=== PATIENT | female | born 2000 | race Caucasian/White ===

== ENCOUNTER 2022-12-23 13:26 | Emergency (ER) | payer OTHER, SELFPAY ==
[2022-12-23 13:26] VITALS: BP 103/67; PULSE 82; RESP 16; TEMP 35.8; O2SAT 97; BMI 24.3
--- NOTE | 2022-12-23 14:01 | US_ITS ---
INDICATION: pelvic pain, vaginal bleeding EXAMINATION: US Transvaginal Non-OB TECHNIQUE: Transvaginal (for optimal evaluation of the adnexa) pelvic ultrasound was performed. Grayscale, spectral waveform, and color flow Doppler evaluation of the adnexa. COMPARISON: None. FINDINGS: UTERUS: Retroverted. The uterus measures 6.8 x 5.7 x 3.2 cm. There is no uterine mass. The endometrial stripe measures 8 mm in AP diameter which is within normal limits. IUD in place. RIGHT OVARY: Measures 3.9 x 1.8 x 1.6 cm. Non-enlarged, normal echogenicity. There is normal arterial inflow and venous outflow present in the right ovary. LEFT OVARY: Measures 3 x 1.6 x 1.7 cm. Non-enlarged, normal echogenicity. There is normal arterial inflow and venous outflow present in the left ovary. FREE FLUID: None. US/Transvaginal Non- IMPRESSION: Normal pelvic ultrasound. Electronically Signed: Tree Wiley MD at 16:11 EDT ,
--- NOTE | 2022-12-23 14:01 | EKG12_ITS ---
Test Reason : Blood Pressure : / mmHG Vent. Rate : 073 BPM Atrial Rate : 073 BPM P-R Int : 166 ms QRS Dur : 090 ms QT Int : 376 ms P-R-T Axes : 079 078 044 degrees QTc Int : 414 ms Normal sinus rhythm Possible Left atrial enlargement Borderline ECG Confirmed by CHESTER YOUNG, ELODIA ([id number]), supervising film or videotape editor TERRI ALATORRE ([id number]) on 12/27/2022 7:57:27 AM Referred By: Confirmed By:ELODIA BRIGGS MD
--- NOTE | 2022-12-23 14:05 | NURSING ---
NO OLD EKGS
--- NOTE | 2022-12-23 14:14 | ED.VIS.FEGU ---
HPI <CINDY Baez - Last Filed: 12/23/22 19:23> HPI - Female History of Present Illness Chief Complaint: Vag Bleeding Narrative Narrative: Patient presenting today due to intermittent pelvic pain and vaginal bleeding with intercourse that she has had now for the past 2 to 3 months. Ports that last night she had much for bleeding than normal after intercourse and noticed tissue in her vaginal canal. Patient has had a IUD placed in February 2020 and is concerned that it could have shifted. She does not currently have a recycling program manager and has not followed up for this issue. She also reports presyncopal episode that occurred in the parking lot of the ED and she began to feel nauseous, sweaty, and felt like she could pass out but did not. 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 She denies any fever, chills, concerns for STD, abnormal vaginal discharge, urinary symptoms, abdominal pain, nausea, vomiting. PFSH <CINDY Baez - Last Filed: 12/23/22 19:23> [facility] Medical History no medical history Social History Smoking Status: Unknown if ever smoked ROS <CINDY Baez - Last Filed: 12/23/22 19:23> ROS ED Constitutional Constitutional ED: Denies chills or fever(s) Cardiovascular Cardiovascular: Denies chest pain or palpitations Respiratory/Chest Respiratory/Chest: Denies cough or dyspnea Gastrointestinal Gastrointestinal: Denies abdominal pain, nausea or vomiting Genitourinary Genitourinary ED: Denies dysuria, hematuria or urinary urgency Musculoskeletal Musculoskeletal: Denies arthralgias or myalgias Integumentary Denies abscess, Abrasions or rash Neurologic Neurologic: Denies confusion or dizziness Psychiatric Psychiatric: Denies anxiety or depression EXAM <CINDY Baez - Last Filed: 12/23/22 19:23> Physical Exam Const Vital Signs: 12/23/22 13:26 12/23/22 17:00 12/23/22 17:22 Temperature 96.5 F L 98.1 F Temperature Source Temporal Pulse Rate 82 76 82 Respiratory Rate 16 16 16 Blood Pressure 103/67 110/73 113/76 Blood Pressure Mean 79 85 Pulse Ox 97 99 99 Oxygen Delivery Method Room Air Room Air Positive well nourished, well developed and no apparent distress General Appearance ED: well developed HEENT Reports normocephalic and head/scalp atraumatic Mouth ED: Yes moist mucous membranes normal Eyes PERRL and EOMs intact bilaterally Neck full ROM and supple Chest Wall inspection of chest normal Resp normal respiratory effort and clear to auscultation bilaterally Cardio regular rate and regular rhythm GI soft to palpation, non-tender, non-distended and no masses Back/Spine normal ROM and normal to inspection Extremity normal to inspection and full ROM Neuro oriented x3, CN's II-XII intact bilaterally, moves all extremities, no focal motor deficits and no sensory deficits noted Sensorium / Orientation: awake and alert Psych mental status grossly normal and thought process normal Skin no rashes or lesions noted and no wounds <Dr. Paul Davila DO - Last Filed: 12/23/22 22:23> Physical Exam Const Vital Signs: 12/23/22 13:26 12/23/22 17:00 12/23/22 17:22 Temperature 96.5 F L 98.1 F Temperature Source Temporal Pulse Rate 82 76 82 Respiratory Rate 16 16 16 Blood Pressure 103/67 110/73 113/76 Blood Pressure Mean 79 85 Pulse Ox 97 99 99 Oxygen Delivery Method Room Air Room Air MDM <CINDY Baez - Last Filed: 12/23/22 19:23> [facility] Narrative Medical decision making narrative: Patient presenting due to abnormal vaginal bleeding after intercourse that she has had intermittently for the past 3 months, she did notice tissue last night after intercourse which concerned her. She is concerned that her IUD has shifted. She is well-appearing and in no acute distress, vital signs are unremarkable. Differentials include STDs, IUD malplacement, ovarian cysts, . Patient also did have a presyncopal episode in the parking lot, this sounds vasovagal in nature but labs will be obtained to rule out leukocytosis, anemia, electrolyte abnormality and are unremarkable. EKG obtained to rule out arrhythmia and is normal sinus rhythm. She declines a pelvic examination at this time as well as STD testing as she just got tested and was negative. Transvaginal ultrasound to be obtained and is negative for any acute findings. Given the duration of patient's symptoms I think it is best for her to follow-up with LABOR RELATIONS OR PERSONNEL NEGOTIATOR, I have given her a referral. She will be discharged home in stable condition and is comfortable with plan. Lab Data Labs: Laboratory Results - last 24 hr 12/23/22 12/23/22 12/23/22 14:15 14:15 16:10 WBC 8.9 RBC 5.25 Hgb 15.9 H Hct 46.6 MCV 88.8 MCH 30.3 MCHC 34.1 RDW Std Deviation 40.2 RDW Coeff of Yudy 12.3 Plt Count 214 MPV 9.0 Immature Gran % (Auto) 0.400 Neut % (Auto) 77.7 H Lymph % (Auto) 12.2 L [place] % (Auto) 6.9 Eos % (Auto) 2.1 Baso % (Auto) 0.7 Absolute Neuts (auto) 6.9 Absolute Lymphs (auto) 1.09 Nucleated RBC % 0 Sodium 136 Potassium 4.1 Chloride 102 Carbon Dioxide 27.0 Anion Gap 7 BUN 13 Creatinine 0.77 Estim Creat Clear Calc 94.80 Est GFR (MDRD) Af Amer 120 Est GFR (MDRD) Non-Af 99 BUN/Creatinine Ratio 16.9 Glucose 87 Calcium 9.6 Urine Test Negative Radiography Diagnostic Testing: Clinical Impression(s) from Imaging Studies Transvaginal US 12/23/22 14:01 IMPRESSION: Normal pelvic ultrasound. Electronically Signed: Tree Wiley MD at 16:11 EDT , <Dr. Paul Davila, DO - Last Filed: 12/23/22 22:23> [facility] Lab Data Attestation: I reviewed the patient's lab results. Lab results narrative: EKG with normal sinus rhythm, normal axis, normal intervals, no ST or T wave changes to suggest ischemia. No evidence of WPW, Brugada, ARVD. CBC without leukocytosis, severe anemia, no thrombocytopenia. BMP without evidence of significant electrolyte abnormalities, no anion gap, no acute kidney injury. Labs: Laboratory Results - last 24 hr 12/23/22 12/23/22 12/23/22 14:15 14:15 16:10 WBC 8.9 RBC 5.25 Hgb 15.9 H Hct 46.6 MCV 88.8 MCH 30.3 MCHC 34.1 RDW Std Deviation 40.2 RDW Coeff of Yudy 12.3 Plt Count 214 MPV 9.0 Immature Gran % (Auto) 0.400 Neut % (Auto) 77.7 H Lymph % (Auto) 12.2 L [place] % (Auto) 6.9 Eos % (Auto) 2.1 Baso % (Auto) 0.7 Absolute Neuts (auto) 6.9 Absolute Lymphs (auto) 1.09 Nucleated RBC % 0 Sodium 136 Potassium 4.1 Chloride 102 Carbon Dioxide 27.0 Anion Gap 7 BUN 13 Creatinine 0.77 Estim Creat Clear Calc 94.80 Est GFR (MDRD) Af Amer 120 Est GFR (MDRD) Non-Af 99 BUN/Creatinine Ratio 16.9 Glucose 87 Calcium 9.6 Urine Test Negative Radiography Diagnostic Testing: Clinical Impression(s) from Imaging Studies Transvaginal US 12/23/22 14:01 IMPRESSION: Normal pelvic ultrasound. Electronically Signed: Tree Wiley MD at 16:11 EDT , Treatment and Re-Evaluation Narrative: ED attending note: I evaluated the patient in conjunction with the ADOLFO. I agree with his/her statements and above findings. I have personally performed a face to face assessment of the patient and have reviewed the ADOLFO Note. I performed a substantive portion of the visit including all aspects of the following. I personally saw the patient performed chart review, physical exam, reviewed labs, imaging (if obtained), and formulated a treatment and management plan. Brief history: Patient is a G1, P0 history of a miscarriage presents with vaginal bleeding after intercourse and lower abdominal TTP. She is primarily concerned about having a missed placed, displaced or abnormal IUD Exam: Nursing triage notes reviewed, Vital signs reviewed Constitutional: please see mdm Lungs: Clear to auscultation, No wheezing or rales. No increased work of breathing, no conversational dyspnea, no accessory muscle use, no nasal flaring. No respiratory distress noted Heart: Regular rate and rhythm, No murmurs, No rubs and No gallops, 2+ distal pulses (radial, femoral, posterior tibial) in all extremities Abdomen: Soft, there is no tenderness, rigidity, rebound or guarding, no obvious peritoneal signs, no palpable pulsatile abdominal masses, no auscultated abdominal bruit : No CVAT, deferred by patient Extremities: No edema Neuro: No focal neurological deficits, cranial nerves II through XII intact, 5/5 strength in all extremities. Intact sensation to light touch in all extremities, 2+ reflexes bilateral patella dens. Normal gait. No ataxia. Skin: No rash or lesions noted MDM/plan: Chief Complaint: Vaginal bleeding External records reviewed: No recent ED visits or hospitalizations I considered the following differential diagnosis: Menstrual cycle, ectopic , miscarriage, perforated uterus, IUD irritation, arrhythmia I obtained a broad lab and imaging work-up to further elucidate the etiology of the patient's complaints. EKG without evidence of arrhythmia or WPW. This included transvaginal ultrasound, CBC and test. We will disposition based on results the patient's imaging labs, reassessment, repeat abdominal exam, vital sign assessment, shared decision making Factors affecting care: History of miscarriage Social determinants of health: Former drug user History obtained from others: The patient's boyfriend Shared decision making: I will have a discussion with the patient and or visitors regarding risk/benefits of further testing or admission. They will be made aware of of the risk/benefits inherent in this decision they will be given the opportunity to voice understanding. Consults: None at this time. If there is anatomic abnormality ultrasound we will consult LABOR RELATIONS OR PERSONNEL NEGOTIATOR Discharge Plan Triage Chief Complaint: Vag Bleeding ED Midlevel Provider: Ruth Rabago ED Provider: Paul Davila Dx/Rx/DC Orders Clinical Impression: Pre-syncope, Abnormal vaginal bleeding Instructions: ED Dysfunctional Uterine Bleeding Stand Alone Forms: ED Work / School Excuse Primary Care Provider: Care Physician,No Primary Referrals: Ananya Todd MD [Med Staff - Active Staff] - 5-7 Days Care Physician,No Primary [Primary Care Provider] - Activity Restrictions/Additional Instructions: Follow-up with LABOR RELATIONS OR PERSONNEL NEGOTIATOR, return for any worsening of your symptoms. Disposition Disposition: Home, Self Care Discharge Date/Time: 12/23/22 17:22
[2022-12-23 14:26] LABS: Absolute Lymphocyte Count 1.09 X10^3/uL (0.83-4.51); Absolute Neutrophil Count 6.9 X10^3/uL (2.0-7.7); Basophil# 0.06 X10^3/uL; Basophil% 0.7 % (0-1); Eosinophil# 0.19 X10^3/uL; Eosinophils% 2.1 % (0-5); Hematocrit 46.6 % (37-47); Hemoglobin 15.9 g/dL (12.0-15.0); Lymphocyte # 1.09 X10^3/ul (0.83-4.51); Lymphocyte % 12.2 % (19-41); Mean Corp Hgb Conc 34.1 g/dL (32-36); Mean Corpuscular Hgb 30.3 pg (27.0-32.0); Mean Corpuscular Volume 88.8 fL (81-99); Monocyte# 0.62 X10^3/uL; Monocyte% 6.9 % (0-10); NRBC Flagged by Analyzer 0 % (0-5); Neutrophil # 6.94 X10^3/uL (2.7-7.7); Neutrophil % 77.7 % (47-70); Platelet Count 214 K/mm3 (150-450); RBC Distribution Width CV 12.3 % (11.6-14.6); RBC Distribution Width SD 40.2 fl (35.1-43.9); Red Blood Count 5.25 M/mm3 (4.2-5.4); White Blood Count 8.9 K/mm3 (4.4-11.0)
[2022-12-23 14:46] LABS: Anion Gap 7 (5-15); BUN 13 mg/dL (7-18); BUN/Creat Ratio 16.9 RATIO (10-20); Calcium,Total 9.6 mg/dL (8.5-10.1); Chloride 102 mmol/L (98-107); Creatinine, Serum 0.77 mg/dL (0.55-1.02); EST Glomerular Filtration Rate 99 mL/min (>60); Est Glom Filt Rate - Afr Amer 120 mL/min (>60); Glucose 87 mg/dL (74-106); Potassium 4.1 mmol/L (3.5-5.1); Sodium Level 136 mmol/L (136-145)
[2022-12-23 16:57] LABS: Internal QC Validated? YES +Cl - CLEAR BKGD; Pregnancy, Urine Negative Negative
[2022-12-23 17:00] VITALS: BP 110/73; PULSE 76; RESP 16; O2SAT 99
[2022-12-23 17:22] VITALS: BP 113/76; PULSE 82; RESP 16; TEMP 36.7; O2SAT 99
== END 2022-12-23 17:22 | disposition home or self-care (01) ==
PROVIDERS: Physician Assistant; Emergency Provider Emergency Medicine; Visit Provider Emergency Medicine
DX: N93.9 Abnormal uterine and vaginal bleeding, unspecified (principal); R55 Syncope and collapse
CPT/HCPCS: 76830; 80048; 81025; 85025; 93005; 99283; A4216

== ENCOUNTER 2023-12-05 07:58 | Emergency (ER) | payer SELFPAY ==
[2023-12-05 07:58] VITALS: BP 135/88; PULSE 84; RESP 16; TEMP 36; O2SAT 98; BMI 31.3
--- NOTE | 2023-12-05 08:17 | EDS_ITS ---
HPI History of Present Illness Chief Complaint: Chest Pain Informant: patient and spouse/S.O. Narrative Narrative: Presents with transient chest pain dyspnea bilateral shoulder tingling this morning. near syncopal episode with this. Blood pressure elevated 160s. She was told of elevated blood pressure a little 2 weeks ago urgent care when she was seen for hemorrhoid. She been checking her blood pressure averaging 130s at times 160s. She does smoke. No recent travel or surgeries. No history of PE or DVT. She has IUD with progesterone. No diagnosed hypertension diabetes or hyperlipidemia. No family history of MIs at young age. She had appointment with new PCP in 3 weeks in [place]. Smoker's cough. CVD Risk Factors: Negative for Hypertension, Diabetes, Hypercholesterolemia, Family History 1' </=55 or Smoking PE Risk Factors: Negative for Recent Travel/Surgery, Recent Immobilization, Prior DVT or PE or OCP + Smoking + >/=35 PFSH PFSH Medical History (Updated 12/05/23 @ 09:[address] Kwame Vail, DO) WPW (Ioeuj-Pyzvkqetg-Bliay syndrome) Allergy/AdvReac Type Severity Reaction Status Date / Time Penicillins Allergy Severe Hives Verified 12/05/23 08:02 Surgical History (Updated 12/05/23 @ 08:03 by Yennifer Alvarado) Hx of heart surgery Social History Smoking Status: Current every day smoker tobacco type: cigarettes ROS ROS ED Constitutional Constitutional ED: Denies chills, fever(s) or sweats Eyes Eyes: Denies change in vision ENT ENT ED: Denies dysphagia or sore throat Cardiovascular Cardiovascular: Reports chest pain; Denies leg edema, palpitations or racing heartbeat Respiratory/Chest Respiratory/Chest: Reports cough and dyspnea; Denies dyspnea on exertion Gastrointestinal Gastrointestinal: Denies abdominal pain, diarrhea, nausea or vomiting Genitourinary Genitourinary ED: Denies dysuria, hematuria or urinary frequency Musculoskeletal Musculoskeletal: Denies back pain, extremity pain or neck pain Integumentary Denies rash or wounds Neurologic Neurologic: Denies headache(s), paresthesias or weakness EXAM Physical Exam Const Vital Signs: 12/05/23 07:58 12/05/23 08:16 12/05/23 08:58 Temperature 96.8 F L Temperature Source Temporal Pulse Rate 84 89 Respiratory Rate 16 14 Blood Pressure 135/88 H 125/79 H Blood Pressure Mean 103 94 Pulse Ox 98 98 Oxygen Delivery Method Room Air Room Air Room Air 12/05/23 09:00 12/05/23 09:34 Temperature 98.0 F Temperature Source Pulse Rate 80 80 Respiratory Rate 19 H 19 H Blood Pressure 114/70 114/70 Blood Pressure Mean 84 84 Pulse Ox 98 98 Oxygen Delivery Method Room Air Positive well nourished and well developed General Appearance ED: well developed and NAD HEENT Reports moist mucous membranes normocephalic and atraumatic Eyes EOMs intact bilaterally and conjunctivae normal General Eye ED: Yes normal appearance of both eyes Neck no lymphadenopathy and supple General: Negative for tenderness Chest Wall Chest: Negative for tenderness Resp normal respiratory effort and normal air movement Effort and Inspection: symmetric chest movement; Negative for respiratory distress Cardio regular rate, regular rhythm and no murmurs Peripheral Pulses: pulses 2+ throughout GI normal to inspection, nondistended, normoactive bowel sounds and non-tender Palpation: Negative for guarding or rebound tenderness present Back/Spine no CVA tenderness and no thoracic nor lumbar tenderness Extremity normal to inspection General Extremety ED: Negative for edema or tenderness General Extremity: Negative for edema Neuro oriented x3 and no sensory deficits noted Sensorium / Orientation: awake and alert Skin no rashes or lesions noted and no wounds MDM MDM MDM Narrative Medical decision making narrative: Interventions / MDM: Differential diagnosis: Atypical chest pain. Diagnosis considered but do not suspect: Pulmonary embolism however PERC criteria negative. ACS however EKG and negative cardiac enzyme. My EKG interpretation: Sinus rate of 85, no ST or T wave changes. Imaging independently reviewed and interpreted by myself: 2 view chest x-ray: No acute process also read radiology. External documents reviewed: N/A Test considered but not ordered:N/A ED course: Patient blood pressure arrival 135/88, in the room 128/78. I discussed appropriate checking her blood pressure in the morning at night keeping a log. She is currently asymptomatic. She had concerns for chest pain. She is very low risk factors for any cardiac disease however with her concerns we will check cardiac labs. PERC negative as she is only on progesterone and estrogen with her IUD. Patient workup negative troponin less than 3 therefore no ACS concerns according to hospital algorithm. Made symptom-free blood pressure 114/70 on reevaluation. She will keep her follow-up as an outpatient. Return precautions. All questions were answered. Re-evaluation: stable Disposition discussed with patient/family/significant other: Patient and significant other Case discussed with consulting clinician: N/A This note was generated with [employer] dictation software. It may contain incorrect words, spelling, and punctuation that were not noted in checking the note before signing. Lab Data Attestation: I reviewed the patient's lab results. Labs: Laboratory Results - last 24 hr 12/05/23 08:25 WBC 4.7 RBC 5.02 Hgb 15.2 H Hct 44.5 MCV 88.6 MCH 30.3 MCHC 34.2 RDW Std Deviation 39.8 RDW Coeff of Yudy 12.3 Plt Count 232 MPV 9.2 Immature Gran % (Auto) 0.400 Neut % (Auto) 62.0 Lymph % (Auto) 20.5 [place] % (Auto) 10.7 H Eos % (Auto) 5.5 H Baso % (Auto) 0.9 Absolute Neuts (auto) 2.9 Absolute Lymphs (auto) 0.96 Nucleated RBC % 0 Sodium 138 Potassium 4.0 Chloride 107 Carbon Dioxide 28.0 Anion Gap 3 L BUN 6 L Creatinine 0.70 Estim Creat Clear Calc 125.33 Est GFR (MDRD) Af Amer 133 Est GFR (MDRD) Non-Af 110 BUN/Creatinine Ratio 8.6 L Glucose 95 Calcium 9.3 Troponin I High Sens < 3 L Radiography Diagnostic Testing: Clinical Impression(s) from Imaging Studies Chest X-Ray 12/05/23 09:00 IMPRESSION: Normal x-ray examination of the chest. Electronically Signed: Rakesh Ortiz MD at 9:15 EDT , Discharge Plan Triage Chief Complaint: Chest Pain ED Provider: Kwame Vail Dx/Rx/DC Orders Clinical Impression: Chest pain Instructions: ED Chest Pain, Noncardiac Stand Alone Forms: Work / School Excuse Primary Care Provider: Care Physician,No Primary Referrals: Care Physician,No Primary [Primary Care Provider] - Activity Restrictions/Additional Instructions: Your cardiac workup normal ED. Chest x-ray negative. Your concerns of blood pressure keep a log of it in the morning when you wake up and then at night before bedtime. Keep follow-up with your doctor on the fourth. Print Language: Malay Disposition Disposition: Home, Self Care Discharge Date/Time: 12/05/23 09:36
[2023-12-05 08:47] LABS: Absolute Lymphocyte Count 0.96 X10^3/uL (0.83-4.51); Absolute Neutrophil Count 2.9 X10^3/uL (2.0-7.7); Basophil# 0.04 X10^3/uL; Basophil% 0.9 % (0-1); Eosinophil# 0.26 X10^3/uL; Eosinophils% 5.5 % (0-5); Hematocrit 44.5 % (37-47); Hemoglobin 15.2 g/dL (12.0-15.0); Lymphocyte # 0.96 X10^3/ul (0.83-4.51); Lymphocyte % 20.5 % (19-41); Mean Corp Hgb Conc 34.2 g/dL (32-36); Mean Corpuscular Hgb 30.3 pg (27.0-32.0); Mean Corpuscular Volume 88.6 fL (81-99); Mean Platelet Vol. 9.2 fl (6.2-12.0); Monocyte% 10.7 % (0-10); NRBC Flagged by Analyzer 0 % (0-5); Neutrophil # 2.91 X10^3/uL (2.7-7.7); Platelet Count 232 K/mm3 (150-450); RBC Distribution Width CV 12.3 % (11.6-14.6); RBC Distribution Width SD 39.8 fl (35.1-43.9); Red Blood Count 5.02 M/mm3 (4.2-5.4); White Blood Count 4.7 K/mm3 (4.4-11.0)
[2023-12-05 08:58] VITALS: BP 125/79; PULSE 89; RESP 14; O2SAT 98
[2023-12-05 09:00] VITALS: BP 114/70; PULSE 80; RESP 19; O2SAT 98
--- NOTE | 2023-12-05 09:00 | RAD_ITS ---
STUDY: X-RAY CHEST REASON FOR EXAM: Female, 23 years old. Chest pain TECHNIQUE: PA and lateral views of the chest. COMPARISON: None. FINDINGS: EKG electrodes are seen. The lungs are clear and expanded. There is no demonstrated pleural abnormality. Normal size heart. Normal mediastinum and isidra. Normal visualized pulmonary arteries. Normal visualized aortic arch and descending thoracic aorta. Normal visualized thoracic spine. Normal visualized ribs, clavicles, and shoulders. There is no demonstrated abnormality of the visualized soft tissue structures of the upper abdomen. RAD/Chest PA and Lateral IMPRESSION: Normal x-ray examination of the chest. Electronically Signed: Rakesh Ortiz MD at 9:15 EDT ,
[2023-12-05 09:02] LABS: Anion Gap 3 (5-15); BUN 6 mg/dL (7-18); BUN/Creat Ratio 8.6 RATIO (10-20); Calcium,Total 9.3 mg/dL (8.5-10.1); Chloride 107 mmol/L (98-107); EST Glomerular Filtration Rate 110 mL/min (>60); Est Glom Filt Rate - Afr Amer 133 mL/min (>60); Estimated Creatinine Clearance 125.33 ml/min; Glucose 95 mg/dL (74-106); Sodium Level 138 mmol/L (136-145); Troponin-I HS (w/2H Reflex) < 3 pg/mL (3.0-54.0)
[2023-12-05 09:34] VITALS: BP 114/70; PULSE 80; RESP 19; TEMP 36.7; O2SAT 98
[2023-12-05 10:35] LABS: Reflex Troponin-HS? (from REC) Y
== END 2023-12-05 09:36 | disposition home or self-care (01) ==
PROVIDERS: Emergency Provider Emergency Medicine; Visit Provider Emergency Medicine
DX: R07.9 Chest pain, unspecified (principal); F17.210 Nicotine dependence, cigarettes, uncomplicated
CPT/HCPCS: 71046; 80048; 84484; 85025; 93005; 99284

== ENCOUNTER 2024-04-08 22:22 | Emergency (ER) | payer MEDICAID, SELFPAY ==
[2024-04-08 22:23] VITALS: BP 149/94; PULSE 117; RESP 18; TEMP 36.6; O2SAT 98
--- NOTE | 2024-04-08 23:06 | RAD_ITS ---
INDICATION: fall EXAMINATION/TECHNIQUE: X-RAY - RIGHT XR Foot Min 3 Views 3 VIEWS COMPARISON: No relevant prior comparison study available FINDINGS: SOFT TISSUES: No soft tissue swelling or gas. No radiopaque foreign body. BONES/JOINTS: Nondisplaced fracture of the base of the fifth metatarsal. Normal alignment. Preservation of the joint space.. No sclerotic or destructive changes observed. RAD/Foot min 3 Views IMPRESSION: Nondisplaced fracture of the base of the fifth metatarsal. Electronically Signed: Sudhakar Major MD at 23:31 EDT ,
--- NOTE | 2024-04-09 00:34 | ED.VIS.LOWEX ---
HPI History of Present Illness Chief Complaint: Lower Extremity Injury Informant: patient Narrative Narrative: Patient is a 23-year-old female with no stated past medical history presenting with right foot pain. She was helping move a couch and wearing sandals. She then slipped and rolled her foot. She felt a crunching sensation and immediately had pain at her right foot at the base of the fifth metatarsal. She felt that she feel like something popped out. Has a hard time weightbearing since. Did not take anything for pain prior to arrival. No other complaints or concerns reported at this time. Is concerned she broke her foot. Denies associate ankle pain. Is having some paresthesias of her right lateral foot into her ankle and distal calf. No other complaints or concerns at this time. [facility], [facility] Medical History WPW (Mxqdi-Diylmoovp-Uodxx syndrome) Allergy/AdvReac Type Severity Reaction Status Date / Time Penicillins Allergy Severe Hives Verified 04/08/24 22:23 Surgical History Hx of heart surgery Social History Smoking Status: Current every day smoker tobacco type: cigarettes ROS ROS ED Constitutional Constitutional ED: Denies chills or fever(s) Musculoskeletal Musculoskeletal: Reports other Details: Right foot pain Integumentary Denies rash Neurologic Neurologic: Reports paresthesias; Denies weakness Hematologic/Lymphatic Hematologic/Lymphatic: Denies easy bleeding or easy bruising EXAM Physical Exam Const Vital Signs: 04/08/24 22:23 Temperature 97.9 F Temperature Source Temporal Pulse Rate 117 H Respiratory Rate 18 Blood Pressure 149/94 H Blood Pressure Mean 112 Pulse Ox 98 Oxygen Delivery Method Room Air Positive well nourished and well developed General Appearance ED: well developed and NAD HEENT Reports moist mucous membranes Chest Wall inspection of chest normal Resp normal respiratory effort Cardio Cardio Narrative: 2+ DP pulses Extremity Extremity Narrative: Tenderness palpation at the fifth metatarsal head. Some soft tissue swelling and bruising noted over the area. No obvious deformity. Normal range of motion of the toes. Normal range of motion of the ankle. Normal Krueger test. No chest palpation over the right ankle or the fibular head. Neuro moves all extremities and no sensory deficits noted Psych mental status grossly normal Skin no wounds Rashes: no rashes MDM MDM MDM Narrative Medical decision making narrative: Patient evaluated for right ankle pain and injury. Protocol x-ray ordered. X-ray of the foot reviewed by myself as well as radiology shows a nondisplaced fracture of the base of the fifth metatarsal. This is consistent with the patient's injury and area of pain. Patient will be given crutches, postop shoe and weightbearing as tolerated. Is given dose of Motrin in the ER. Will be given outpatient podiatry follow-up. Given return precautions. Patient verbalized agreement or stands plan. Discharged home in stable condition. Patient declines any prescription for Motrin or stronger pain medication. Radiography Diagnostic Testing: Clinical Impression(s) from Imaging Studies Foot X-Ray 04/08/24 23:06 IMPRESSION: Nondisplaced fracture of the base of the fifth metatarsal. Electronically Signed: Sudhakar Major MD at 23:31 EDT , Discharge Plan Triage Chief Complaint: Lower Extremity Injury ED Provider: Emmy Taveras Dx/Rx/DC Orders Clinical Impression: Closed nondisplaced fracture of fifth right metatarsal bone Instructions: Fifth Metatarsal Fx Primary Care Provider: Care Physician,No Primary Referrals: Leonel Robin DPM [Med Staff - Active Staff] - Care Physician,No Primary [Primary Care Provider] - Activity Restrictions/Additional Instructions: You may alternate ibuprofen and Tylenol for pain. You are given a dose of 600 mg ibuprofen here. Use crutches and only put weight on the foot as tolerated. Follow-up with podiatry for this. Return to the ER if you have progression or worsening your symptoms. Print Language: Mozambican Disposition Disposition: Home, Self Care
[2024-04-09 00:54] VITALS: BMI 28.0
[2024-04-09 00:55] VITALS: BP 127/74; PULSE 87; RESP 16; TEMP 37.2; O2SAT 100
== END 2024-04-09 00:56 | disposition home or self-care (01) ==
PROVIDERS: Emergency Provider Emergency Medicine; Visit Provider Emergency Medicine
DX: S92.354A Nondisplaced fracture of fifth metatarsal bone, right foot, initial encounter for closed fracture (principal); W18.49XA Other slipping, tripping and stumbling without falling, initial encounter; F17.210 Nicotine dependence, cigarettes, uncomplicated
CPT/HCPCS: 73630; 99284

== ENCOUNTER 2024-10-02 03:18 | Emergency (ER) | payer MEDICAID, SELFPAY ==
[2024-10-02 03:20] VITALS: BP 145/101; PULSE 127; RESP 24; TEMP 36.7; O2SAT 98; BMI 31.4
[2024-10-02 03:32] VITALS: BP 140/85; PULSE 105; RESP 18; O2SAT 96
--- NOTE | 2024-10-02 03:45 | EKG12_ITS ---
Test Reason : CHEST PAIN Blood Pressure : */* mmHG Vent. Rate : 119 BPM Atrial Rate : 119 BPM P-R Int : 148 ms QRS Dur : 80 ms QT Int : 318 ms P-R-T Axes : 72 73 13 degrees QTcB Int : 447 ms Sinus tachycardia Otherwise normal ECG Confirmed by KATHYA YOUNG, MARITA ([id number]), sports editor PATTIE COLON ([id number]) on 10/07/2024 10:53:19 AM Referred By: JUAN DIEGO Confirmed By: MARITA RASHEED MD
[2024-10-02] MEDS: 0.9% Normal Saline (1000mL) 1,000 ML 999 ML IV (04:02)
[2024-10-02] MEDS: DiphenhydrAMINE 50 MG/ML Syringe 12.5 MG IV (04:03)
[2024-10-02] MEDS: Lorazepam 2 MG/ML WCH Syringe 0.5 MG IV (04:03)
[2024-10-02 04:05] LABS: Absolute Lymphocyte Count 3.02 X10^3/uL (0.83-4.51); Absolute Neutrophil Count 6.6 X10^3/uL (2.0-7.7); Basophil# 0.11 X10^3/uL; Eosinophils% 2.6 % (0-5); Hematocrit 47.6 % (37-47); Hemoglobin 16.8 g/dL (12.0-15.0); Lymphocyte # 3.02 X10^3/ul (0.83-4.51); Lymphocyte % 26.5 % (19-41); Mean Corp Hgb Conc 35.3 g/dL (32-36); Mean Corpuscular Hgb 30.8 pg (27.0-32.0); Mean Corpuscular Volume 87.2 fL (81-99); Mean Platelet Vol. 9.2 fl (6.2-12.0); Monocyte# 1.35 X10^3/uL; Monocyte% 11.9 % (0-10); NRBC Flagged by Analyzer 0 % (0-5); Neutrophil # 6.55 X10^3/uL (2.7-7.7); Neutrophil % 57.5 % (47-70); Platelet Count 307 K/mm3 (150-450); RBC Distribution Width CV 12.6 % (11.6-14.6); RBC Distribution Width SD 39.3 fl (35.1-43.9); Red Blood Count 5.46 M/mm3 (4.2-5.4); White Blood Count 11.4 K/mm3 (4.4-11.0)
--- NOTE | 2024-10-02 04:10 | EDS_ITS ---
HPI History of Present Illness Chief Complaint: Hypertension Informant: patient and spouse/S.O. 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 She states that she typically smokes marijuana daily and that this evening also has been drinking alcohol. She reports she got into an argument with her significant other and after this developed sensation of her heart racing. She states that she had concern she had gone back into an abnormal heart rhythm such as WPW and therefore comes to the hospital for evaluation [facility] Medical History Alcohol abuse Cigarette smoker Marijuana smoker WPW (Lcsfv-Rhkvnyccm-Cqjkh syndrome) Home Medications ?Medication ?Instructions ?Recorded ?Last Taken ?Type NK 10/02/24 Unknown History Allergy/AdvReac Type Severity Reaction Status Date / Time Penicillins Allergy Severe Hives Verified 10/02/24 03:20 Surgical History Hx of heart surgery Social History Smoking Status: Current every day smoker tobacco type: cigarettes ROS ROS ED Constitutional Constitutional ED: Denies chills or fever(s) Eyes Eyes: Denies blurry vision or change in vision ENT ENT ED: Denies sore throat Cardiovascular Cardiovascular: Reports palpitations and racing heartbeat; Denies chest pain Respiratory/Chest Respiratory/Chest: Denies cough or dyspnea Gastrointestinal Gastrointestinal: Reports nausea; Denies abdominal pain, diarrhea or vomiting Genitourinary Genitourinary ED: Denies dysuria Musculoskeletal Musculoskeletal: Denies back pain Integumentary Denies rash Neurologic Neurologic: Denies headache(s) Psychiatric Psychiatric: Reports anxiety Hematologic/Lymphatic Hematologic/Lymphatic: Denies easy bleeding or easy bruising EXAM Physical Exam Const Vital Signs: 10/02/24 03:20 10/02/24 03:26 10/02/24 03:32 Temperature 98.0 F Temperature Source Oral Pulse Rate 127 H 105 H Respiratory Rate 24 H 18 Respiratory Effort Normal Non-Labored Respiratory Pattern Tachypnea Blood Pressure 145/101 H 140/85 H Blood Pressure Mean 115 103 Pulse Ox 98 96 Oxygen Delivery Method Room Air Room Air 10/02/24 04:59 Temperature 97.9 F Temperature Source Pulse Rate 99 Respiratory Rate 18 Respiratory Effort Respiratory Pattern Blood Pressure 112/69 Blood Pressure Mean 83 Pulse Ox 94 Oxygen Delivery Method Positive well nourished and well developed General Appearance ED: well developed; Negative for pallor HEENT HEENT Narrative: Normocephalic atraumatic Eyes Eyes Narrative: Pupils are dilated and sluggish to respond to light with scleral injection consistent with alcohol use General Eye ED: Negative for scleral icterus Neck supple and no JVD Neck Narrative: No nuchal rigidity or meningeal signs noted Chest Wall palpation of chest normal Chest Narrative: No bony deformity or crepitance Resp clear to auscultation bilaterally Resp Narrative: Patient is tachypneic and breath sounds are diminished throughout but overall clear to auscultation Cardio regular rhythm Rate: tachycardic and other Other Details: Tachycardic rate with regular rhythm Radial and carotid pulses are equal and symmetric No carotid bruit noted GI normal to inspection, nondistended, normoactive bowel sounds, non-tender, non- distended and no masses Auscultation: normoactive bowel sounds Palpation: soft Extremity normal to inspection Extremity Narrative: No asymmetric edema no pitting edema negative Homans' sign bilaterally Neuro oriented x3, CN's II-XII intact bilaterally and no sensory deficits noted Sensorium / Orientation: alert Motor Exam: strength 5/5 throughout Psych Mood & Affect: anxious and tearful Skin no rashes or lesions noted General Skin Exam: Negative for jaundice or pallor MDM MDM MDM Narrative Medical decision making narrative: Patient presented to the ER hypertensive and tachycardic but was also visibly anxious. With her history of WPW and her reported sensation of tachycardia she had concern that she was back in an abnormal heart rhythm such as A-fib a flutter or SVT. In order to ensure that this was not the case an EKG was obtained which showed sinus tachycardia but no signs of ischemia or abnormal heart rhythm. In order to ensure that there was no signs of acute kidney injury acute blood loss anemia complication or thyroid disorder as a cause of her symptoms basic blood work was ordered. Labs revealed no clinically significant findings. After receiving IV hydration as well as 0.5 of IV Ativan and 12.5 mg of IV Benadryl the patient had resolution of her hypertension and tachycardia and anxiety. Therefore at this time with improvement of vitals and resolution of symptoms and a negative workup there is no need for further evaluation and she is otherwise safe for discharge History & Record Review Discussion w/independent historian: Patient and Significant other Lab Data Attestation: I reviewed the patient's lab results. Labs: Laboratory Results - last 24 hr 10/02/24 03:30 WBC 11.4 H RBC 5.46 H Hgb 16.8 H Hct 47.6 H MCV 87.2 MCH 30.8 MCHC 35.3 RDW Std Deviation 39.3 RDW Coeff of Yudy 12.6 Plt Count 307 MPV 9.2 Immature Gran % (Auto) 0.500 Neut % (Auto) 57.5 Lymph % (Auto) 26.5 [place] % (Auto) 11.9 H Eos % (Auto) 2.6 Baso % (Auto) 1.0 Absolute Neuts (auto) 6.6 Absolute Lymphs (auto) 3.02 Nucleated RBC % 0 Sodium 143 Potassium 3.5 Chloride 104 Carbon Dioxide 20.4 L Anion Gap 18 H BUN 2 L Creatinine 0.68 L Estim Creat Clear Calc 128.24 Est GFR (MDRD) Non-Af 125 BUN/Creatinine Ratio 3.1 L Glucose 103 H Calcium 9.7 Magnesium 2.0 TSH 1.690 Serum , Qual NEGATIVE Discharge Plan Triage Chief Complaint: Hypertension ED Provider: Checo Dwyer Dx/Rx/DC Orders Clinical Impression: Sinus tachycardia, Alcohol intoxication, Anxiety reaction Instructions: Understanding Tachycardia Prescriptions: No Action NK Primary Care Provider: Care Physician,No Primary Referrals: Jani Ortiz MD [Med Staff - Active Staff] - Care Physician,No Primary [Primary Care Provider] - Activity Restrictions/Additional Instructions: Your workup today revealed no clinically significant lab abnormalities and after treatment your blood pressure and heart rate improved. Moreover your EKG and cardiac monitoring never displayed an abnormal rhythm such as A-fib A-flutter or WPW. Follow-up with your family doctor for repeat evaluation and return to the ER should you have any further concerns Print Language: Croatian Disposition Disposition: Home, Self Care Discharge Date/Time: 10/02/24 05:24
[2024-10-02 04:16] LABS: Internal QC Validated? YES +Cl - CLEAR BKGD; Pregnancy, Serum, hCG Quali. NEGATIVE Negative
[2024-10-02 04:47] LABS: Anion Gap 18 (5-15); BUN 2 mg/dL (4-19); BUN/Creat Ratio 3.1 RATIO (10-20); Calcium,Total 9.7 mg/dL (7.6-11.0); Carbon Dioxide 20.4 mmol/L (21.0-32.0); Chloride 104 mmol/L (98-108); Creatinine, Serum 0.68 mg/dL (0.70-1.20); EST Glomerular Filtration Rate 125 (>60); Estimated Creatinine Clearance 128.24 ml/min (50-250); Glucose 103 mg/dL (70-99); Potassium 3.5 mmol/L (3.3-5.1); Sodium Level 143 mmol/L (133-145)
[2024-10-02 04:59] VITALS: BP 112/69; PULSE 99; RESP 18; TEMP 36.6; O2SAT 94
== END 2024-10-02 05:24 | disposition home or self-care (01) ==
PROVIDERS: Emergency Provider Emergency Medicine; Visit Provider Emergency Medicine
DX: R00.0 Tachycardia, unspecified (principal); F10.129 Alcohol abuse with intoxication, unspecified; I10 Essential (primary) hypertension; F41.1 Generalized anxiety disorder; F17.210 Nicotine dependence, cigarettes, uncomplicated; Z63.0 Problems in relationship with spouse or partner
CPT/HCPCS: 80048; 83735; 84443; 84703; 85025; 93005; 96361; 96374; 96375; 99284; A4216

== ENCOUNTER 2025-04-13 00:02 | Emergency (ER) | payer MEDICAID, SELFPAY ==
[2025-04-13 00:06] VITALS: BP 149/94; PULSE 101; RESP 20; TEMP 36.7; O2SAT 98; BMI 33.8
--- NOTE | 2025-04-13 00:43 | EDS_ITS ---
HPI History of Present Illness Chief Complaint: Eye Problem Informant: patient and parent Narrative Narrative: Patient is a 24-year-old female with history of Cgcgh-Leunhzrmc-Awglv syndrome who underwent an ablation for this 5 years ago. She denies any history of bleeding disorder or blood thinner use. She states that earlier today she felt like there was something stuck in her right eye. She states that she attempted to get the foreign body sensation out and felt that she was successful. She states she went about the rest of her day and this evening was drinking alcohol. She then began to feel pain in her right eye and reports that the vision was blurry. 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 [facility] Medical History Alcohol abuse Cigarette smoker Marijuana smoker WPW (Qankf-Lkxywguif-Busba syndrome) Home Medications ?Medication ?Instructions ?Recorded ?Last Taken ?Type metoprolol succinate 25 mg 25 mg PO PRN 04/13/25 Unkno wn History tablet,extended release 24 hr progesterone micronized .ROUTE 04/13/25 Unknown Hist ory Allergy/AdvReac Type Severity Reaction Status Date / Time Penicillins Allergy Severe Hives Verified 04/13/25 00:04 Surgical History Hx of heart surgery Social History Smoking Status: Current every day smoker tobacco type: cigarettes ROS ROS ED Constitutional Constitutional ED: Denies chills or fever(s) Eyes Eyes: Reports blurry vision right ENT ENT ED: Denies sore throat Cardiovascular Cardiovascular: Denies chest pain or palpitations Respiratory/Chest Respiratory/Chest: Denies cough or dyspnea Gastrointestinal Gastrointestinal: Denies abdominal pain, diarrhea, nausea or vomiting Musculoskeletal Musculoskeletal: Denies myalgias Integumentary Denies rash Neurologic Neurologic: Denies headache(s) or weakness Hematologic/Lymphatic Hematologic/Lymphatic: Denies easy bleeding or easy bruising EXAM Physical Exam Const Vital Signs: 04/13/25 00:06 04/13/25 00:16 Temperature 98.1 F Temperature Source Oral Pulse Rate 101 H Respiratory Rate 20 H Respiratory Pattern Tachypnea Blood Pressure 149/94 H Blood Pressure Mean 112 Pulse Ox 98 Oxygen Delivery Method Room Air Positive well nourished and well developed General Appearance ED: well developed HEENT HEENT Narrative: Normocephalic atraumatic Eyes PERRL and EOMs intact bilaterally Eyes Narrative: Pupils are slightly dilated and mildly sluggish to respond to light consistent with alcohol use. Extraocular motions are intact bilaterally. There is bilateral scleral injection which can be related to alcohol use as well as the fact patient has been crying. No purulent discharge noted Funduscopic exam reveals normal macula and optic disc. No pallor noted. No blood and thunder appearance. No obvious retained foreign body No hyphema noted. No obvious corneal ulcer present. Neck supple Resp normal respiratory effort and clear to auscultation bilaterally Cardio regular rate and regular rhythm Extremity normal to inspection Neuro oriented x3, CN's II-XII intact bilaterally and moves all extremities Neuro Narrative: GCS of 15 Cranial nerves II through XII are grossly intact without focal neurologic deficit No pronator drift no dysmetria no truncal ataxia No hemianopsia/vision loss noted NIH stroke scale score of 0 Sensorium / Orientation: alert Motor Exam: strength 5/5 throughout Psych Mood & Affect: anxious and tearful Skin no rashes or lesions noted and no wounds Lesions: no lesions Rashes: no rashes MDM MDM MDM Narrative Medical decision making narrative: Patient arrived to the ER hypertensive but is extremely anxious and tearful. She reported right eye pain with blurry vision out of the right eye. She is adamant that the vision is simply blurry and that there is not loss of vision. She states that there are no scintillations/flashing light sensation. No blackness or vision change such as a shade being pulled down. She also reported that earlier in the day she thought there was something in her right eye which could correlate with a corneal abrasion. I discussed with the patient that concern for retinal artery or vein occlusion is extremely low as there is no pale macular optic disc or blood and thunder appearance. Also as she does not describe scintillations or a shade being pulled down causing vision loss I have low concern for retinal detachment. Also as the vision is blurry but not lost concern for a acute CVA is low. I discussed with the patient we can perform a more detailed exam with fluorescein staining and a slit-lamp to look for corneal abrasion and/or retained foreign body. We also can perform a CTA of the head to assess for potential acute stroke symptoms. The patient states that as I have low concern that her vision changes are due to an acute stroke or retinal issue that she does not want to undergo any type of testing in the ER such as CTA or even a simple fluorescein stain. Therefore at this time as the patient does not want further testing or workup regarding her blurry vision and her history and exam would indicate that this is most likely changes to the cornea/corneal abrasion as she reported a foreign body sensation earlier in the day I will allow her to be discharged as requested and she can follow-up with ophthalmology for more detailed eye examination if symptoms persist History & Record Review Discussion w/independent historian: Patient and Family Discharge Plan Triage Chief Complaint: Eye Problem ED Provider: Checo Dwyer Dx/Rx/DC Orders Clinical Impression: Blurred vision, right eye, Alcohol intoxication, History of Oreyf-Fpidhxwhf-Sjdwf syndrome Instructions: ED Blurred Vision, ED Corneal Abrasion Prescriptions: No Action metoprolol succinate 25 mg tablet extended release 24 hr 25 mg PO PRN progesterone micronized .ROUTE Primary Care Provider: Yaneth Camarena NP Referrals: Nimisha Laguerre MD [Med Staff - Active Staff, Opthamology] Yaneth Camarena NP, [employer] [facility] [Primary Care Provider, Family Practice] Activity Restrictions/Additional Instructions: Your history and exam would indicate that the vision blurriness is most likely from a corneal abrasion. This should heal over the next few days. If you have complete loss of vision or develop blackness or see the scintillation/flashing lights or have any further concerns please return to the ER for repeat evaluation. Otherwise recommend following up with ophthalmology for more detailed eye exam Print Language: Puerto Rican Disposition Disposition: Home, Self Care Discharge Date/Time: 04/13/25 00:52
[2025-04-13 00:44] VITALS: BP 135/98; PULSE 86; RESP 18; TEMP 36.6; O2SAT 97
== END 2025-04-13 00:52 | disposition home or self-care (01) ==
LOC: ED 00:51
PROVIDERS: Emergency Provider Emergency Medicine; PCP Nurse Practitioner Family; Visit Provider Emergency Medicine
DX: H53.8 Other visual disturbances (principal); F10.129 Alcohol abuse with intoxication, unspecified; I45.6 Pre-excitation syndrome; F17.210 Nicotine dependence, cigarettes, uncomplicated; Z98.890 Other specified postprocedural states; Z79.899 Other long term (current) drug therapy
CPT/HCPCS: 99284

== ENCOUNTER 2025-04-19 23:29 | Emergency (ER) | payer MEDICAID, SELFPAY ==
--- OUTSIDE RECORDS SUMMARY | 2025-04-17 09:42 | XMS RPT_ITS ---
Author Name Auto Generated Organization OHIP Care Team Providers Care Rubber Goods Inspector Name Role Phone QUEDEN, YANETH A Primary Care Unavailable QUEDEN, YANETH A Attending Unavailable QUEDEN, YANETH A Primary Care Unavailable QUEDEN, YANETH A Attending Unavailable SELF Referring Unavailable QUEDEN, YANETH A Primary Care Unavailable QUEDEN, YANETH A Referring Unavailable QUEDEN, YANETH A Referring Unavailable QUEDEN, YANETH A Primary Care Unavailable QUEDEN, YANETH A Primary Care Unavailable LYNETTE SALGADO Attending Unavailable ERIN SANCHEZ Attending Unavailable QUEDEN, YANETH A Primary Care Unavailable LYNETTE SALGADO Referring Unavailable PROBLEMS DATE TYPE CONDITION / CODE ATTENDING STATUS [facility] 11/13/2024 Active Obesity, Class I , BMI 30-34.9 / E66.811(ICD-10) RENALDOJOSEPHNY A Active [facility] 04/17/2025 Active Acute pain of ri ght shoulder / M25.511(ICD-10) RENALDO YANETH A Active [facility] 04/17/2025 Active Marijuana smoker / F12.90(ICD-10) RENALDO YANETH A Active [facility] 04/17/2025 Active Nausea / R11.0(ICD-10) RENALDO YANETH A Active [facility] 04/17/2025 Active Family history o f autoimmune disorder / Z83.2(ICD-10) RENALDO YANETH A Active [facility] 04/17/2025 Active Screening for di abetes mellitus / Z13.1(ICD-10) RENALDO YANETH A Active [facility] 04/17/2025 Active Vitamin D defici ency / E55.9(ICD-10) JOSEPH MACARIONY A Active [facility] 04/17/2025 Active Special screenin g examination for viral disease / Z11.59(ICD-10) YANETH MACARIO Active [facility] 04/17/2025 Active Screening for HI V (human immunodeficiency virus) / Z11.4(ICD-10) YANETH MACARIO Active [facility] 04/17/2025 Active Painful breathin g / R07.1(ICD-10) YANETH MACARIO Active [facility] 04/01/2025 Active Encounter for IU D removal / Z30.432(ICD-10) ERIN SANCHEZ Active [facility] 04/01/2025 Active Encounter for in itial prescription of contraceptive pills / Z30.011(ICD-10) ERIN SANCHEZ Active 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) YANETH MACARIO Active [facility] 11/12/2024 Active Elevated hemoglo bin / D58.2(ICD-10) YANETH MACARIO [facility] 11/12/2024 Active Wheezing / R06.2(ICD-10) JEANINE MACARIO A [facility] PROCEDURES No Procedure Records Found RESULTS XR CHEST 2V FRONTAL/LAT Observed: 2024 10:16 AM Status: F Source: [facility] * * *Final Report* * * DATE OF EXAM: Apr 17 2025 10:16AM LDX 5291 - XR CHEST 2V FRONTAL/LAT / PROCEDURE REASON: Painful breathing * * * * Physician Interpretation * * * * EXAMINATION: CHEST RADIOGRAPH (2 VIEW FRONTAL and LATERAL) CLINICAL HISTORY: Painful breathing MQ: XC2_6 EXAM DATE/TIME: 04/17/2025 10:16 AM COMPARISON: No relevant prior studies available. RESULT: Lines, tubes, and devices: None. Lungs and pleura: No consolidation. No lung mass. No pleural effusion. No pneumothorax. Cardiomediastinal silhouette: Normal cardiomediastinal silhouette. Bones and soft tissues: Unremarkable. IMPRESSION: No acute radiographic abnormality. Court Officer: PSCB Transcribe Date/Time: Apr 17 2025 10:20A Dictated by : MEGA COLBERT MD This examination was interpreted and the report reviewed and electronically signed by: MEGA COLBERT MD on Apr 17 2025 10:20AM EST [id number] PROGRESS Observed: 04/17/2025 10:00 AM Status: COMPLETED Source: [facility] HNO ID: [id number] Author: JOSE PANDYA CT Service: ? Author Type: Technologist Type: Progress Notes Filed: 04/17/2025 10:18 Note Text: Radiology Service Progress Note PATIENT NAME: Fannie Rosas DATE OF SERVICE: April 17, 2025 TIME: 10:17 AM PATIENT IDENTITY VERIFICATION COMPLETED USING TWO (2) IDENTIFIERS: Name and Date of confirmed by patient verbally. FALL SCREENING: Has the patient had 2 falls in the last year or 1 fall with injury or currently using an Ambulatory Assistive Device (Walker, Cane, Wheelchair, Crutches, etc.)? No PATIENT GENDER DATA: Assigned female at . status: : No status: NO. PATIENT RELEVANT IMPLANT DATA REVIEWED: Not Applicable PATIENT PRESENTS WITH AN IMPLANTABLE OR ATTACHED NURSING MANAGER: No RADIOLOGY DEPARTMENT: General X-ray: Exam(s) Completed: Chest X-Ray PERIPHERAL IV DATA: Not applicable SIGNED BY: CHIARA Nobles April 17, 2025 10:17 AM ESR BLD QN WESTRGRN Collected: 04/17/2025 9:[address] atus: F Source: [facility] Order Comment: Specimen Type : BLOOD SPECIMEN Ordering Facility: [facility] Address: [address] [place] [address] TYPE CODE TESTS RESULT OUT OF RANGE REFERENCE UNITS LAB 4537-7([facility]) ESR Bld Qn Westrgrn 5 0-20 mm/hr Performed By: #### 4537-7 ## ## [facility] CLIA [id number] [address] [place] [address] [place] [address] [place] CBC W AUTO DIFF BLD Collected: 04/17/2025 9:[address] atus: F Source: [facility] Order Comment: Specimen Type : BLOOD SPECIMEN Ordering Facility: [facility] Address: [place] [address] TYPE CODE TESTS RESULT OUT OF RANGE REFERENCE UNITS LAB 6690-2([facility]) WBC # Bld Auto 7.09 3.70-11.00 k/uL LAB 789-8([facility]) RBC # Bld Auto 5.29 High 3.90-5.20 m/ uL LAB 718-7([facility]) Hgb Bld-mCnc 16.3 High 11.5-15.5 g/dL LAB 4544-3([facility]) Hct VFr Bld Auto 47.5 High 36.0-46.0 % LAB 787-2([facility]) MCV RBC Auto 89.8 80.0-100.0 fL LAB 785-6([facility]) MCH RBC Qn Auto 30.8 26.0-34.0 p g LAB 786-4([facility]) MCHC RBC Auto-mCnc 34.3 30.5-36.0 g/dL LAB 15140-1([facility]) RDW RBC-Rto 12.0 11.5-15.0 % LAB 777-3([facility]) Platelet # Bld Auto 288 150-400 k/uL LAB 73352-5([facility]) PMV Bld Auto 9.6 9.0-12.7 fL LAB 770-8([facility]) Neutrophils/leuk NFr Bld Auto 66.9 % LAB 751-8([facility]) Neutrophils # Bl d Auto 4.75 1.45-7.50 k/uL LAB 736-9([facility]) Lymphocytes/leuk NFr Bld Auto 18.1 % LAB 731-0([facility]) Lymphocytes # Bl d Auto 1.28 1.00-4.00 k/uL LAB 5905-5([facility]) Monocytes/leuk NFr Bld Auto 9.6 % LAB 742-7([facility]) Monocytes # Bld Auto 0.68 <0.87 k/uL LAB 713-8([facility]) Eosinophil/leuk NFr Bld Auto 4.5 % LAB 711-2(LOINC) Eosinophil # Bld Auto 0.32 <0.46 k/uL LAB 706-2(LOINC) Basophils/leuk NFr Bld Auto 0.6 % LAB 704-7(LOINC) Basophils # Bld Auto 0.04 <0.11 k/uL LAB 24747-2(LOINC) Imm Granulocytes/leuk NFr Bld Auto 0.3 % LAB 13067-5(LOINC) Imm Granulocytes # Bld Auto <0.03 <0.10 k/uL LAB 54468-2(LOINC) nRBC/100 WBC Bld-Rto LAB 771-6([facility]) nRBC # Bld Auto LAB 38577-7([facility]) Differential method Bld Auto Performed By: #### 13065-9 # ### [facility] CLIA [id number] [address] [place] [address] STATES OF [facility] HIV1+2 AB SERPL QL IA Collected: 2024 9:56 AM Status: F Source: [facility] Order Comment: Specimen Type : BLOOD SPECIMEN Ordering Facility: [facility] Address: [address] [place] [address] TYPE CODE TESTS RESULT OUT OF RANGE REFERENCE UNITS LAB 54388-7([facility]) HIV 1+2 Ab+HIV1 p24 Ag SerPl Ql IA Nonreactive Nonreactive Result Comment: [place] Rev. Co de 3701.243(E): This information has been disclosed to you from confidential records protected from disclosure by state law. ???You shall make no further disclosure of this information without the specific, written, and informed release of the individual to whom it pertains or as otherwise permitted by state law. A general authorization for the release of medical or other information is not sufficient for the purpose of the release of HIV test results or diagnoses. LAB 36925-6([facility]) HIV 1 AND 2 Ab SerPlBld IA.rapid Result Comment: Test not ind icated. LAB 37959-5([facility]) HIV IA algorithm interp SerPlBld-Imp Result Comment: No evidence of HIV-1 or HIV-2 infection. Should recent infection be suspected, repeat testing may be considered 2-3 weeks after this draw. Performed By: #### 23733-7 # ### [facility] CLIA [id number] [address] OF [place] FERRITIN SERPL-MCNC Collected: 04/17/2025 9:[address] atus: F Source: [facility] Order Comment: Specimen Type : BLOOD SPECIMEN Ordering Facility: [facility] Address: [address] [place] [address] TYPE CODE TESTS RESULT OUT OF RANGE REFERENCE UNITS LAB 2276-4(LOINC) Ferritin SerPl-mCnc 84.8 14.7-205.1 ng/mL Performed By: #### 2276-4, 2 284-8, 2132-9, 78012-2 #### [facility] CLIA [id number] [address] IRON+TIBC PNL SERPL Collected: 04/17/2025 9:[address] atus: F Source: [facility] Order Comment: Specimen Type : BLOOD SPECIMEN Ordering Facility: [facility] Address: [address] [place] [address] TYPE CODE TESTS RESULT OUT OF RANGE REFERENCE UNITS LAB 2498-4(LOINC) Iron SerPl-mCnc 51 41-186 ug/dL LAB 2500-7(LOINC) TIBC SerPl-mCnc 343 232-386 ug/dL LAB 2502-3(LOINC) Iron Satn MFr SerPl 14.9 Low 15.0-57.0 % Performed By: #### 2276-4, 2 284-8, 2-9, 07279-6 #### [facility] CLIA [id number] [address] OF [place] VIT B12 SERPL-MCNC Collected: 04/17/2025 9:56 AM Sta tus: F Source: [facility] Order Comment: Specimen Type : BLOOD SPECIMEN Ordering Facility: [facility] Address: [address] [place], [place] [address] TYPE CODE TESTS RESULT OUT OF RANGE REFERENCE UNITS LAB 2132-9(LOINC) Vit B12 SerPl-mCnc 176 032-4934 pg/mL Performed By: #### 2276-4, 2 284-8, 2132-9, 10349-4 #### [facility] CLIA [id number] [address] STATES OF [place] FOLATE SERPL-MCNC Collected: 04/17/2025 9:56 AM Stat us: F Source: [facility] Order Comment: Specimen Type : BLOOD SPECIMEN Ordering Facility: [facility] Address: [address] [place] [address] TYPE CODE TESTS RESULT OUT OF RANGE REFERENCE UNITS LAB 2284-8(LOINC) Folate SerPl-mCnc 9.2 >4.7 ng/mL Performed By: #### 2276-4, 2 284-8, 2132-9, 04117-0 #### [facility] CLIA [id number] [address] OF [place] INSULIN SERPL-ACNC Collected: 04/17/2025 9:56 AM Sta tus: F Source: [facility] Order Comment: Specimen Type : BLOOD SPECIMEN Ordering Facility: [facility] Address: [address] [place] [address] TYPE CODE TESTS RESULT OUT OF RANGE REFERENCE UNITS LAB 62634-7(LOINC) Insulin SerPl-aCnc 7.7 2.6-24.9 uU/mL Performed By: #### 39018-8 # ### [facility] CLIA [id number] [address] [place] [address] [place] 25([place])D3 SERPL-MCNC Collected: 04/17/20 9:56 AM Status: F Source: [facility] Order Comment: Specimen Type : BLOOD SPECIMEN Ordering Facility: [facility] Address: [address] [place] [address] TYPE CODE TESTS RESULT OUT OF RANGE REFERENCE UNITS LAB 1988-(LOINC) 25(OH)D3 SerPl-mCnc 20.0 Low >=30.0 ng/mL Result Comment: Classificati on of 25 [place] Vitamin D status: Deficiency: <= 20.0 ng/ml. Insufficiency: 21.0-29.0 ng/ml. Sufficiency: >= 30.0 ng/ml. Performed By: #### 1988-09 ## ## [facility] CLIA [id number] [address] STATES OF [place] DEPRECATED HGB A1C BLD Collected: 04/17 9:56 AM Status: F Source: [facility] Order Comment: Specimen Type : BLOOD SPECIMEN Ordering Facility: [facility] Address: [address] [place] [address] TYPE CODE TESTS RESULT OUT OF RANGE REFERENCE UNITS LAB 4548-4(LOINC) HbA1c MFr Bld 4.5 4.3-5.6 % Result Comment: [place] Griselda betes Association guidelines indicate that patients with HgbA1c in the range 5.7-6.4% are at increased risk for development of diabetes, and intervention by lifestyle modification may be beneficial. HgbA1c greater or equal to 6.5% is considered diagnostic of diabetes. LAB 24034-4(LOINC) Est. average glucose Bld gHb Est-mCnc 82 mg/dL Result Comment: eAG: (Estima deneen average glucose) is a calculated value from HgbA1c and is customer loyalty representative of the average blood glucose level in the last 2-3 month period. Performed By: #### 84735-5 # ### [facility] CLIA [id number] [address] [place] [address] [place] CORTIS SERPL-MCNC Collected: 04/17/2025 9:56 AM Stat us: F Source: [facility] Order Comment: Specimen Type : BLOOD SPECIMEN Ordering Facility: [facility] Address: [address] [place] [address] TYPE CODE TESTS RESULT OUT OF RANGE REFERENCE UNITS LAB 2143-6(LOINC) Cortis SerPl-mCnc 22.3 High 4.8-19.5 ug/dL Result Comment: Provided ref erence range is from 6-10 AM sample collection time. Cortisol Reference Range: 6-10 AM = 4.8-19.5 ug/dL, 4-8 PM = 2.5-11.9 ug/dL Performed By: #### 2143-6 ## ## [facility] CLIA [id number] [address] STATES OF [place] RONAK BY IFA SCREEN Collected: 9:56 AM Status: F Source: [facility] Order Comment: Specimen Type : BLOOD SPECIMEN Ordering Facility: [facility] Address: [address] [place] [address] TYPE CODE TESTS RESULT OUT OF RANGE REFERENCE UNITS LAB 8061-4(LOINC) RONAK Ser Ql Negative Negative Result Comment: Anti-nuclear antibody test is used as an aid in diagnosis of systemic autoimmune diseases. Where positive and clinically warranted, follow-up using disease-specific testing is recommended. Low positive titers are not uncommon with advanced age, certain chronic infections, and malignancies among others. Test methodology: Indirect fluorescence immunoassay (IFA) using HEp-2 cells. Performed By: #### ANAIFS ## ## [facility] CLIA [id number] [address] [place] [address] [place] COMP METAB 2000 PNL SERPL Collected: 9:56 AM Status: F Source: [facility] Order Comment: Specimen Type : BLOOD SPECIMEN Ordering Facility: [facility] Address: [address] [place] [address] TYPE CODE TESTS RESULT OUT OF RANGE REFERENCE UNITS LAB 2885-2(LOINC) Prot SerPl-mCnc 7.9 6.3-8.0 g/dL LAB 1751-7(LOINC) Albumin SerPl-mCnc 4.7 3.9-4.9 g/dL LAB 75568-2(LOINC) Calcium SerPl-mCnc 10.3 High 8.5-10.2 mg/dL LAB 1975-2(LOINC) Bilirub SerPl-mCnc 0.5 0.2-1.3 mg/dL LAB 6768-6(LOINC) ALP SerPl-cCnc 81 34-123 U/L LAB 55381-3(LOINC) AST SerPl w P-5'-P-cCnc 14 13-35 U/L LAB 1743-4(LOINC) ALT SerPl w P-5'-P-cCnc 15 7-38 U/L LAB 2345-7(LOINC) Glucose SerPl-mCnc 95 74-99 mg/dL Result Comment: The [place] Diabetes Association (ADA) provides guidance for cutoff values for fasting glucose and random glucose. The ADA defines fasting as no caloric intake for at least 8 hours. Fasting plasma glucose results between 100 to 125 mg/dL indicate increased risk for diabetes (prediabetes). Fasting plasma glucose results greater than or equal to 126 mg/dL meet the criteria for diagnosis of diabetes. In the absence of unequivocal hyperglycemia, results should be confirmed by repeat testing. In a patient with classic symptoms of hyperglycemia or hyperglycemic crisis, random plasma glucose results greater than or equal to 200 mg/dL meet the criteria for diagnosis of diabetes. Reference: Standards of Medical Care in Diabetes 2016, [place] Diabetes Association. Diabetes Care. 2016.39(Suppl 1). LAB 3094-0(LOINC) BUN SerPl-mCnc 5 Low 7-21 mg/dL LAB 2160-0(LOINC) Creat SerPl-mCnc 0.81 0.58-0.96 mg/dL LAB 2951-2(LOINC) Sodium SerPl-sCnc 139 136-144 mmol/L LAB 2823-3(LOINC) Potassium SerPl-sCnc 4.1 3.7-5.1 mmol/L LAB 2075-0(LOINC) Chloride SerPl-sCnc 102 98-107 mmol/L LAB 2027-9(LOINC) CO2 SerPl-sCnc 22 22-30 mmol/L LAB 27004-4(LOINC) Anion Gap SerPl-sCnc 15 8-15 mmol/L LAB 01261-1(LOINC) eGFRcr SerPlBld CKD-EPI 2020 104 >=60 mL/min/1. 73m??? Result Comment: Estimated Gl omerular Filtration Rate (eGFR) is calculated using the 2020 CKD-EPI creatinine equation. This equation utilizes serum creatinine, sex, and age as parameters. The creatinine assay has traceable calibration to isotope dilution-mass spectrometry. Refer to KDIGO guidelines for clinical interpretation. In patients with unstable renal function, e.g. those with acute kidney injury, the eGFR may not accurately reflect actual GFR. Performed By: #### 1988-5, 2 4323-8 #### [facility] CLIA [id number] [address] [place], [place] [id number] [place] CRP SERPL-MCNC Collected: 04/17/2025 9:56 AM Status: F Source: [facility] Order Comment: Specimen Type : BLOOD SPECIMEN Ordering Facility: [facility] Address: [address] [place], [place] [address] TYPE CODE TESTS RESULT OUT OF RANGE REFERENCE UNITS LAB 1987-11(LOINC) CRP SerPl-mCnc 0.6 <0.9 mg/dL Performed By: #### 1988-, 2 4323-8 #### [facility] CLIA [id number] [address] [place] [address] HCV AB SER QL Collected: 9:56 AM Status: F Source: [facility] Order Comment: Specimen Type : BLOOD SPECIMEN Ordering Facility: [facility] Address: [address] [place], [place] [address] TYPE CODE TESTS RESULT OUT OF RANGE REFERENCE UNITS LAB 68754-0(LOINC) HCV Ab Ser Ql Nonreactive Nonreactive Result Comment: The result s uggests no evidence of active infection with Hepatitis C virus. Should recent infection be suspected, repeat testing may be considered 4- 6 weeks after this draw. Performed By: #### 22950-5 # ### [facility] CLIA [id number] [address] [place] [address] PROGRESS Observed: 04/17/2025 9:04 AM Status: COMPLETED Source: [facility] HNO ID: [id number] Author: YANETH MACARIO APRN.MANAGER ACTUARIAL Service: ? Author Type: Nurse Practitioner Type: Progress Notes Filed: 04/18/2025 13:04 Note Text: CHIEF COMPLAINT: The patient is a 24-year-old female presenting for evaluation of right shoulder pain worsened by deep inspiration, associated with nausea and fatigue. I reviewed past medical, surgical, social, and family histories today and updated chart. Allergies, chronic medications, and supplements were also reviewed. Recording using Apse software for draft documentation of the visit was discussed with the patient/authorized customer loyalty representative; all questions welcomed and answered. Patient/authorized customer loyalty representative agreed to proceed. Right Shoulder Pain: - Fannie Rosas reports pain localized to the right shoulder joint, radiating to the neck. - Aggravated by deep inspiration and diaphragmatic expansion. - Fannie denies pain with normal movement of the shoulder joint. Nausea: - Persistent nausea. - Fannie denies emesis. Fatigue: - Fannie reports extreme lethargy impacting daily activities and lifestyle. - Fannie denies recent alcohol consumption during the week; previously a daily drinker. - Fannie's sleep schedule involves going to bed at 02:00-03:00 and waking up at 11:00. Weight Gain: - Significant weight gain over a short period. - Recent switch to a progesterone-only oral contraceptive after IUD removal. - Dietary changes include reduced carbohydrate intake and increased protein and dark green vegetable consumption. - Fannie denies cravings for sweets over the past two years. - Fannie engages in regular physical activity but reports difficulty losing weight. Family History: - Positive family history of diabetes and lupus. - Fannie's mother suggested checking cortisol levels for weight gain concerns. Additional Concerns: - Fannie reports shiny toenails with a red line. - Fannie denies joint pain in hands and feet but reports hip pain, possibly related to a limb length discrepancy. - Coughing, with worsening symptoms; history of smoking and marijuana use. - Fannie denies fever. PAST MEDICAL HISTORY Diagnosis Date Palpitations Tachycardia Ltgjq-Katyuypwj-Mfqry (WPW) pattern PAST SURGICAL HISTORY Procedure Laterality Date HEART SURGERY 2019 INSERTION OF IUD 02/2020 [facility] SOCIAL HISTORY[1] ALLERGIES Allergen Reactions Penicillins Intolerance Family History Problem Relation Age of Onset other (HTN) Mother other (HTN) Father Heart Father x2 ablations Breast Cancer Maternal Grandmother Lymphoma Maternal Grandfather Lymphoma Paternal Grandmother Current Outpatient Medications Medication Sig Dispense Refill Norethindrone, Contraceptive, 0.35 mg tablet Take 1 tablet by mouth once daily. 84 tablet 3 albuterol HFA (PROVENTIL HFA, VENTOLIN HFA) 90 mcg/actuation inhaler Inhale 2 puffs as instructed every 4 hours as needed for wheezing/shortness of breath. 1 each 2 metoprolol tartrate, short acting, (LOPRESSOR) 25 mg tablet Take 1 tablet by mouth two times a day as needed. 60 tablet 2 ondansetron (ZOFRAN) 4 mg tablet Take 1 tablet by mouth every 8 hours as needed. 12 tablet 0 methylPREDNISolone (MEDROL, RHONA,) 4 mg Dose-Pack As Instructed per package 21 tablet 0 No current facility-administered medications for this visit. Review of Systems Constitutional: (+) fatigue, (+) weight gain, (-) fever Neck: (+) neck pain with deep inspiration Respiratory: (+) right shoulder pain with deep inspiration, (+) dyspnea on exertion, (+) cough Gastrointestinal: (+) nausea, (+) abdominal pain with cramping, (+) left-sided abdominal pain, (-) heartburn Skin: (+) shiny toenails, (+) red streaks on toenails, (-) rash Neurological: (+) lightheadedness BP 126/70 Pulse 92 Temp (Src) 98.8 (Oral) Resp 18 Ht 5' 3.5 (1.61m) Wt 184 lb (83.5kg) SpO2 96% LMP 07/03/2022 BMI 32.08 kg/(m2). Physical Exam GENERAL: NAD, alert and oriented. SKIN: Unremarkable, no rash or skin lesions. HEAD: Normocephalic. EYES: PERRLA, EOMI, conjunctiva clear. EARS: External ears normal, canals clear, TM's normal. NOSE/SINUSES: Nares normal. Septum midline. OROPHARYNX: Lips, mucosa, and tongue normal, good dentition. No oral lesions noted. NECK: Supple, no lymphadenopathy, normal thyroid, no carotid bruits. LUNGS: Wheezing noted bilaterally. HEART: Regular rate and rhythm, no murmurs. No ectopy. EXTREMITIES: Normal, no deformities, no skin discoloration, no edema. Normal ROM of right shoulder. NEURO: Awake, alert and oriented x3, normal gait, no involuntary motions. ASSESSMENT/PLAN: 1. Acute pain of right shoulder (M25.511) 2. Painful breathing (R07.1) 3. Wheezing (R06.2) - Right shoulder and neck pain with deep inspiration, wheezing on exam; differential includes pleurisy, pneumonia. - Start Medrol Dosepak as directed to address inflammation and wheezing. - Use inhaler as needed. - Ordered chest X-ray. - Advised to reduce smoking/vaping as much as possible. 4. Nausea (R11.0) - Ongoing nausea; Zofran prescribed. 5. Fatigue, unspecified type (R53.83) 6. Obesity, Class I, BMI 30-34.9 (E66.811) - Persistent fatigue and weight gain despite dietary changes and exercise. - Ordered CBC, iron panel, vitamin D, metabolic panel, thyroid panel, and cortisol level (to be drawn precision lens grinder). - Ordered A1c and insulin resistance labs. - Encouraged continuation of healthy dietary habits and regular exercise. - Follow-up in 3-4 weeks. 7. Vitamin D deficiency (E55.9) 8. Nicotine dependence, cigarettes, uncomplicated (F17.210) 9. Marijuana smoker (F12.90) - Encouraged cessation 10. Screening for diabetes mellitus (Z13.1) - Family history of diabetes. - Ordered A1c and insulin resistance labs. 11. Family history of autoimmune disorder (Z83.2) 12. Family history of systemic lupus erythematosus (Z82.69) - Family history of lupus; patient inquired about autoimmune testing. - Ordered RONAK and inflammatory markers. 13. Special screening examination for viral disease (Z11.59) 14. Screening for HIV (human immunodeficiency virus) (Z11.4) - Offered Hepatitis C and HIV screening; patient agreed. New medication(s) prescribed today: None. Counseling completed in adopting health behaviors such as avoiding excessive alcohol use, avoid tobacco use, improve nutrition, and engage in physical activities. Copy of written care plan, clinical summary, treatment plan, new medications, goals, and self management requirements were given to patient. Yaneth Macario, ENVELOPE STAMPING MACHINE OPERATOR.MANAGER ACTUARIAL [1] Social History Tobacco Use Smoking status: Every Day Current packs/day: 0.50 Types: Cigarettes Smokeless tobacco: Never Vaping Use Vaping status: Some Days Substance Use Topics Alcohol use: Yes Comment: dailyDrug use: Yes Types: Marijuana Comment: daily CNOV Observed: 04/17/2025 9:00 AM Status: COMPLETED Source: [facility] Office Visit (ISSAC) FANNIE ROSAS ([id number]) 1 F Date Time Provider Department 04/17/25 9:00 AM YANETH MACARIO During your visit today, we recorded the following information about you: Temperature Pulse Respiration Blood pressure 98.8 degrees 92/minute 18/minute 126/70 Weight Height 83.5 kg 1.613 m JamescatyYaneth APRN.MANAGER ACTUARIAL 04/18/2025 1:04 PM Signed CHIEF COMPLAINT: The patient is a 24-year-old female presenting for evaluation of right shoulder pain worsened by deep inspiration, associated with nausea and fatigue. I reviewed past medical, surgical, social, and family histories today and updated chart. Allergies, chronic medications, and supplements were also reviewed. Recording using Apse software for draft documentation of the visit was discussed with the patient/authorized customer loyalty representative; all questions welcomed and answered. Patient/authorized customer loyalty representative agreed to proceed. Right Shoulder Pain: - Fannie Rosas reports pain localized to the right shoulder joint, radiating to the neck. - Aggravated by deep inspiration and diaphragmatic expansion. - Fannie denies pain with normal movement of the shoulder joint. Nausea: - Persistent nausea. - Fannie denies emesis. Fatigue: - Fannie reports extreme lethargy impacting daily activities and lifestyle. - Fannie denies recent alcohol consumption during the week; previously a daily drinker. - Fannie's sleep schedule involves going to bed at 02:00-03:00 and waking up at 11:00. Weight Gain: - Significant weight gain over a short period. - Recent switch to a progesterone-only oral contraceptive after IUD removal. - Dietary changes include reduced carbohydrate intake and increased protein and dark green vegetable consumption. - Fannie denies cravings for sweets over the past two years. - Fannie engages in regular physical activity but reports difficulty losing weight. Family History: - Positive family history of diabetes and lupus. - Fannie's mother suggested checking cortisol levels for weight gain concerns. Additional Concerns: - Fannie reports shiny toenails with a red line. - Fannie denies joint pain in hands and feet but reports hip pain, possibly related to a limb length discrepancy. - Coughing, with worsening symptoms; history of smoking and marijuana use. - Fannie denies fever. PAST MEDICAL HISTORY Diagnosis Date Palpitations Tachycardia Qxotx-Zhxxevpzg-Xezsl (WPW) pattern PAST SURGICAL HISTORY Procedure Laterality Date HEART SURGERY 2019 INSERTION OF IUD 02/2020 [facility] SOCIAL HISTORY[1] ALLERGIES Allergen Reactions Penicillins Intolerance Family History Problem Relation Age of Onset other (HTN) Mother other (HTN) Father Heart Father x2 ablations Breast Cancer Maternal Grandmother Lymphoma Maternal Grandfather Lymphoma Paternal Grandmother Current Outpatient Medications Medication Sig Dispense Refill Norethindrone, Contraceptive, 0.35 mg tablet Take 1 tablet by mouth once daily. 84 tablet 3 albuterol HFA (PROVENTIL HFA, VENTOLIN HFA) 90 mcg/actuation inhaler Inhale 2 puffs as instructed every 4 hours as needed for wheezing/shortness of breath. 1 each 2 metoprolol tartrate, short acting, (LOPRESSOR) 25 mg tablet Take 1 tablet by mouth two times a day as needed. 60 tablet 2 ondansetron (ZOFRAN) 4 mg tablet Take 1 tablet by mouth every 8 hours as needed. 12 tablet 0 methylPREDNISolone (MEDROL, RHONA,) 4 mg Dose-Pack As Instructed per package 21 tablet 0 No current facility-administered medications for this visit. Review of Systems Constitutional: (+) fatigue, (+) weight gain, (-) fever Neck: (+) neck pain with deep inspiration Respiratory: (+) right shoulder pain with deep inspiration, (+) dyspnea on exertion, (+) cough Gastrointestinal: (+) nausea, (+) abdominal pain with cramping, (+) left-sided abdominal pain, (-) heartburn Skin: (+) shiny toenails, (+) red streaks on toenails, (-) rash Neurological: (+) lightheadedness BP 126/70 Pulse 92 Temp (Src) 98.8 (Oral) Resp 18 Ht 5' 3.5 (1.61m) Wt 184 lb (83.5kg) SpO2 96% LMP 07/03/2022 BMI 32.08 kg/(m2). Physical Exam GENERAL: NAD, alert and oriented. SKIN: Unremarkable, no rash or skin lesions. HEAD: Normocephalic. EYES: PERRLA, EOMI, conjunctiva clear. EARS: External ears normal, canals clear, TM's normal. NOSE/SINUSES: Nares normal. Septum midline. OROPHARYNX: Lips, mucosa, and tongue normal, good dentition. No oral lesions noted. NECK: Supple, no lymphadenopathy, normal thyroid, no carotid bruits. LUNGS: Wheezing noted bilaterally. HEART: Regular rate and rhythm, no murmurs. No ectopy. EXTREMITIES: Normal, no deformities, no skin discoloration, no edema. Normal ROM of right shoulder. NEURO: Awake, alert and oriented x3, normal gait, no involuntary motions. ASSESSMENT/PLAN: 1. Acute pain of right shoulder (M25.511) 2. Painful breathing (R07.1) 3. Wheezing (R06.2) - Right shoulder and neck pain with deep inspiration, wheezing on exam; differential includes pleurisy, pneumonia. - Start Medrol Dosepak as directed to address inflammation and wheezing. - Use inhaler as needed. - Ordered chest X-ray. - Advised to reduce smoking/vaping as much as possible. 4. Nausea (R11.0) - Ongoing nausea; Zofran prescribed. 5. Fatigue, unspecified type (R53.83) 6. Obesity, Class I, BMI 30-34.9 (E66.811) - Persistent fatigue and weight gain despite dietary changes and exercise. - Ordered CBC, iron panel, vitamin D, metabolic panel, thyroid panel, and cortisol level (to be drawn precision lens grinder). - Ordered A1c and insulin resistance labs. - Encouraged continuation of healthy dietary habits and regular exercise. - Follow-up in 3-4 weeks. 7. Vitamin D deficiency (E55.9) 8. Nicotine dependence, cigarettes, uncomplicated (F17.210) 9. Marijuana smoker (F12.90) - Encouraged cessation 10. Screening for diabetes mellitus (Z13.1) - Family history of diabetes. - Ordered A1c and insulin resistance labs. 11. Family history of autoimmune disorder (Z83.2) 12. Family history of systemic lupus erythematosus (Z82.69) - Family history of lupus; patient inquired about autoimmune testing. - Ordered RONAK and inflammatory markers. 13. Special screening examination for viral disease (Z11.59) 14. Screening for HIV (human immunodeficiency virus) (Z11.4) - Offered Hepatitis C and HIV screening; patient agreed. New medication(s) prescribed today: None. Counseling completed in adopting health behaviors such as avoiding excessive alcohol use, avoid tobacco use, improve nutrition, and engage in physical activities. Copy of written care plan, clinical summary, treatment plan, new medications, goals, and self management requirements were given to patient. Yaneth Macario APRN.MANAGER ACTUARIAL [1] Social History Tobacco Use Smoking status: Every Day Current packs/day: 0.50 Types: Cigarettes Smokeless tobacco: Never Vaping Use Vaping status: Some Days Substance Use Topics Alcohol use: Yes Comment: daily Drug use: Yes Types: Marijuana Comment: daily Referring Provider: SELF [200] Allergies As of Date: 04/17/2025 Noted Allergy Reaction PENICILLINS 07/15/2022 5 - Intolerance Date Reviewed: 04/17/2025 Reviewed by: Yaneth Macario APRN.MANAGER ACTUARIAL - Fully Assessed Reason for Visit: Weight Problem [121] Shoulder Injury [1216] Cmt: Location: right shoulder Pain scale: 4 Duration: month Description: hurts when she takes a deep breath it aches and goes up into her neck Treatment: stretches, rub with coconut oil Primary Visit Diagnosis:Acute pain of right shoulder [M25.511] Other Visit Diagnoses:Fatigue, unspecified type [R53.83] Nausea [R11.0] Painful breathing [R07.1] Wheezing [R06.2] Obesity, Class I, BMI 30-34.9 [E66.811] Vitamin D deficiency [E55.9] Nicotine dependence, cigarettes, uncomplicated [F17.210] Marijuana smoker [F12.90] Screening for diabetes mellitus [Z13.1] Family history of autoimmune disorder [Z83.2] Family history of systemic lupus erythematosus [Z82.69] Special screening examination for viral disease [Z11.59] Screening for HIV (human immunodeficiency virus) [Z11.4] Order(s):ondansetron (ZOFRAN) 4 mg tabletTake 1 tablet by mouth every 8 hours as needed.Disp: 12 tabletRfl: 0 COMPREHENSIVE METABOLIC PANEL [SQCMP] Order #: [id number] FUTURE CORTISOL, SERUM [SQCOR] Order #: [id number] FUTURE RONAK BY IFA SCREEN [SQANAIFS] Order #: [id number] FUTURE C-REACTIVE PROTEIN [SQCRP] Order #: [id number] FUTURE SEDIMENTATION RATE, WESTERGREN [SQWSR] Order #: [id number] FUTURE HEMOGLOBIN A1C [IFJSK8S] Order #: [id number] FUTURE INSULIN, TOTAL, SERUM [SQINSULN] Order #: [id number] FUTURE VITAMIN D 25 HYDROXY [SQVITD] Order #: [id number] FUTURE HEPATITIS C ANTIBODY IA WITH CONFIRMATION [NKYNIE1E] Order #: [id number] FUTURE HIV 1/2 COMBO WITH REFLEX TO DIFFERENTIATION [SQHIV12] Order #: [id number] FUTURE methylPREDNISolone (MEDROL, RHONA,) 4 mg Dose-PackAs Instructed per packageDisp: 21 tabletRfl: 0 XR CHEST 2V FRONTAL/LAT [[id number]] Order #: [id number] FUTURE Prescriptions as of 04/18/2025 - ondansetron (ZOFRAN) 4 mg tablet Take 1 tablet by mouth every 8 hours as needed. - methylPREDNISolone (MEDROL, RHONA,) 4 mg Dose-Pack As Instructed per package - Norethindrone, Contraceptive, 0.35 mg tablet Take 1 tablet by mouth once daily. - albuterol HFA (PROVENTIL HFA, VENTOLIN HFA) 90 mcg/actuation inhaler Inhale 2 puffs as instructed every 4 hours as needed for wheezing/shortness of breath. - metoprolol tartrate, short acting, (LOPRESSOR) 25 mg tablet Take 1 tablet by mouth two times a day as needed. Problem List As Of Date 04/17/2025 Noted Resolved Palpitations [R00.2] 01/09/2024 Obesity, Class I, BMI 30-34.9 [E66.811] 11/13/2024 Tachycardia [R00.0] Ufoyr-Qyqjaaere-Daldd (WPW) pattern [I45.6] Pre-syncope [R55] 04/17/2025 Abnormal vaginal bleeding [N93.9] 04/17/2025 Prescriptions ordered this encounter Disp Refills Start End ONDANSETRON HCL 4 MG TABLET 12 t* 0 04/17/2025 Route: PO Sig: Take 1 tablet by mouth every 8 hours as needed. METHYLPREDNISOLONE 4 MG TABLETS IN A* 21 t* 0 04/17/2025 Sig: As Instructed per package Medications Discontinued During This Encounter Prescriptions - ondansetron (ZOFRAN) 4 mg tablet (Discontinued) Take 1 tablet by mouth every 8 hours as needed. Disposition: Return in about 4 weeks (around 05/15/2025) for follow up. Follow-up and Disposition History for Encounter Date Provider Department Center 04/17/2025 [id number][facility] [address] Text Encounter Status:Closed by YANETH MACARIO on 04/18/25 CNPN Observed: 04/14/2025 12:00 AM Status: COMPLETED Source: [facility] Telephone ([place]) FANNIE ROSAS ([id number]) 1 F Date Time Provider Department 04/14/25 YANETH MACARIOINOCENCIO During your visit today, we recorded the following information about you: Iris Wisdom MA 04/14/2025 2:09 PM Signed Patient left message stating she accidentally let her lab orders and would like new ones. Please advise. TROY Salgado Mary, MA 04/15/2025 1:26 PM Signed SECOND REQUEST Yaneth Macario APRN.[facility] 04/15/2025 1:31 PM Signed Orders replaced. Ayana French MA 04/15/2025 2:39 PM Signed Patient is informed Ayana French MA Allergies As of Date: 04/14/2025 Noted Allergy Reaction PENICILLINS 07/15/2022 5 - Intolerance Date Reviewed: 04/01/2025 Reviewed by: Erin Sanchez MD - Fully Assessed Reason for Visit: Lab Orders [9628] Primary Visit Diagnosis:Elevated hemoglobin [D58.2] Order(s):COMPLETE BLOOD COUNT AND DIFFERENTIAL [SQCBCDIF] Order #: [id number] FUTURE IRON AND TIBC [SQIRON] Order #: [id number] FUTURE FERRITIN [SQFERR] Order #: [id number] FUTURE FOLATE, SERUM [SQSERFOL] Order #: [id number] FUTURE VITAMIN B12 [SQB12] Order #: [id number] FUTURE Prescriptions as of 04/15/2025 - Norethindrone, Contraceptive, 0.35 mg tablet Take 1 tablet by mouth once daily. - albuterol HFA (PROVENTIL HFA, VENTOLIN HFA) 90 mcg/actuation inhaler Inhale 2 puffs as instructed every 4 hours as needed for wheezing/shortness of breath. - ondansetron (ZOFRAN) 4 mg tablet Take 1 tablet by mouth every 8 hours as needed. - metoprolol tartrate, short acting, (LOPRESSOR) 25 mg tablet Take 1 tablet by mouth two times a day as needed. Problem List As Of Date 04/14/2025 Noted Resolved Palpitation [R00.2] 01/09/2024 Obesity, Class I, BMI 30-34.9 [E66.811] 11/13/2024 Encounter Status:Closed by IRIS WISDOM on 04/15/25 CNOV Observed: 04/01/2025 10:10 AM Status: COMPLETED Source: [facility] Office Visit (OBGYWM) FANNIE ROSAS ([id number]) 1 F Date Time Provider Department 04/01/25 10:10 AM ERIN SANCHEZ During your visit today, we recorded the following information about you: Blood pressure Weight 136/84 85.3 kg Erin Sanchez MD 04/01/2025 10:16 AM Signed Paving And Surfacing Labourer offered: Patient declines. Fannie presents for removal of IUD due to expiration of IUD. UNIVERSAL PROTOCOL / SAFETY CHECKLIST Procedure to be Performed: Intrauterine device removal Sign In: A Moment of CARE was completed. Appropriate PPE (Personal Protective Equipment) worn by all providers involved with the procedure. Special equipment not required. Patient/Surrogate Stated/Verified: Patient name, Date of , Relevant allergies, and The intended procedure Time Out: Relevant labs, photos, and/or imaging studies have been reviewed. Intended patient and procedure match the source document(s) (e.g. consent, HANDP, associated studies [imaging, pathology]) match the intended patient and procedure. Consent obtained and matches the intended procedure. Yes. Correct side/site is not applicable. Medications required for this procedure are not applicable. Fire risk assessed and is not applicable. Implants: are not applicable. Sign Out: Specimens not collected. All instruments, equipment, possible retained foreign bodies are accounted for. Yes. The post-procedure plan of care has been communicated to the patient or surrogate. PROCEDURE: Speculum placed in vagina, IUD string visualized and grasped with ring forceps. ASSESSMENT/PLAN: IUD removed without difficulty, intact, and patient tolerated procedure well. Contraception plans: oral contraceptives Erin Sanchez MD Referring Provider: LYNETTE SALGADO [[id number]] Allergies As of Date: 04/01/2025 Noted Allergy Reaction PENICILLINS 07/15/2022 5 - Intolerance Date Reviewed: 04/01/2025 Reviewed by: Erin Sanchez MD - Fully Assessed Reason for Visit: IUD Removal [1950] Primary Visit Diagnosis:Encounter for IUD removal [Z30.432] Other Visit Diagnosis:Encounter for initial prescription of contraceptive pills [Z30.011] Order(s):REMOVE INTRAUTERINE DEVICE [[id number]] Order #: [id number] Norethindrone, Contraceptive, 0.35 mg tabletTake 1 tablet by mouth once daily.Disp: 84 tabletRfl: 3 Prescriptions as of 04/01/2025 - Norethindrone, Contraceptive, 0.35 mg tablet Take 1 tablet by mouth once daily. - albuterol HFA (PROVENTIL HFA, VENTOLIN HFA) 90 mcg/actuation inhaler Inhale 2 puffs as instructed every 4 hours as needed for wheezing/shortness of breath. - ondansetron (ZOFRAN) 4 mg tablet Take 1 tablet by mouth every 8 hours as needed. - metoprolol tartrate, short acting, (LOPRESSOR) 25 mg tablet Take 1 tablet by mouth two times a day as needed. Problem List As Of Date 04/01/2025 Noted Resolved Palpitation [R00.2] 01/09/2024 Obesity, Class I, BMI 30-34.9 [E66.811] 11/13/2024 Prescriptions ordered this encounter Disp Refills Start End NORETHINDRONE (CONTRACEPTIVE) 0.35 M* 84 t* 3 04/01/2025 03/03/2026 Route: PO Sig: Take 1 tablet by mouth once daily. Medications Discontinued During This Encounter Prescriptions - levonorgestrel (KYLEENA) 17.5 mcg/24 hrs (5 yrs) 19.5 mg IUD (Discontinued) 1 Each by INTRAUTERINE route one time only. Disposition: Return if symptoms worsen or fail to improve, for Routine annual exam. Follow-up and Disposition History for Encounter Date Provider Department Center 04/01/2025 [id number]-LRJILSERIN SANCHEZ DEBBY Chavez Encounter Status:Closed by ERIN SANCHEZ on 04/01/25 PROGRESS Observed: 04/01/2025 9:55 AM Status: COMPLETED Source: [facility] HN ID: [id number] Author: ERIN SANCHEZ MD Service: ? Author Type: Physician Type: Progress Notes Filed: 04/01/2025 10:16 Note Text: Paving And Surfacing Labourer offered: Patient declines. Fannie presents for removal of IUD due to expiration of IUD. UNIVERSAL PROTOCOL / SAFETY CHECKLIST Procedure to be Performed: Intrauterine device removal Sign In: A Moment of CARE was completed. Appropriate PPE (Personal Protective Equipment) worn by all providers involved with the procedure. Special equipment not required. Patient/Surrogate Stated/Verified: Patient name, Date of , Relevant allergies, and The intended procedure Time Out: Relevant labs, photos, and/or imaging studies have been reviewed. Intended patient and procedure match the source document(s) (e.g. consent, HANDP, associated studies [imaging, pathology]) match the intended patient and procedure. Consent obtained and matches the intended procedure. Yes. Correct side/site is not applicable. Medications required for this procedure are not applicable. Fire risk assessed and is not applicable. Implants: are not applicable. Sign Out: Specimens not collected. All instruments, equipment, possible retained foreign bodies are accounted for. Yes. The post-procedure plan of care has been communicated to the patient or surrogate. PROCEDURE: Speculum placed in vagina, IUD string visualized and grasped with ring forceps. ASSESSMENT/PLAN: IUD removed without difficulty, intact, and patient tolerated procedure well. Contraception plans: oral contraceptives Erin Sanchez MD CNOV Observed: 11/12/2024 3:20 PM Status: COMPLETED Source: [facility] Office Visit ([facility]) FANNIE ROSAS ([id number]) 1 F Date Time Provider Department 11/12/24 3:20 PM YANETH MACARIO During your visit today, we recorded the following information about you: Temperature Pulse Respiration Blood pressure 98.8 degrees 79/minute 18/minute 126/70 Weight Height 81.2 kg 1.613 m Yaneth Macario, ENVELOPE STAMPING MACHINE OPERATOR.MANAGER ACTUARIAL 11/13/2024 6:59 PM Signed [address] [address] Visit Date: 11/12/2024 Patient Name: Fannie Rosas Date of : 2000 Chief Complaint: ER Follow Up Fannie is a 24-year-old female with a history of Utocn-Vhxtcaaum-Rjohd syndrome, presenting for follow-up after a recent ED visit for palpitations. Emergency Room Location: [facility] ED Visits AND Hospitalizations - Last 180 days None HPI: Afaid-Lbbjldehi-Zzahp Syndrome: - Recent ED visit in September for palpitations. - History of ablation performed by an food dehydrator operator in [place]. - Last cardiology visit was in December of the previous year, during which a Holter monitor was used. - Holter monitor results showed normal sinus rhythm with occasional episodes of tachycardia, including a 3-beat run at midnight with a heart rate of 46 bpm. - No evidence of AFib, AFlutter, or Qkwyv-Cgpadctgm-Iqgck syndrome on the Holter monitor. - Experiences 2-3 episodes of palpitations daily, described as a couple beats that are not sustained. - Takes metoprolol PRN for palpitations, with only one dose taken since the ED visit. - Concerns about potential side effects of metoprolol, including decreased motivation and weight gain. - Family history of multiple ablations in the father. Tobacco Use: - Smoking since age 15, currently smoking half a pack per day. - Reports wheezing, especially at night, and a history of asthma as a child. - Fiance also smokes, making cessation more challenging. Alcohol Use: - Consumes at least one beer daily, but denies getting drunk every day. Marijuana Use: - Smokes marijuana daily, taking a puff every once in a while to manage anxiety. Anxiety: - Experiences anxiety, sometimes leading to nausea. - Requests a prescription for Zofran to manage nausea associated with anxiety. Previous OV Fannie Rosas is a 23 year old female who presents for follow up for elevated blood pressure readings. I reviewed past medical, surgical, social, and family histories today and updated chart. Allergies, chronic medications, and supplements were also reviewed. Tried cutting back on smoking and was down to 3 cigarettes but is back up to 1/2 ppd because she was recently laid off from her job Completed quality assurance monitor body patch on 01/22/24- awaiting results Echo completed and was normal She is feeling better but still fatigued Has Kyleena IUD, placed in 2019 Hasn't made appointment with FOUR CORNER STAYER MACHINE OPERATOR yet Hasn't had a Pap and has been having bleeding after intercourse She would like to see a stamp press operator for some skin spots that she wants checked out OV 12/26/23: All grandparents and dad have HTN Was seen in urgent care Fatigued Fainted the morning of the 12/05/23- BP 163/115 Went to [place] ER on 12/05/23 Didn't give her any medication in the ER Had a EKG and CXR Labs were normal Home BP- 140/90 Sometimes higher and sometimes lower Uses a wrist cuff Smokes 7 cigarettes a day now Alcohol 1-2 drinks daily 1 cup of coffee once a week Works at a greenhouse Drinks a lot of water No recent illness Stress test a year ago for palpitations 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 PAST MEDICAL HISTORY Diagnosis Date Tachycardia Fpnpq-Kcmcgfwkq-Ujanf (WPW) pattern PAST SURGICAL HISTORY Procedure Laterality Date HEART SURGERY 2019 INSERTION OF IUD 02/2020 [facility] FAMILY HISTORY Problem Relation Age of Onset other (HTN) Mother other (HTN) Father Heart Father x2 ablations Breast Cancer Maternal Grandmother Lymphoma Maternal Grandfather Lymphoma Paternal Grandmother Social History Tobacco Use Smoking status: Every Day Current packs/day: 0.50 Types: Cigarettes Smokeless tobacco: Never Vaping Use Vaping status: Never Used Substance Use Topics Alcohol use: Yes Comment: daily Drug use: Yes Types: Marijuana Comment: daily Current Meds metoprolol tartrate, short acting, (LOPRESSOR) 25 mg tablet Take 1 tablet by mouth two times a day as needed. levonorgestrel (KYLEENA) 17.5 mcg/24 hrs (5 yrs) 19.5 mg IUD 1 Each by INTRAUTERINE route one time only. albuterol HFA (PROVENTIL HFA, VENTOLIN HFA) 90 mcg/actuation inhaler Inhale 2 puffs as instructed every 4 hours as needed for wheezing/shortness of breath. ondansetron (ZOFRAN) 4 mg tablet Take 1 tablet by mouth every 8 hours as needed. I have confirmed and edited as necessary the chief complaint, medications, past medical, family and social histories obtained by others. Review of Systems Constitutional: (+) weight gain Cardiovascular: (+) chest pressure, (+) palpitations Respiratory: (+) wheezing Gastrointestinal: (+) nausea Psychiatric: (+) anxiety, (+) lack of motivation Physical Exam GENERAL: NAD, alert and oriented. SKIN: Unremarkable, no rash or skin lesions. HEAD: Normocephalic. EYES: PERRLA, EOMI, conjunctiva clear. EARS: External ears normal, canals clear, TM's normal. NOSE/SINUSES: Nares normal. Septum midline. OROPHARYNX: Lips, mucosa, and tongue normal, good dentition. No oral lesions noted. NECK: Supple, no lymphadenopathy, normal thyroid, no carotid bruits. LUNGS: Wheezing noted on auscultation. HEART: Regular rate and rhythm, no murmurs. No ectopy. EXTREMITIES: Normal, no deformities, no skin discoloration, no edema. NEURO: Awake, alert and oriented x3, cranial nerves II-XII grossly intact, normal gait, no involuntary motions. Data Reviewed: Outside chart from [place] reviewed. ASSESSMENT/PLAN: 1. Palpitations (R00.2) 2. Tachycardia (R00.0) 3. 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 - Currently managing with metoprolol as needed; patient has taken it once since the last episode. - Discussed potential need for daily metoprolol if episodes increase in frequency. - Referral to Dr. Phillips, an food dehydrator operator at [facility], for further evaluation and management. - Provided information on general cardiologists: Dr. Jackson, Dr. Bethea, and Dr. Vaz, in case referral to EP is not directly accepted. - Advised on lifestyle modifications, including reduction of alcohol and marijuana use, which can exacerbate symptoms. 4. Elevated hemoglobin (D58.2) - Recent labs showed hemoglobin level at 16.2 g/dL, slightly above the normal range. - Discussed potential causes, including smoking and dehydration. - Ordered repeat CBC and iron panel to be done in the next few weeks at [facility]. - Educated patient on the possibility of hemochromatosis and the importance of monitoring. 5. Wheezing (R06.2) - Noted significant wheezing on auscultation. - History of asthma in childhood; currently smoking cigarettes. - Prescribed albuterol inhaler: instructed to use 1-2 puffs every 4 hours as needed, starting with 1 puff to minimize potential tachycardia. - Emphasized the importance of smoking cessation to improve respiratory symptoms. 6. Nausea (R11.0) - Prescribed Zofran for nausea associated with anxiety. 7. Obesity, Class I, BMI 30-34.9 (E66.811) - Discussed the importance of weight management for overall health and reduction of cardiac symptoms. - Encouraged lifestyle modifications, including diet and exercise. 8. Tobacco use disorder (F17.200) - Smoking half a pack of cigarettes daily since age 15. - Discussed various smoking cessation methods, including Nicorette gum and patches. - Advised to consult with account classification clerk regarding safe smoking cessation methods. 9. Daily consumption of alcohol (Z78.9) - Consuming at least one beer daily. - Advised reduction in alcohol intake to prevent exacerbation of cardiac symptoms. 10. Marijuana smoker (F12.90) - Using marijuana daily for anxiety relief. - Advised reduction in use due to potential exacerbation of cardiac symptoms. Return for after cardiology or EP. I have reviewed the patient's (ER) course including diagnostic testing performed during this ER visit, their discharge medications, and my assessment and plan with the patient. Discussed the above with the patient using shared decision making. The patient is in agreement with the diagnostic and treatment plans. There are no discontinued medications. November 12, 2024 3:15 PM Yaneth Macario APRN.CNP 11/12/2024 3:48 PM Addendum Hemochromatosis Good Rx EP: Dr. Phillips [address] [address] Directions Appointment: [phone] Cardiology: Dr. Andres Jackson MD [address] [place] [address] Neema Coyle [facility] [address] [place] [address] [place] [address] Directions Appointment: [phone] [facility] ([facility]) [address] [place] [address] Directions Appointment: [phone] Allergies As of Date: 11/12/2024 Noted Allergy Reaction PENICILLINS 07/15/2022 5 - Intolerance Date Reviewed: 11/12/2024 Reviewed by: Yaneth Macario APRN.MANAGER ACTUARIAL - Fully Assessed Reason for Visit: ER F/U [41] Primary Visit Diagnosis:Palpitations [R00.2] Other Visit Diagnoses:Tachycardia [R00.0] History of Gfpxy-Dfkkkqhho-Cbgqp (WPW) syndrome [Z86.79] Elevated hemoglobin [D58.2] Wheezing [R06.2] Nausea [R11.0] Obesity, Class I, BMI 30-34.9 [E66.811] Tobacco use disorder [F17.200] Daily consumption of alcohol [Z78.9] Marijuana smoker [F12.90] Order(s):CONSULT TO ELECTROPHYSIOLOGY [[id number]] Order #: [id number]: 1 FUTURE COMPLETE BLOOD COUNT AND DIFFERENTIAL [SQCBCDIF] Order #: [id number] FUTURE IRON AND TIBC [SQIRON] Order #: [id number] FUTURE FERRITIN [SQFERR] Order #: [id number] FUTURE FOLATE, SERUM [SQSERFOL] Order #: [id number] FUTURE VITAMIN B12 [SQB12] Order #: [id number] FUTURE albuterol HFA (PROVENTIL HFA, VENTOLIN HFA) 90 mcg/actuation inhalerInhale 2 puffs as instructed every 4 hours as needed for wheezing/shortness of breath.Disp: 1 eachRfl: 2 ondansetron (ZOFRAN) 4 mg tabletTake 1 tablet by mouth every 8 hours as needed.Disp: 12 tabletRfl: 0 Prescriptions as of 11/13/2024 - albuterol HFA (PROVENTIL HFA, VENTOLIN HFA) 90 mcg/actuation inhaler Inhale 2 puffs as instructed every 4 hours as needed for wheezing/shortness of breath. - ondansetron (ZOFRAN) 4 mg tablet Take 1 tablet by mouth every 8 hours as needed. - metoprolol tartrate, short acting, (LOPRESSOR) 25 mg tablet Take 1 tablet by mouth two times a day as needed. - levonorgestrel (KYLEENA) 17.5 mcg/24 hrs (5 yrs) 19.5 mg IUD 1 Each by INTRAUTERINE route one time only. Problem List As Of Date 11/12/2024 Noted Resolved Palpitation [R00.2] 01/09/2024 Other instructions from your clinician: Hemochromatosis Good Rx EP: Dr. Phillips [address] [address] Directions Appointment: [phone] Cardiology: Dr. Andres Jackson MD [address] [place] [address] Neema [facility] [address] [place] [address] [place] [address] Directions Appointment: [phone] Dr. [facility] ([facility]) [address] [place] [address] Directions Appointment: [phone] Prescriptions ordered this encounter Disp Refills Start End ALBUTEROL SULFATE HFA 90 MCG/ACTUATI* 1 ea* 2 11/12/2024 Route: INHALATION Sig: Inhale 2 puffs as instructed every 4 hours as needed for wheezing/shortness of breath. ONDANSETRON HCL 4 MG TABLET 12 t* 0 11/12/2024 Route: ORAL Sig: Take 1 tablet by mouth every 8 hours as needed. Disposition: Return for after cardiology or EP. Follow-up and Disposition History for Encounter Date Provider Department Center 11/12/2024 [id number] MACARIO JONAINOCENCIO [facility] Encounter Status:Closed by YANETH MACARIO on 11/13/24 PROGRESS Observed: 11/12/2024 3:15 PM Status: COMPLETED Source: [facility] HNO ID: [id number] Author: YANETH MACARIO APRN.MANAGER ACTUARIAL Service: ? Author Type: Nurse Practitioner Type: Progress Notes Filed: 11/13/2024 18:59 Note Text: [address] [address] Visit Date: 11/12/2024 Patient Name: Fannie Rosas Date of : 2000 Chief Complaint: ER Follow Up Fannie is a 24-year-old female with a history of Okdmj-Wxurtiijl-Fddxh syndrome, presenting for follow-up after a recent ED visit for palpitations. Emergency Room Location: [facility] ED Visits AND Hospitalizations - Last 180 days None HPI: Ktggh-Rlbqwattd-Xivwo Syndrome: - Recent ED visit in September for palpitations. - History of ablation performed by an food dehydrator operator in [place]. - Last cardiology visit was in December of the previous year, during which a Holter monitor was used. - Holter monitor results showed normal sinus rhythm with occasional episodes of tachycardia, including a 3-beat run at midnight with a heart rate of 46 bpm. - No evidence of AFib, AFlutter, or Odmbt-Rmmdfmmek-Sanue syndrome on the Holter monitor. - Experiences 2-3 episodes of palpitations daily, described as a couple beats that are not sustained. - Takes metoprolol PRN for palpitations, with only one dose taken since the ED visit. - Concerns about potential side effects of metoprolol, including decreased motivation and weight gain. - Family history of multiple ablations in the father. Tobacco Use: - Smoking since age 15, currently smoking half a pack per day. - Reports wheezing, especially at night, and a history of asthma as a child. - Fiance also smokes, making cessation more challenging. Alcohol Use: - Consumes at least one beer daily, but denies getting drunk every day. Marijuana Use: - Smokes marijuana daily, taking a puff every once in a while to manage anxiety. Anxiety: - Experiences anxiety, sometimes leading to nausea. - Requests a prescription for Zofran to manage nausea associated with anxiety. Previous OV Fannie Rosas is a 23 year old female who presents for follow up for elevated blood pressure readings. I reviewed past medical, surgical, social, and family histories today and updated chart. Allergies, chronic medications, and supplements were also reviewed. Tried cutting back on smoking and was down to 3 cigarettes but is back up to 1/2 ppd because she was recently laid off from her job Completed quality assurance monitor body patch on 01/22/24- awaiting results Echo completed and was normal She is feeling better but still fatigued Has Kyleena IUD, placed in 2019 Hasn't made appointment with FOUR CORNER STAYER MACHINE OPERATOR yet Hasn't had a Pap and has been having bleeding after intercourse She would like to see a stamp press operator for some skin spots that she wants checked out OV 12/26/23: All grandparents and dad have HTN Was seen in urgent care Fatigued Fainted the morning of the 12/05/23- BP 163/115 Went to [place] ER on 12/05/23 Didn't give her any medication in the ER Had a EKG and CXR Labs were normal Home BP- 140/90 Sometimes higher and sometimes lower Uses a wrist cuff Smokes 7 cigarettes a day now Alcohol 1-2 drinks daily 1 cup of coffee once a week Works at a greenhouse Drinks a lot of water No recent illness Stress test a year ago for palpitations 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 PAST MEDICAL HISTORY Diagnosis Date Tachycardia Fzmoc-Vbtwvvnfi-Vfbam (WPW) pattern PAST SURGICAL HISTORY Procedure Laterality Date HEART SURGERY 2019 INSERTION OF IUD 02/2020 kyleena FAMILY HISTORY Problem Relation Age of Onset other (HTN) Mother other (HTN) Father Heart Father x2 ablations Breast Cancer Maternal Grandmother Lymphoma Maternal Grandfather Lymphoma Paternal Grandmother Social History Tobacco Use Smoking status: Every Day Current packs/day: 0.50 Types: Cigarettes Smokeless tobacco: Never Vaping Use Vaping status: Never Used Substance Use Topics Alcohol use: Yes Comment: daily Drug use: Yes Types: Marijuana Comment: daily Current Meds metoprolol tartrate, short acting, (LOPRESSOR) 25 mg tablet Take 1 tablet by mouth two times a day as needed. levonorgestrel (KYLEENA) 17.5 mcg/24 hrs (5 yrs) 19.5 mg IUD 1 Each by INTRAUTERINE route one time only. albuterol HFA (PROVENTIL HFA, VENTOLIN HFA) 90 mcg/actuation inhaler Inhale 2 puffs as instructed every 4 hours as needed for wheezing/shortness of breath. ondansetron (ZOFRAN) 4 mg tablet Take 1 tablet by mouth every 8 hours as needed. I have confirmed and edited as necessary the chief complaint, medications, past medical, family and social histories obtained by others. Review of Systems Constitutional: (+) weight gain Cardiovascular: (+) chest pressure, (+) palpitations Respiratory: (+) wheezing Gastrointestinal: (+) nausea Psychiatric: (+) anxiety, (+) lack of motivation Physical Exam GENERAL: NAD, alert and oriented. SKIN: Unremarkable, no rash or skin lesions. HEAD: Normocephalic. EYES: PERRLA, EOMI, conjunctiva clear. EARS: External ears normal, canals clear, TM's normal. NOSE/SINUSES: Nares normal. Septum midline. OROPHARYNX: Lips, mucosa, and tongue normal, good dentition. No oral lesions noted. NECK: Supple, no lymphadenopathy, normal thyroid, no carotid bruits. LUNGS: Wheezing noted on auscultation. HEART: Regular rate and rhythm, no murmurs. No ectopy. EXTREMITIES: Normal, no deformities, no skin discoloration, no edema. NEURO: Awake, alert and oriented x3, cranial nerves II-XII grossly intact, normal gait, no involuntary motions. Data Reviewed: Outside chart from [place] reviewed. ASSESSMENT/PLAN: 1. Palpitations (R00.2) 2. Tachycardia (R00.0) 3. History of Wowbn-Uhdmhixdo-Drhmd (WPW) syndrome (Z86.79) - Holter monitor from last year showed normal sinus rhythm with occasional brief episodes of increased heart rate, no evidence of AFib, AFlutter, or WPW. - Currently managing with metoprolol as needed; patient has taken it once since the last episode. - Discussed potential need for daily metoprolol if episodes increase in frequency. - Referral to Dr. Phillips, an food dehydrator operator at [facility], for further evaluation and management. - Provided information on general cardiologists: Dr. Jackson, Dr. Bethea, and Dr. Vaz, in case referral to EP is not directly accepted. - Advised on lifestyle modifications, including reduction of alcohol and marijuana use, which can exacerbate symptoms. 4. Elevated hemoglobin (D58.2) - Recent labs showed hemoglobin level at 16.2 g/dL, slightly above the normal range. - Discussed potential causes, including smoking and dehydration. - Ordered repeat CBC and iron panel to be done in the next few weeks at [facility]. - Educated patient on the possibility of hemochromatosis and the importance of monitoring. 5. Wheezing (R06.2) - Noted significant wheezing on auscultation. - History of asthma in childhood; currently smoking cigarettes. - Prescribed albuterol inhaler: instructed to use 1-2 puffs every 4 hours as needed, starting with 1 puff to minimize potential tachycardia. - Emphasized the importance of smoking cessation to improve respiratory symptoms. 6. Nausea (R11.0) - Prescribed Zofran for nausea associated with anxiety. 7. Obesity, Class I, BMI 30-34.9 (E66.811) - Discussed the importance of weight management for overall health and reduction of cardiac symptoms. - Encouraged lifestyle modifications, including diet and exercise. 8. Tobacco use disorder (F17.200) - Smoking half a pack of cigarettes daily since age 15. - Discussed various smoking cessation methods, including Nicorette gum and patches. - Advised to consult with account classification clerk regarding safe smoking cessation methods. 9. Daily consumption of alcohol (Z78.9) - Consuming at least one beer daily. - Advised reduction in alcohol intake to prevent exacerbation of cardiac symptoms. 10. Marijuana smoker (F12.90) - Using marijuana daily for anxiety relief. - Advised reduction in use due to potential exacerbation of cardiac symptoms. Return for after cardiology or EP. I have reviewed the patient's (ER) course including diagnostic testing performed during this ER visit, their discharge medications, and my assessment and plan with the patient. Discussed the above with the patient using shared decision making. The patient is in agreement with the diagnostic and treatment plans. There are no discontinued medications. November 12, 2024 3:15 PM CNCO Observed: 10/24/2024 12:00 AM Status: COM PLETED Source: [facility] Letter Text CNPN Observed: 10/24/2024 12:00 AM Status: COMPLETED Source: [facility] Telephone (AGFAMPLE) FANNIE ROSAS ([id number]) 1 F Date Time Provider Department 10/24/24 YANETH MACARIO During your visit today, we recorded the following information about you: Erwin Newman 10/24/2024 3:53 PM Signed No Show Documentation Fannie Rosas no showed for an appointment on 10-24-24 with Yaneth Macario APRN.CNP at 3:20 PM. She was scheduled for an ER follow up. I called and was unable to reach anyone left a voicemail to call and reschedule. Resources discussed/offered to patient: na No show determined to be fault of patient: Yes This is the patients first no show in the last 12 months. Patient was rescheduled for na. Letter sent through R&L: Yes Is this the Third or Fourth No Show? No Erwin Newman October 24, 2024 3:51 PM Allergies As of Date: 10/24/2024 Noted Allergy Reaction PENICILLINS 07/15/2022 5 - Intolerance Date Reviewed: 10/21/2024 Reviewed by: Lynette Salgado MD - Fully Assessed Reason for Visit: Missed Appointment [1304] Cmt: First missed appointment first letter Prescriptions as of 10/24/2024 - metoprolol tartrate, short acting, (LOPRESSOR) 25 mg tablet Take 1 tablet by mouth two times a day as needed. - levonorgestrel (KYLEENA) 17.5 mcg/24 hrs (5 yrs) 19.5 mg IUD 1 Each by INTRAUTERINE route one time only. Problem List As Of Date 10/24/2024 Noted Resolved Palpitation [R00.2] 01/09/2024 Encounter Status:Closed by ERWIN NEWMAN on 10/24/24 PAP TEST Collected: 10:46 AM Status: F Source: [facility] Order Comment: Specimen Type : FLUID SPECIMEN Ordering Facility: [facility] Address: [address] [place] [address] TYPE CODE TESTS RESULT OUT OF RANGE REFERENCE UNITS PATHOLOGY [id number] CASE REPORT Result Comment: Gynecologic Cytology Report Case: [id number] Authorizing Provider: Lynette Salgado MD Collected: 10/21/2024 10:46 AM Ordering Location: OB/Gynecology Received: 10/21/2024 12:14 PM First Screen: David Reyes, CT, ASCP Specimen: Pap Test, ThinPrep, Cervix PATHOLOGY [id number] ADEQUACY Result Comment: Satisfactory for interpretation. Transformation zone present PATHOLOGY [id number] INTERPRETATIO N, CYTOLOGY, FOUR CORNER STAYER MACHINE OPERATOR Result Comment: Negative for intraepithelial lesion or malignancy. at 1401 EDT PATHOLOGY [id number] CLINICAL HISTORY, CYTOLOGY, FOUR CORNER STAYER MACHINE OPERATOR Intra Uterine Device, No Menses PATHOLOGY PAPDC PAP DISCLAIMER COMMENT The Pap Smear is a screening test for cervical cancer. False negative results occur with all screening tests, emphasizing the need for rescreening at recommended intervals, and clinical correlation. PATHOLOGY PAPIC PAP GASOLINE ENGINE ASSEMBLER COMMENT This specimen has been analyzed by the ThinPrep Imaging System, an automated imaging and review system, which assists the laboratory in evaluating cells on ThinPrep Pap tests. Following automated imaging, selected purvis from every slide are reviewed by a cytotechnologi . PATHOLOGY [facility] Result Comment: Technical co connie, photoengraving etcher screening performed at [facility], [facility] [address] CLIA# [id number] Diagnostic interpretation performed at [facility], [address] [place] [address] CLIA# [id number] Mandarin Chinese Teacher: Yovany Gagnon M.D. Performed By: #### [id number] # ### [facility] CLIA [id number] [address] [place] [address] [place] [address] [place] Observed: 10/21/2024 9:46 AM Status: COMPLETED Source: [facility] HNO ID: [id number] Author: SONIA WATTS MA Service: ? Author Type: Physician Type: Progress Notes Filed: 10/21/2024 10:16 Note Text: Paving And Surfacing Labourer offered: Patient accepts, visit chaperoned by Sonia Watts MA. Fannie is a 24 year old who presents for an annual gynecologic exam without complaints. Has had Kyleena placed when she was 20. Hasn't had a visit w/ siebel consultant since. Little spotting after intercourse. Age at Menarche: 9 Still get period: No Sexually active: Yes Time with current partner: 2 years Contraception: IUD Contraception frequency: Always HPV vaccine: uncertain HPV:N/A Last pap smear: never Last mammogram: never Sexually active: Yes OB History No obstetric history on file. FAMILY HISTORY Problem Relation Age of Onset other (HTN) Mother other (HTN) Father Heart Father x2 ablations Breast Cancer Maternal Grandmother Lymphoma Maternal Grandfather Lymphoma Paternal Grandmother SOCIAL HISTORY Social History Tobacco Use Smoking status: Every Day Types: Cigarettes Smokeless tobacco: Never Vaping Use Vaping status: Never Used Substance Use Topics Alcohol use: Yes Drug use: Yes Types: Marijuana REVIEW OF SYSTEMS Abdomen: No abdominal pain, nausea, vomiting, diarrhea, or constipation. No bloating, early satiety, indigestion, or increased flatulence. Bladder: No dysuria, gross hematuria, urinary frequency, urinary urgency, or incontinence. Breast: No breast lumps, nipple d/c, overlying skin changes, redness or skin retraction. Allergies and current medication updated:Yes SENSITIVE EXAM: The sensitive examination was discussed with the Patient or Patient's Authorized Change Booth Attendant. As applicable, any other physician, advance practice provider, medical student, or other health professional student that will be observing or involved in the sensitive examination for educational or training purposes was discussed with the Patient or Authorized Change Booth Attendant. The Patient or Authorized Change Booth Attendant has agreed to proceed with the sensitive examination. (Sensitive examination includes inspection and/or palpation of the breasts, pelvis, prostate and anorectal regions). EXAM: BP 124/86 Ht 5' 3.5 (1.61m) Wt 177 lb (80.3kg) LMP 07/03/2022 BMI 30.86 kg/(m2). GENERAL: pleasant, female in no apparent distress HEENT: Normocephalic, atraumatic, mucus membranes moist, and no lesions NECK: Supple, full range of motion, no adenopathy, and thyroid normal DERMATOLOGY: Normal, without lesions, non-icteric, and non-hirsute BREAST: soft, non-tender, symmetric, no dominant mass, normal nipple-areolar complex, no lymphadenopathy, and no nipple discharge CHEST: Normal inspiratory effort ABDOMEN: soft, non-tender, and no masses PELVIC: external genitalia normal, normal Bartholin's glands, urethra, Octavia's glands, no vulvar lesions, no cervical lesions, good vaginal support, physiologic discharge present, normal appearing perineal body and perianal region, IUD strings visible BIMANUAL: uterus normal size, shape and consistency, no adnexal masses, and non-tender RECTOVAGINAL: deferred. NEURO: alert and oriented x3,exam grossly non-focal EXTREMITIES: normal ASSESSMENT/PLAN: 1) Health maintenance: Pap done with reflex HPV. HPV vaccine: uncertain, check w/ PCP 2) Contraception: IUD. Contraceptive options reviewed and information provided. 3) STD screening: Declined STD check. 4) Follow up one year or sooner as needed Lynette Salgado MD CNOV Observed: 10/21/2024 9:40 AM Status: COMPLETED Source: [facility] Office Visit (OBGYWM) FANNIE ROSAS ([id number]) 1 F Date Time Provider Department 10/21/24 9:40 AM LYNETTE SALGADO OBGYWM During your visit today, we recorded the following information about you: Blood pressure Weight Height 124/86 80.3 kg 1.613 m Lynette Salgado MD 10/21/2024 10:16 AM Addendum Paving And Surfacing Labourer offered: Patient accepts, visit chaperoned by Sonia Watts MA. Fannie is a 24 year old who presents for an annual gynecologic exam without complaints. Has had Kyleena placed when she was 20. Hasn't had a visit w/ siebel consultant since. Little spotting after intercourse. Age at Menarche: 9 Still get period: No Sexually active: Yes Time with current partner: 2 years Contraception: IUD Contraception frequency: Always HPV vaccine: uncertain HPV:N/A Last pap smear: never Last mammogram: never Sexually active: Yes OB History No obstetric history on file. FAMILY HISTORY Problem Relation Age of Onset other (HTN) Mother other (HTN) Father Heart Father x2 ablations Breast Cancer Maternal Grandmother Lymphoma Maternal Grandfather Lymphoma Paternal Grandmother SOCIAL HISTORY Social History Tobacco Use Smoking status: Every Day Types: Cigarettes Smokeless tobacco: Never Vaping Use Vaping status: Never Used Substance Use Topics Alcohol use: Yes Drug use: Yes Types: Marijuana REVIEW OF SYSTEMS Abdomen: No abdominal pain, nausea, vomiting, diarrhea, or constipation. No bloating, early satiety, indigestion, or increased flatulence. Bladder: No dysuria, gross hematuria, urinary frequency, urinary urgency, or incontinence. Breast: No breast lumps, nipple d/c, overlying skin changes, redness or skin retraction. Allergies and current medication updated:Yes SENSITIVE EXAM: The sensitive examination was discussed with the Patient or Patient's Authorized Change Booth Attendant. As applicable, any other physician, advance practice provider, medical student, or other health professional student that will be observing or involved in the sensitive examination for educational or training purposes was discussed with the Patient or Authorized Change Booth Attendant. The Patient or Authorized Change Booth Attendant has agreed to proceed with the sensitive examination. (Sensitive examination includes inspection and/or palpation of the breasts, pelvis, prostate and anorectal regions). EXAM: BP 124/86 Ht 5' 3.5 (1.61m) Wt 177 lb (80.3kg) LMP 07/03/2022 BMI 30.86 kg/(m2). GENERAL: pleasant, female in no apparent distress HEENT: Normocephalic, atraumatic, mucus membranes moist, and no lesions NECK: Supple, full range of motion, no adenopathy, and thyroid normal DERMATOLOGY: Normal, without lesions, non-icteric, and non-hirsute BREAST: soft, non-tender, symmetric, no dominant mass, normal nipple-areolar complex, no lymphadenopathy, and no nipple discharge CHEST: Normal inspiratory effort ABDOMEN: soft, non-tender, and no masses PELVIC: external genitalia normal, normal Bartholin's glands, urethra, Octavia's glands, no vulvar lesions, no cervical lesions, good vaginal support, physiologic discharge present, normal appearing perineal body and perianal region, IUD strings visible BIMANUAL: uterus normal size, shape and consistency, no adnexal masses, and non-tender RECTOVAGINAL: deferred. NEURO: alert and oriented x3,exam grossly non-focal EXTREMITIES: normal ASSESSMENT/PLAN: 1) Health maintenance: Pap done with reflex HPV. HPV vaccine: uncertain, check w/ PCP 2) Contraception: IUD. Contraceptive options reviewed and information provided. 3) STD screening: Declined STD check. 4) Follow up one year or sooner as needed Lynette Salgado MD Allergies As of Date: 10/21/2024 Noted Allergy Reaction PENICILLINS 07/15/2022 5 - Intolerance Date Reviewed: 10/21/2024 Reviewed by: Lynette Salgado MD - Fully Assessed Reason for Visit: Yearly Exam [187] Primary Visit Diagnosis:Encounter for gynecological examination (general) (routine) without abnormal findings [Z01.419] Other Visit Diagnoses:Screening for cervical cancer [Z12.4] Encounter for IUD removal [Z30.432] Order(s):PAP TEST [LRS6025] Order #: [id number] REMOVE INTRAUTERINE DEVICE [9287329] Order #: [id number] Prescriptions as of 10/21/2024 - metoprolol tartrate, short acting, (LOPRESSOR) 25 mg tablet Take 1 tablet by mouth two times a day as needed. - levonorgestrel (KYLEENA) 17.5 mcg/24 hrs (5 yrs) 19.5 mg IUD 1 Each by INTRAUTERINE route one time only. Problem List As Of Date 10/21/2024 Noted Resolved Palpitation [R00.2] 01/09/2024 Disposition: Return in 1 year (on 10/21/2025) for Annual Exam. Follow-up and Disposition History for Encounter Date Provider Department Center 10/21/2024 [id number] SALGADOHimanshu Chavez Encounter Status:Closed by LYNETTE SALGADO on 10/21/24 PROGRESS Observed: 10/04/2024 1:33 PM Status: COMPLETED Source: [facility] HNO ID: [id number] Author: WENDIE REYES MA Service: ? Author Type: Ophthalmic Technician Type: Progress Notes Filed: 10/04/2024 13:34 Note Text: Patient notified. Wendie Reyes MA ] PROGRESS Observed: 10/04/2024 12:48 PM Status: COMPLETED Source: [facility] HNO ID: [id number] Author: YARELIS POSADAS APRN.MANAGER ACTUARIAL Service: ? Author Type: Nurse Practitioner Type: Progress Notes Filed: 10/04/2024 12:49 Note Text: She will need to see a account classification clerk first - see referral Yarelis Posadas APRN.MANAGER ACTUARIAL PROGRESS Observed: 10/03/2024 2:38 PM Status: COMPLETED Source: [facility] HNO ID: [id number] Author: LO ROMERO LPN Service: ? Author Type: LICENSED NURSE Type: Progress Notes Filed: 10/03/2024 14:47 Note Text: ED Follow-Up Note Provider Action / FYI: Pt asking for referral to Electrophysiology for her palpitations and tachycardia. Pt is scheduled for ER follow up on 10/24/2024 with Yaneth Macario. oL Romero LPN Call completed by: KUNAL Patient seen in ED: In Network ED Contact made with Patient: Yes The patient was identified by Name and Date of . Discussed Care with: patient Patient was seen in the Emergency Department (ED) Location: [place] Date: 10/02/2024 Reason for ED Visit: Sinus Tachycardia, anxiety reaction ED Intervention: Labs, EKG New Medications: None Medication Changes: None Does patient understand medication changes: N/A Can patient afford medication changes: N/A Patient educated on worsening symptoms and when and where to seek additional care: No Patient Education Provided including treatment plan and new orders. Patient provided with appropriate counseling: Yes PROGRESS Observed: 10/03/2024 11:01 AM Status: COMPLETED Source: [facility] HNO ID: [id number] Author: LO ROMERO LPN Service: ? Author Type: LICENSED NURSE Type: Progress Notes Filed: 10/03/2024 11:03 Note Text: ED Follow-Up Note Provider Action / FYI: Call completed by: KUNAL Patient seen in ED: Out of Network ED Contact made with Patient: No, left message. Lo Romero LPN October 03, 2024 11:03 AM CNPTOUTRCARLOS Observed: 10/03/2024 12:00 AM Status: COMPLETED Source: [facility] Patient Outreach (AGFAMPLE) FANNIE ROSAS ([id number]) 1 F Date Time Provider Department 10/03/24 YANETH MACARIO During your visit today, we recorded the following information about you: Lo Romero LPN 10/03/2024 11:03 AM Signed ED Follow-Up Note Provider Action / FYI: Call completed by: KUNAL Patient seen in ED: Out of Network ED Contact made with Patient: No, left message. Lo Romero LPN October 03, 2024 11:03 AM Lo Romero LPN 10/03/2024 2:47 PM Signed ED Follow-Up Note Provider Action / FYI: Pt asking for referral to Electrophysiology for her palpitations and tachycardia. Pt is scheduled for ER follow up on 10/24/2024 with Yaneth Macario. Lo Romero LPN Call completed by: KUNAL Patient seen in ED: In Network ED Contact made with Patient: Yes The patient was identified by Name and Date of . Discussed Care with: patient Patient was seen in the Emergency Department (ED) Location: [place] Date: 10/02/2024 Reason for ED Visit: Sinus Tachycardia, anxiety reaction ED Intervention: Labs, EKG New Medications: None Medication Changes: None Does patient understand medication changes: N/A Can patient afford medication changes: N/A Patient educated on worsening symptoms and when and where to seek additional care: No Patient Education Provided including treatment plan and new orders. Patient provided with appropriate counseling: Yes Yarelis Posadas APRN.CNP 10/04/2024 12:49 PM Signed She will need to see a account classification clerk first - see referral GENARO Duran Kristin C, APRN.CNP 10/04/2024 12:50 PM Signed Addended by: YARELIS POSADAS on: 10/04/2024 12:50 PM Modules accepted: Wendie Cruz MA 10/04/2024 1:34 PM Signed Patient notified. Wendie Reyes MA ] Allergies As of Date: 10/03/2024 Noted Allergy Reaction PENICILLINS 07/15/2022 5 - Intolerance Date Reviewed: 01/26/2024 Reviewed by: Yaneth Macario APRN.CNP - Fully Assessed Primary Visit Diagnosis:Palpitations [R00.2] Other Visit Diagnosis:Tachycardia [R00.0] Order(s):CONSULT TO CARDIOLOGY [9004] Order #: [id number]: 1 FUTURE Prescriptions as of 10/04/2024 - metoprolol tartrate, short acting, (LOPRESSOR) 25 mg tablet Take 1 tablet by mouth two times a day as needed. - levonorgestrel (KYLEENA) 17.5 mcg/24 hrs (5 yrs) 19.5 mg IUD 1 Each by INTRAUTERINE route one time only. Problem List As Of Date 10/03/2024 Noted Resolved Palpitation [R00.2] 01/09/2024 Encounter Status:Closed by LO ROMERO on 10/03/24 ALLERGIES DATE TYPE / CODE NAME / CODE REACTION SEVERITY SOURCE 07/15/2022 Drug Class/[id number](SNO MED CT) PENICILLINS INTOLERANCE [facility] ENCOUNTERS ADMIT/DISCHARGE ACCOUNT NUMBER ADMITTING ENCOUNTER CLASS LOC ATION SOURCE 04/17/2025 [id number] [facility] 04/17/2025/ 5 [id number] [facility] 04/17/2025/ 5 [id number] [facility]/ [id number] [facility]WMOB [facility] 11/12/2024/ 5 [id number] [facility] 10/21/2024/ [id number] [facility]:WMOB [facility] PAYERS ENCOUNTER GUARANTOR PAYER SUBSCRIBER SOURCE 04/17/2025 Primary Insurance:[employer] MEDICAID [facility] Number: [id number] Date:8942-71-23Kodg Name:Anatoliy MATOSOB: [id number] [address] 04/17/2025 Primary Insurance:[employer] MEDICAID [facility] Number: [id number] Date:8708-09-26Iigr Name:Anatoliy MATOSOB: [id number] [address] 04/17/2025 Primary Insurance:[employer] MEDICAID [facility] Number: [id number] Date:9698-36-64Tgws Name:Anatoliy VIZCARRAMANDOB: [id number] [address] 04/01/2025 Primary Insurance:[employer] MEDICAID [facility] Number: [id number] Date:5852-50-02Fgmk Name:Anatoliy MATOSOB: [id number] [address] 11/12/2024 Primary Insurance:[employer] MEDICAID [facility] Number: [id number] Date:0052-56-17Qjmo Name:Anatoliy Downs EFRAÍN: [id number] [place] [address] [facility] 10/21/2024 Primary Insurance:[employer] MEDICAID [facility] Number: [id number] Date:2497-01-56Aoix Name:Anatoliy Downs EFRAÍN: [id number] [place] [address] [facility]
--- NOTE | 2025-04-19 00:13 | RAD_ITS ---
PROCEDURE: CHEST 1 VIEW (PORTABLE) 04/20/2025 REASON FOR EXAM: CHEST PAIN TECHNIQUE: Frontal view of the chest. COMPARISON: 12/05/2023. FINDINGS: The lungs are expanded. There is no demonstrated parenchymal abnormality. There is no demonstrated pleural abnormality. Normal heart and pericardium. Normal mediastinum and isidra. Normal visualized pulmonary arteries. Normal visualized aortic arch and descending thoracic aorta. Normal visualized thoracic spine. Normal visualized ribs, clavicles, and shoulders. There is no demonstrated abnormality of the visualized soft tissue structures of the upper abdomen. RAD/Chest 1 View (Portable) IMPRESSION: No evidence for acute abnormality. Reading Location: [facility]
[2025-04-19 23:32] VITALS: BP 133/74; PULSE 113; RESP 18; TEMP 36.8; O2SAT 99; BMI 33.9
[2025-04-19 23:47] VITALS: O2SAT 98
--- NOTE | 2025-04-19 23:47 | EKG12_ITS ---
Test Reason : CP Blood Pressure : */* mmHG Vent. Rate : 109 BPM Atrial Rate : 109 BPM P-R Int : 150 ms QRS Dur : 100 ms QT Int : 346 ms P-R-T Axes : 71 26 27 degrees QTcB Int : 465 ms Sinus tachycardia with frequent Premature ventricular complexes Nonspecific T wave abnormality Abnormal ECG Confirmed by CHESTER YOUNG, ELODIA ([id number]), scientific publications editor PATTIE COLON ([id number]) on 04/21/2025 8:41:16 AM Referred By: Confirmed By: ELODIA BRIGGS MD
--- NOTE | 2025-04-19 23:48 | ED.VIS.CHEST ---
HPI History of Present Illness Chief Complaint: Chest Pain Informant: patient and spouse/S.O. 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 - Reports onset of symptoms tonight, including palpitations with HR >200 bpm, similar to pre-ablation SVT episodes. - Underwent ablation for WPW 4-5 years ago; has experienced similar episodes since. - Associated symptoms include left-sided neck pain and dyspnea. - Took metoprolol, which reduced HR but did not alleviate the sensation of skipping and holding beats. - Has had previous episodes of pain with SVT, but tonight was concerned about persistence of the pressure, albeit much improved, after resolution of the palpitations/tachycardia. - Consumed alcohol prior to symptom onset; attributes this as a potential trigger. - Reports left calf pain described as cramping, rated 4/10, for approximately 3 wks; denies swelling. - No known history of blood clots. Takes no anticoagulants. - Currently taking metoprolol tartrate, an inhaler, and progesterone-only control. - Smokes daily for about 10 years. - Follow-up with plant changer scheduled for Monday [facility] Medical History Alcohol abuse Cigarette smoker Marijuana smoker WPW (Ujxsc-Lmopbtssl-Diyqw syndrome) Home Medications ?Medication ?Instructions ?Recorded ?Last Taken ?Type metoprolol succinate 25 mg 25 mg PO PRN 04/13/25 Unknown History tablet,extended release 24 hr albuterol sulfate 90 mcg/actuation 2 puff inhalation Q4H PRN PRN 04/19/25 Unknown History aerosol inhaler wheezing norethindrone (contraceptive) 0.35 0.35 mg PO DAILY 04/19/25 Unknown History mg tablet Allergy/AdvReac Type Severity Reaction Status Date / Time Penicillins Allergy Severe Hives Verified 04/13/25 00:04 Surgical History Hx of heart surgery Social History Smoking Status: Current every day smoker tobacco type: cigarettes ROS ROS ED Constitutional Constitutional ED: Denies chills or fever(s) Eyes Eyes: Denies change in vision or diplopia ENT ENT ED: Denies rhinorrhea or sore throat Cardiovascular Cardiovascular: Reports as per HPI, chest pain, palpitations and racing heartbeat Respiratory/Chest Respiratory/Chest: Reports dyspnea; Denies cough Gastrointestinal Gastrointestinal: Denies abdominal pain, diarrhea, nausea or vomiting Genitourinary Genitourinary ED: Denies dysuria or hematuria Musculoskeletal Musculoskeletal: Reports other Details: (+) left calf pain/cramping x 3 wks, no swelling ; Denies back pain or neck pain Integumentary Denies abscess or rash Neurologic Neurologic: Denies headache(s), paresthesias or weakness Psychiatric Psychiatric: Denies suicidal thoughts EXAM Physical Exam Const Vital Signs: 04/19/25 23:32 04/19/25 23:34 04/19/25 23:47 Temperature 98.3 F Temperature Source Oral Pulse Rate 113 H Respiratory Rate 18 Respiratory Effort Normal Non-Labored Blood Pressure 133/74 H Blood Pressure Mean 93 Pulse Ox 99 98 Oxygen Delivery Method Room Air Room Air 04/20/25 00:31 04/20/25 01:00 Temperature Temperature Source Pulse Rate 86 85 Respiratory Rate 21 H 14 Respiratory Effort Blood Pressure 113/81 H Blood Pressure Mean 91 Pulse Ox 93 97 Oxygen Delivery Method Room Air Room Air Positive well nourished and well developed General Appearance ED: well developed and NAD HEENT Reports moist mucous membranes normocephalic and atraumatic Eyes PERRL and EOMs intact bilaterally Neck full ROM and supple Resp normal respiratory effort and clear to auscultation bilaterally Cardio regular rate, regular rhythm and no murmurs Rate: other Other Details: occ irregularity, coinciding with PVCs on monitor GI non-tender and non-distended Auscultation: normoactive bowel sounds Palpation: soft Back/Spine no CVA tenderness General Back: other FROM Extremity normal to inspection General Extremety ED: Negative for edema, pulses abnormal or tenderness General Extremity: Negative for edema or pulses abnormal Neuro oriented x3, CN's II-XII intact bilaterally and no sensory deficits noted Sensorium / Orientation: awake and alert Motor Exam: strength 5/5 throughout Psych Psych Narrative: Pleasantly intoxicated, cooperative Skin no rashes or lesions noted and no wounds Heart Score History: Slightly/Non-Suspicious ECG: Nonspecific Repolarization Age: </= 45 years Risk Factors: 1 or 2 Risk Factors Score: 2 MDM MDM MDM Narrative Medical decision making narrative: Patient placed on the monitor and obtain EKG, she does not appear to be in a dysrhythmia right now, she is in sinus rhythm with frequent PVCs, she is not feeling those right now but probably was earlier. My suspicion is that her discomfort will resolve with time/observation and is more likely due to the dysrhythmia, rather than a vascular etiology that is causing the dysrhythmia. Also given her left leg cramping in the calf and presence of smoking and oral contraceptive pill, and unilateral aspect of the discomfort in her chest which is nonpleuritic and less likely to be PE, obtain a D-dimer to evaluate for that possibility as well. That came back negative ruling out PE as well as left calf DVT. Also her troponin is less than 6, she has had symptoms for several hours, I do not think that needs to be repeated as with observation her chest discomfort completely resolved and the rest of her labs are normal, 1 view chest x-ray my interpretation is normal as well. Vital signs are normal with no further dysrhythmias on telemetry and her ectopy resolved. I agree with the patient that this was probably related to the alcohol tonight. At this time uncomfortable letting her go home she has an appointment with cardiology scheduled to follow-up with and she is comfortable with that plan. Lab Data Attestation: I reviewed the patient's lab results. Labs: Laboratory Results - last 24 hr 04/19/25 Unknown WBC 9.6 RBC 4.83 Hgb 14.8 Hct 42.0 MCV 87.0 MCH 30.6 MCHC 35.2 RDW Std Deviation 37.9 RDW Coeff of Yudy 11.9 Plt Count 282 MPV 9.4 Immature Gran % (Auto) 1.300 H Neut % (Auto) 55.7 Lymph % (Auto) 28.9 Jennings % (Auto) 9.7 Eos % (Auto) 3.7 Baso % (Auto) 0.7 Absolute Neuts (auto) 5.3 Absolute Lymphs (auto) 2.76 Nucleated RBC % 0 D-Dimer Quant (PE/DVT) 0.27 Sodium 136 Potassium 3.7 Chloride 100 Carbon Dioxide 19.3 L Anion Gap 17 H BUN 5 Creatinine 0.82 Estim Creat Clear Calc 109.60 Est GFR (MDRD) Non-Af 101 BUN/Creatinine Ratio 5.6 L Glucose 89 Calcium 9.2 Troponin T High Sens < 6 Rhythm Strip Rhythm Strip: Sinus Tach Rate: 109 Ectopy: PVC(s) EKG Initial EKG: Attestation: I personally reviewed and interpreted this EKG as follows: Interpretation: No Acute Injury Pattern and Sinus Tachycardia Comments: Frequent PVCs. Nonspecific T wave flattening lateral precordial leads Prior EKG tracings: available for review Prior: Changed Discharge Plan Triage Chief Complaint: Chest Pain ED Provider: Burke Finch Dx/Rx/DC Orders Clinical Impression: Rapid palpitations, Frequent PVCs, History of Szbgf-Rdyygoidm-Rppwr syndrome, Alcohol intoxication, Chest pain, unspecified, Pain of left calf Instructions: ED Heart Palpitations Prescriptions: No Action metoprolol succinate 25 mg tablet extended release 24 hr 25 mg PO PRN albuterol sulfate 90 mcg/actuation HFA aerosol inhaler 2 puff inhalation Q4H PRN PRN (Reason: wheezing) norethindrone (contraceptive) 0.35 mg tablet 0.35 mg PO DAILY Primary Care Provider: Yaneth Camarena NP Referrals: plant changer [Other] - Keep Basia appointment Yaneth Camarena NP, [employer] REPAIRER-[employer] [Primary Care Provider, Family Practice] Activity Restrictions/Additional Instructions: Avoid alcohol until you see cardiology. Print Language: Colombian Disposition Disposition: Home, Self Care
[2025-04-20 00:14] LABS: Hematocrit 42.0 % (37-47); Hemoglobin 14.8 g/dL (12.0-15.0); Immature Granulocytes Count 0.120 X10^3/uL (0.0-0.0); Mean Corp Hgb Conc 35.2 g/dL (32-36); Mean Corpuscular Volume 87.0 fL (81-99); Mean Platelet Vol. 9.4 fl (6.2-12.0); NRBC Flagged by Analyzer 0 % (0-5); Platelet Count 282 K/mm3 (150-450); RBC Distribution Width CV 11.9 % (11.6-14.6); RBC Distribution Width SD 37.9 fl (35.1-43.9); Red Blood Count 4.83 M/mm3 (4.2-5.4); White Blood Count 9.6 K/mm3 (4.4-11.0)
[2025-04-20 00:31] VITALS: BP 113/81; PULSE 86; RESP 21; O2SAT 93
[2025-04-20 00:32] LABS: Anion Gap 17 (5-15); BUN 5 mg/dL (4-19); BUN/Creat Ratio 5.6 RATIO (10-20); Calcium,Total 9.2 mg/dL (7.6-11.0); Carbon Dioxide 19.3 mmol/L (21.0-32.0); Chloride 100 mmol/L (98-108); Estimated Creatinine Clearance 109.60 ml/min (50-250); Glucose 89 mg/dL (70-99); Potassium 3.7 mmol/L (3.3-5.1); Troponin T High Sensitivity < 6 ng/L (<=14)
[2025-04-20 00:38] LABS: D-Dimer Quantitative (DVT/PE) 0.27 FEU/ug/m (0.27-0.49)
[2025-04-20 01:00] VITALS: PULSE 85; RESP 14; O2SAT 97
[2025-04-20 01:48] VITALS: BP 113/84; PULSE 76; RESP 16; TEMP 36.8; O2SAT 99
== END 2025-04-20 01:52 | disposition home or self-care (01) ==
PROVIDERS: Emergency Provider Emergency Medicine; PCP Nurse Practitioner Family; Visit Provider Emergency Medicine
DX: R00.2 Palpitations (principal); I49.3 Ventricular premature depolarization; M54.2 Cervicalgia; R07.9 Chest pain, unspecified; M79.662 Pain in left lower leg; F10.129 Alcohol abuse with intoxication, unspecified; I45.6 Pre-excitation syndrome; F17.210 Nicotine dependence, cigarettes, uncomplicated; Z79.899 Other long term (current) drug therapy
CPT/HCPCS: 71045; 80048; 84484; 85025; 85379; 93005; 99284; A4216

== ENCOUNTER 2025-04-22 13:48 | Emergency (ER) | payer MEDICAID, SELFPAY ==
[2025-04-22 13:51] VITALS: BP 139/92; PULSE 78; RESP 18; TEMP 37.1; O2SAT 97; BMI 32.8
[2025-04-22 13:55] VITALS: BP 139/92; PULSE 78; RESP 18; TEMP 37.1; O2SAT 97
[2025-04-22 14:54] VITALS: O2SAT 99
--- NOTE | 2025-04-22 15:27 | EKG12_ITS ---
Test Reason : SOB/CP Blood Pressure : */* mmHG Vent. Rate : 82 BPM Atrial Rate : 82 BPM P-R Int : 126 ms QRS Dur : 98 ms QT Int : 390 ms P-R-T Axes : 73 17 47 degrees QTcB Int : 455 ms Normal sinus rhythm Suklw-Xrvqlrdno-Krmlu Abnormal ECG Confirmed by CHESTER YOUNG, ELODIA ([id number]), mapping editor TERRI ALATORRE ([id number]) on 04/23/2025 8:23:04 AM Referred By: KLEVER/OLIVE Confirmed By: ELODIA BRIGGS MD
[2025-04-22] MEDS: Albuterol 2.5 MG/3 ML VIAL.NEB. INHALATION ×3 (15:36)
[2025-04-22 15:40] VITALS: PULSE 100; RESP 16
--- NOTE | 2025-04-22 15:47 | EDS_ITS ---
HPI History of Present Illness Chief Complaint: Shortness of Breath Narrative Narrative: Prior records reviewed. Patient was seen on April 13, 2025 for eye problem by Dr. Checo Dwyer. His note was reviewed. Final diagnosis was blurred vision right eye, alcohol intoxication and history of WPW. She was seen on April [address] Burke Finch for chest pain. At that time she had a CBC which was unremarkable. She had a basic metabolic panel that was remarkable for elevated anion gap with a decrease CO2. Troponin was normal. She also had a EKG that revealed sinus tachycardia and nonspecific T wave flattening lateral precordial leads. An x-ray was not obtained at that time. He did not obtain a D-dimer at that time because her chest pain was not pleuritic. She presents because now the pain is not only on the right side infrascapular area has now migrated and involving both sides. It is not pleuritic. She does have some upper respiratory symptoms. She has a cough of clear-colored sputum. She does smoke. She was prescribed an albuterol metered-dose inhaler. She was instructed she can only do 2 puffs every 8 hours. She was prescribed a steroid Dosepak on and just started the Dosepak yesterday. She denies leg pain, swelling or discoloration. She has no history of VTE. Her only risk factor is that she is on a contraceptive. She has had no long distance trip. No surgery in the past month. She does endorse nausea without vomiting or diar leonard. PE Risk Factors: Negative for Cancer, OCP + Smoking + > 35, Prior DVT or PE, Recent immobilization, Recent surgery or Recent travel Prior similar symptoms: Yes Recent Illness/[facility]: [facility] Medical History Alcohol abuse Cigarette smoker Marijuana smoker WPW (Urgby-Hnboegytj-Bvvto syndrome) Home Medications ?Medication ?Instructions ?Recorded ?Last Taken ?Type metoprolol succinate 25 mg 25 mg PO PRN 04/13/25 Unkno wn History tablet,extended release 24 hr albuterol sulfate 90 mcg/actuation 2 puff inhalation Q 4H PRN PRN 04/19/25 Unknown History aerosol inhaler wheezing norethindrone (contraceptive) 0.35 0.35 mg PO DAILY Unknown History mg tablet inhalational spacing device (Space #1 ea 04/22/25 Unkn own Rx Chamber) Allergy/AdvReac Type Severity Reaction Status Date / Time Penicillins Allergy Severe Hives Verified 04/22/25 13:50 Surgical History Hx of heart surgery Social History Smoking Status: Current every day smoker tobacco type: cigarettes ROS ROS ED Constitutional Constitutional ED: Denies chills, fever(s) or sweats Eyes Eyes: Denies blurry vision, change in vision or diplopia ENT ENT ED: Reports rhinorrhea, sore throat and other Details: Patient states she has a sore throat because of coughing. ; Denies ear pain Cardiovascular Cardiovascular: Reports chest pain; Denies orthopnea, palpitations, paroxysmal nocturnal dyspnea or racing heartbeat Respiratory/Chest Respiratory/Chest: Reports cough, dyspnea, sputum and other Details: Sputum is clear. ; Denies dyspnea on exertion, orthopnea or paroxysmal nocturnal dyspnea Gastrointestinal Gastrointestinal: Denies abdominal pain, constipation, diarrhea, melena or vomiting Genitourinary Genitourinary ED: Denies dysuria, hematuria or urinary frequency Musculoskeletal Musculoskeletal: Denies arthralgias or myalgias Integumentary Denies rash Neurologic Neurologic: Denies paresthesias or weakness Endocrine Endocrinology: Denies cold intolerance or heat intolerance Hematologic/Lymphatic Hematologic/Lymphatic: Denies easy bleeding or easy bruising EXAM Physical Exam Const Vital Signs: 04/22/25 13:51 04/22/25 13:55 04/22/25 14:54 Temperature 98.8 F 98.8 F Temperature Source Oral Oral Pulse Rate 78 78 Respiratory Rate 18 18 Respiratory Effort Non-Labored Short of Breath Respiratory Depth Normal Respiratory Pattern Normal Blood Pressure 139/92 H 139/92 H Blood Pressure Mean 107 107 Pulse Ox 97 97 Oxygen Delivery Method Room Air Room Air Room Air 04/22/25 15:27 04/22/25 15:40 04/22/25 15:50 Temperature Temperature Source Pulse Rate 100 110 H Respiratory Rate 16 17 Respiratory Effort Respiratory Depth Respiratory Pattern Blood Pressure 146/75 H Blood Pressure Mean 98 Pulse Ox 100 Oxygen Delivery Method Room Air Room Air Positive well nourished and well developed Constitutional Narrative: Patient's blood pressure slightly elevated 139/92. General Appearance ED: well developed and NAD; Negative for pallor HEENT Reports moist mucous membranes atraumatic Eyes PERRL and EOMs intact bilaterally General Eye ED: Negative for pale conjunctiva or scleral icterus Neck no lymphadenopathy, supple, no meningeal signs and no JVD Resp normal respiratory effort and No clear to auscultation bilaterally Auscultation: wheezes expiratory wheezes, scattered wheezes and throughout Cardio regular rate, regular rhythm, S1 normal heart sound, S2 normal heart sound and no murmurs GI non-tender, non-distended and no masses Palpation: soft Extremity Extremity Narrative: There is no asymmetry, swelling, discoloration, leg vein distention, palpable cords or tenderness along the distribution of the deep venous system. Neuro oriented x3, CN's II-XII intact bilaterally and no sensory deficits noted Sensorium / Orientation: alert Psych mental status grossly normal Skin no wounds and skin turgor normal General Skin Exam: Negative for jaundice or pallor MDM MDM MDM Narrative Medical decision making narrative: In my opinion patient is not being treated appropriately. She is not using her inhaler liver properly. She just started the Dosepak. She is on metoprolol which may prolong her symptoms. She is on metoprolol because of history of WPW. My plan was to treat her with DuoNeb and albuterol. Since she had a recent x- ray that was interpreted by the radiologist and the ER physician is negative this was not repeated. EKG Initial EKG: Attestation: I personally reviewed and interpreted this EKG as follows: Interpretation: Sinus Rhythm (Rate is 82. Patient has delta waves consistent with WPW. NC Mazzotta 26 ms. QS duration 98 ms. QT duration 390 ms. Holley is normal. Other than the delta waves for WPW there is no ischemic changes or any significant abnormalities.) Differential Diagnosis Chest pain/SOB: pulmonary embolism Reason(s) PE less likely: Positive for Well's <3, not tachycardic and not hypoxic, ACS ACS: Positive for no evidence of ACS based on cardiac biomarkers (Cardiac marker was obtained on the .), EKG without ischemia and history not suggestive of ischemia pain, pneumothorax Reas on(s) pneumothorax less likely: Positive for bilateral breath sounds and Other (Patient had a chest x-ray recently that was negative.), pneumonia Reason(s) pneumonia less likely: Positive for no infiltrate on CXR and no noted fever and aortic dissection Reason(s) Aortic dissection less likely:: Positive for normal vascular exam, no history of HTN, normal neurological exam, no significant risk factors for dissection, no widened mediastinum on CXR (Based on recent x-ray.), pain not sudden onset, no ripping/tearing pain, no pain to back and blood pressure appropriate in ED Treatment and Re-Evaluation :: Patient was reassessed at 1744. Patient states she feels much better. Patient clear to auscultation. She is having some chest discomfort. Will recommend NSAIDs and she has no contraindication. Will have her instruct on use of a spacer. Comments:: The respiratory therapist informing that the patient's mother is requesting a CAT scan of her chest. I went back to speak to the patient to ask why her mother wanted a CAT scan since she is not present. She stated that her mother thought she should have a CAT scan. She was asked what her mother does and her response was diagnostics . I informed her that with a well score less than 3 I am not concerned about a pulmonary embolus. Since she is already had a chest x-rays and her symptoms started 3 weeks ago and has been worse over the past week there is no indication for repeat chest x-ray and what 1 would be looking on the chest x-ray would be pneumonia, pneumothorax. She was told I am not concerned about a TAD and explained why. I also informed her this would expose her to radiation and concerned with her elevated 25 vomiting doses of radiation may receive over her lifetime and the expense. Patient was accepting of this and I felt satisfied that she understood why I did not order a CAT scan. Discharge Plan Triage Chief Complaint: Shortness of Breath ED Provider: Tera Justice Dx/Rx/DC Orders Clinical Impression: Upper respiratory infection with cough and congestion, Acute bronchospasm, Sinus tachycardia seen on cardiac cath lab technologist, Anterior chest wall pain Instructions: ED URI, Viral W/ Wheezing (Adult) Prescriptions: New (DME) Space Chamber Spacer See Rx Instructions .Route Qty: 1 0RF Rx Instructions: As directed No Action metoprolol succinate 25 mg tablet extended release 24 hr 25 mg PO PRN albuterol sulfate 90 mcg/actuation HFA aerosol inhaler 2 puff inhalation Q4H PRN PRN (Reason: wheezing) norethindrone (contraceptive) 0.35 mg tablet 0.35 mg PO DAILY Primary Care Provider: Yaneth Camarena NP Referrals: Yaneth Camarena BUS DRIVER SUPERVISOR, BUS DRIVER SUPERVISOR-C [Primary Care Provider, [facility]] - 3-5 Days if not improving Activity Restrictions/Additional Instructions: 1. Use the spacer with your inhaler. The spacer has a whistle on it. If you hear a whistling sound that means you are inhaling too quickly and need to slow down. 2. You may do 2 puffs every 2-4 hours for the next 48 to 72 hours. If your breathing gets worse you can do 4-6 polyps and repeat in 15 minutes. If you are still having difficulty recommend returning to the ER Print Language: Arabic Disposition Disposition: Home, Self Care
[2025-04-22 15:50] VITALS: BP 146/75; PULSE 110; RESP 17; O2SAT 100
[2025-04-22 18:08] VITALS: BP 128/68; PULSE 78; PULSE 79; RESP 16; RESP 17; TEMP 36.7; O2SAT 97
== END 2025-04-22 18:09 | disposition home or self-care (01) ==
PROVIDERS: Emergency Provider Emergency Medicine; PCP Nurse Practitioner Family; Visit Provider Emergency Medicine
DX: J06.9 Acute upper respiratory infection, unspecified (principal); J98.01 Acute bronchospasm; R07.89 Other chest pain; F17.210 Nicotine dependence, cigarettes, uncomplicated; R00.0 Tachycardia, unspecified
CPT/HCPCS: 93005; 94640; 99284; A4216

== ENCOUNTER 2025-05-21 00:21 | Emergency (ER) | payer MEDICAID, SELFPAY ==
[2025-05-21 00:21] VITALS: BP 133/90; PULSE 106; RESP 14; TEMP 36.9; O2SAT 100; BMI 33.7
--- NOTE | 2025-05-21 00:37 | CT_ITS ---
PROCEDURE: BRAIN/HEAD WITHOUT CONTRAST 05/20/2025 REASON FOR EXAM: HEAD INJURY TECHNIQUE: Procedure Code: CTBR Modality: CT Procedure: BRAIN/HEAD WITHOUT CONTRAST Coronal and Sagittal reconstruction series were provided. One or more dose reduction techniques were used (e.g., Automated exposure control, adjustment of the mA and/or kV according to patient size, use of iterative reconstruction technique. RADIATION DOSE SUMMARY: DLP: 1380 mGycm COMPARISON: None FINDINGS: There is no acute infarct, intracranial hemorrhage, or mass effect. There is no hydrocephalus or significant midline shift. No acute, depressed calvarial fractures. No large scalp hematomas. The paranasal sinuses are clear. CT/Brain/Head without Contrast IMPRESSION: No acute intracranial process. Reading Location: [id number]
--- NOTE | 2025-05-21 00:37 | CT_ITS ---
PROCEDURE: CHEST WITHOUT CONTRAST 05/21/2025 REASON FOR EXAM: ? RIGHT SIDED RIB FX TECHNIQUE: Chest CT without contrast. Coronal and Sagittal reconstruction series were provided. One or more dose reduction techniques were used (e.g., Automated exposure control, adjustment of the mA and/or kV according to patient size, use of iterative reconstruction technique RADIATION DOSE SUMMARY: CTDlvol: 14.83 mGy DLP: 1380 mGycm COMPARISON: Radiograph on 04/20/2025. FINDINGS: Normal unenhanced main pulmonary artery and right and left pulmonary arteries. Normal bilateral peripheral pulmonary arteries. Normal thoracic aorta and visualized great vessels. There is no demonstrated aortic aneurysm. Normal heart and pericardium. Normal mediastinum. Normal hilar regions. Normal visualized trachea and bronchi. The lungs are well expanded. Normal pulmonary parenchyma. Normal pleura. Normal chest wall structures. Normal osseous structures. Normal visualized upper abdomen. CT/Chest without Contrast IMPRESSION: Coronary artery calcification (CAC) is absent No CT evidence of an acute abnormality. No rib fracture is identified. Reading [facility]
--- OUTSIDE RECORDS SUMMARY | 2025-05-21 01:17 | XMS RPT_ITS | CCD ---
Author Organization [facility] Care Team Providers Care Sales Vendor Name Role Phone Unavailable Primary Care Provider Unavailabl e No, Physician Primary Care Provider Unavailabl e PATO ROMO Attending Unavailable GUILLERMO COFFEY Admitting Unavailab le GUILLERMO COFFEY Referring Unavailab le NO, PHYSICIAN Primary Care Unavailable PATO ROMO Referring Unavailable NO, PHYSICIAN Primary Care Unavailable PATO ROMO Admitting Unavailable PATO ROMO Referring Unavailable NO, PHYSICIAN Primary Care Unavailable PATO ROMO Attending Unavailable GUILLERMO COFFEY Attending Unavailab le NO, PHYSICIAN Primary Care Unavailable NO, PHYSICIAN Primary Care Unavailable DORIS GARCIA Attending Unava ilable Unavailable Primary Care Provider Unavailabl e Queden PROPERTY ADMINISTRATOR.TEAM SPORTS SALES ASSOCIATE, Yaneth A Primary Care Provider Care Physician, No Primary Primary Care Provider Unavailable Dr. Checo Dwyer DO Emergency Provider Migue APARTMENT MAINTENANCE SUPERVISOR-C, Yaneth Primary Care Physician Dr. Checo Dwyer DO Attending Physician Dr. Checo Dwyer DO Emergency Department Physic viri Dr. Burke Finch MD Emergency Department Phys ician Dr. Tera Justice MD Emergency Department Physician Dr. Burke Finch MD Attending Physician LYNETTE SALGADO Attending Unavailable QUEDEN, YANETH A Primary Care Unavailable ERIN SANCHEZ Attending Unavailable QUEDEN, YANETH A Primary Care Unavailable LYNETTE SALGADO Referring Unavailable CASSIA MASSEY Attending Unavailable QUEDEN, YANETH A Primary Care Unavailable QUEDEN, YANETH A Attending Unavailable QUEDEN, YANETH A Primary Care Unavailable QUEDEN, YANETH A Referring Unavailable QUEDEN, YANETH A Primary Care Unavailable QUEDEN, YANETH A Referring Unavailable QUEDEN, YANETH A Primary Care Unavailable GUDELIA LAWRENCE Attending Unavailable YARELIS POSADAS Referring Unavailable QUEDEN, YANETH A Primary Care Unavailable QUEDEN, YANETH A Attending Unavailable SELF Referring Unavailable QUEDEN, YANETH A Primary Care Unavailable Care Physician, No Primary Primary Care Unava ilable AndCheco best Attending Unavailable Queden APARTMENT MAINTENANCE SUPERVISOR, Yaneth Primary Care Unavailable AndCheco best Attending Unavailable Queden APARTMENT MAINTENANCE SUPERVISOR, Yaneth Primary Care Unavailable Burke Finhc Attending Unavailable Queden APARTMENT MAINTENANCE SUPERVISOR, Yaneth Primary Care Unavailable Tera Justice Attending Unavailable Allergies Allergy Classification Reported Allergen(s) Allergy Type Date of Onset Reaction(s) Facility Penicillins (antibiotic) (3 sources) Penicillins Drug Allergy 2 Intolerance [facility] (18 sources) Penicillins; Translations: [PENICILLINS] Drug Allergy 2 Intolerance, [facility] (4 sources) Penicillins Allergy to substance [address] [facility] (4 sources) Penicillins Drug Allergy 2 Intolerance [facility] (1 source) Penicillins Drug allergy (disorder) 5 [facility] Repository Medications Current Medications Medication Drug Class(es) Dates Sig (Normalized) Sig (Original) [id number] actuat albuterol 0.09 mg/actuat metered dose inhaler (4 sources) beta2-Adrenergic Agonist Start: 04-19-2025 Start: 04-19-2025 Start: 11-12-2024 take 2 puff(s) by in halation every four hours as needed for wheezing albuterol HFA (PROVENTIL HFA, VENTOLIN HFA) 90 mcg/actuation inhaler Indications: Wheezing Inhale 2 puffs as instructed every 4 hours as needed for wheezing/shortness of breath. 1 each 2 11/12/2024 Active Inhalational Spacing Device (Space Chamber) spacer (3 sources) Start: 04-22-2025 Inhalational Spacing Device (Space Chamber) spacer Active 0 .Route 1 0 April 22, 2025 12:00am As directed 24 hr metoprolol succinate 25 mg extended release oral tablet (12 sources) beta-Adrenergic Sylvia Start: 04-13-2025 take 1 tablet by mouth every twenty-four hours as needed Start: 02-05-2024 End: 10-28-2024 take 1 tablet by mouth twice daily as needed metoprolol tartrate, short acting, (LOPRESSOR) 25 mg tablet Indications: Palpitations Take 1 tablet by mouth two times a day as needed. 60 tablet 2 10/28/2024 Active norethindrone 0.35 mg oral t ablet (4 sources) Start: 04-19-2025 take 1 tablet by glen th once daily Start: 04-19-2025 take 1 tablet by mouth once da olga Start: 04-01-2025 End: 03-03-2026 take 1 tablet by mouth once daily Norethindrone, Contr aceptive, 0.35 mg tablet Take 1 tablet by mouth once daily. 84 tablet 3 04/01/2025 03/03/2026 Active nystatin 100 unt/mg / triamcinolone acetonide 0.001 mg/mg topical ointment (2 sources) Polyene Antifungal, Corticosteroid Start: 07-15-2022 End: 07-22-2022 nystatin-triamcinolone (MYCOLOG) ointment Apply sparingly to perineum twice daily for irritation/infection. 30 g 0 07/15/2022 07/22/2022 Active Comment on above: Apply sparingly to p erineum twice daily for irritation/infection. ondansetron 4 mg oral tablet (1 source) Serotonin-3 Receptor Antagonist Start: 11-12-2024 take 1 tablet by mouth every eight hours as needed for nausea and nausea ondansetron (ZOFRAN) 4 mg tablet Indications: Nausea Take 1 tablet by mouth every 8 hours as needed. 12 tablet 11/12/2024 Active predniSONE 10 mg oral tablet (2 sources) Start: 12-01-2023 End: 12-10-2023 predniSONE (DELTASONE) 10 mg tablet Indications: Pain Take 4 tabs daily for 3 days, then 2 tabs daily for 3 days, then 1 tab daily for 3 days with food. 21 tablet 0 12/01/2023 12/10/2023 Active Completed/Discontinued Medications Medication Drug Class(es) Dates Sig (Normalized) Sig (Original) fluconazole 150 mg oral tablet (1 source) Azole Antifungal Start: 07-16-2022 End: 07-17-2022 take 1 tablet by mouth once daily fluconazole (DIFLUCAN) 150 mg tablet Take 1 tablet by mouth once daily for 1 day. 1 tablet 0 07/16/2022 07/17/2022 Comment on above: Take 1 tablet by glen th once daily for 1 day. levonorgestrel 0.952293 mg/hr intrauterine system (19 sources) Progestin, Progestin-containi ng Intrauterine Device End: 04-01-2025 levonorgestrel (KYLEENA) 17.5 mcg/24 hrs (5 yrs) 19.5 mg IUD 1 Each by INTRAUTERINE route one time only. 04/01/2025 Discontinued (Course of therapy completed) Comment on above: 1 Each by INTRAUTERI NE route one time only. Progesterone (3 sources) Progesterone Start: 04-13-2025 End: 04-19-2025 progesterone micronized Discontinued .ROUTE April 13, 2025 12:00am April 19, 2025 11:34pm Problems Active Problems Problem Classification Problem Date Documented Da te Episodic/Chronic Abdominal pain (1 source) Vaginal pain; Translations: [Pelvic and perineal pain] Episodic Alcohol-related disorders (6 sources) Alcohol intoxication; Translations: [Alcohol use, unspecified with intoxication, unspecified] 10-10-2024 Episodic Anxiety disorders (3 sources) Anxiety; Translations: [Generalized anxiety disorder] 10-10-2024 Chronic Blindness and vision defects (3 sources) Blurring of visual image; Translations: [Other visual disturbances] 04-21-2025 Episodic Cardiac dysrhythmias (11 sources) Multiple premature ventricular complexes; Translations: [Ventricular premature depolarization] Onset: 3 Chronic Cardiac dysrhythmias (20 sources) Palpitations; Translations: [Palpitations] Onset: 4 12-26-2023 Episodic Conduction disorders (5 sources) Pre-excitation syndrome; 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 Contraceptive and procreative management (2 sources) Encounter for removal of intrauterine contraceptive device; Translations: [Encounter for initial prescription of contraceptive pills] Onset: 5 Episodic Deficiency and other anemia (1 source) Other hemoglobinopathies; Translations: [Elevated hemoglobin] Onset: 5 Chronic Diseases of white blood cells (1 source) Leukocytosis; Translations: [Elevated white blood cell count, unspecified] 01-02-2024 Chronic Essential hypertension (1 source) Essential (primary) hypertension; Translations: [Essential (primary) hypertension] Onset: 5 Chronic Fracture of lower limb (4 sources) Closed fracture of fifth metatarsal bone; Translations: [Nondisplaced fracture of fifth metatarsal bone, right foot, initial encounter for closed fracture] 04-17-2024 Episodic Immunizations and screening for infectious disease (2 sources) Encounter for screening for other viral diseases; Translations: [Encounter for screening for human immunodeficiency virus [HIV]] Onset: 5 Episodic Nausea and vomiting (3 sources) Nausea with vomiting, unspecified; Translations: [Nausea] Onset: 3 Episodic Nonspecific chest pain (16 sources) Chest pain, unspecified; Translations: [Chest pain] Onset: 3 Episodic Nutritional deficiencies (1 source) Vitamin D deficiency, unspecified; Translations: [Vitamin D deficiency] Onset: 5 Chronic Other circulatory disease (3 sources) Elevated blood-pressure reading without diagnosis of hypertension; Translations: [Elevated blood-pressure reading, without diagnosis of hypertension] 01-04-2024 Episodic Other circulatory disease (6 sources) H/O: heart disorder; Translations: [Personal history of other diseases of the circulatory system] 12-26-2023 Episodic Other connective tissue disease (3 sources) Pain of left calf; Translations: [Pain in left lower leg] 2025 Episodic Other eye disorders (1 source) Other specified disorders of eye and adnexa; Translations: [Other specified disorders of eye and adnexa] Onset: 5 Episodic Other female genital disorders (5 sources) Abnormal vaginal bleeding; Translations: [Abnormal uterine and vaginal bleeding, unspecified] 12-23-2022 Chronic Other female genital disorders (1 source) Postcoital bleeding; Translations: [Postcoital and contact bleeding] 12-26-2023 Chronic Other gastrointestinal disorders (2 sources) Diarrhea, unspecified; Translations: [Diarrhea, unspecified] Onset: 3 Episodic Other lower respiratory disease (1 source) Chest pain on breathing; Translations: [Painful breathing] Onset: 5 Episodic Other lower respiratory disease (1 source) Shortness of breath; Translations: [Shortness of breath] Onset: 5 Episodic Other non-traumatic joint disorders (1 source) Pain in right shoulder; Translations: [Acute pain of right shoulder] Onset: 5 Episodic Other nutritional; endocrine; and metabolic disorders (2 sources) Obese class I; Translations: [Obesity, Class I, BMI 30-34.9] Onset: 5 11-13-2024 Chronic Other screening for suspected conditions (not mental disorders or infectious disease) (6 sources) Patient encounter status; Translations: [Encounter for screening for other disorder] Onset: 5 01-26-2024 Episodic Other upper respiratory disease (3 sources) Acute bronchospasm; Translations: [Acute bronchospasm] 04-22-2025 Episodic Other upper respiratory infections (3 sources) Upper respiratory infection; Translations: [Acute upper respiratory infection, unspecified] 04-22-2025 Episodic Residual codes; unclassified (2 sources) Pain; Translations: [Pain, unspecified] 12-01-2023 Episodic Residual codes; unclassified (1 source) Procedure not done; Translations: [Procedure and treatment not carried out, unspecified reason] 12-04-2023 Episodic Residual codes; unclassified (2 sources) Tobacco use and exposure - finding; Translations: [Tobacco use] 01-04-2024 Episodic Residual codes; unclassified (1 source) Family history of diseases of the blood and blood-forming organs and certain disorders involving the immune mechanism; Translations: [Family history of autoimmune disorder] Onset: 5 Episodic Substance-related disorders (1 source) Cannabis use, unspecified, uncomplicated; Translations: [Marijuana smoker] Onset: 5 Episodic Syncope (5 sources) Near syncope; Translations: [Syncope and collapse] 12-23-2022 Episodic Unclassified (1 source) Acute cough; Translations: [Acute cough] Onset: 5 Unclassified (1 source) Obesity, Class I, BMI 30-34.9; Translations: [Obesity, Class I, BMI 30-34.9] Onset: 5 Viral infection (2 sources) Viral infection, unspecified; Translations: [Viral infection, unspecified] Onset: 3 Episodic Past or Other Problems Problem Classification Problem Date Documented Da te Episodic/Chronic Other circulatory disease (1 source) Personal history of other diseases of the circulatory system; Translations: [History of Kijzi-Fazpwkekl-Hik te (WPW) syndrome] Onset: 11-12-2024 Episodic Other lower respiratory disease (1 source) Wheezing; Translations: [Wheezing] Onset: 11-12-2024 Episodic Unclassified (2 sources) Patient encounter status 10-21-2024 Results Test Name Value Interpretation Reference Range Facil ity 12 Lead EKGon 04-22-2025 12 Lead EKG [facility] Cardiovascular Services [address] [place] [address] 12 Lead EKG 04/22/25 1356 MR#: [id number] Acct: [id number] Name: SONYA ROSAS Rep #: [id number] : 2000 From: Shalom Sheridan MD Attending Dr: Status: DEP ER Ordering Dr: Tera Justice MD Date: 04/22/25 Location: ED Sex: F C Admitted: Test Reason : SOB/CP Blood Pressure : */* mmHG Vent. Rate : 82 BPM Atrial Rate : 82 BPM P-R Int : 126 ms QRS Dur : 98 ms QT Int : 390 ms P-R-T Axes : 73 17 47 degrees QTcB Int : 455 ms Normal sinus rhythm Lrorn-Fwrpbfrbu-Xpahw Abnormal ECG Confirmed by SHALOM SHERIDAN MD ([id number]), magazine editor TERRI ALATORRE ([id number]) on 04/23/2025 8:23:04 AM Referred By: KLEVER/OLIVE Confirmed By: SHALOM SHERIDAN MD 04/23/25 0823 Date Shalom Sheridan MD CC: APARTMENT MAINTENANCE SUPERVISOR-Paco Camarena; Dr. Tera Justice MD Signed Normal [facility] CNCOon 04-22-2025 CNCO [address] Normal [facility] CNOVon 04-22-2025 CNOV Office Visit (CARDAGHWW) SONYA ROSAS ([id number]) 1 F Date Time Provider Department 04/22/25 11:20 AM GUDELIA LAWRENCE CARDAGHWArleen During your visit today, we recorded the following information about you: Pulse Respiration Blood pressure Weight 88/minute 16/minute 128/86 83.5 kg Height 1.613 m Gudelia Lawrence MD 04/22/2025 11:52 AM Signed Maximal stress test and 2 week patch monitor Referral to electrophysiology Gudelia Lawrence MD 04/22/2025 12:11 PM Signed PRIMARY CARE PHYSICIAN: Yaneth Camarena [address] [place] [address] REFERRING PHYSICIAN: Yarelis Posadas [address] [facility] [address] CHIEF COMPLAINT: Palpitations HISTORY OF PRESENT ILLNESS: Ms. 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 Patient reports that she underwent ablation with her WPW back in January 2020. Since then, she has done well without any episodes of SVT until this past Monday. She reports she did have 8 beers throughout the day and around midnight when she was trying to go to bed, she felt sudden onset of tachycardia with heart rates in the 200s. She did have associated palpitations, chest tightness and shortness of breath. She did take her as needed metoprolol but her episode resolved on its own within approximately a minute. She did end up going to a local ER at that time and was released with unremarkable workup as per her report. Patient reports this was her first episode of SVT since her ablation procedure. As a result, she requested a referral to see cardiology such that she could then get a referral to electrophysiology. Patient does report that since her WPW, she has had intermittent palpitations which she describes as skipped heartbeats followed by a stronger heartbeat. These have overall increased in frequency. She did wear a monitor approximately a year ago for further evaluation which did reveal PVCs with overall low burden of less than 1%. Patient otherwise reports that she has had pleuritic chest pain for the last 2 weeks in her bilateral shoulders radiating into her neck. She was given steroids by her PCP with improvement in her symptoms. In addition, she does report symptoms of shortness of breath over the last 3 days such that she feels short of breath even while sitting. She does have associated cough, wheezing and chills but denies any fevers. She has had multiple recent chest x-rays performed which were unremarkable as per her report. She otherwise denies any complaints of exertional chest pain, orthopnea, paroxysmal nocturnal dyspnea, lower extremity edema or syncope. She does have a longstanding history of smoking half pack a day for approximately 9 years. She has previously tried nicotine gum and 2 things to try to help her quit. She is not interested in trying Chantix. She was previously drinking a beer a day but more recently has been drinking 4-6 beers on both Monday and Monday. PAST MEDICAL HISTORY Diagnosis Date Palpitations Tachycardia Mhane-Pdqkfhihh-Xxhvh (WPW) pattern PAST SURGICAL HISTORY Procedure Laterality Date HEART SURGERY 2019 INSERTION OF IUD 02/2020 waleena MEDICATIONS: benzonatate (TESSALON PERLE) 100 mg capsule Take 1 capsule by mouth three times a day as needed. ondansetron (ZOFRAN) 4 mg tablet Take 1 tablet by mouth every 8 hours as needed. methylPREDNISolone (MEDROL, RHONA,) 4 mg Dose-Pack As Instructed per package Norethindrone, Contraceptive, 0.35 mg tablet Take 1 tablet by mouth once daily. albuterol HFA (PROVENTIL HFA, VENTOLIN HFA) 90 mcg/actuation inhaler Inhale 2 puffs as instructed every 4 hours as needed for wheezing/shortness of breath. metoprolol tartrate, short acting, (LOPRESSOR) 25 mg tablet Take 1 tablet by mouth two times a day as needed. ALLERGIES Allergen Reactions Penicillins Intolerance SOCIAL HISTORY: SOCIAL HISTORY[1] FAMILY HISTORY Problem Relation Age of Onset other (HTN) Mother other (HTN) Father Heart Father x2 ablations Breast Cancer Maternal Grandmother Lymphoma Maternal Grandfather Lymphoma Paternal Grandmother REVIEW OF SYSTEMS: GENERAL: Negative for: Weight loss or gain, Fever, Chills, or Night sweats RESPIRATORY: Negative for: Cough, Blood in Sputum, Shortness of breath, Wheezing CARDIAC: Positive for palpitations; Negative history of chest pain on exertion, dyspnea on exertion, orthopnea, paroxysmal nocturnal dyspnea, lower extremity edema, presyncope, syncope PHYSICAL EXAMINATION: BP 128/86 Pulse 88 Resp 16 Ht 5' 3.5 (1.61m) Wt 184 lb (83.5kg) SpO2 94% LMP 07/03/2022 BMI 32.08 kg/(m2). GENERAL: Anxious appearing (more content not included)... Normal [facility] 04-22-2025 AMA Telephone (AGFAMPLE) SONYA ROSAS ([id number]) 1 F Date Time Provider Department 04/22/25 YANETH CAMARENAINOCENCIO During your visit today, we recorded the following information about you: Lo Romero LPN 04/22/2025 1:18 PM Signed Pt asking for results and recommendations on lab work done on 04/17/2025. KUNAL Gimenez Brittny A, APRN.CNP 04/24/2025 12:49 PM Signed Vitamin D low- recommend 2,000 international unit(s) daily. Will send in Rx. Cortisol level is slightly elevated. Recommend adequate sleep, stress management, improving diet (limiting caffeine, alcohol, and sugar), improve exercise. Iron level is on low end of normal- recommend she starts a daily iron replacement. Rx sent in. Rest of her labs were in acceptable range. Yaneth Camarena APRN.CNP 04/24/2025 12:49 PM Signed Addended by: YANETH CAMARENA on: 04/24/2025 12:49 PM Modules accepted: Iris De La Cruz MA 04/24/2025 2:20 PM Signed Left message informing patient of results, recommendations and scripts sent in. Iris Wisdom MA Allergies As of Date: 04/22/2025 Noted Allergy Reaction PENICILLINS 07/15/2022 5 - Intolerance Date Reviewed: 04/22/2025 Reviewed by: Gaby Russell MA - Fully Assessed Reason for Visit: Results [95] Primary Visit Diagnosis:Iron deficiency [E61.1] Other Visit Diagnosis:Vitamin D deficiency [E55.9] Order(s):ferrous sulfate (IRON) 325 mg (65 mg iron) tabletTake 1 tablet by mouth once daily.Disp: 90 tabletRfl: 1 cholecalciferol (VITAMIN D-3) 50 mcg (2,000 unit) tabletTake 1 tablet by mouth once daily.Disp: 90 tabletRfl: 3 Prescriptions as of 04/24/2025 - ferrous sulfate (IRON) 325 mg (65 mg iron) tablet Take 1 tablet by mouth once daily. - cholecalciferol (VITAMIN D-3) 50 mcg (2,000 unit) tablet Take 1 tablet by mouth once daily. - benzonatate (TESSALON PERLE) 100 mg capsule Take 1 capsule by mouth three times a day as needed. - ondansetron (ZOFRAN) 4 mg tablet Take [...] as needed. Problem List As Of Date 04/22/2025 Noted Resolved Palpitations [R00.2] 01/09/2024 Obesity, Class I, BMI 30-34.9 [E66.811] 11/13/2024 Tachycardia [R00.0] Efgla-Mhesmflop-Lnfuv (WPW) pattern [I45.6] Pre-syncope [R55] 04/17/2025 Abnormal vaginal bleeding [N93.9] 04/17/2025 Prescriptions ordered this encounter Disp Refills Start End FERROUS SULFATE 325 MG (65 MG IRON) * 90 t* 1 04/24/2025 Route: PO Sig: Take 1 tablet by mouth once daily. CHOLECALCIFEROL (VITAMIN D3) 50 MCG * 90 t* 3 04/24/2025 04/24/2026 Route: PO Sig: Take 1 tablet by mouth once daily. Encounter Status:Closed by LO ROMERO on 04/22/[address] [facility] Electrocardiogram reportOrde red By: Shalom Sheridan on 04-22-2025 EKG study [facility] Cardiovascular Services [address] [place] [address] 12 Lead EKG 04/22/25 1356 MR#: [id number] Acct: [id number] Name: SONYA ROSAS Rep #:[id number] : 2000 25 From: Shalom Sheridan MD Attending Dr: Status: DEP E R Ordering Dr: Tera Justice MD Date: 04/22 Location: ED Sex: F C Admitted: Test Reason : SOB/CP Blood Pressure : */* mmHG Vent. Rate : 82 BPM Atrial Rate : 82 BPM P-R Int : 126 ms QRS Dur : 98 ms QT Int : 390 ms P-R-T Axes : 73 17 47 degrees QTcB Int : 455 ms Normal sinus rhythm Loxet-Ckorivsqu-Elsuk Abnormal ECG Confirmed by SHALOM SHERIDAN MD ([id number]), magazine editor TERRI ALATORRE ([id number]) on 58:23:04 AM Referred By: KLEVER/OLIVE Confirmed By: SHALOM SHERIDAN MD 04/23/25 0823 Date _ Shalom Sheridan MD CC: MARLEE Camarena; Dr. Tera Jsutice MD ~ Signed [facility] Other Phone: Emergency Department Summary on 04-22-2025 Emergency Department Summary [facility] Medical Records Department [address] [place] [address] Emergency Department Summary 04/22/25 MR#: [id number] Acct: [id number] Name: SONYA ROSAS Rep #: [id number] : 2000 From: Tera Justice MD PCP: MARLEE Morrell Status:REG ER Location: ED HPI History of Present Illness Chief Complaint: Shortness of Breath Narrative Narrative: Prior records reviewed. Patient was seen on April 13, 2025 for eye problem by Dr. Checo Dwyer. His note was reviewed. Final diagnosis was blurred vision right eye, alcohol intoxication and hi story of WPW. She was seen on April [address] Burke Finch for chest pain. At that time she had a CBC which was unremarkable. She had a basic metabolic panel that was remarkable for elevated anion gap with a decrease CO2. Troponin was normal. She also had a EKG that revealed sinus tachycardia and nonspecific T wave flattening lateral precordial leads. An x-ray was not obtained at that time. He did not obtain a D-dimer at that time because her chest pain was not pleuritic. She presents because now the pain is not only on the right side infrascapular area has now migrated and involving both sides. It is not pleuritic. She does have some upper respiratory symptoms. She has a cough of clear-colored sputum. She does smoke. She was prescribed an albuterol metered-dose inhaler. She was instructed she can only do 2 puffs every 8 hours. She was prescribed a steroid Dosepak on and just started the Dosepak yesterday. She denies leg pain, swelling or discoloration. She has no history of VTE. Her only risk factor is that she is on a contraceptive. She has had no long distance trip. No surgery in the past month. She does endorse nausea without vomiting or diarrhea. PE Risk Factors: Negative for Cancer, OCP + Smoking + > 35, Prior DVT or PE, Recent immobilization, Recent surgery or Recent travel Prior similar symptoms: Yes Recent Illness/Hospitalizati on: Yes PFSH PFSH Medical History Alcohol abuse Cigarette smoker Marijuana smoker WPW (Jkqif-Oznfhxpad-Uouj e syndrome) Home Medications ???Medication ???Instructions ???Recorded ???Last Taken ???Type metoprolol succinate 25 mg 25 mg PO PRN 04/13/25 Unknown Hist ory tablet,extended release 24 hr albuterol sulfate 90 mcg/actuation 2 puff inhalation Q4H PRN PRN Unknown History aerosol inhaler wheezing norethindrone (contraceptive) 0.35 0.35 mg PO DAILY 04/19/25 Unknow n History mg tablet inhalational spacing device (Space #1 ea 04/22/25 Unknown Rx Chamber) Allergy/AdvReac Type Severity Reaction Status Date / Time Penicillins Allergy Severe Hives Verified 04/22/25 13:50 Surgical History Hx of heart surgery Social History Smoking Status: Current every day smoker tobacco type: cigarettes ROS ROS ED Constitutional Constitutional ED: Denies chills, fever(s) or sweats Eyes Eyes: Denies blurry vision, change in vision or diplopia ENT ENT ED: Reports rhinorrhea, sore throat and other Details: Patient states she has a sore throat because of coughing. ; Denies ear pain Cardiovascular Cardiovascular: Reports chest pain; Denies orthopnea, palpitations, paroxysmal nocturnal dyspnea or racing heartbeat Respiratory/Chest Respiratory/Chest: Reports cough, dyspnea, sputum and other Details: Sputum is clear. ; Denies dyspnea on exertion, orthopnea or paroxysmal nocturnal dyspnea Gastrointestinal Gastrointestinal: Denies abdominal pain, constipation, diarrhea, melena or vomiting Genitourinary Genitourinary ED: Denies dysuria, hematuria or urinary frequency Musculoskeletal Musculoskeletal: Denies arthralgias or myalgias Integumentary Denies rash Neurologic Neurologic: Denies paresthesias or weakness Endocrine Endocrinology: Denies cold intolerance or heat intolerance Hematologic/Lymphatic Hematologic/Lymphatic : Denies easy bleeding or easy bruising EXAM Physical Exam Const Vital Signs: 04/22/25 13:51 04/22/25 13:55 04/22/25 14:54 Temperature 98.8 F 98.8 F Temperature Source Oral Oral Pulse Rate 78 78 Respiratory Rate 18 18 Respiratory Effort Non-Labored Short of Breath Respiratory Depth Normal Respiratory Pattern Normal Blood Pressure 139/92 H 139/92 H Blood Pressure Mean 107 107 Pulse Ox 97 97 Oxygen Delivery Method Room Air Room Air Room Air 04/22/25 15:27 04/22/25 15:40 04/22/25 15:50 Temperature Temperature Source Pulse Rate 100 110 H Respiratory Rate 16 17 Respiratory Effort Respiratory Depth Respiratory Pattern Blood Pressure 146/75 H Blood Pressure Mean 98 Puls (more content not included)... [facility] SONYA ROSAS ([id number]) 1 F Date Time Provider Department 04/21/25 12:45 PM CASSIA MASSEY During your visit today, we recorded the following information about you: Temperature Pulse Respiration Blood pressure 98.1 degrees 80/minute 18/minute 122/80 Weight 85.5 kg Cassia Massey PA 04/21/2025 12:47 PM [facility] Sony[facility] Rosas is a 25 year old female. Patient presents with: Cough: Sob, chest congestion, chest/shoulder pain x 2 days HPI The patient is a 25-year-old female presenting with acute dyspnea, right-sided chest pain, and cough. Dyspnea and Right-Sided Chest Pain: - Onset of dyspnea and right-sided chest pain a few weeks ago. This AM breathing worse and sounds hoarse. - Took inhaler with no relief. - Describes chest pain as feeling full of ice on the right side. - Similar symptoms of right shoulder and chest pain x2-3 weeks. Saw PCP. Had CXR 4 days ago, normal. - Rxed medrol dose pack, didn't take it. - Seen in ER 2 days ago for this pain, had work up for PE - negative per patient, also had repeat CXR- negative . - Denies history of blood clots. - Currently on oral contraceptive pills. Cough: - Persistent cough x2-3 weeks. - Recent ER visit for chest pain; no blood clots found on imaging or blood tests per patient. Review of Systems Constitutional: (-) fever Cardiovascular: (+) right-sided chest pain Respiratory: (+) shortness of breath, (+) cough Musculoskeletal: (+) right shoulder pain Objective BP 122/80 Pulse 80 Temp 36.7 ?C (98.1 ?F) Resp 18 Wt 85.5 kg (188 lb 7.9 oz) LMP 07/03/2022 (Within Days) SpO2 97% BMI 32.87 kg/m? Physical Exam General: Not in acute distress, normal appearance, well-developed, not toxic-appearing HEENT - Eyes: Conjunctivae normal - Ears: Right ear: Tympanic membrane normal, ear canal normal; Left ear: Tympanic membrane normal, ear canal normal - Nose/Sinuses: Nose normal - Oropharynx: Mucous membranes moist, oropharynx clear, uvula midline Cardiovascular - Rate/Rhythm: Normal rate and regular rhythm - Heart Sounds: Normal heart sounds Pulmonary - Lung Sounds: Clear to auscultation bilaterally, no wheezing, no rales - Respiratory Effort: Pulmonary effort normal Neurologic - Mental Status: Alert Skin: Skin warm and dry Lymphatic - Cervical: No cervical adenopathy { 1. Acute cough (R05.1) - Persistent cough, right-sided chest pain, and dyspnea for 2-3 weeks; prior normal chest X-rayx 2 - last one 2 days ago in ER per patient normal. and negative workup for pulmonary embolism in the ED two days ago. - Lungs clear to auscultation, no wheezing or crackles; oxygen saturation within normal limits. - Start Medrol Dosepak as previously prescribed by primary care provider to address suspected inflammation - Prescribe cough suppressant. - Advised to return to ED if chest pain or dyspnea worsens, or if fever develops. - Follow-up with primary care provider for ER follow-up and further evaluation Recording using Sportistic software for draft documentation of the visit was discussed with the patient/authorized physician representative; all questions welcomed and answered. Patient/authorized physician representative agreed to proceed History and Record Review External record(s) reviewed: prior outpatient record and prior labs/imaging. Findings from review of outpatient records: Seen 4 days ago by PCP had chest x-ray that was negative. Prescribed Medrol Dosepak which she has not take Differential Diagnoses - Acute cough-suspect bronchitis/possible pleurisy with right-sided chest pain is more likely for the following reason(s): suggested by HANDP - ACS is less likely for the following reason(s): Symptoms x 2 weeks, right-sided chest pain, nonexertional, worsened with coughing wheezing, HANDP not suggestive - PE is less likely for the following reason(s): Had negative workup in the ER 2 days ago - Pneumonia is less likely for the following reason(s): Had negative chest x-ray x 2, no evidence on imaging Disposition The patient was discharged. Transfer to ED was considered. Reason for not transferring: Patient reports being in the ER 2 days ago with negative workup for PE. Symptoms unchanged. Vitals normal today. The following prescription medication(s) were considered but ultimately not given after discussion with patient/family: antibiotic Reasons for not prescribing include the following: HANDP/workup not suggestive of bacterial process. Procedures Allergies As of Date: 04/21/2025 Noted Allergy Reaction PENICILLINS 07/15/2022 5 - Intolerance Date Reviewed: 04/21/2025 Reviewed by: Kacey Crain MA - Fully Assessed Reason for Visit: Cough [28] Cmt: Sob, chest congestion, chest/shoulder pain x 2 days Visit Diagnosis:Acute cough [R05.1] (more content not included)... Normal [facility] Basic Metabolic Profile (BMP )on 2025 BUN/CRE 5.6 RATIO Low 10-20 [facility] Comment on above: Performed By: #### L 300.8000, L100.0100, L500.2500, L501.4021 ####[facility] [address] [place], [address] Calcium [Mass/Vol] 9.2 mg/dL Normal 7.6-11.0 [facility] Comment on above: Performed By: #### L 300.8000, L100.0100, L500.2500, L501.4021 ####[facility] [address] [place], [address] Chloride [Moles/Vol] 100 mmol/L Normal 98-108 [facility] Comment on above: Performed By: #### L 300.8000, L100.0100, L500.2500, L501.4021 ####[facility] [address] [place], [address] CO2 [Moles/Vol] 19.3 mmol/L Low 21.0-32.0 [facility] Comment on above: Performed By: #### L 300.8000, L100.0100, L500.2500, L501.4021 ####[facility] [address] [place], [address] Creatinine [Mass/Vol] 0.82 mg/dL Normal 0.70-1.20 [facility] Comment on above: Performed By: #### L 300.8000, L100.0100, L500.2500, L501.4021 ####[facility] [address] [place], [address] ECRCL 109.60 ml/min Normal 50-250 [facility] Comment on above: Performed By: #### L 300.8000, L100.0100, L500.2500, L501.4021 ####[facility] [address] [place], [address] GAP 17 High 5-15 [facility] Comment on above: Performed By: #### L 300.8000, L100.0100, L500.2500, L501.4021 ####[facility] [address] [place], [address] GFR/1.73 sq M.predicted among non-blacks MDRD (S/P/Bld) [Vol rate/Area] 101 mL/min/{1.73_m2} Normal >60 [facility] Comment on above: Result Comment: mL/m in/1.73m2 CKD-EPI Creatinine Equation (2020) Performed By: #### L 300.8000, L100.0100, L500.2500, L501.4021 ####[facility] [address] [place], [address] Glucose [Mass/Vol] 89 mg/dL Normal 70-99 [facility] Comment on above: Performed By: #### L 300.8000, L100.0100, L500.2500, L501.4021 ####[facility] [address] [place], [address] Potassium [Moles/Vol] 3.7 mmol/L Normal 3.3-5.1 [facility] Comment on above: Performed By: #### L 300.8000, L100.0100, L500.2500, L501.4021 ####[facility] [address] [place], [address] Sodium [Moles/Vol] 136 mmol/L Normal 133-145 [facility] Comment on above: Performed By: #### L 300.8000, L100.0100, L500.2500, L501.4021 ####[facility] [address] [place], [address] Urea nitrogen [Mass/Vol] 5 mg/dL Normal 4-19 [facility] Comment on above: Performed By: #### L 300.8000, L100.0100, L500.2500, L501.4021 ####[facility] [address] [place], [address] CBC W/Diff, Automatedon 09-2 Absolute Lymph 2.76 X10 3/uL Normal 0.83-4.51 [facility] Comment on above: Performed By: #### L 300.8000, L100.0100, L500.2500, L501.4021 #### [facility] [address] [place], [address] Absolute Neut 5.3 X10 3/uL Normal 2.0-7.7 [facility] Comment on above: Performed By: #### L 300.8000, L100.0100, L500.2500, L501.4021 #### [facility] [address] [place], [address] Basophils/100 WBC (Bld) 0.7 % Normal 0-1 [facility] Comment on above: Performed By: #### L 300.8000, L100.0100, L500.2500, L501.4021 #### [facility] [address] [place], [address] Eosinophils/100 WBC (Bld) 3.7 % Normal 0-5 [facility] Comment on above: Performed By: #### L 300.8000, L100.0100, L500.2500, L501.4021 #### [facility] [address] [place], [address] Erythrocyte distribution width (RBC) [Ratio] 11.9 % Normal 11.6-14.6 [facility] Comment on above: Performed By: #### L 300.8000, L100.0100, L500.2500, L501.4021 #### [facility] [address] [place], [address] Hematocrit (Bld) [Volume fraction] 42.0 % Normal 37-47 [facility] Comment on above: Performed By: #### L 300.8000, L100.0100, L500.2500, L501.4021 #### [facility] [address] [place], [address] Hemoglobin (Bld) [Mass/Vol] 14.8 g/dL Normal 12.0-15.0 [facility] Comment on above: Performed By: #### L 300.8000, L100.0100, L500.2500, L501.4021 #### [facility] [address] [place], [address] IG% 1.300 High 0.0-0.9 [facility] Comment on above: Result Comment: IG% - Immature Granulocytes (promyelocytes, myelocytes and metamyelocytes) > 1% indicates that a LEFT SHIFT is Present. Performed By: #### L 300.8000, L100.0100, L500.2500, L501.4021 #### [facility] [address] [place], [address] Lymphocytes/100 WBC (Bld) 28.9 % Normal 19-41 [facility] Comment on above: Performed By: #### L 300.8000, L100.0100, L500.2500, L501.4021 #### [facility] [address] [place], [address] MCH (RBC) [Entitic mass] 30.6 pg Normal 27.0-32.0 [facility] Comment on above: Performed By: #### L 300.8000, L100.0100, L500.2500, L501.4021 #### [facility] [address] [place], [address] MCHC (RBC) [Mass/Vol] 35.2 g/dL Normal 32-36 [facility] Comment on above: Performed By: #### L 300.8000, L100.0100, L500.2500, L501.4021 #### [facility] [address] [place], [address] MCV (RBC) [Entitic vol] 87.0 fL Normal 81-99 [facility] Comment on above: Performed By: #### L 300.8000, L100.0100, L500.2500, L501.4021 #### [facility] [address] [place], [address] Monocytes/100 WBC (Bld) 9.7 % Normal 0-10 [facility] Comment on above: Performed By: #### L 300.8000, L100.0100, L500.2500, L501.4021 #### [facility] [address] [place], [address] Neutrophils/100 WBC (Bld) 55.7 % Normal 47-70 [facility] Comment on above: Performed By: #### L 300.8000, L100.0100, L500.2500, L501.4021 #### [facility] [address] [place], [address] Nucleated RBC (Bld) [#/Vol] 0 10*3/uL Normal 0-5 [facility] Comment on above: Performed By: #### L 300.8000, L100.0100, L500.2500, L501.4021 #### [facility] [address] [place], [address] Platelet mean volume (Bld) [Entitic vol] 9.4 fL Normal 6.2-12.0 [facility] Comment on above: Performed By: #### L 300.8000, L100.0100, L500.2500, L501.4021 #### [facility] [address] [place], [address] Platelets (Bld) [#/Vol] 282 10*3/uL Normal 150-450 [facility] Comment on above: Performed By: #### L 300.8000, L100.0100, L500.2500, L501.4021 #### [facility] [address] [place], [address] RBC (Bld) [#/Vol] 4.83 10*6/uL Normal 4.2-5.4 [facility] Comment on above: Performed By: #### L 300.8000, L100.0100, L500.2500, L501.4021 #### [facility] [address] [place], [address] RDW SD 37.9 fl Normal 35.1-43.9 [facility] Comment on above: Performed By: #### L 300.8000, L100.0100, L500.2500, L501.4021 #### [facility] [address] [place], [address] WBC (Bld) [#/Vol] 9.6 10*3/uL Normal 4.4-11.0 [facility] Comment on above: Performed By: #### L 300.8000, L100.0100, L500.2500, L501.4021 #### [facility] [address] [facility] [place], [address] D-Dimer Quantitative (DVT/PE )on 2025 D-DIMER QUANT 0.27 FEU/ug/m Normal 0.27-0.49 [facility] Comment on above: Result Comment: NORM AL D-Dimer level (<0.50) indicates no DVT or PE. Performed By: #### L 300.8000, L100.0100, L500.2500, L501.4021 ####[facility] [address] [facility] [place], [address] Electrocardiogram reportOrde red By: Shalom Sheridan on 2025 EKG study [facility] Cardiovascular Services [address] [place] [address] 12 Lead EKG 04/19/25 2333 MR#: [id number] Acct: [id number] Name: SONYA ROSAS Rep #:[id number] : 2000 24 From: Shalom Sheridan MD Attending Dr: Status: DEP E R Ordering Dr: Burke Finch MD Date: 04/19/25 Location: ED Sex: F C Admitted: Test Reason : CP Blood Pressure : */* mmHG Vent. Rate : 109 BPM Atrial Rate : 109 BPM P-R Int : 150 ms QRS Dur : 100 ms QT Int : 346 ms P-R-T Axes : 71 26 27 degrees QTcB Int : 465 ms Sinus tachycardia with frequent Premature ventricular complexes Nonspecific T wave abnormality Abnormal ECG Confirmed by CHESTER YOUNG, SHALOM ([id number]), magazine editor PATTIE COLON ([id number]) on 04/21/2025 8:41:16 AM Referred By: Confirmed By: SHALOM SHERIDAN MD 04/21/25 0841 Date _ Shalom Sheridan MD CC: APARTMENT MAINTENANCE SUPERVISORYogi Camarena; Dr. Burke Finch MD ~ Signed [facility] Other Phone: [phone] 2025 Trop T High Sen < 6 Normal <=14 [facility] Comment on above: Performed By: #### L 300.8000, L100.0100, L500.2500, L501.4021 ####[facility] [address] [place], [address] Troponin T HS 2 HRon 025 Trop T High Sen Normal <=14 [facility] Comment on above: Result Comment: Canc elled via OM: Ordered Performed By: #### L 499.0042 ####[facility] [address] [place], [address] Troponin T HS 4 HRon 025 Trop T High Sen Normal <=14 [facility] Comment on above: Result Comment: Canc elled via OM: Ordered Performed By: #### L 499.0043 #### [facility] [address] [place], [address] 12 Lead EKGon 04-19-2025 12 Lead EKG [facility] Cardi[facility] Services [address] [place] [address] 12 Lead EKG 04/19/25 2333 MR#: [id number] Acct: [id number] Name: SONYA ROSAS Rep #: [id number] : 2000 24 From: Shalom Sheridan MD Attending Dr: Status: DEP ER Ordering Dr: Burke Finch MD Date: 04/19/25 Location: ED Sex: F C Admitted: Test Reason : CP Blood Pressure : */* mmHG Vent. Rate : 109 BPM Atrial Rate : 109 BPM P-R Int : 150 ms QRS Dur : 100 ms QT Int : 346 ms P-R-T Axes : 71 26 27 degrees QTcB Int : 465 ms Sinus tachycardia with frequent Premature ventricular complexes Nonspecific T wave abnormality Abnormal ECG Confirmed by SHALOM SHERIDAN MD ([id number]), magazine editor PATTIE COLON ([id number]) on 04/21/2025 8:41:16 AM Referred By: Confirmed By: SHALOM SHERIDAN MD 04/21/25 0841 Date Shalom Sheridan MD CC: APARTMENT MAINTENANCE SUPERVISORYogi Camarena; Dr. Burke Finch MD Signed Normal [facility] Absolute lymphocyte countOrd ered By: Burke Finch on 04-19-2025 Lymphocytes Auto (Unsp spec) [#/Vol] 2.76 10*3/uL 0.83-4.51 [facility] Absolute neutrophil countOrd ered By: Burke Finch on 04-19-2025 Neutrophils (Bld) [#/Vol] 5.3 10*3/uL 2.0-7.7 [facility] Anion gap in Serum or Plasma Ordered By: Burke Finch on 04-19-2025 Anion gap [Moles/Vol] 17 mmol/L High 5-15 [facility] Automated lymphocyte count a s percentage of total leukocytesOrdered By: Burke Finch on 04-19-2025 Lymphocytes/100 WBC Auto (Unsp spec) 28.9 % 19-41 [facility] BUN/creatinine ratioOrdered By: Burke Finch on 04-19-2025 Urea nitrogen/Creatinine [Mass ratio] 5.6 mg/mg Low 10-20 [facility] Basophil percentageOrdered B y: Burke Finch on 04-19-2025 Basophils/100 WBC (Bld) 0.7 % 0-1 [facility] Carbon dioxide, total [Moles /volume] in Central venous bloodOrdered By: Burke Finch on 04-19-2025 CO2 [Moles/Vol] 19.3 mmol/L Low 21.0-32.0 [facility] Chest 1 View (Portable)on Chest 1 View (Portable) [facility] Imaging Services [address] [place] [address] Chest 1 View (Portable) MR#: [id number] Acct: [id number] Name: SONYA ROSAS Rep #: [id number] : 2000 F 24 From: Txe roca MD PCP: MARLEE Morrell Status: DEP ER Study: Chest 1 View (Portable) Date of Exam: 04/19/25 Exam# [id number] Ordering Dr: Burke Finch MD PROCEDURE: CHEST 1 VIEW (PORTABLE) 2025 REASON FOR EXAM: CHEST PAIN TECHNIQUE: Frontal view of the chest. COMPARISON: 12/05/2023. FINDINGS: The lungs are expanded. There is no demonstrated parenchymal abnormality. There is no demonstrated pleural abnormality. Normal heart and pericardium. Normal mediastinum and isidra. Normal visualized pulmonary arteries. Normal visualized aortic arch and descending thoracic aorta. Normal visualized thoracic spine. Normal visualized ribs, clavicles, and shoulders. There is no demonstrated abnormality of the visualized soft tissue structures of the upper abdomen. RAD/Chest 1 View (Portable) IMPRESSION: No evidence for acute abnormality. Reading Location: [place] [address] CC: APARTMENT MAINTENANCE SUPERVISOR-Paco Camarena; Dr. Burke Finch MD Boat Hoist Operator: Signed Normal [facility] Chloride assayOrdered By: Cedrick Finch on 04-19-2025 Chloride [Moles/Vol] 100 mmol/L 98-108 [facility] Emergency Department Summary on 04-19-2025 Emergency Department Summary [facility] Medical Records Department [address] [place] [address] Emergency Department Summary 04/19/25 MR#: [id number] Acct: [id number] Name: SONYA ROSAS Rep #: [id number] : 2000 24 From: Burke Finch MD PCP: MARLEE Morrell Status:REG ER Location: ED HPI History of Present Illness Chief Complaint: Chest Pain Informant: patient and spouse/S.O. 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 - Reports onset of symptoms tonight, including palpitations with HR >200 bpm, similar to pre- ablation SVT episodes. - Underwent ablation for WPW 4-5 years ago; has experienced similar episodes since. - Associated symptoms include left-sided neck pain and dyspnea. - Took metoprolol, which reduced HR but did not alleviate the sensation of skipping and holding beats. - Has had previous episodes of pain with SVT, but tonight was concerned about persistence of the pressure, albeit much improved, after resolution of the palpitations/tachycar mala. - Consumed alcohol prior to symptom onset; attributes this as a potential trigger. - Reports left calf pain described as cramping, rated 4/10, for approximately 3 wks; denies swelling. - No known history of blood clots. Takes no anticoagulants. - Currently taking metoprolol tartrate, an inhaler, and progesterone-only control. - Smokes daily for about 10 years. - Follow-up with bicycle messenger scheduled for Monday at [facility] Medical History Alcohol abuse Cigarette smoker Marijuana smoker WPW (Uptga-Fvtqhezpv-Pxbl e syndrome) Home Medications ???Medication ???Instructions ???Recorded ???Last Taken ???Type metoprolol succinate 25 mg 25 mg PO PRN 04/13/25 Unknown Hist ory tablet,extended release 24 hr albuterol sulfate 90 mcg/actuation 2 puff inhalation Q4H PRN PRN Unknown History aerosol inhaler wheezing norethindrone (contraceptive) 0.35 0.35 mg PO DAILY 04/19/25 Unknow n History mg tablet Allergy/AdvReac Type Severity Reaction Status Date / Time Penicillins Allergy Severe Hives Verified 04/13/25 00:04 Surgical History of heart surgery Social History Smoking Status: Current every day smoker tobacco type: cigarettes ROS ROS ED Constitutional Constitutional ED: Denies chills or fever(s) Eyes Eyes: Denies change in vision or diplopia ENT ENT ED: Denies rhinorrhea or sore throat Cardiovascular Cardiovascular: Reports as per HPI, chest pain, palpitations and racing heartbeat Respiratory/Chest Respiratory/Chest: Reports dyspnea; Denies cough Gastrointestinal Gastrointestinal: Denies abdominal pain, diarrhea, nausea or vomiting Genitourinary Genitourinary ED: Denies dysuria or hematuria Musculoskeletal Musculoskeletal: Reports other Details: (+) left calf pain/cramping x 3 wks, no swelling ; Denies back pain or neck pain Integumentary Denies abscess or rash Neurologic Neurologic: Denies headache(s), paresthesias or weakness Psychiatric Psychiatric: Denies suicidal thoughts EXAM Physical Exam Const Vital Signs: 04/19/25 23:32 04/19/25 23:34 04/19/25 23:47 Temperature 98.3 F Temperature Source Oral Pulse Rate 113 H Respiratory Rate 18 Respiratory Effort Normal Non-Labored Blood Pressure 133/74 H Blood Pressure Mean 93 Pulse Ox 99 98 Oxygen Delivery Method Room Air Room Air 04/20/25 00:31 04/20/25 01:00 Temperature Temperature Source Pulse Rate 86 85 Respiratory Rate 21 H 14 Respiratory Effort Blood Pressure 113/81 H Blood Pressure Mean 91 Pulse Ox 93 97 Oxygen Delivery Method Room Air Room Air Positive well nourished and well developed General Appearance ED: well developed and NAD HEENT Reports moist mucous membranes normocephalic and atraumatic Eyes PERRL and EOMs intact bilaterally Neck full ROM and supple Resp normal respiratory effort and clear to auscultation bilaterally Cardio regular rate, regular rhythm and no murmurs Rate: other Other Details: occ irregularity, coinciding with PVCs on monitor GI non-tender and non-distended Auscultation: normoactive bowel sounds Palpation: soft Back/Spine no CVA tenderness General Back: other FROM Extremity normal to inspection General Extremety ED: Negative for edema, pulses abnormal or tenderness General Extremity: Negative for edema or pulses abnormal Neuro oriented x3, CN's II-XII intact bilaterally and no sensory deficits noted Sensorium / Orientation: awake and alert Motor Exam: strength (more content not included)... Normal [facility] Eosinophil percentageOrdered By: Burke Finch on 04-19-2025 Eosinophils/100 WBC (Bld) 3.7 % 0-5 [facility] Erythrocyte distribution wid th ratioOrdered By: Burke Finch on 04-19-2025 Erythrocyte distribution width (RBC) [Ratio] 11.9 % 11.6-14.6 [facility] Erythrocyte distribution wid th standard deviationOrdered By: Burke Finch on 04-19-2025 Erythrocyte distribution width (RBC) [Ratio] 37.9 fl 35.1-43.9 [facility] Glomerular filtration rate ( GFR) estimation/1.73 sq m using serum, plasma, or whole bOrdered By: Burke Finch on 04-19-2025 GFR/1.73 sq M.predicted among non-blacks MDRD (S/P/Bld) [Vol rate/Area] 101 mL/min/{1.73_m2} >60 [facility] Comment on above: mL/min/1.73m2 CKD-EP I Creatinine Equation (2020) Hematocrit Auto (Bld) [Volum e fraction]Ordered By: Burke Finch on 04-19-2025 Hematocrit (Bld) [Volume fraction] 42.0 % 37-47 [facility] Hemoglobin measurementOrdere d By: Burke Finch on 04-19-2025 Hemoglobin (Bld) [Mass/Vol] 14.8 g/dL 12.0-15.0 [facility] Immature granulocytes/100 WB C Auto (Bld)Ordered By: Burke Finch on 04-19-2025 Immature granulocytes/100 WBC (Bld) 1.300 % High 0.0-0.9 [facility] Comment on above: IG% - Immature Granu locytes (promyelocytes, myelocytes and metamyelocytes) > 1% indicates that a LEFT SHIFT is Present. MCV (mean corpuscular volume ) determinationOrdered By: Burke Finch on 04-19-2025 MCV (RBC) [Entitic vol] 87.0 fL 81-99 [facility] Mean corpuscular hemoglobin (MCH) determinationOrdered By: Burke Finch on 04-19-2025 MCH (RBC) [Entitic mass] 30.6 pg 27.0-32.0 [facility] Mean corpuscular hemoglobin concentration (MCHC) determinationOrdered By: Burke Finch on 04-19-2025 MCHC (RBC) [Mass/Vol] 35.2 g/dL 32-36 [facility] Mean platelet volume determi nationOrdered By: Burke Finch on 04-19-2025 Platelet mean volume (Bld) [Entitic vol] 9.4 fL 6.2-12.0 [facility] Monocyte percentageOrdered B y: Burke Finch on 04-19-2025 Monocytes/100 WBC (Bld) 9.7 % 0-10 [facility] Neutrophil percentageOrdered By: Burke Finch on 04-19-2025 Neutrophils/100 WBC (Bld) 55.7 % 47-70 [facility] Nucleated red blood cell per centageOrdered By: Burke Finch on 04-19-2025 Nucleated RBC/100 WBC (Bld) [Ratio] 0 % 0-5 [facility] Platelet countOrdered By: Cedrick Finch on 04-19-2025 Platelets (Bld) [#/Vol] 282 10*3/uL 150-450 [facility] Potassium measurement (mass/ volume)Ordered By: Burke Finch on 04-19-2025 Potassium (Unsp spec) [Mass/Vol] 3.7 mmol/L 3.3-5.1 [facility] RBC Auto (Bld) [#/Vol]Ordere d By: Burke Finch on 04-19-2025 RBC (Bld) [#/Vol] 4.83 10*6/uL 4.2-5.4 [facility] Serum creatinine measurement (mass/volume)Ordered By: Burke Finch on 04-19-2025 Creatinine [Mass/Vol] 0.82 mg/dL 0.70-1.20 [facility] Serum glucose measurement (m ass/volume)Ordered By: Burke Finch on 04-19-2025 Glucose [Mass/Vol] 89 mg/dL 70-99 [facility] Serum or plasma calcium jennifer urement (mass/volume)Ordered By: Burke Finch on 04-19-2025 Calcium [Mass/Vol] 9.2 mg/dL 7.6-11.0 [facility] Serum or plasma urea nitroge n measurement (mass/volume)Ordered By: Burke Finch on 04-19-2025 Urea nitrogen [Mass/Vol] 5 mg/dL 4-19 [facility] Sodium levelOrdered By: Niraj Finch on 04-19-2025 Sodium [Moles/Vol] 136 mmol/L 133-145 [facility] Troponin T.cardiac [Mass/vol ume] in Serum or Plasma by High sensitivity methodOrdered By: Burke Finch on 04-19-2025 Troponin T.cardiac High sensitivity method [Mass/Vol] < 6 ng/L <14 [facility] White blood cell (WBC) count Ordered By: Burke Finch on 04-19-2025 WBC (Bld) [#/Vol] 9.6 10*3/uL 4.4-11.0 [facility] 25(OH)D3 SerPl-mCncon 2024 25-hydroxyvitamin D3 [Mass/Vol] 20.0 ng/mL Low >=30.0 [facility] Comment on above: Order Comment: Benjie boston Type: BLOOD SPECIMENOrdering Facility: [facility] Address: [address] [place] [address] Result Comment: Clas sification of 25 [place] Vitamin D status: Deficiency: <= 20.0 ng/ml. Insufficiency: 21.0-29.0 ng/ml. Sufficiency: >= 30.0 ng/ml. Performed By: #### 1 989-3 ####[facility]ORYCLIA [id number] [place] [address] [place] BY IFA SCREENon 04-17-20 25 Nuclear Ab Ql (S) Negative Normal Negative [facility] Comment on above: Order Comment: Benjie boston Type: BLOOD SPECIMEN [facility] Address: [address] [place] [address] Result Comment: Anti -nuclear antibody test is used as an aid in diagnosis of systemic autoimmune diseases. Where positive and clinically warranted, follow-up using disease-specific testing is recommended. Low positive titers are not uncommon with advanced age, certain chronic infections, and malignancies among others. Test methodology: Indirect fluorescence immunoassay (IFA) using HEp-2 cells. Performed By: #### A NAIFS #### [facility] CLIA [id number] [address] [place] [address] [place] CBC W Auto Differential pane l (Bld)on 04-17-2025 Basophils (Bld) [#/Vol] 0.04 10*3/uL Normal <0.11 [facility] Comment on above: Order Comment: Speci men Type: BLOOD SPECIMENOrdering Facility: [facility] Address: [address] [place] [address] Performed By: #### 5 7021-8 ####[facility] [id number] [address] [place] Basophils/100 WBC (Bld) 0.6 % Normal [facility] Comment on above: Order Comment: Speci men Type: BLOOD SPECIMENOrdering Facility: [facility] Address: [address] [place] [address] Performed By: #### 5 7021-8 ####[facility] LABCL[facility] [id number] [address] Differential cell count method Nom (Bld) Auto Normal [facility] Comment on above: Order Comment: Speci men Type: BLOOD SPECIMENOrdering Facility: [facility] Address: [address] [place] [address] Performed By: #### 5 7021-8 ####[facility] LABCLIA [id number] [place] [address] [place] Eosinophils (Bld) [#/Vol] 0.32 10*3/uL Normal <0.46 [facility] Comment on above: Order Comment: Speci men Type: BLOOD SPECIMENOrdering Facility: [facility] Address: [address] [place] [address] Performed By: #### 5 7021-8 ####[facility] [place] LABCLIA [id number] [place] [id number] [place] Eosinophils/100 WBC (Bld) 4.5 % Normal [facility] Comment on above: Order Comment: Speci men Type: BLOOD SPECIMENOrdering Facility: [facility] Address: [address] [place] [address] Performed By: #### 5 7021-8 ####[facility] [place] LABCLIA [id number] [facility] [place] [address] [place] Erythrocyte distribution width (RBC) [Ratio] 12.0 % Normal 11.5-15.0 [facility] Comment on above: Order Comment: Speci men Type: BLOOD SPECIMENOrdering Facility: [facility] Address: [address] [place] [address] Performed By: #### 5 7021-8 ####[facility] LABCLIA [id number] [facility] [place] [address] [place] Hematocrit (Bld) [Volume fraction] 47.5 % High 36.0-46.0 [facility] Comment on above: Order Comment: Speci men Type: BLOOD SPECIMENOrdering Facility: [facility] Address: [address] [place] [address] Performed By: #### 5 7021-8 ####[facility] LABCLIA [id number] [facility] [place] [address] [place] Hemoglobin (Bld) [Mass/Vol] 16.3 g/dL High 11.5-15.5 [facility] Comment on above: Order Comment: Speci men Type: BLOOD SPECIMENOrdering Facility: [facility] Address: [address] [place] [address] Performed By: #### 5 7021-8 ####[facility] [place] LABCLIA [id number] [facility] [place] [address] [place] Immature granulocytes (Bld) [#/Vol] 10*3/uL Normal <0.10 [facility] Comment on above: Order Comment: Speci men Type: BLOOD SPECIMENOrdering Facility: [facility] Address: [address] [place] [address] Performed By: #### 5 7021-8 ####[facility] [place] LABCLIA [id number] [place] [address] [facility] Immature granulocytes/100 WBC (Bld) 0.3 % Normal [facility] Comment on above: Order Comment: Speci men Type: BLOOD SPECIMENOrdering Facility: [facility] Address: [address] [place] [address] Performed By: #### 5 7021-8 ####[facility] [place] LABCLIA [id number] [place], [place] [id number] [place] [address] [place] Lymphocytes (Bld) [#/Vol] 1.28 10*3/uL Normal 1.00-4.00 [facility] Comment on above: Order Comment: Speci men Type: BLOOD SPECIMENOrdering Facility: [facility] Address: [address] [place] [address] Performed By: #### 5 7021-8 ####[facility] LABCLIA [id number] [address] Lymphocytes/100 WBC (Bld) 18.1 % Normal [facility] Comment on above: Order Comment: Speci men Type: BLOOD SPECIMENOrdering Facility: [facility] Address: [address] [place] [address] Performed By: #### 5 7021-8 ####[facility] LABCLIA [id number] [place] [id number] [place] MCH (RBC) [Entitic mass] 30.8 pg Normal 26.0-34.0 [facility] Comment on above: Order Comment: Speci men Type: BLOOD SPECIMENOrdering Facility: [facility] Address: [address] [place] [address] Performed By: #### 5 7021-8 ####[facility] LABCLIA [id number] [place] [address] [place] MCHC (RBC) [Mass/Vol] 34.3 g/dL Normal 30.5-36.0 [facility] Comment on above: Order Comment: Speci men Type: BLOOD SPECIMENOrdering Facility: [facility] Address: [address] [place] [address] Performed By: #### 5 7021-8 ####[facility] [place] LABCLIA [id number] [place] [address] [place] MCV (RBC) [Entitic vol] 89.8 fL Normal 80.0-100.0 [facility] Comment on above: Order Comment: Speci men Type: BLOOD SPECIMENOrdering Facility: [facility] Address: [address] [place] [address] Performed By: #### 5 7021-8 ####[facility] [place] LABCLIA [id number] [place] [address] [place] Monocytes (Bld) [#/Vol] 0.68 10*3/uL Normal <0.87 [facility] Comment on above: Order Comment: Speci men Type: BLOOD SPECIMENOrdering Facility: [facility] Address: [address] [place] [address] Performed By: #### 5 7021-8 ####[facility] [place] LABCLIA [id number] [place] [address] [place] Monocytes/100 WBC (Bld) 9.6 % Normal [facility] Comment on above: Order Comment: Speci men Type: BLOOD SPECIMENOrdering Facility: [facility] Address: [address] [place] [address] Performed By: #### 5 7021-8 ####[facility] [place] LABCLIA [id number] [place] [address] [place] Neutrophils (Bld) [#/Vol] 4.75 10*3/uL Normal 1.45-7.50 [facility] Comment on above: Order Comment: Speci men Type: BLOOD SPECIMENOrdering Facility: [facility] Address: [address] [place] [address] Performed By: #### 5 7021-8 ####[facility] [place] LABCLIA [id number] [place] [address] [place] Neutrophils/100 WBC (Bld) 66.9 % Normal [facility] Comment on above: Order Comment: Speci men Type: BLOOD SPECIMENOrdering Facility: [facility] Address: [address] [place] [address] Performed By: #### 5 7021-8 ####[facility] [place] LABCLIA [id number] [place] [address] [place] Nucleated RBC (Bld) [#/Vol] Normal [facility] Comment on above: Order Comment: Speci men Type: BLOOD SPECIMENOrdering Facility: [facility] Address: [facility] [address] [place] [place] [address] Performed By: #### 5 7021-8 ####[facility] [place] LABCLIA [id number] [facility] [place] [address] [place] Nucleated RBC/100 WBC (Bld) [Ratio] Normal [facility] Comment on above: Order Comment: Speci men Type: BLOOD SPECIMENOrdering Facility: [facility] Address: [address] [place] [address] Performed By: #### 5 7021-8 ####[facility] [place] LABCLIA [id number] [facility] [place] [address] [place] Platelet mean volume (Bld) [Entitic vol] 9.6 fL Normal 9.0-12.7 [facility] Comment on above: Order Comment: Speci men Type: BLOOD SPECIMENOrdering Facility: [facility] Address: [address] [place] [address] Performed By: #### 5 7021-8 ####[facility] [place] LABCLIA [id number] [facility] [place] [address] [place] Platelets (Bld) [#/Vol] 288 10*3/uL Normal 150-400 [facility] Comment on above: Order Comment: Speci men Type: BLOOD SPECIMENOrdering Facility: [facility] Address: [address] [place] [address] Performed By: #### 5 7021-8 ####[facility] LABCLIA [id number] [place] [address] [facility] RBC (Bld) [#/Vol] 5.29 10*6/uL High 3.90-5.20 [facility] Comment on above: Order Comment: Speci men Type: BLOOD SPECIMENOrdering Facility: [facility] Address: [address] [place], [place] [address] Performed By: #### 5 7021-8 ####[facility] LABCLIA [id number] [place] [address] [facility] WBC (Bld) [#/Vol] 7.09 10*3/uL Normal 3.70-11.00 [facility] Comment on above: Order Comment: Speckarla men Type: BLOOD SPECIMENOrdering Facility: [facility] Address: [address] [place], [place] [address] Performed By: #### 5 7021-8 ####[facility] LABCLIA [id number] [place] [address] [facility] CNOVon 04-17-2025 CNOV Office Visit (AGFAMPLE) SONYA ROSAS ([id number]) 1 F Date Time Provider Department 04/17/25 9:00 AM YANETH CAMARENA During your visit today, we recorded the following information about you: Temperature Pulse Respiration Blood pressure 98.8 degrees 92/minute 18/minute 126/70 Weight Height 83.5 kg 1.613 m Yaneth Camarena APRN.[employer] 04/18/2025 1:04 PM Signed CHIEF COMPLAINT: The patient is a 24-year-old female presenting for evaluation of right shoulder pain worsened by deep inspiration, associated with nausea and fatigue. I reviewed past medical, surgical, social, and family histories today and updated chart. Allergies, chronic medications, and supplements were also reviewed. Recording using [employer] software for draft documentation of the visit was discussed with the patient/authorized physician representative; all questions welcomed and answered. Patient/authorized physician representative agreed to proceed. Right Shoulder Pain: - Sonya Rosas reports pain localized to the right shoulder joint, radiating to the neck. - Aggravated by deep inspiration and diaphragmatic expansion. - Sonya denies pain with normal movement of the shoulder joint. Nausea: - Persistent nausea. - Sonya denies emesis. Fatigue: - Sonya reports extreme lethargy impacting daily activities and lifestyle. - Sonya denies recent alcohol consumption during the week; previously a daily drinker. - Sonya's sleep schedule involves going to bed at 02:00-03:00 and waking up at 11:00. Weight Gain: - Significant weight gain over a short period. - Recent switch to a progesterone-only oral contraceptive after IUD removal. - Dietary changes include reduced carbohydrate intake and increased protein and dark green vegetable consumption. - Sonya denies cravings for sweets over the past two years. - Sonya engages in regular physical activity but reports difficulty losing weight. Family History: - Positive family history of diabetes and lupus. - Sonya's mother suggested checking cortisol levels for weight gain concerns. Additional Concerns: - Sonya reports shiny toenails with a red line. - Sonya denies joint pain in hands and feet but reports hip pain, possibly related to a limb length discrepancy. - Coughing, with worsening symptoms; history of smoking and marijuana use. - Sonya denies fever. PAST MEDICAL HISTORY Diagnosis Date Palpitations Tachycardia Txcxa-Yezescynq-Etitk (WPW) pattern PAST SURGICAL HISTORY Procedure Laterality Date HEART SURGERY 2019 INSERTION OF IUD 02/2020 [facility] SOCIAL HISTORY[1] ALLERGIES Allergen Reactions Penicillins Intolerance [...] normal gait, no involuntary motions. ASSESSMENT/PLAN: 1. Ac (more content not included)... Normal [facility] CRP [facility] CRP [Mass/Vol] 0.6 mg/dL Normal <0.9 [facility] Comment on above: Order Comment: Speci men Type: BLOOD SPECIMENOrdering Facility: [facility] Address: [address] [place] [address] Performed By: #### 1 988-5, 07254-2 ####[facility] [place] LABCLIA [id number] [facility] [place] [address] [facility] Comprehensive metabolic 2000 panelon 04-17-2025 Albumin [Mass/Vol] 4.7 g/dL Normal 3.9-4.9 [facility] Comment on above: Order Comment: Speci men Type: BLOOD SPECIMENOrdering Facility: [facility] Address: [address] [place] [address] Performed By: #### 1 988-5, 10020-7 ####[facility] [place] LABCLIA [id number] [facility] [place] [address] [place] ALP [Catalytic activity/Vol] 81 U/L Normal 34-123 [facility] Comment on above: Order Comment: Speci men Type: BLOOD SPECIMENOrdering Facility: [facility] Address: [address] [place] [address] Performed By: #### 1 988-5, 05475-4 ####[facility] [place] LABCLIA [id number] [facility] [place] [address] [facility] ALT With P-5'-P [Catalytic activity/Vol] 15 U/L Normal 7-38 [facility] Comment on above: Order Comment: Speci men Type: BLOOD SPECIMENOrdering Facility: [facility] Address: [address] [place] [address] Performed By: #### 1 988-5, 14590-8 ####[facility] [place] LABCLIA [id number] [facility] [place] [address] [place] Anion gap [Moles/Vol] 15 mmol/L Normal 8-15 [facility] Comment on above: Order Comment: Speci men Type: BLOOD SPECIMENOrdering Facility: [facility] Address: [address] [place] [address] Performed By: #### 1 988-5, 51226-2 ####[facility] [place] LABCLIA [id number] [place] [address] [place] AST With P-5'-P [Catalytic activity/Vol] 14 U/L Normal 13-35 [facility] Comment on above: Order Comment: Speci men Type: BLOOD SPECIMENOrdering Facility: [facility] Address: [address] [place] [address] Performed By: #### 1 988-5, ####[facility] [place] LABCLIA [id number] [place] [address] [place] Bilirubin [Mass/Vol] 0.5 mg/dL Normal 0.2-1.3 [facility] Comment on above: Order Comment: Speci men Type: BLOOD SPECIMENOrdering Facility: [facility] Address: [address] [place] [address] Performed By: #### 1 988-5, ####[facility] [place] LABCLIA [id number] [place] [address] [place] Calcium [Mass/Vol] 10.3 mg/dL High 8.5-10.2 [facility] Comment on above: Order Comment: Speci men Type: BLOOD SPECIMENOrdering Facility: [facility] Address: [address] [place] [address] Performed By: #### 1 988-5, ####[facility] [place] LABCLIA [id number] [place] [address] [place] Chloride [Moles/Vol] 102 mmol/L Normal 98-107 [facility] Comment on above: Order Comment: Speci men Type: BLOOD SPECIMENOrdering Facility: [facility] Address: [address] [place] [address] Performed By: #### 1 988-5, 72071-9 ####[facility] [place] LABCLIA [id number] [place] [address] [place] CO2 [Moles/Vol] 22 mmol/L Normal 22-30 [facility] Comment on above: Order Comment: Ankiti men Type: BLOOD SPECIMENOrdering Facility: [facility] Address: [address] [place] [address] Performed By: #### 1 988-5, 20466-6 ####[facility] LABCLIA [id number] [place] [address] [place] Creatinine [Mass/Vol] 0.81 mg/dL Normal 0.58-0.96 [facility] Comment on above: Order Comment: Speci men Type: BLOOD SPECIMENOrdering Facility: [facility] Address: [address] [place] [address] Performed By: #### 1 988-5, 91544-1 ####[facility] LABCLIA [id number] [place] [id number] [facility] eGFRcr SerPlBld CKD-EPI 2020 104 mL/min/1.73m??? Normal >=60 [facility] Comment on above: Order Comment: Speci men Type: BLOOD SPECIMENOrdering Facility: [facility] Address: [address] [place] [address] Result Comment: Stacie mated Glomerular Filtration Rate (eGFR) is calculated using the 2020 CKD-EPI creatinine equation. This equation utilizes serum creatinine, sex, and age as parameters. The creatinine assay has traceable calibration to isotope dilution-mass spectrometry. Refer to KDIGO guidelines for clinical interpretation. In patients with unstable renal function, e.g. those with acute kidney injury, the eGFR may not accurately reflect actual GFR. Performed By: #### 1 988-5, 28867-8 ####[facility] LAB[facility] [id number] [place] [address] [place] Glucose [Mass/Vol] 95 mg/dL Normal 74-99 [facility] Comment on above: Order Comment: Speci men Type: BLOOD SPECIMENOrdering Facility: [facility] Address: [address] [place] [address] Result Comment: The [place] Diabetes Association (ADA) provides guidance for cutoff [...] Standards of Medical Care in Diabetes 2016, [place] [employer] Association. Diabetes Care. 2016.39(Suppl 1). Performed By: #### 1 988-5, 35425-8 ####[facility] [employer] LABCLIA [id number] [place] [address] [place] Potassium [Moles/Vol] 4.1 mmol/L Normal 3.7-5.1 [facility] Comment on above: Order Comment: Ankiti men Type: BLOOD SPECIMENOrdering Facility: [facility] Address: [address] [place] [address] Performed By: #### 1 988-5, ####[facility] LABCLIA [id number] [place] [address] [place] Protein [Mass/Vol] 7.9 g/dL Normal 6.3-8.0 [facility] Comment on above: Order Comment: Speci men Type: BLOOD SPECIMENOrdering Facility: [facility] Address: [address] [place] [address] Performed By: #### 1 988-5, 42113-0 ####[facility] LABCLIA [id number] [place] [address] [place] Sodium [Moles/Vol] 139 mmol/L Normal 136-144 [facility] Comment on above: Order Comment: Ankiti men Type: BLOOD SPECIMENOrdering Facility: [facility] Address: [address] [place] [address] Performed By: #### 1 988-5, 48807-8 ####[facility] [facility] [id number] [place] [address] [place] Urea nitrogen [Mass/Vol] 5 mg/dL Low 7-21 [facility] Comment on above: Order Comment: Speci men Type: BLOOD SPECIMENOrdering Facility: [facility] Address: [address] [place] [address] Performed By: #### 1 988-5, 94717-9 ####[facility] [id number] [place] [address] [place] Cortis SerPl-mCncon 04-17-20 Cortisol [Mass/Vol] 22.3 ug/dL High 4.8-19.5 [facility] Comment on above: Order Comment: Speci men Type: BLOOD SPECIMEN [facility]ing Facility: [facility] Address: [address] [place] [address] Result Comment: Prov ided reference range is from 6-10 AM sample collection time. Cortisol Reference Range: 6-10 AM = 4.8-19.5 ug/dL, 4-8 PM = 2.5-11.9 ug/dL Performed By: #### 2 143-6 #### [facility] CLIA [id number] [address] STATES OF [facility] ESR Westergren method (Bld) [Velocity]on 04-17-2025 ESR (Bld) [Velocity] 5 mm/h Normal 0-20 [facility] Comment on above: Order Comment: Speci men Type: BLOOD SPECIMENOrdering Facility: [facility] Address: [address] [place] [address] Performed By: #### 4 537-7 ####[facility] LABCLIA [id number] [place] [address] [place] Ferritin SerPl-mCncon 2024 Ferritin [Mass/Vol] 84.8 ng/mL Normal 14.7-205.1 [facility] Comment on above: Order Comment: Speci men Type: BLOOD SPECIMENOrdering Facility: [facility] Address: [address] [place] [address] Performed By: #### 2 276-4, 2284-8, 2132-9, 38621-5 ####[facility] [id number] [place] [address] [place] Folate SerPl-mCncon 04-17-20 25 Folate [Mass/Vol] 9.2 ng/mL Normal >4.7 [facility] Comment on above: Order Comment: Speci men Type: BLOOD SPECIMENOrdering Facility: [facility] Address: [address] [place] [address] Performed By: #### 2 276-4, 2284-8, 2-9, 07573-8 ####[facility] [id number] [address] [place] HCV Ab Ser Qlon 04-17-2025 HCV Ab Ql (S) Non-Reactive Normal Nonreactive [facility] Comment on above: Order Comment: Speci men Type: BLOOD SPECIMENOrdering Facility: [facility] Address: [address] [place] [address] Result Comment: The result suggests no evidence of active infection with Hepatitis C virus. Should recent infection be suspected, repeat testing may be considered 4-6 weeks after this draw. Performed By: #### 1 6128-1 ####[facility] [id number] [address] [place] HIV 1+2 Ab IA Qlon HIV 1 and 2 Ab IA.rapid Nom (S/P/Bld) Normal [facility] Comment on above: Order Comment: Speci men Type: BLOOD SPECIMENOrdering Facility: [facility] Address: [address] [place] [address] Result Comment: Test not indicated. Performed By: #### 3 1201-7 ####[facility] [id number] [address] [place] HIV 1+2 Ab+HIV1 p24 Ag IA Ql Non-Reactive Normal Nonreactive [facility] Comment on above: Order Comment: Speci men Type: BLOOD SPECIMENOrdering Facility: [facility] Address: [address] [place] [address] Result Comment: [place] Rev. Code 3701.243(E): This information has been disclosed to [...] release of HIV test results or diagnoses. Performed By: #### 3 1201-7 ####[facility] [id number] [address] HIV immunoassay testing algorithm interpretation (S/P/Bld) [Interp] Normal [facility] Comment on above: Order Comment: Speci men Type: BLOOD SPECIMENOrdering Facility: [facility] Address: [address] [place] [address] Result Comment: No e vidence of HIV-1 or HIV-2 infection. Should recent infection be suspected, repeat testing may be considered 2-3 weeks after this draw. Performed By: #### 3 1201-7 ####[facility] [id number] [address] [place] HbA1c (Bld)on 04-17-2025 Average glucose Estimated from glycated hemoglobin (Bld) [Mass/Vol] 82 mg/dL Normal [facility] Comment on above: Order Comment: Speci men Type: BLOOD SPECIMEN [facility] Address: [address] [place] [address] Result Comment: eAG: (Estimated average glucose) is a calculated value from HgbA1c and is physician representative of the average blood glucose level in the last 2-3 month period. Performed By: #### 5 5454-3 #### [facility] CLIA [id number] [address] [place], [place] [address] [address] [place] HbA1c (Bld) [Mass fraction] 4.5 % Normal 4.3-5.6 [facility] Comment on above: Order Comment: Speci men Type: BLOOD SPECIMEN [facility] Address: [address] [place] [address] Result Comment: Amer [place] Diabetes Association guidelines indicate that patients with HgbA1c in the range 5.7-6.4% are at increased risk for development of diabetes, and intervention by lifestyle modification may be beneficial. HgbA1c greater or equal to 6.5% is considered diagnostic of diabetes. Performed By: #### 5 5454-3 #### [facility] CLIA [id number] [address] [place] [address] [place] Insulin SerPl-aCncon 025 Insulin Qn 7.7 uU/mL Normal 2.6-24.9 [facility] Comment on above: Order Comment: Speci men Type: BLOOD SPECIMENOrdering Facility: [facility] Address: [address] [place] [address] Performed By: #### 2 0448-7 ####[facility] LABCLIA [id number] [place] [address] [place] Iron and Iron binding capaci ty panelon 04-17-2025 Iron [Mass/Vol] 51 ug/dL Normal 41-186 [facility] Comment on above: Order Comment: Speci men Type: BLOOD SPECIMENOrdering Facility: [facility] Address: [address] [place] [address] Performed By: #### 2 276-4, 2284-8, 2132-03, 83593-2 ####[facility]IA [id number] [place] [address] [place] Iron binding capacity [Mass/Vol] 343 ug/dL Normal 232-386 [facility] Comment on above: Order Comment: Speci men Type: BLOOD SPECIMENOrdering Facility: [facility] Address: [address] [place] [address] Performed By: #### 2 276-4, 2284-8, 9, 76934-8 ####[facility]ORY[facility]IA [id number] [place], [place] [address] [place] [address] Iron saturation [Mass fraction] 14.9 % Low 15.0-57.0 [facility] Comment on above: Order Comment: Speci men Type: BLOOD SPECIMENOrdering Facility: [facility] Address: [address] [place] [address] Performed By: #### 2 276-4, 2284-8, 2132-9, 56615-5 ####[facility]ORY[facility]IA [id number] [place] [address] [place] Vit B12 SerPl-mCncon 025 Cobalamin (Vitamin B12) [Mass/Vol] 337 pg/mL Normal 232-1245 [facility] Comment on above: Order Comment: Speci men Type: BLOOD SPECIMENOrdering Facility: [facility] Address: [address] [place] [address] Performed By: #### 2 276-4, 2284-8, 2132-9, 28225-1 ####[facility] [id number] [address] [place] XR CHEST 2V FRONTAL/LATon XR CHEST 2V FRONTAL/LAT * * *Final Report* * * DATE [...] tissues: Unremarkable. IMPRESSION: No acute radiographic abnormality. Boat Hoist Operator: CALE Transcribe Date/Time: Apr 17 2025 10:20A Dictated by : MEGA COLBERT MD This examination was interpreted and the report reviewed and electronically signed by: MEGA COLBERT MD on Apr 17 2025 10:20AM EST [id number] N [facility] CNPNon 04-14-2025 CNPN Telephone (AGFAMPLE) SONYA ROSAS ([id number]) 1 F Date Time Provider Department 04/14/25 YANETH CAMARENA During your visit today, we recorded the following information about you: Iris Wisdom MA 04/14/2025 2:09 PM Signed Patient left message stating she accidentally let her lab orders and would like new ones. Please advise. TROY Salgado Mary, MA 04/15/2025 1:26 PM Signed SECOND REQUEST Yaneth Camarena APRN.[facility] 04/15/2025 1:31 PM Signed Orders replaced. Ayana French MA 04/15/2025 2:39 PM Signed Patient is informed yAana French MA Allergies As of Date: 04/14/2025 Noted Allergy Reaction PENICILLINS 07/15/2022 5 - Intolerance Date Reviewed: 04/01/2025 Reviewed by: Erin Sanchez MD - Fully Assessed Reason for Visit: Lab Orders [2698] Primary Visit Diagnosis:Elevated hemoglobin [D58.2] Order(s):COMPLETE BLOOD COUNT AND DIFFERENTIAL [SQCBCDIF] Order #: [id number] FUTURE IRON AND TIBC [SQIRON] Order #: [id number] FUTURE FERRITIN [SQFERR] Order #: [id number] FUTURE FOLATE, SERUM [SQSERFOL] Order #: [id number] FUTURE VITAMIN B12 [SQB12] Order #: [id number] FUTURE Prescriptions as of 04/15/2025 - Norethindrone, [...] Encounter Status:Closed by IRIS WISDOM on 04/15/25 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 She denies any history of bleeding disorder or blood thinner use. She states that earlier today she felt like there was something stuck in her right eye. She states that she attempted to get the foreign body sensation out and felt that she was successful. She states she went about the rest of her day and this evening was drinking alcohol. She then began to feel pain in her right eye and reports that the vision was blurry. 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 [facility] Medical History Alcohol abuse Cigarette smoker Marijuana smoker WPW (Vejmi-Ozcvfoipp-Gbzu e syndrome) Home Medications ???Medication ???Instructions ???Recorded ???Last Taken ???Type metoprolol succinate 25 mg 25 mg PO PRN 04/13/25 Unknown Hist ory tablet,extended release 24 hr progesterone micronized .ROUTE 04/13/25 Unknown History Allergy/AdvReac Type Severity Reaction Status Date / Time Penicillins Allergy Severe Hives Verified 04/13/25 00:04 Surgical History Hx of heart surgery Social History Smoking Status: Current every day smoker tobacco type: cigarettes ROS ROS ED Constitutional Constitutional ED: Denies chills or fever(s) Eyes Eyes: Reports blurry vision right ENT ENT ED: Denies sore throat Cardiovascular Cardiovascular: Denies chest pain or palpitations Respiratory/Chest Respiratory/Chest: Denies cough or dyspnea Gastrointestinal Gastrointestinal: Denies abdominal pain, diarrhea, nausea or vomiting Musculoskeletal Musculoskeletal: Denies myalgias Integumentary Denies rash Neurologic Neurologic: Denies headache(s) or weakness Hematologic/Lymphatic Hematologic/Lymphatic : Denies easy bleeding or easy bruising EXAM Physical Exam Const Vital Signs: 04/13/25 00:06 04/13/25 00:16 Temperature 98.1 F Temperature Source Oral Pulse Rate 101 H Respiratory Rate 20 H Respiratory Pattern Tachypnea Blood Pressure 149/94 H Blood Pressure Mean 112 Pulse Ox 98 Oxygen Delivery Method Room Air Positive well nourished and well developed General Appearance ED: well developed HEENT HEENT Narrative: Normocephalic atraumatic Eyes PERRL and EOMs intact bilaterally Eyes Narrative: Pupils are slightly dilated and mildly sluggish to respond to light consistent with alcohol use. Extraocular motions are intact bilaterally. There is bilateral scleral injection which can be related to alcohol use as well as the fact patient has been crying. No purulent discharge noted Funduscopic exam reveals normal macula and optic disc. No pallor noted. No blood and thunder appearance. No obvious retained foreign body No hyphema noted. No obvious corneal ulcer present. Neck supple Resp normal respiratory effort and clear to auscultation bilaterally Cardio regular rate and regular rhythm Extremity normal to inspection Neuro oriented x3, CN's II-XII intact bilaterally and moves all extremities Neuro Narrative: GCS of 15 Cranial nerves II through XII are grossly intact without focal neurologic deficit No pronator drift no dysmetria no truncal ataxia No hemianopsia/vision loss noted NIH stroke scale score of 0 Sensorium / Orientation: alert Motor Exam: strength 5/5 throughout Psych Mood Affect: anxious and tearful Skin no rashes or lesions noted and no wounds Lesions: no lesions Rashes: no rashes MDM MDM MDM Narrative Medical decision making narrative: Patient arrived to the ER hypertensive but is extremely anxious and tearful. She reported right eye pain with blurry vision out of the right eye. She is adamant that the vision is simply blurry and that there is not loss of vision. She states that there are no scintillations/flashi ng light sensation. No blackness or vision change such as a shade being pulled down. She also reported that earlier in the day she thought there was something in her right eye which could correlate with a corneal abrasion. I discussed with the patient that concern for ret (more content not included)... Normal [facility] CNOVon 04-01-2025 CNOV Office Visit (OBGYWM ) VISH ROSASIN Himanshu ([id number]) 1 F Date Time Provider Department 04/01/25 10:10 AM ERIN SANCHEZ During your visit today, we recorded the following information about you: Blood pressure Weight 136/84 85.3 kg Erin Sanchez MD 04/01/2025 10:16 AM Signed Retail Marketing Specialist offered: Patient declines. Sonya presents for removal of IUD due to [...] Erin Sanchez MD Referring Provider: LYNETTE SALGADO [[id number]] Allergies As of Date: 04/01/2025 Noted Allergy Reaction PENICILLINS 07/15/2022 5 - Intolerance Date Reviewed: 04/01/2025 Reviewed by: Erin Sanchez MD - Fully Assessed Reason for Visit: IUD Removal [1950] Primary Visit Diagnosis:Encounter for IUD removal [Z30.432] Other Visit Diagnosis:Encounter for initial prescription of contraceptive pills [Z30.011] Order(s):REMOVE INTRAUTERINE DEVICE [1503480] Order #: [id number] Norethindrone, Contraceptive, 0.35 mg tabletTake 1 tablet [...] for Encounter Date Provider Department Center 04/01/2025 [id number] SANCHEZ Deisy [facility] Encounter Status:Closed by ERIN SANCHEZ on 04/01/25 [facility] CNOVon 11-12-2024 CN Office Visit (AGFAMPLE) SONYA ROSAS ([id number]) 1 F Date Time Provider Department 11/12/24 3:20 PM YANETH CAMARENA During your visit today, we recorded the following information about you: Temperature Pulse Respiration Blood pressure 98.8 degrees 79/minute 18/minute 126/70 Weight Height 81.2 kg 1.613 m Yaneth Camarena APRN.TEAM SPORTS SALES ASSOCIATE 11/13/2024 6:59 [place] [address] Visit Date: 11/12/2024 Patient Name: Sonya Rosas Date of : 2000 Chief Complaint: ER Follow Up Sonya is a 24-year-old female with a history of Wswiz-Fusxcapku-Awbio syndrome, presenting for follow-up after a recent ED visit for palpitations. Emergency Room Location: [facility] ED Visits AND Hospitalizations - Last 180 days None HPI: Dgpzm-Xjwezkrmc-Vmjiu Syndrome: - Recent ED visit in September for palpitations. - History of ablation performed by an seed collector in [place]. - Last cardiology visit was in December of the previous year, during which a Holter monitor was used. - Holter monitor results showed normal sinus rhythm with occasional episodes of tachycardia, including a 3-beat run at midnight with a heart rate of 46 bpm. - No evidence of AFib, AFlutter, or Vpegk-Gzmqumgmt-Obvqd syndrome on the Holter monitor. - Experiences [...] manage nausea associated with anxiety. Previous OV Sonya Rosas is a 23 year old female [...] recently laid off from her job Completed cardiac monitor technician patch on 01/22/24- awaiting results Echo completed and was normal She is feeling better but still fatigued Has Kyleena IUD, placed in 2019 Hasn't made appointment with RESEARCH AND DEVELOPMENT TESTER yet Hasn't had a Pap and has been having bleeding after intercourse She would like to see a crop quantitative geneticist for some skin spots that she wants checked out OV 12/26/23: All grandparents and dad have HTN Was seen in urgent care Fatigued Fainted the morning of the 12/05/23- BP 163/115 Went to [facility] on 12/05/23 Didn't give her any [...] kg/(m2). PAST MEDICAL HISTORY Diagnosis Date Tachycardia Gfxhh-Pwccxebwx-Bktsk (WPW) pattern PAST SURGICAL HISTORY Procedure Laterality [...] only. albuterol HFA (PROVENTIL HFA, VENTOLIN HFA) (more content not included)... Normal [facility] Sridhar 10-24-[address] [facility] Suzanna 10-24-2024 AMA Telephone (ISSAC) RALPHSONYA PITTMAN ([id number]) 1 F Date Time Provider Department 10/24/24 YANETH CAMARENA During your visit today, we recorded the following information about you: Erwin Newman 10/24/2024 3:53 PM Signed No Show Documentation Sonya M Ralph no showed for an appointment on 10-24-24 with Yaneth Camarena APRN.TEAM SPORTS SALES ASSOCIATE at 3:20 PM. She was scheduled for an ER follow up. I called and was unable to reach anyone left a voicemail to call and reschedule. Resources discussed/offered to patient: na No show determined to be fault of patient: Yes This is the patients first no show in the last 12 months. Patient was rescheduled for na. Letter sent through Myze: Yes Is this the Third or Fourth [...] Encounter Status:Closed by ERWIN NEWMAN on 10/24/24 [facility] Melody 10-21-2024 CNOV Office Visit (OBGYWM ) SONYA ROSAS ([id number]) 1 F Date Time Provider Department 10/21/24 9:40 AM LYNETTE SALGADO OBGYWHimanshu During your visit today, we recorded the following information about you: Blood pressure Weight Height 124/86 80.3 kg 1.613 m Lynette Salgado MD 10/21/2024 10:16 AM Addendum Retail Marketing Specialist offered: Patient accepts, visit chaperoned by Sara Watts MA. Sonya is a 24 year old who presents for an annual gynecologic exam without complaints. Has had Kyleena placed when she was 20. Hasn't had a visit w/ automobile bumper straightener since. Little spotting after intercourse. Age at [...] discussed with the Patient or Patient's Authorized Hospital Coder. As applicable, any other physician, advance practice provider, medical student, or other health professional student that will be observing or involved in the sensitive examination for educational or training purposes was discussed with the Patient or Authorized Hospital Coder. The Patient or Authorized Hospital Coder has agreed to proceed with the sensitive [...] external genitalia normal, normal Bartholin's glands, urethra, Aberdeen's glands, no vulvar lesions, no cervical lesions, [...] Encounter for IUD removal [Z30.432] Order(s):PAP TEST [MTR0656] Order #: [id number] REMOVE INTRAUTERINE DEVICE [2976136] Order #: [id number] Prescriptions as of 10/21/2024 - metoprolol tartrate, [...] for Encounter Date Provider Department Center 10/21/2024 [id number]-UUGWOLWLYNETTE SALGADO Deisy [facility] Encounter Status:Closed by RYANN SALGADO (more content not included)... Normal [facility] PAP TESTon 10-21-2024 ADEQUACY Normal [facility] Comment on above: Order Comment: Speci men Type: FLUID SPECIMEN [facility] Address: [address] [place] [address] Result Comment: Sati sfactory for interpretation. Transformation zone present Performed By: #### L [id number] #### [facility] CLIA [id number] [address] [place] [address] [place] CASE REPORT Normal [facility] Comment on above: Order Comment: Speci men Type: FLUID SPECIMEN [facility] Address: [address] [place] [address] Result Comment: Gyne cologic Cytology Report Case: [id number] Authorizing Provider: Lynette Salgado MD Collected: 10/21/2024 10:46 AM Ordering Location: OB/Gynecology Received: 10/21/2024 12:14 PM First Screen: Gmitro, David, CT, ASCP Specimen: Pap Test, ThinPrep, Cervix Performed By: #### L [id number] #### [facility] CLIA [id number] [address] [place] [address] [place] CLINICAL HISTORY, CYTOLOGY, RESEARCH AND DEVELOPMENT TESTER Intra Uterine Device, No Menses Normal [facility] Comment on above: Order Comment: Speci men Type: FLUID SPECIMEN [facility] Address: [address] [place] [address] Performed By: #### L [id number] #### [facility] CLIA [id number] [facility] [address] [address] [place] FINAL PERFORMING LAB [facility] Comment on above: Order Comment: Speci men Type: FLUID SPECIMEN [facility] Facility[facility] Address: [address] [place], [place] [address] Result Comment: Tech nical component, cascade operator screening performed at [facility], [address] [place] [address] [place] [address] CLIA# [id number] Diagnostic interpretation performed at [facility], [address] [place] [address] [place] [address] CLIA# [id number] Residential Assistant: Yovany Gagnon M.D. Performed By: #### L [id number] #### [facility] CLIA [id number] [address] [place], [place] [address] [place] INTERPRETATION, CYTOLOGY, RESEARCH AND DEVELOPMENT TESTER Normal [facility] Comment on above: Order Comment: Speci men Type: FLUID SPECIMEN [facility] Address: [address] [place] [address] Result Comment: Nega tive for intraepithelial lesion or malignancy. at 1401 EDT Performed By: #### L [id number] #### [facility] CLIA [id number] [address] [place] [address] [place] PAP DISCLAIMER COMMENT The Pap Smear is a screening test for cervical cancer. False negative results occur with all screening tests, emphasizing the need for rescreening at recommended intervals, and clinical correlation. Normal [facility] Comment on above: Order Comment: Speci men Type: FLUID SPECIMEN [facility] Address: [address] [place] [address] Performed By: #### L [id number] #### [facility] CLIA [id number] [address] [place], [place] [address] [place] PAP REVERBERATORY FURNACE OPERATOR COMMENT This specimen has been analyzed by the ThinPrep Imaging System, an automated imaging and review system, which assists the laboratory in evaluating cells on ThinPrep Pap tests. Following automated imaging, selected purvis from every slide are reviewed by a cascade operator. Normal [facility] Comment on above: Order Comment: Speci men Type: FLUID SPECIMEN [facility] Address: [address] [place] [address] Performed By: #### L [id number] #### [facility] CLIA [id number] [address] [place] [address] [place] 12 Lead EKGon 10-02-2024 12 Lead EKG [facility] Cardiovascular Services [address] [place] [address] 12 Lead EKG 10/02/24 0327 MR#: [id number] Acct: [id number] Name: SONYA ROSAS Rep #: [id number] : 2000 24 From: Juanito Dahl MD Attending Dr: Status: DEP ER Ordering Dr: Checo Dwyer DO Date: 10/02/24 Location: ED Sex: F C Admitted: Test Reason : CHEST PAIN Blood Pressure : */* mmHG Vent. Rate : 119 BPM Atrial Rate : 119 BPM P-R Int : 148 ms QRS Dur : 80 ms QT Int : 318 ms P-R-T Axes : 72 73 13 degrees QTcB Int : 447 ms Sinus tachycardia Otherwise normal ECG Confirmed by KATHYA YOUNG, MARITA ([id number]), magazine editor PATTIE COLON ([id number]) on 10/07/2024 10:53:19 AM Referred By: JUAN DIEGO Confirmed By: MARITA DAHL MD 10/07/24 1053 Date Juanito Dahl MD CC: Checo Dwyer DO; No Primary Care Physician Signed Normal [facility] Absolute neutrophil countOrd ered By: Checo Dwyer on 10-02-2024 Neutrophils (Bld) [#/Vol] 6.6 10*3/uL 2.0-7.7 [facility] Anion gap in Serum or Plasma Ordered By: Checo Dwyer on 10-02-2024 Anion gap [Moles/Vol] 18 mmol/L High 5-15 [facility] BUN/creatinine ratioOrdered By: Checo Dwyer on 10-02-2024 Urea nitrogen/Creatinine [Mass ratio] 3.1 mg/mg Low 10- [facility] Basic Metabolic Profile (BMP )on 10-02-2024 BUN/CRE 3.1 RATIO Low - [facility] Comment on above: Performed By: #### L 700.6800, L501.5200, L100.0100, L501.9520, L500.2500 #### [facility] [address] [place], [address] Calcium [Mass/Vol] 9.7 mg/dL Normal 7.6-11.0 [facility] Comment on above: Performed By: #### L 700.6800, L501.5200, L100.0100, L501.9520, L500.2500 #### [facility] [address] [place], [address] Chloride [Moles/Vol] 104 mmol/L Normal 98-108 [facility] Comment on above: Performed By: #### L 700.6800, L501.5200, L100.0100, L501.9520, L500.2500 #### [facility] [address] [place], [address] CO2 [Moles/Vol] 20.4 mmol/L Low 21.0-32.0 [facility] Comment on above: Performed By: #### L 700.6800, L501.5200, L100.0100, L501.9520, L500.2500 #### [facility] [address] [place], [address] Creatinine [Mass/Vol] 0.68 mg/dL Low 0.70-1.20 [facility] Comment on above: Performed By: #### L 700.6800, L501.5200, L100.0100, L501.9520, L500.2500 #### [facility] [address] [place], [address] ECRCL 128.24 ml/min Normal 50-250 [facility] Comment on above: Performed By: #### L 700.6800, L501.5200, L100.0100, L501.9520, L500.2500 #### [facility] [address] [place], [address] GAP 18 High 5-15 [facility] Comment on above: Performed By: #### L 700.6800, L501.5200, L100.0100, L501.9520, L500.2500 #### [facility] [address] [place], [address] GFR/1.73 sq M.predicted among non-blacks MDRD (S/P/Bld) [Vol rate/Area] 125 mL/min/{1.73_m2} Normal >60 [facility] Comment on above: Result Comment: mL/m in/1.73m2 CKD-EPI Creatinine Equation (2020) Performed By: #### L 700.6800, L501.5200, L100.0100, L501.9520, L500.2500 #### [facility] [address] [place], [address] Glucose [Mass/Vol] 103 mg/dL High 70-99 [facility] Comment on above: Performed By: #### L 700.6800, L501.5200, L100.0100, L501.9520, L500.2500 #### [facility] [address] [place], [address] Potassium [Moles/Vol] 3.5 mmol/L Normal 3.3-5.1 [facility] Comment on above: Performed By: #### L 700.6800, L501.5200, L100.0100, L501.9520, L500.2500 #### [facility] [address] [place], [address] Sodium [Moles/Vol] 143 mmol/L Normal 133-145 [facility] Comment on above: Performed By: #### L 700.6800, L501.5200, L100.0100, L501.9520, L500.2500 #### [facility] [address] [place], [address] Urea nitrogen [Mass/Vol] 2 mg/dL Low 4-19 [facility] Comment on above: Performed By: #### L 700.6800, L501.5200, L100.0100, L501.9520, L500.2500 #### [facility] [address] [place], [address] Basophil percentageOrdered B y: Checo Dwyer on 10-02-2024 Basophils/100 WBC (Bld) 1.0 % 0-1 [facility] Beta HCG ( test) Ql Ordered By: Checo Dwyer on 10-02-2024 Serum Test, Qualitative Negative [facility] CBC W/Diff, Automatedon 09-21 Absolute Lymph 3.02 X10 3/uL Normal 0.83-4.51 [facility] Comment on above: Performed By: #### L 700.6800, L501.5200, L100.0100, L501.9520, L500.2500 #### [facility] [address] [place], [address] Absolute Neut 6.6 X10 3/uL Normal 2.0-7.7 [facility] Comment on above: Performed By: #### L 700.6800, L501.5200, L100.0100, L501.9520, L500.2500 #### [facility] [address] [place], [address] Basophils/100 WBC (Bld) 1.0 % Normal 0-1 [facility] Comment on above: Performed By: #### L 700.6800, L501.5200, L100.0100, L501.9520, L500.2500 #### [facility] [address] [place], [address] Eosinophils/100 WBC (Bld) 2.6 % Normal 0-5 [facility] Comment on above: Performed By: #### L 700.6800, L501.5200, L100.0100, L501.9520, L500.2500 #### [facility] [address] [place], [address] Erythrocyte distribution width (RBC) [Ratio] 12.6 % Normal 11.6-14.6 [facility] Comment on above: Performed By: #### L 700.6800, L501.5200, L100.0100, L501.9520, L500.2500 #### [facility] [address] [place], [address] Hematocrit (Bld) [Volume fraction] 47.6 % High 37-47 [facility] Comment on above: Performed By: #### L 700.6800, L501.5200, L100.0100, L501.9520, L500.2500 #### [facility] [address] [place], [address] Hemoglobin (Bld) [Mass/Vol] 16.8 g/dL High 12.0-15.0 [facility] Comment on above: Performed By: #### L 700.6800, L501.5200, L100.0100, L501.9520, L500.2500 #### [facility] [address] [place], [address] IG% 0.500 Normal 0.0-0.9 [facility] Comment on above: Result Comment: IG% - Immature Granulocytes (promyelocytes, myelocytes and metamyelocytes) > 1% indicates that a LEFT SHIFT is Present. Performed By: #### L 700.6800, L501.5200, L100.0100, L501.9520, L500.2500 #### [facility] [address] [place], [address] Lymphocytes/100 WBC (Bld) 26.5 % Normal 19-41 [facility] Comment on above: Performed By: #### L 700.6800, L501.5200, L100.0100, L501.9520, L500.2500 #### [facility] [address] [place], [address] MCH (RBC) [Entitic mass] 30.8 pg Normal 27.0-32.0 [facility] Comment on above: Performed By: #### L 700.6800, L501.5200, L100.0100, L501.9520, L500.2500 #### [facility] [address] [place], [address] MCHC (RBC) [Mass/Vol] 35.3 g/dL Normal 32-36 [facility] Comment on above: Performed By: #### L 700.6800, L501.5200, L100.0100, L501.9520, L500.2500 #### [facility] [address] [place], [address] MCV (RBC) [Entitic vol] 87.2 fL Normal 81-99 [facility] Comment on above: Performed By: #### L 700.6800, L501.5200, L100.0100, L501.9520, L500.2500 #### [facility] [address] [place], [address] Monocytes/100 WBC (Bld) 11.9 % High 0-10 [facility] Comment on above: Performed By: #### L 700.6800, L501.5200, L100.0100, L501.9520, L500.2500 #### [facility] [address] [place], [address] Neutrophils/100 WBC (Bld) 57.5 % Normal 47-70 [facility] Comment on above: Performed By: #### L 700.6800, L501.5200, L100.0100, L501.9520, L500.2500 #### [facility] [address] [place], [address] Nucleated RBC (Bld) [#/Vol] 0 10*3/uL Normal 0-5 [facility] Comment on above: Performed By: #### L 700.6800, L501.5200, L100.0100, L501.9520, L500.2500 #### [facility] [address] [place], [address] Platelet mean volume (Bld) [Entitic vol] 9.2 fL Normal 6.2-12.0 [facility] Comment on above: Performed By: #### L 700.6800, L501.5200, L100.0100, L501.9520, L500.2500 #### [facility] [address] [place], [address] Platelets (Bld) [#/Vol] 307 10*3/uL Normal 150-450 [facility] Comment on above: Performed By: #### L 700.6800, L501.5200, L100.0100, L501.9520, L500.2500 #### [facility] [address] [place], [address] RBC (Bld) [#/Vol] 5.46 10*6/uL High 4.2-5.4 [facility] Comment on above: Performed By: #### L 700.6800, L501.5200, L100.0100, L501.9520, L500.2500 #### [facility] [address] [place], [address] RDW SD 39.3 fl Normal 35.1-43.9 [facility] Comment on above: Performed By: #### L 700.6800, L501.5200, L100.0100, L501.9520, L500.2500 #### [facility] [address] [place], [address] WBC (Bld) [#/Vol] 11.4 10*3/uL High 4.4-11.0 [facility] Comment on above: Performed By: #### L 700.6800, L501.5200, L100.0100, L501.9520, L500.2500 #### [facility] [address] [place], [address] Carbon dioxide, total [Moles /volume] in Central venous bloodOrdered By: Checo Dwyer on 10-02-2024 CO2 [Moles/Vol] 20.4 mmol/L Low 21.0-32.0 [facility] Chloride assayOrdered By: Aure Dwyer on 10-02-2024 Chloride [Moles/Vol] 104 mmol/L 98-108 [facility] Emergency Department Summary on 10-02-2024 Emergency Department Summary [facility] Medical Records Department [address] [place] [address] Emergency Department Summary 10/02/24 MR#: [id number] Acct: [id number] Name: SONYA ROSAS Rep #: [id number] : 2000 24 From: Checo Dwyer DO PCP: Care Physician,No Primary Status:DEP ER Location: ED HPI History of Present Illness Chief Complaint: Hypertension Informant: patient and spouse/S.O. 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 She states that she typically smokes marijuana daily and that this evening also has been drinking alcohol. She reports she got into an argument with her significant other and after this developed sensation of her heart racing. She states that she had concern she had gone back into an abnormal heart rhythm such as WPW and therefore comes to the hospital for evaluation [facility] Medical History Alcohol abuse Cigarette smoker Marijuana smoker WPW (Dpott-Kkjxkxask-Kkxy e syndrome) Home Medications ???Medication ???Instructions ???Recorded ???Last Taken ???Type NK 10/02/24 Unknown History Allergy/AdvReac Type Severity Reaction Status Date / Time Penicillins Allergy Severe Hives Verified 10/02/24 03:20 Surgical History Hx of heart surgery Social History Smoking Status: Current every day smoker tobacco type: cigarettes ROS ROS ED Constitutional Constitutional ED: Denies chills or fever(s) Eyes Eyes: Denies blurry vision or change in vision ENT ENT ED: Denies sore throat Cardiovascular Cardiovascular: Reports palpitations and racing heartbeat; Denies chest pain Respiratory/Chest Respiratory/Chest: Denies cough or dyspnea Gastrointestinal Gastrointestinal: Reports nausea; Denies abdominal pain, diarrhea or vomiting Genitourinary Genitourinary ED: Denies dysuria Musculoskeletal Musculoskeletal: Denies back pain Integumentary Denies rash Neurologic Neurologic: Denies headache(s) Psychiatric Psychiatric: Reports anxiety Hematologic/Lymphatic Hematologic/Lymphatic : Denies easy bleeding or easy bruising EXAM Physical Exam Const Vital Signs: 10/02/24 03:20 10/02/24 03:26 10/02/24 03:32 Temperature 98.0 F Temperature Source Oral Pulse Rate 127 H 105 H Respiratory Rate 24 H 18 Respiratory Effort Normal Non-Labored Respiratory Pattern Tachypnea Blood Pressure 145/101 H 140/85 H Blood Pressure Mean 115 103 Pulse Ox 98 96 Oxygen Delivery Method Room Air Room Air 10/02/24 04:59 Temperature 97.9 F Temperature Source Pulse Rate 99 Respiratory Rate 18 Respiratory Effort Respiratory Pattern Blood Pressure 112/69 Blood Pressure Mean 83 Pulse Ox 94 Oxygen Delivery Method Positive well nourished and well developed General Appearance ED: well developed; Negative for pallor HEENT HEENT Narrative: Normocephalic atraumatic Eyes Eyes Narrative: Pupils are dilated and sluggish to respond to light with scleral injection consistent with alcohol use General Eye ED: Negative for scleral icterus Neck supple and no JVD Neck Narrative: No nuchal rigidity or meningeal signs noted Chest Wall palpation of chest normal Chest Narrative: No bony deformity or crepitance Resp clear to auscultation bilaterally Resp Narrative: Patient is tachypneic and breath sounds are diminished throughout but overall clear to auscultation Cardio regular rhythm Rate: tachycardic and other Other Details: Tachycardic rate with regular rhythm Radial and carotid pulses are equal and symmetric No carotid bruit noted GI normal to inspection, nondistended, normoactive bowel sounds, non-tender, non-distended and no masses Auscultation: normoactive bowel sounds Palpation: soft Extremity normal to inspection Extremity Narrative: No asymmetric edema no pitting edema negative Homans' sign bilaterally Neuro oriented x3, CN's II-XII intact bilaterally and no sensory deficits noted Sensorium / Orientation: alert Motor Exam: strength 5/5 throughout Psych Mood Affect: anxious and tearful Skin no rashes or lesions noted General Skin Exam: Negative for jaundice or pallor MDM MDM MDM Narrative Medical decision making narrative: Patient presented to the ER hypertensive and tachycardic but was also visibly anxious. With her history of WPW and her reported sensation of tachycardia she had concern that she was back in an abnormal heart rhythm such as A-fib a flutter or SVT. In order to ensure that this was not the case an EKG was obtained which showed sinus tachycardia but no signs of ischemia or abnormal heart rhy (more content not included)... Normal [facility] Eosinophil percentageOrdered By: Checo Dwyer on 10-02-2024 Eosinophils/100 WBC (Bld) 2.6 % 0-5 [facility] Erythrocyte distribution wid th ratioOrdered By: Checo Dwyer on 10-02-2024 Erythrocyte distribution width (RBC) [Ratio] 12.6 % 11.6-14.6 [facility] Erythrocyte distribution wid th standard deviationOrdered By: Checo Dwyer on 10-02-2024 Erythrocyte distribution width (RBC) [Entitic vol] 39.3 fL 35.1-43.9 [facility] Estimation of creatinine lex aranceOrdered By: Checo Dwyer on 10-02-2024 Estimated Creatinine Clearance Calc 128.24 ml/min 50-250 [facility] GFR/1.73 sq M.predicted kenya g non-blacks MDRD (S/P/Bld) [Vol rate/Area]Ordered By: Checo Dwyer on 10-02-2024 Estimated GFR (MDRD) Non-Af Amer 125 >60 [facility] Comment on above: mL/min/1.73m2 CKD-EP I Creatinine Equation (2020) Hematocrit Auto (Bld) [Volum e fraction]Ordered By: Checo Dwyer on 10-02-2024 Hematocrit (Bld) [Volume fraction] 47.6 % High 37-47 [facility] Hemoglobin measurementOrdere d By: Checo Dwyer on 10-02-2024 Hemoglobin (Bld) [Mass/Vol] 16.8 g/dL High 12.0-15.0 [facility] Immature granulocytes/100 WB C Auto (Bld)Ordered By: Checo Dwyer on 10-02-2024 Immature granulocytes/100 WBC (Bld) 0.500 % 0.0-0.9 [facility] Comment on above: IG% - Immature Granu locytes (promyelocytes, myelocytes and metamyelocytes) > 1% indicates that a LEFT SHIFT is Present. Lymphocytes Auto (Unsp spec) [#/Vol]Ordered By: Checo Dwyer on 10-02-2024 Lymphocytes (Bld) [#/Vol] 3.02 10*3/uL 0.83-4.51 [facility] Lymphocytes/100 WBC Auto (Un sp spec)Ordered By: Checo Dweyr on 10-02-2024 Lymphocytes/100 WBC (Bld) 26.5 % 19-41 [facility] MCV (mean corpuscular volume ) determinationOrdered By: Checo Dwyer on 10-02-2024 MCV (RBC) [Entitic vol] 87.2 fL 81-99 [facility] Magnesiumon 10-02-2024 Magnesium [Mass/Vol] 2.0 mg/dL Normal 1.5-2.2 [facility] Comment on above: Performed By: #### L 700.6800, L501.5200, L100.0100, L501.9520, L500.2500 #### [facility] [address] [place], [address] Magnesium (Unsp spec) [Mass/ Vol]Ordered By: Checo Dwyer on 10-02-2024 Magnesium [Mass/Vol] 2.0 mg/dL 1.5-2.2 [facility] Mean corpuscular hemoglobin (MCH) determinationOrdered By: Checo Dwyer on 10-02-2024 MCH (RBC) [Entitic mass] 30.8 pg 27.0-32.0 [facility] Mean corpuscular hemoglobin concentration (MCHC) determinationOrdered By: Checo Dwyer on 10-02-2024 MCHC (RBC) [Mass/Vol] 35.3 g/dL 32-36 [facility] Mean platelet volume determi nationOrdered By: Checo Dwyer on 10-02-2024 Platelet mean volume (Bld) [Entitic vol] 9.2 fL 6.2-12.0 [facility] Monocyte percentageOrdered B y: Checo Dwyer on 10-02-2024 Monocytes/100 WBC (Bld) 11.9 % High 0-10 [facility] Neutrophil percentageOrdered By: Checo Dwyer on 10-02-2024 Neutrophils/100 WBC (Bld) 57.5 % 47-70 [facility] Nucleated red blood cell per centageOrdered By: Checo Dwyer on 10-02-2024 Nucleated RBC/100 WBC (Bld) [Ratio] 0 % 0-5 [facility] Platelet countOrdered By: Aure Dwyer on 10-02-2024 Platelets (Bld) [#/Vol] 307 10*3/uL 150-450 [facility] Potassium (Unsp spec) [Mass/ Vol]Ordered By: Checo Dwyer on 10-02-2024 Potassium [Moles/Vol] 3.5 mmol/L 3.3-5.1 [facility] ,Serum,hCG Quali.on 10-02-2024 HCG, SERUM QUAL Negative Normal [facility] Comment on above: Performed By: #### L 700.6800, L501.5200, L100.0100, L501.9520, L500.2500 #### [facility] [address] [place], [place], [id number] RBC Auto (Bld) [#/Vol]Ordere d By: Checo Dwyer on 10-02-2024 RBC (Bld) [#/Vol] 5.46 10*6/uL High 4.2-5.4 [facility] Serum creatinine measurement (mass/volume)Ordered By: Checo Dwyer on 10-02-2024 Creatinine [Mass/Vol] 0.68 mg/dL Low 0.70-1.20 [facility] Serum glucose measurement (m ass/volume)Ordered By: Checo Dwyer on 10-02-2024 Glucose [Mass/Vol] 103 mg/dL High 70-99 [facility] Serum or plasma calcium jennifer urement (mass/volume)Ordered By: Checo Dwyer on 10-02-2024 Calcium [Mass/Vol] 9.7 mg/dL 7.6-11.0 [facility] Serum or plasma urea nitroge n measurement (mass/volume)Ordered By: Checo Dwyer on 10-02-2024 Urea nitrogen [Mass/Vol] 2 mg/dL Low 4-19 [facility] Sodium levelOrdered By: Carlos Alberto Dwyer on 10-02-2024 Sodium [Moles/Vol] 143 mmol/L 133-145 [facility] TSH DL <= 0.005 mIU/L QnOrde red By: Checo Dwyer on 10-02-2024 Thyroid Stimulating Hormone (TSH) 1.690 uIU/mL 0.300-4.200 [facility] Thyroid Stim Hormone (TSH)on 10-02-2024 TSH 1.690 uIU/mL Normal 0.300-4.200 [facility] Comment on above: Performed By: #### L 700.6800, L501.5200, L100.0100, L501.9520, L500.2500 #### [facility] [address] [place], [place], [id number] White blood cell (WBC) count Ordered By: Checo Dwyer on 10-02-2024 WBC (Bld) [#/Vol] 11.4 10*3/uL High 4.4-11.0 [facility] ECHOon 01-09-2024 CONCLUSIONS: - Exam indication: Palpitations - The left ventricle is normal in size. There is no left ventricular hypertrophy. Left ventricular systolic function is normal. EF = 62 5% (2D biplane) - The right ventricle is normal in size. Right ventricular systolic function is low normal. - There are no significant valvular abnormalities. - The patient has not had a prior [facility] echocardiographic exam for comparison. * * * Final * * * [facility] Echocardiography Report: Transthoracic Echo [facility] Date of service: 01/09/2024 10:26:03 AM Ordering physician: YANETH CAMARENA Indication: Palpitations Technologist: Brynn Henson RUST Interpreting physician: Bruce Bethea MD PATIENT: Name: MS. SONYA ROSAS : 2000 Age: 23 years Gender: F Primary rhythm: sinus. Height: 160.00 cm BSA: 1.81 m Weight: 74.00 kg BMI: 28.9 kg/m Heart rate 79 bpm Blood pressure 140/86 mmHg Color Doppler was utilized to interrogate the cardiac valves assessed and spectral Doppler was utilized to determine the flow velocities and pressure gradients reported in this exam. MEASUREMENTS: Value Indexed Normal Max aortic dimension 2.6 cm Ao < 3.8 Left atrium diameter 3.3 cm (2D) Left atrial volume 39 ml (biplane A-L) 21 ml/m Teresita <= 34 LV ID (diastole) 4.8 cm (2D) 2.66 cm/m LV ID (systole) 3.2 cm (2D) 1.78 cm/m IVS, leaflet tips 0.7 cm (2D) Posterior wall thickness 0.7 cm (2D) Left ventricular mass 112 g (2D) 62 g/m LV stroke volume 53 ml (2D biplane) LVOT stroke volume 48 ml 27 ml/m Ejection Fraction 62 % (2D biplane) EF > 54 FINDINGS: LEFT VENTRICLE The left ventricle is normal in size. There is no left ventricular hypertrophy. Left ventricular systolic function is normal. Normal left ventricular diastolic function. Mitral annular lateral E/e': 4.6. Mitral annular septal E/e': 6.9. Wall Motion: All scored segments are normal. RIGHT VENTRICLE The right ventricle is normal in size. Right ventricular systolic function is low normal. RV systolic tissue Doppler velocity is 10.7 cm/s. Tricuspid annular displacement is 2.6 cm. Estimated right atrial pressure is 3 mmHg based on IVC assessment. LEFT ATRIUM The left atrial cavity is normal in size. RIGHT ATRIUM The right atrial cavity is normal in size. Inferior Vena Cava: The inferior vena cava appears normal measuring 1.1 cm. The vessel decreases greater than 50 percent with inspiration. MITRAL VALVE The mitral valve leaflets are structurally normal. There is no mitral valve regurgitation. The peak mitral E/A ratio is 1.15. The average mitral E/e' ratio is 5.8. TRICUSPID VALVE The tricuspid valve leaflets are structurally normal. There is no tricuspid valve regurgitation. AORTIC VALVE The aortic valve cusps are structurally normal. There is no aortic valve regurgitation. Tricuspid aortic valve. The peak gradient is 8 mmHg (peak velocity = 144.0 cm/s). The mean gradient is 5 mmHg. The LVOT diameter is 1.7 cm. The aortic VTI is 27.4 cm. The mean velocity in the aortic valve is 106.0 cm/s. The dimensionless valve index is 0.77. AV area is 1.74 cm (0.96 cm /m ) by continuity, VTI. The LVOT stroke volume index is 27 ml/m . PULMONIC VALVE The pulmonic valve cusps are structurally normal. There is no pulmonic valve regurgitation. AORTA The visualized aorta is normal in size. Measurements - Aortic valve annulus 1.7 cm. Sinus: 2.6 cm. Sinotubular junction 2.2 cm. Mid ascending aorta 2.4 cm. PULMONARY ARTERIES The pulmonary arteries are normal. PERICARDIUM There is no pericardial effusion. [facility] CBC W Auto Differential pane l (Bld)on 12-26-2023 Basophils (Bld) [#/Vol] 0.04 10*3/uL [facility] Basophils/100 WBC (Bld) 0.3 % [facility] Differential cell count method Nom (Bld) Auto [facility] Eosinophils (Bld) [#/Vol] 0.14 10*3/uL [facility] Eosinophils/100 WBC (Bld) 1.1 % [facility] Erythrocyte distribution width (RBC) [Ratio] 11.9 % 11.5 - 15.0 % [facility] Hematocrit (Bld) [Volume fraction] 47.7 % High 36.0 - 46.0 % [facility] Hemoglobin (Bld) [Mass/Vol] 16.2 g/dL High 11.5 - 15.5 g/dL [facility] Immature granulocytes (Bld) [#/Vol] 0.05 10*3/uL NINF [facility] Immature granulocytes/100 WBC (Bld) 0.4 % [facility] Interpretation and review of laboratory results Abnormal [facility] Lymphocytes (Bld) [#/Vol] 1.21 10*3/uL [facility] Lymphocytes/100 WBC (Bld) 9.4 % [facility] MCH (RBC) [Entitic mass] 30.7 pg 26.0 - 34.0 pg [facility] MCHC (RBC) [Mass/Vol] 34.0 g/dL 30.5 - 36.0 g/dL [facility] MCV (RBC) [Entitic vol] 90.3 fL 80.0 - 100.0 fL [facility] Monocytes (Bld) [#/Vol] 0.89 10*3/uL High [facility] Monocytes/100 WBC (Bld) 6.9 % [facility] Neutrophils (Bld) [#/Vol] 10.60 10*3/uL High [facility] Neutrophils/100 WBC (Bld) 81.9 % [facility] Nucleated RBC (Bld) [#/Vol] [facility] Nucleated RBC/100 WBC (Bld) [Ratio] [facility] Platelet mean volume (Bld) [Entitic vol] 9.2 fL 9.0 - 12.7 fL [facility] Platelets (Bld) [#/Vol] 242 10*3/uL [facility] RBC (Bld) [#/Vol] 5.28 10*6/uL High 3.90 - 5.2 0 m/uL [facility] WBC (Bld) [#/Vol] 12.93 10*3/uL [facility] 2000 panelon 12-26-2023 Albumin [Mass/Vol] 4.6 g/dL 3.9 - 4.9 g/dL [facility] ALP [Catalytic activity/Vol] 71 U/L 34 - 123 U/L [facility] ALT With P-5'-P [Catalytic activity/Vol] 10 U/L 7 - 38 U/L [facility] Anion gap [Moles/Vol] 11 mmol/L 8 - 15 mmol/L [facility] AST With P-5'-P [Catalytic activity/Vol] 14 U/L 13 - 35 U/L [facility] Bilirubin [Mass/Vol] 0.4 mg/dL 0.2 - 1.3 mg/dL [facility] Calcium [Mass/Vol] 10.0 mg/dL 8.5 - 10. 2 mg/dL [facility] Chloride [Moles/Vol] 101 mmol/L 98 - 107 mmol/L [facility] CO2 [Moles/Vol] 25 mmol/L 22 - 30 mmol/L [facility] Creatinine [Mass/Vol] 0.74 mg/dL 0.58 - 0.96 mg/dL [facility] GFR/1.73 sq M.predicted among non-blacks MDRD (S/P/Bld) [Vol rate/Area] 117 mL/min/{1.73_m2} - PINF [facility] Comment on above: Estimated Glomerular Filtration Rate (eGFR) is calculated using the 2020 CKD-EPI creatinine equation. This equation utilizes serum creatinine, sex, and age as parameters. The creatinine assay has traceable calibration to isotope dilution-mass spectrometry. Refer to KDIGO guidelines for clinical interpretation. In patients with unstable renal function, e.g. those with acute kidney injury, the eGFR may not accurately reflect actual GFR. Glucose [Mass/Vol] 94 mg/dL 74 - 99 mg/dL [facility] Comment on above: The [place] Diabete s Association (ADA) provides guidance for cutoff values [...] Standards of Medical Care in Diabetes 2016, [place] Diabetes Association. Diabetes Care. 2016.39(Suppl 1). Potassium [Moles/Vol] 4.5 mmol/L 3.7 - 5.1 mmol/L [facility] Protein [Mass/Vol] 7.7 g/dL 6.3 - 8.0 g/dL [facility] Sodium [Moles/Vol] 137 mmol/L 136 - 144 mmol/L [facility] Urea nitrogen [Mass/Vol] 9 mg/dL 7 - 21 mg/dL [facility] MAGNESIUMon 12-26-2023 Magnesium [Mass/Vol] 1.9 mg/dL 1.7 - 2.3 mg/dL [facility] No Panel Informationon 12-25 Interpretation and review of laboratory results Normal [facility] THYROID STIMULATING HORMONEo n 12-26-2023 TSH Qn 0.859 m[IU]/L [facility] Comment on above: If the patient is pr egnant, TSH reference range varies by gestational period: First Trimester (weeks 9-12): 0.180-2.990 mIU/L Second Trimester: 0.110-3.980 mIU/L Third Trimester: 0.480-4.710 mIU/L James Argueta et al. A Practical Approach for the Verifications and Determination of Site- and Trimester-Specific Reference Intervals for Thyroid Function tests in . Thyroid, 2019:29:3:412-420. Javi Maher, et al. 2017 Guidelines of the [place] Thyroid Association for the Diagnosis and Management of Thyroid Disease during and the . Thyroid, 2017:27:3:315-389. XR Foot - left AP and Latera l and obliqueon 12-01-2023 IMPRESSION: No acute osseous abnormality Boat Hoist Operator: CALE Transcribe Date/Time: Dec 01 2023 3:07P Dictated by : JM RODRIGUEZ MD This examination was interpreted and the report reviewed and electronically signed by: JM RODRIGUEZ MD on Dec 01 2023 3:09PM [facility] DIVISION OF RADIOLOGY * * *Final Report* * * DATE OF EXAM: Dec 01 2023 2:41PM WOX [id number] - XR FOOT 3V AP/LAT/OBL LT / PROCEDURE REASON: Pain * * * * Physician Interpretation * * * * EXAMINATION: XR FOOT 3V AP/LAT/OBL LT CLINICAL HISTORY: Left foot pain Technique: XR FOOT 3V AP/LAT/OBL LT -- LEFT with 3 views on 3 images Comparison: None RESULT: No acute fracture or dislocation. Joint spaces are maintained. DIVISION OF RADIOLOGY Provider, Amara Paulino - 12/01/2023 * * *Final Report* * * DATE OF EXAM: Dec 01 2023 2:41PM WOX [id number] - XR FOOT 3V AP/LAT/OBL LT / PROCEDURE REASON: Pain * * * * Physician Interpretation * * * * EXAMINATION: XR FOOT 3V AP/LAT/OBL LT CLINICAL HISTORY: Left foot pain Technique: XR FOOT 3V AP/LAT/OBL LT -- LEFT with 3 views on 3 images Comparison: None RESULT: No acute fracture or dislocation. Joint spaces are maintained. IMPRESSION IMPRESSION: No acute osseous abnormality Boat Hoist Operator: CALE Transcribe Date/Time: Dec 01 2023 3:07P Dictated by : JM RODRIGUEZ MD This examination was interpreted and the report reviewed and electronically signed by: JM RODRIGUEZ MD on Dec 01 2023 3:09PM [facility] Radiology Study observation (narrative) [facility] XR Foot - left AP and Latera l and obliqueOrdered By: Ccf Provider on 12-01-2023 [facility] Absolute lymphocyte countOrd ered By: Ruth Rabago on 12-23-2022 Lymphocytes Auto (Unsp spec) [#/Vol] 1.09 10*3/uL 0.83-4.51 [facility] Basophil percentageOrdered B y: Ruth Rabago on 12-23-2022 Basophils/100 WBC (Bld) 0.7 % 0-1 [facility] Chloride [Moles/Vol] 102 mmol/L 98-107 [facility] Eosinophils/100 WBC (Bld) 2.1 % 0-5 [facility] Glucose [Mass/Vol] 87 mg/dL 74-106 [facility] Neutrophils (Bld) [#/Vol] 6.9 10*3/uL 2.0-7.7 [facility] Neutrophils/100 WBC (Bld) 77.7 % 47-70 [facility] Potassium [Moles/Vol] 4.1 mmol/L 3.5-5.1 [facility] Sodium [Moles/Vol] 136 mmol/L 136-145 [facility] WBC (Bld) [#/Vol] 8.9 10*3/uL 4.4-11.0 [facility] Blood erythrocytes count (nu mber/volume)Ordered By: Ruth Rabago on 12-23-2022 RBC (Bld) [#/Vol] 5.25 10*6/uL 4.2-5.4 [facility] Blood hemoglobin measurement (mass/volume)Ordered By: Ruth Rabago on 12-23-2022 Hemoglobin (Bld) [Mass/Vol] 15.9 g/dL 12.0-15.0 [facility] Blood lymphocytes/100 leukoc ytesOrdered By: Ruth Rabago on 12-23-2022 Lymphocytes/100 WBC (Bld) 12.2 % 19-41 [facility] Blood monocytes/100 leukocyt esOrdered By: Ruth Rabago on 12-23-2022 Monocytes/100 WBC (Bld) 6.9 % 0-10 [facility] Blood platelet mean volumeOr dered By: Ruth Rabago on 12-23-2022 Platelet mean volume (Bld) [Entitic vol] 9.0 fL 6.2-12.0 [facility] Determination of erythrocyte mean corpuscular volume (MCV)Ordered By: Ruth Rabago on 12-23-2022 MCV (RBC) [Entitic vol] 88.8 fL 81-99 [facility] Hematocrit Auto (Bld) [Volum e fraction]Ordered By: Ruth Rabago on 12-23-2022 Hematocrit (Bld) [Volume fraction] 46.6 % 37-47 [facility] Laboratory - Chemistry and C hemistry - challengeOrdered By: Ruth Rabago on 12-23-2022 HCG ( test) Ql (U) Negative [facility] Comment on above: Very dilute urine sp ecimens, as indicated by a low specificgravity, may not contain physician representative levels of hCG. If is still suspected, a first morning urinespecimen should be collected 48 hours later and tested. CO2 [Moles/Vol] 27.0 mmol/L 21.0-32.0 [facility] Urea nitrogen/Creatinine [Mass ratio] 16.9 mg/mg 10-20 [facility] Laboratory - Hematology and Cell countsOrdered By: Ruth Rabago on 12-23-2022 Erythrocyte distribution width (RBC) [Entitic vol] 40.2 fL 35.1-43.9 [facility] Erythrocyte distribution width (RBC) [Ratio] 12.3 % 11.6-14.6 [facility] Immature granulocytes/100 WBC (Bld) 0.400 % 0.0-0.9 [facility] Comment on above: IG% - Immature Granu locytes (promyelocytes, myelocytes and metamyelocytes) > 1% indicates that a LEFT SHIFT is Present. MCH (RBC) [Entitic mass] 30.3 pg 27.0-32.0 [facility] Nucleated RBC/100 WBC (Bld) [Ratio] 0 % 0-5 [facility] MCHC Auto (RBC) [Mass/Vol]Or dered By: Ruth Rabago on 12-23-2022 MCHC (RBC) [Mass/Vol] 34.1 g/dL 32-36 [facility] No Panel InformationOrdered By: Ruth Rabago on 12-23-2022 Estimated Creatinine Clearance Calc 94.80 ml/min [facility] Estimated GFR (MDRD) Amer 120 mL/min >60 [facility] Comment on above: GFR Calc Estimated GFR (MDRD) Non-Af Amer 99 mL/min >60 [facility] Comment on above: Non- GFR Calc Platelets bldOrdered By: Pérez Rabago on 12-23-2022 Platelets (Bld) [#/Vol] 214 10*3/uL 150-450 [facility] Serum or plasma calcium jennifer urement (mass/volume)Ordered By: Ruth Rabago on 12-23-2022 Calcium [Mass/Vol] 9.6 mg/dL 8.5-10.1 [facility] Serum or plasma creatinine m easurement (mass/volume)Ordered By: Ruth Rabago on 12-23-2022 Creatinine [Mass/Vol] 0.77 mg/dL 0.55-1.02 [facility] Comment on above: The validity of the calculated GFR & GFRAA in patients over 70 years has not been determined. Clinical correlation is essential. Serum or plasma urea nitroge n measurement (mass/volume)Ordered By: Ruth Rabago on 12-23-2022 Urea nitrogen [Mass/Vol] 13 mg/dL 7-18 [facility] Thin prep Papanicolaou smear with manual screeningOrdered By: Ruth Rabago on 12-23-2022 Thin prep Papanicolaou smear with manual screening 7 5-15 [facility] HOLTER MONITOR- EXTENDED (3 TO 7 DAYS)on 10-07-2022 HOLTER MONITOR- EXTENDED (3 TO 7 DAYS) This is a summary report. The complete report is available in the patient's medical record. If you cannot access the medical record, please contact the sending organization for a detailed fax or copy. ?? HOLTER REPORT ?? INDICATIONS: VENTRIULAR PREMATURE DEPOLAIRZATION This is a 48-hour Holter monitor, indication for the study is palpitations Minimum heart rate 68 bpm, average 95 bpm, maximum 149 bpm Rare supraventricular ectopy total burden 0.01% Rare ventricular ectopy total burden 0.22% No high-grade AV block, no pauses 1 patient triggered event corresponds to sinus tachycardia Normal [facility] HSV+VZV DNA DALLIN+probe Ql (Un sp spec)on 07-16-2022 HSV 1 DNA DALLNI+probe Ql (Unsp spec) Negative for Herpes Simplex virus Type 1 by Nucleic Acid Amplification. Negative [facility] HSV 2 DNA DALLIN+probe Ql (Unsp spec) Negative for Herpes Simplex virus Type 2 by Nucleic Acid Amplification. Negative [facility] VZV DNA DALLIN+probe Ql (Unsp spec) Negative for Varicella Zoster virus by Nucleic Acid Amplification. Negative [facility] BACTERIAL VAGINOSIS AMPLIFIC ATIONon 07-15-2022 Lactobacillus crispatus+gasseri+liz enii + Gardnerella vaginalis + Atopobium vaginae rRNA DALLIN+probe Ql (Vag fld) Negative Negative for bacterial vaginosis [facility] C. trachomatis+N. gonorrhoea e DNA DALLIN+probe Ql (Unsp spec)on 07-15-2022 C. trachomatis DNA DALLIN+probe Ql (Unsp spec) Negative Negative for Chlamydia trachomatis by amplificaton [facility] N. gonorrhoeae DNA DALLIN+probe Ql (Unsp spec) Negative Negative for Neisseria gonorrhoeae by amplification [facility] JAELYN / TRICHOMONAS AMPLIF ICATIONon 07-15-2022 C. glabrata RNA DALLIN+probe Ql (Vag fld) Negative Negative for Jaelyn glabrata [facility] Jaelyn albicans, C. dubliniensis, C. parapsilosis, and C. tropicalis RNA DALLIN+probe Ql (Vag fld) Positive Abnormal Negative for Jaelyn species [facility] T. vaginalis DNA DALLIN+probe Ql (Unsp spec) Negative Negative for Trichomonas vaginalis by amplification [facility] Vital Signs Date Time Vital Sign Value Performing Clinician Faci lity 04-22-2025 18:08-0400 Body temperature 98 [degF] Yaneth Queden APARTMENT MAINTENANCE SUPERVISOR-C Work Phone: [facility] 04-22-2025 18:08-0400 Diastolic blood pressure 68 mm[Hg] Yaneth Queden APARTMENT MAINTENANCE SUPERVISOR-C Work Phone: [facility] 04-22-2025 18:08-0400 Heart rate 78 /min Yaneth Queden APARTMENT MAINTENANCE SUPERVISOR-C Work Phone: [facility] 04-22-2025 18:08-0400 Respiratory rate 17 /min Yaneth Queden APARTMENT MAINTENANCE SUPERVISOR-C Work Phone: [facility] 04-22-2025 18:08-0400 SaO2% (BldA) [Mass fraction] 97 % Yaneth Queden APARTMENT MAINTENANCE SUPERVISOR-C Work Phone: [facility] 04-22-2025 18:08-0400 Systolic blood pressure 128 mm[Hg] Yaneth Queden APARTMENT MAINTENANCE SUPERVISOR-C Work Phone: [facility] 04-22-2025 13:51-0400 Body height 161.29 cm Yaneth Queden APARTMENT MAINTENANCE SUPERVISOR-C Work Phone: [facility] 04-22-2025 13:51-0400 Body mass index (BMI) [Ratio] 32.8 kg/m2 Yaneth Queden APARTMENT MAINTENANCE SUPERVISOR-C Work Phone: [facility] 04-22-2025 13:51-0400 Body weight 85.32 kg Yaneth Queden APARTMENT MAINTENANCE SUPERVISOR-C Work Phone: [facility] 2025 01:48-0400 Body temperature 98.2 [degF] Yaneth Queden APARTMENT MAINTENANCE SUPERVISOR-C Work Phone: [facility] 2025 01:48-0400 Diastolic blood pressure 84 mm[Hg] Yaneth Queden APARTMENT MAINTENANCE SUPERVISOR-C Work Phone: [facility] 2025 01:48-0400 Heart rate 76 /min Yaneth Queden APARTMENT MAINTENANCE SUPERVISOR-C Work Phone: [facility] 2025 01:48-0400 Respiratory rate 16 /min Yaneth Queden APARTMENT MAINTENANCE SUPERVISOR-C Work Phone: [facility] 2025 01:48-0400 SaO2% (BldA) [Mass fraction] 99 % Yaneth Queden APARTMENT MAINTENANCE SUPERVISOR-C Work Phone: [facility] 2025 01:48-0400 Systolic blood pressure 113 mm[Hg] Yaneth Queden APARTMENT MAINTENANCE SUPERVISOR-C Work Phone: [facility] 04-19-2025 23:32-0400 Body mass index (BMI) [Ratio] 33.9 kg/m2 Yaneth Queden APARTMENT MAINTENANCE SUPERVISOR-C Work Phone: [facility] 04-19-2025 23:32-0400 Body weight 86.9 kg Yaneth Queden APARTMENT MAINTENANCE SUPERVISOR-C Work Phone: [facility] 04-13-2025 00:44-0400 Body temperature 98 [degF] Yaneth Queden APARTMENT MAINTENANCE SUPERVISOR-C Work Phone: [facility] 04-13-2025 00:44-0400 Diastolic blood pressure 98 mm[Hg] Yaneth Queden APARTMENT MAINTENANCE SUPERVISOR-C Work Phone: [facility] 04-13-2025 00:44-0400 Heart rate 86 /min Yaneth Queden APARTMENT MAINTENANCE SUPERVISOR-C Work Phone: [facility] 04-13-2025 00:44-0400 Respiratory rate 18 /min Yaneth Ramirezden APARTMENT MAINTENANCE SUPERVISOR-C Work Phone: [facility] 04-13-2025 00:44-0400 SaO2% (BldA) [Mass fraction] 97 % Yaneth Queden APARTMENT MAINTENANCE SUPERVISOR-C Work Phone: [facility] 04-13-2025 00:44-0400 Systolic blood pressure 135 mm[Hg] Yaneth Queden APARTMENT MAINTENANCE SUPERVISOR-C Work Phone: [facility] 04-13-2025 00:06-0400 Body mass index (BMI) [Ratio] 33.8 kg/m2 Yaneth Queden APARTMENT MAINTENANCE SUPERVISOR-C Work Phone: [facility] 04-13-2025 00:06-0400 Body weight 86.6 kg Yaneth Ramirezden APARTMENT MAINTENANCE SUPERVISOR-C Work Phone: [facility] 04-01-2025 10:01-0400 Body mass index (BMI) [Ratio] 32.78 kg/m2 Erin Sanchez MD Work Phone: [facility] 04-01-2025 10:01-0400 Body weight 85.28 kg Erin Sanchez MD Work Phone: [facility] 04-01-2025 10:01-0400 Diastolic blood pressure 84 mm[Hg] Erin Sanchez MD Work Phone: [facility] 04-01-2025 10:01-0400 Systolic blood pressure 136 mm[Hg] Erin Sanchez MD Work Phone: [facility] 10-21-2024 09:52-0400 Body height 161.3 cm Lynette Salgado MD Work Phone: [facility] 10-21-2024 09:52-0400 Body mass index (BMI) [Ratio] 30.86 kg/m2 Lynette Salgado MD Work Phone: [facility] 10-21-2024 09:52-0400 Body weight 80.29 kg Lynette Salgado MD Work Phone: [facility] 10-21-2024 09:52-0400 Diastolic blood pressure 86 mm[Hg] Lynette Salgado MD Work Phone: [facility] 10-21-2024 09:52-0400 Systolic blood pressure 124 mm[Hg] Lynette Salgado MD Work Phone: [facility] 10-02-2024 04:59-0400 Body temperature 97.9 [degF] No Primary Care Physician [facility] 10-02-2024 04:59-0400 Diastolic blood pressure 69 mm[Hg] No Primary Care Physician [facility] 10-02-2024 04:59-0400 Heart rate 99 /min No Primary Care Physician [facility] 10-02-2024 04:59-0400 Respiratory rate 18 /min No Primary Care Physician [facility] 10-02-2024 04:59-0400 SaO2% (BldA) [Mass fraction] 94 % No Primary Care Physician [facility] 10-02-2024 04:59-0400 Systolic blood pressure 112 mm[Hg] No Primary Care Physician [facility] 10-02-2024 03:20-0400 Body height 160.02 cm No Primary Care Physician [facility] 10-02-2024 03:20-0400 Body mass index (BMI) [Ratio] 31.4 kg/m2 No Primary Care Physician [facility] 10-02-2024 03:20-0400 Body weight 80.6 kg No Primary Care Physician [facility] 01-26-2024 09:59-0400 Diastolic blood pressure 80 mm[Hg] Yaneth Queden PROPERTY ADMINISTRATOR.TEAM SPORTS SALES ASSOCIATE Work Phone: [facility] 01-26-2024 09:59-0400 Systolic blood pressure 124 mm[Hg] Yaneth Queden PROPERTY ADMINISTRATOR.TEAM SPORTS SALES ASSOCIATE Work Phone: [facility] 01-26-2024 09:41-0400 Body height 160 cm Yaneth Queden PROPERTY ADMINISTRATOR.TEAM SPORTS SALES ASSOCIATE Work Phone: [facility] 01-26-2024 09:41-0400 Body mass index (BMI) [Ratio] 29.94 kg/m2 Yaneth Queden PROPERTY ADMINISTRATOR.TEAM SPORTS SALES ASSOCIATE Work Phone: [facility] 01-26-2024 09:41-0400 Body temperature 98.2 [degF] Yaneth Queden PROPERTY ADMINISTRATOR.[facility] Work Phone: [facility] 01-26-2024 09:41-0400 Body weight 76.66 kg Yaneth Queden PROPERTY ADMINISTRATOR.[facility] Work Phone: [facility] 01-26-2024 09:41-0400 Heart rate 82 /min Yaneth Queden PROPERTY ADMINISTRATOR.[facility] Work Phone: [facility] 01-26-2024 09:41-0400 SaO2% (BldA) [Mass fraction] 97 % Yaneth Queden PROPERTY ADMINISTRATOR.[facility] Work Phone: [facility] 12-26-2023 09:44-0400 Body height 160 cm Yaneth Queden PROPERTY ADMINISTRATOR.[facility] Work Phone: [facility] 12-26-2023 09:44-0400 Body mass index (BMI) [Ratio] 28.87 kg/m2 Yaneth Queden PROPERTY ADMINISTRATOR.[facility] Work Phone: [facility] 12-26-2023 09:44-0400 Body temperature 98.4 [degF] Yaneth Queden PROPERTY ADMINISTRATOR.[facility] Work Phone: [facility] 12-26-2023 09:44-0400 Body weight 73.94 kg Yaneth Queden PROPERTY ADMINISTRATOR.[employer] SALES ASSOCIATE Work Phone: [facility] 12-26-2023 09:44-0400 Diastolic blood pressure 80 mm[Hg] Yaneth Queden PROPERTY ADMINISTRATOR.[facility] Work Phone: [facility] 12-26-2023 09:44-0400 Heart rate 82 /min Yaneth Queden PROPERTY ADMINISTRATOR.[facility] Work Phone: [facility] 12-26-2023 09:44-0400 Respiratory rate 16 /min Yaneth Queden PROPERTY ADMINISTRATOR.[facility] Work Phone: [facility] 12-26-2023 09:44-0400 SaO2% (BldA) [Mass fraction] 100 % Yaneth Camarena PROPERTY ADMINISTRATOR.TE[employer]OR[employer] SALES ASSOCIATE Work Phone: [facility] 12-26-2023 09:44-0400 Systolic blood pressure 132 mm[Hg] Yaneth Camarena PROPERTY ADMINISTRATOR.TE[employer]OR[employer] SALES ASSOCIATE Work Phone: [facility] 12-23-2022 17:22-0400 Body temperature 98.1 [degF] [facility] 12-23-2022 17:22-0400 Diastolic blood pressure 76 mm[Hg] [facility] 12-23-2022 17:22-0400 Heart rate 82 /min [facility] 12-23-2022 17:22-0400 Respiratory rate 16 /min [facility] 12-23-2022 17:22-0400 SaO2% (BldA) [Mass fraction] 99 % [facility] 12-23-2022 17:22-0400 Systolic blood pressure 113 mm[Hg] [facility] 12-23-2022 13:26-0400 Body height 160.02 cm [facility] 12-23-2022 13:26-0400 Body mass index (BMI) [Ratio] 24.3 kg/m2 [facility] 12-23-2022 13:26-0400 Body weight 62.14 kg [facility] 07-15-2022 14:25-0500 Body temperature 97.9 [degF] Jennifer Athy PA-C Work Phone: [facility] 07-15-2022 14:25-0500 Body weight 61.24 kg Jennifer Athy PA-C Work Phone: [facility] 07-15-2022 14:25-0500 Diastolic blood pressure 88 mm[Hg] Jennifer Athy PA-C Work Phone: [facility] 07-15-2022 14:25-0500 Heart rate 88 /min Jennifer Athy PA-C Work Phone: [facility] 07-15-2022 14:25-0500 Respiratory rate 20 /min Jennifer Athy PA-C Work Phone: [facility] 07-15-2022 14:25-0500 SaO2% (BldA) [Mass fraction] 99 % Jennifer Athy PA-C Work Phone: [facility] 07-15-2022 14:25-0500 Systolic blood pressure 140 mm[Hg] Jennifer Mckeey PA-C Work Phone: [facility] Encounters Encounter Date Encounter Type Care Provider Facility Start: 04-22-2025 End: 04-22-2025 Emergency department patient visit Yaneth Migue APARTMENT MAINTENANCE SUPERVISOR-C Work Phone: -Emergency Department Work Phone: Start: 04-22-2025 End: 04-22-2025 ambulatory GUDELIA REEDERG Facility:[facility] Start: 04-21-2025 End: 04-21-2025 ambulatory CASSIA MASSEY Facility:[facility] Start: 04-19-2025 End: 2025 Emergency department patient visit Yaneth Migue APARTMENT MAINTENANCE SUPERVISOR-C Work Phone: -Emergency Department Work Phone: Start: 04-17-2025 End: 04-17-2025 ambulatory YANETH CAMARENA Facility:[facility] Start: 04-13-2025 End: 04-13-2025 Emergency department patient visit Checopanchito Dwyer -Emergency Department Work Phone: Start: 04-01-2025 End: 04-01-2025 Patient encounter procedure Erin Sanchez MD Work Phone: OB/Gynecology Comment on above: Encounter for IUD re moval (Primary Dx); Encounter for initial prescription of contraceptive pills Start: 04-01-2025 End: 04-01-2025 ambulatory ERIN SANCHEZ Facility:[facility] Start: 11-12-2024 End: 11-12-2024 ambulatory YANETH CAMARENA Facility:[facility] Start: 10-28-2024 End: 12-28-2024 Refill Yaneth Camarena PROPERTY ADMINISTRATOR.TE[employer]ORTS SALES ASSOCIATE Work Phone: [facility] Comment on above: Refill Request Start: 10-24-2024 End: 10-24-2024 Telephone encounter Yaneth Camarena PROPERTY ADMINISTRATOR.TEAM [employer]ORTS SALES ASSOCIATE Work Phone: [facility] Comment on above: Missed Appointment ( First missed appointment first letter) Start: 10-21-2024 End: 10-21-2024 ambulatory LYNETTE SALGADO Facility:[facility] Start: 10-21-2024 End: 10-21-2024 Patient encounter procedure Lynette Salgado MD Work Phone: OB/Gynecology Comment on above: Encounter for gyneco logical examination (general) (routine) without abnormal findings (Primary Dx); Screening for cervical cancer; Encounter for IUD removal Start: 10-21-2024 End: 10-21-2024 Patient encounter status Lynette Salgado MD Work Phone: [facility] Start: 10-03-2024 End: 10-03-2024 ambulatory Yaneth Camarena PROPERTY ADMINISTRATOR.TEAM SPORTS SALES ASSOCIATE Work Phone: [facility] Start: 10-02-2024 End: 10-02-2024 Emergency department patient visit No Primary Care Physician -Emergency Department Work Phone: Start: 04-12-2024 End: 04-12-2024 ambulatory Lo Romero [facility] Start: 01-30-2024 Telephone encounter Yaneth Camarena PROPERTY ADMINISTRATOR.TEAM SPORTS SALES ASSOCIATE Work Phone: [facility] Comment on above: Results Start: 01-26-2024 End: 01-26-2024 Patient encounter procedure Yaneth Camarena PROPERTY ADMINISTRATOR.TEAM SPORTS SALES ASSOCIATE Work Phone: [facility] Comment on above: Elevated blood press ure reading without diagnosis of hypertension (Primary Dx); Palpitations; History of Dvubr-Qwmmtjmqg-Uvrlj (WPW) syndrome; Tobacco use; Skin condition screening Start: 01-11-2024 Telephone encounter Yaneth Camarena PROPERTY ADMINISTRATOR.TEAM SPORTS SALES ASSOCIATE Work Phone: [facility] Comment on above: Results Start: 01-09-2024 End: 01-09-2024 Subsequent hospital visit by physician Card/Pulm Lab [facility] CARDIO PULMONARY TESTING Comment on above: Chest pain, unspecif ied type [R07.9] Arrived Start: 01-02-2024 Telephone encounter Yanethshirin Camarena GENARO Work Phone: [facility] Comment on above: Results Start: 12-26-2023 End: 12-26-2023 Patient encounter procedure Yaneth Camarena MICKIE.TEAM SPORTS SALES ASSOCIATE Work Phone: [facility] Comment on above: Elevated blood press ure reading without diagnosis of hypertension (Primary Dx); Chest pain, unspecified type; Palpitations; History of Lxrgt-Yyjjynbav-Odkmx (WPW) syndrome; Bleeding after intercourse; Tobacco use Start: 12-04-2023 End: 12-04-2023 Patient encounter procedure Enoc Gillespie APRN.TEAM SPORTS SALES ASSOCIATE Work Phone: [facility] Comment on above: Procedure not brandy d out (Primary Dx) Start: 12-01-2023 End: 12-01-2023 Subsequent hospital visit by physician [facility] Deisy Work Phone: Radiology Comment on above: Pain [R52] Start: 12-01-2023 End: 12-01-2023 Patient encounter procedure Deann Goldstein MICKIE.TEAM SPORTS SALES ASSOCIATE Work Phone: [facility] Comment on above: Pain (Primary Dx) Start: 02-20-2023 End: 02-20-2023 Emergency department patient visit PHYSICIAN [facility] Start: 12-23-2022 End: 12-23-2022 Emergency department patient visit [facility]-Emergency Department Start: 09-13-2022 End: 09-17-2022 ambulatory [facility] Start: 09-13-2022 End: 09-13-2022 ambulatory [facility] Start: 09-12-2022 Transcribe Orders Guillermo Coffey MD Work Phone: [facility] Comment on above: PVC (premature ventr icular contraction) (Primary Dx) Start: 09-11-2022 End: 09-11-2022 Emergency department patient visit GUILLERMO CEDILLO [facility] Start: 07-16-2022 Telephone encounter Golden Arshad MD Work Phone: [facility] Comment on above: Results (Jaelyn) Start: 07-15-2022 End: 07-15-2022 Patient encounter procedure Jennifer WHITE-C Work Phone: [facility] Comment on above: Vaginal pain (Primar y Dx) Procedures Date Procedure Procedure Detail Performing Clinician Start: 04-19-2025 D-dimer assay, quantitative Yaneth Camarena APARTMENT MAINTENANCE SUPERVISOR-C Work Phone: Comment on above: NORMAL D-Dimer level (<0.50) indicates no DVT or PE. Start: 04-19-2025 Estimated creatinine clearance Yaneth Camarena APARTMENT MAINTENANCE SUPERVISOR-C Work Phone: Start: 04-19-2025 Plain chest X-ray Haleigh Camarena APARTMENT MAINTENANCE SUPERVISOR-C Work Phone: Start: 01-09-2024 Echo tthrc r-t 2d w/wom-mode compl spec&colr d Yaneth Camarena APRN.TEAM SPORTS SALES ASSOCIATE Work Phone: Start: 12-01-2023 Radex foot complete minimum 3 views Deann Goldstein APRN.TEAM SPORTS SALES ASSOCIATE Work Phone: Start: 12-23-2022 Transvaginal echography Start: 07-15-2022 End: 07-15-2022 Iadna chlamydia trachomatis amplified probe tq Jennifer WHITE-C Work Phone: Start: 07-15-2022 BACTERIAL VAGINOSIS AMPLIFICATION Jennifer Pinto PA-C Work Phone: Plan of Treatment Date Care Activity Detail Author Start: 10-22-2027 Screening for malign ant neoplasm of cervix Cervical Cancer Screening [facility] Start: 10-21-2025 End: 10-21-2025 Patient encounter procedure 10/21/2025 2:20 PM EDT Office Visit OB/Gynecology [address] [place] [address] Lynette Salgado MD [address] [place] [address] Annual OB/Gynecology Comment on above: Annual Start: 04-22-2025 [facility] Start: 04-22-2025 [facility] Start: 04-22-2025 End: 04-22-2025 Emergency department patient visit Departed Emergency -Emergency Department Work Phone: Start: 04-22-2025 End: 04-22-2025 Patient encounter procedure 04/22/2025 11:20 AM EDT Office Visit [facility] [address] [place], [place] [address] Gudelia Lawrence MD [address], [facility] [address] [place], [place] [phone] Referral from Lisa Posadas APRN for Papitations and Tachycardia [facility] Comment on above: Referral from Lisa Posadas APRN for Papitations and Tachycardia Start: 2025 [facility] Start: 04-19-2025 [facility] Start: 04-19-2025 End: 2025 Emergency department patient visit Departed Emergency -Emergency Department Work Phone: Start: 04-19-2025 Plain chest X-ray Chest 1 View (Port able) [facility] Start: 04-13-2025 [facility] Start: 03-24-2025 Influenza vaccination C [facility] Start: 03-14-2025 End: 03-14-2025 Patient encounter procedure 03/14/2025 11:30 AM EDT Office Visit OB/Gynecology [address] [place], [place] [phone] Lynette Salgado MD [address] [place] [address] Removal OB/Gynecology Comment on above: Removal Start: 01-25-2025 Covid-19 Vaccine ( season) Covid-19 Vaccine ( season) [facility] Comment on above: Postponed from 03/24 (Declined at this time) Start: 01-25-2025 Meningococcal B Vacc ine: Consider Based On Risk (1 of 2 - Patient Seeks Protection) Meningococcal B Vaccine: Consider Based On Risk (1 of 2 - Patient Seeks Protection) [facility] Comment on above: Postponed from 04/20 (Declined at this time) Start: 01-25-2025 Pneumococcal vaccination Pneum ococcal Vaccine (1 of 2 - PCV) [facility] Comment on above: Postponed from 04/20 (Declined at this time) Postponed from 04/20 (Declined at this time) Start: 01-25-2025 Urine microalbumin profile DTa P,Tdap,Td Vaccine (1 - Tdap) [facility] Comment on above: Postponed from 04/20 (Declined at this time) Start: 11-12-2024 End: 11-12-2024 Patient encounter procedure 11/12/2024 3:20 PM EDT Office Visit [facility] [address] [place], [place] [phone] Yaneth Camarena APRN.TEAM SPORTS SALES ASSOCIATE [address] [place], [place] [phone] er follow up [facility] Comment on above: er follow up Start: 10-24-2024 End: 10-24-2024 Patient encounter procedure 10/24/2024 3:20 PM EDT Office Visit [facility] [address] [place], [place] [phone] Yaneth Camarena, PROPERTY ADMINISTRATOR.TEAM SPORTS SALES ASSOCIATE [address] [place], [place] [phone] ER follow up [facility] Comment on above: ER follow up Start: 10-21-2024 End: 10-21-2024 Patient encounter procedure 10/21/2024 9:40 AM EDT Office Visit OB/Gynecology [address] [place] [address] Lynette Salgado MD [address] [place] [address] est care annual OB/Gynecology Comment on above: est care annual Start: 10-02-2024 [facility] Start: 03-24-2024 Covid-19 Vaccine ( season) Covid-19 Vaccine ( season) [facility] Start: 03-24-2024 Covid-19 Vaccine () Covid-19 Vaccine () [facility] Start: 03-24-2024 Influenza vaccination C [facility] Start: 01-26-2024 End: 01-26-2024 Patient encounter procedure 01/26/2024 9:40 AM EDT Office Visit [facility] [address] [place] [address] Yaneth Camarena, PROPERTY ADMINISTRATOR.TEAM SPORTS SALES ASSOCIATE [address] [place] [address] 4 WK F/U HTN [facility] Comment on above: 4 WK F/U HTN Start: 01-09-2024 End: 01-09-2024 Patient encounter procedure [facility] CARDIO PULMONARY TESTING Comment on above: Echo/14 day holter Start: 01-02-2024 End: 04-02-2024 CBC W Auto Differential panel - Blood COMPLETE BLOOD COUNT AND DIFFERENTIAL Lab Routine Leukocytosis, unspecified type Expected: 01/02/2024, Expires: 04/02/2024 [facility] Work Phone: Comment on above: Expected: 01/02/2024 , Expires: 04/02/2024 Start: 12-26-2023 End: 12-26-2023 Patient encounter procedure 12/26/2023 9:40 AM EDT Office Visit [facility] [address] [place] [address] Yaneth Camarena, PROPERTY ADMINISTRATOR.TEAM SPORTS SALES ASSOCIATE [address] [place] [address] new pt - high bp: consistently high, fatigued x 3 days [facility] Comment on above: new pt - high bp: co nsistently high, fatigued x 3 days Start: 07-24-2023 Behavioral Health Screening Behavioral Health Screening [facility] Start: 07-15-2023 CHLAMYDIA SCREENING () CHLAMYDIA SCREENING () [facility] Start: 07-15-2023 GC (GONORRHEA) SCREE NINO () GC (GONORRHEA) SCREENING () [facility] Start: 07-15-2023 Screening for Chlamy mala trachomatis Chlamydia Screening () [facility] Start: 03-24-2023 Covid-19 Vaccine ( season) Covid-19 Vaccine () [facility] Start: 09-13-2022 End: 09-13-2022 Patient encounter procedure 09/13/2022 Office Visit Cardiology Guillermo Coffey MD [address] [place] [address] Pato Romo MD [address] [place] [address] [facility] Start: 03-24-2022 Influenza vaccination C [facility] Start: 07-24-2021 DEPRESSION ASSESSMENT DEPRESSION ASS ESSMENT [facility] Start: 2021 PAP TESTING PAP TESTING [facility] Start: 2021 Screening for malign ant neoplasm of cervix [facility] Start: 2019 Hepatitis B Vaccine (1 of 3 - 19+ 3-dose series) Hepatitis B Vaccine (1 of 3 - 19+ 3-dose series) [facility] Start: 2019 Pneumococcal vaccination Pneum ococcal Vaccine (1 of 2 - PCV) [facility] Start: 2019 Urine microalbumin profile [facility] Start: 2018 Anxiety Screening Anxiety Screening [facility] Start: 2018 Depression Screening Depression Scre ening [facility] Start: 2018 [facility] Start: 2018 Hepatitis C screening Hepatitis C Sc [facility] Start: 2018 HIV SCREENING HIV SCREENING [facility] Start: 2018 HIV screening HIV Screening [facility] Start: 2016 Meningococcal B Vacc ine: Consider Based On Risk (1 of 2 - Patient Seeks Protection) Meningococcal B Vaccine: Consider Based On Risk (1 of 2 - Patient Seeks Protection) [facility] Start: 2015 HIV screening HIV Screening [facility] Start: 2015 HPV Vaccine (1 - 3-d ose series) HPV Vaccine (1 - 3-dose series) [facility] Start: 2014 PEDS TO ADULT TRANSI TION ANNUAL ASSESSMENT PEDS TO ADULT TRANSITION ANNUAL ASSESSMENT [facility] Start: 2012 Depression screening using PHQ-9 (Patient Health Questionnaire 9) score Depression Screening (PHQ-2/9) [facility] Start: 2012 PEDS TO ADULT TRANSI TION INITIAL DISCUSSION PEDS TO ADULT TRANSITION INITIAL DISCUSSION [facility] Start: 2011 HPV VACCINE (1 - 2-d ose series) HPV VACCINE (1 - 2-dose series) [facility] Start: 2011 Vaccination for kishor n papillomavirus HPV Vaccines (1 - 2-dose series) [facility] Start: 2010 MENINGOCOCCAL B: Con building specialist based on risk (1 of 2 - Risk Bexsero 2-dose series) MENINGOCOCCAL B: Consider based on risk (1 of 2 - Risk Bexsero 2-dose series) [facility] Start: 2006 PNEUMOCOCCAL (1 - PCV) PNEUMOCOCCAL (1 - PCV) [facility] Start: 2006 Pneumococcal vaccination Pneum ococcal Vaccine (1 of 2 - PCV) [facility] Start: 2006 Pneumococcal Vaccine : Ped or At-Risk (1 - PCV) Pneumococcal Vaccine: Ped or At-Risk (1 - PCV) [facility] Start: 2003 History and physical examination, annual for health maintenance Wellness Visit [facility] Start: 2000 COVID-19 VACCINE (#1) COVID-19 VACCI NE (#1) [facility] Start: 2000 HEPATITIS B (1 of 3 - 3-dose series) HEPATITIS B (1 of 3 - 3-dose series) [facility] Start: 2000 Screening for Chlamy mala trachomatis Chlamydia Screening [facility] Start: 2000 Screening for malign ant neoplasm of cervix Pap Smear [facility] Start: 2000 Tetanus vaccination Tetanus: Every 1 0yrs [facility] End: 12-25-2024 Echocardiography ECHO Cardiology Routine Chest pain, unspecified type Palpitations History of Qntnj-Qwpvmdqvl-Gklge (WPW) syndrome Elevated blood pressure reading without diagnosis of hypertension 1 Occurrences starting 12/26/2023 until 12/25/2024 [facility] Comment on above: 1 Occurrences starti ng 12/26/2023 until 12/25/2024 End: 12-25-2024 EXTENDED WEAR PRICING LEAD PATCH EXTENDED WEAR PRICING LEAD PATCH ECG Routine Chest pain, unspecified type Palpitations History of Uhury-Lzsffcesd-Elxky (WPW) syndrome Elevated blood pressure reading without diagnosis of hypertension 1 Occurrences starting 12/26/2023 until 12/25/2024 [facility] Work Phone: Comment on above: 1 Occurrences starti ng 12/26/2023 until 12/25/2024 PAP TEST PAP TEST Lab Robyn neri Encounter for gynecological examination (general) (routine) without abnormal findings Screening for cervical cancer 10/21/2024 10:46 AM EDT [facility] Patient Education [facility] Work Phone: Patient referral [facility] Work Phone: Removal intrauterine device iud REMOVE INTRAUTERINE DEVICE Procedures Routine Encounter for IUD removal Ordered: 10/21/2024 [facility] Work Phone: Comment on above: Ordered: 10/21/2024 Removal intrauterine device iud REMOVE INTRAUTERINE DEVICE Procedures Routine Encounter for IUD removal Ordered: 04/01/2025 [facility] Work Phone: Comment on above: Ordered: 04/01/2025 Payers Date Payer Category Payer Self-pay 2024 Medicaid [id number] 2024 Medicaid [id number] 2020 Unknown [id number] 2015 Unknown [id number] 2000 Unknown [id number] 2.16. [id number] 2000 Unknown [id number] 2.16. [id number] 2000 Unknown [id number] 2.16. [id number] 2000 Unknown [id number] 2.16. [id number] 2000 Unknown [id number] 2.16. [id number] Self-pay [id number] Unknown [id number] Unknown [id number] Unknown [id number] 2.16.8 [id number] Unknown [id number] 2.16.8 [id number] Unknown [id number] 2.16.8 [id number] Unknown [id number] 2.16.8 [id number] Social History Date Type Detail Facility Start: 07-15-2022 End: 04-22-2025 Tobacco smoking status NJIS Smokes tobacco daily [facility] History of tobacco use Cigarette Smoker [facility] Start: 07-15-2022 End: 11-12-2024 Tobacco use and exposure Smokeless tobacco non-user [facility] Start: 2000 Sex Assigned At Not on file [facility] Start: 09-11-2022 End: 01-26-2024 Cigarettes smoked current (pack per day) - Reported 0.5 [facility] Start: 09-11-2022 End: 04-01-2025 Alcohol intake Current drinker of alcohol (finding) [facility] Start: 09-11-2022 Alcohol Comment 1-4 drinks daily [facility] Start: 09-01-2022 End: 09-11-2022 Exposure to SARS-CoV-2 (event) Not sure [facility] Start: 12-23-2022 Tobacco smoking status NHIS Unknown if ever smoked [facility] Start: 2000 Sex Assigned At Female W [facility] Start: 07-15-2022 End: 01-26-2024 Tobacco use panel [facility] Start: 07-15-2022 National Score (1-100), lower number is lower risk 50 [facility] Start: 10-02-2024 Sex Female (finding) [facility] Start: 11-12-2024 Alcohol Comment daily [facility] NEGATED: Highlighted row [facility] Mental Status Date Assessment Result Facility 04-19-2025 Cognitive function Voice/Name [facility] Work Phone: 04-13-2025 Cognitive function Level Of Consciousness Awake [facility] Work Phone: 10-02-2024 Cognitive function Level Of Cons ciousness Awake;Alert;Appropriate;Follow s Commands [facility] Work Phone: Clinical Notes 07-15-2022 to 04-30-2025 Note Date & Type Note Facility 04-30-2025 Note HNO ID: [id number] Author: LO ROMERO LPN Service: ? Author Type: Licensed Nurse Type: Progress Notes Filed: 04/30/2025 10:57 Note Text: [employer] message sent to pt. Lo Romero LPN [facility] 04-25-2025 Note HNO ID: [id number] Author: YANETH CAMARENA APRN.TEAM SPORTS SALES ASSOCIATE Service: ? Author Type: Nurse Practitioner Type: Progress Notes Filed: 04/25/2025 14:35 Note Text: I gave recommendations in my result note. There is no direct medicine to lower your cortisol and it can be highest in the morning and her level is not significantly elevated. We can recheck it in 4 weeks. Order placed. Check in morning, preferably after [address] [facility] 04-25-2025 Note HNO ID: [id number] Author: LO ROMERO LPN Service: ? Author Type: Licensed Nurse Type: Progress Notes Filed: 04/25/2025 14:11 Note Text: ED Follow-Up Note Provider Action / FYI: Pt states that she is still having pain in her neck. Per pt the steroid is helping and she is on day 3 and still has more to take. Pt is concerned about her cortisol level. Pt would like to know if she should be referred somewhere or if something should be done. Per pt she does not want to keep putting weight on and not be able to get it off. Per pt she has been eating healthier for the past 3-4 weeks and has cut her alcohol intake down at least by 1/2. Lo Romero LPN Call completed by: KUNAL Patient seen in ED: Out of Network ED Contact made with Patient: Yes The patient was identified by Name and Date of . Discussed Care with: patient Patient was seen in the Emergency Department (ED) Location: [facility] Date: 04/22/2025 Reason for ED Visit: Shortness of breath ED Intervention: exam New Medications: inhaler spacer Medication Changes: None Does patient understand medication changes: N/A Can patient afford medication changes: N/A Patient educated on worsening symptoms and when and where to seek additional care: No Patient Education Provided including treatment plan and new orders. Patient provided with appropriate counseling: Yes [facility] 04-25-2025 Note Patient Outreach (AG FAMPLE) -- SONYA ROSAS ([id number]) 1 F Date Time Provider Department 04/25/25 YANETH CAMARENA During your visit today, we recorded the following information about you: Lo Romero LPN 04/25/2025 2:11 PM Signed ED Follow-Up Note Provider Action / FYI: Pt states that she is still having pain in her neck. Per pt the steroid is helping and she is on day 3 and still has more to take. Pt is concerned about her cortisol level. Pt would like to know if she should be referred somewhere or if something should be done. Per pt she does not want to keep putting weight on and not be able to get it off. Per pt she has been eating healthier for the past 3-4 weeks and has cut her alcohol intake down at least by 1/2. Lo Romero LPN Call completed by: KUNAL Patient seen in ED: Out of Network ED Contact made with Patient: Yes The patient was identified by Name and Date of . Discussed Care with: patient Patient was seen in the Emergency Department (ED) Location: [facility] Date: 04/22/2025 Reason for ED Visit: Shortness of breath ED Intervention: exam New Medications: inhaler spacer Medication Changes: None Does patient understand medication changes: N/A Can patient afford medication changes: N/A Patient educated on worsening symptoms and when and where to seek additional care: No Patient Education Provided including treatment plan and new orders. Patient provided with appropriate counseling: Yes Yaneth Camarena APRN.CNP 04/25/2025 2:35 PM Addendum I gave recommendations in my result note. There is no direct medicine to lower your cortisol and it can be highest in the morning and her level is not significantly elevated. We can recheck it in 4 weeks. Order placed. Check in morning, preferably after 8 am. Yaenth Camarena APRN.CNP 04/25/2025 2:36 PM Signed Addended by: YANETH CAMARENA on: 04/25/2025 02:36 PM Modules accepted: Orders Lo Romero LPN 04/30/2025 10:57 AM Signed [employer] message sent to pt. Lo Romero LPN Allergies As of Date: 04/25/2025 Noted Allergy Reaction PENICILLINS 07/15/2022 5 - Intolerance Date Reviewed: 04/22/2025 Reviewed by: Gaby Russell MA - Fully Assessed Reason for Visit: ED Follow-up [821] Cmt: [facility] 04/22/2025 Primary Visit Diagnosis:Elevated cortisol level [R79.89] Order(s):CORTISOL, SERUM [SQCOR] Order #: [id number] FUTURE Prescriptions as of 04/30/2025 - ferrous sulfate (IRON) 325 mg (65 mg iron) tablet Take 1 tablet by mouth once daily. - cholecalciferol (VITAMIN D-3) 50 mcg (2,000 unit) tablet Take 1 tablet by mouth once daily. - benzonatate (TESSALON PERLE) 100 mg capsule Take 1 capsule by mouth three times a day as needed. - ondansetron (ZOFRAN) 4 mg tablet Take [...] as needed. Problem List As Of Date 04/25/2025 Noted Resolved Palpitations [R00.2] 01/09/2024 Obesity, Class I, BMI 30-34.9 [E66.811] 11/13/2024 Tachycardia [R00.0] Gufmb-Xwnpkzlpq-Smvod (WPW) pattern [I45.6] Pre-syncope [R55] 04/17/2025 Abnormal vaginal bleeding [N93.9] 04/17/2025 Encounter Status:Closed by LO ROMERO on 04/25/25 [facility] 04-22-2025 Discharge summary [facility] 04-22-2025 Discharge summary Note Date/Time April 22, 2025 5:49pm [facility] Medical Records Department [address] [place] [address] Emergency Department Summary 04/22/25 MR#: [id number] Acct: [id number] Name: SONYA ROSAS Rep #:[id number] : 2000 25 From: Tera Justice MD PCP: Yaneth Camarena NP-C Status:REG E R Location: ED HPI History of Present Illness Chief Complaint: Shortness of Breath Narrative Narrative: Prior records reviewed. Patient was seen on April 13, 2025 for eye problem by Dr. Checo Dwyer. His note was reviewed. Final diagnosis was blurred visionright eye, alcohol intoxication and history of WPW. She was seen on April [address] Burke Finch for chest pain. At that time she had a CBC which was unremarkable. She had a basic metabolic panel that was remarkable for elevated anion gap with a decrease CO2. Troponin was normal. She also had a EKG that revealed sinus tachycardia and nonspecific T wave flattening lateral precordial leads. An x-ray was not obtained at that time. He did not obtain a D-dimer at that time because her chest pain was not pleuritic. She presents because now the pain is not only on the right side infrascapular area has now migrated and involving both sides. It is not pleuritic. She does have some upper respiratory symptoms. She has a cough of clear-colored sputum. She does smoke. She was prescribed an albuterol metered-dose inhaler. She was instructed she can only do 2 puffs every 8 hours. She was prescribed a steroid Dosepak on and just started the Dosepak yesterday. She denies leg pain, swelling or discoloration. She has no history of VTE. Her only risk factor is that she is on a contraceptive. She has had no long distance trip. No surgery in the past month. She does endorse nausea without vomiting or diarrhea. PE Risk Factors: Negative for Cancer, OCP + Smoking + > 35, Prior DVT or PE, Recent immobilization, Recent surgery or Recent travel Prior similar symptoms: Yes Recent Illness/Hospitalization: Yes [facility] Medical History Alcohol abuse Cigarette smoker Marijuana smoker WPW (Pyfxg-Sjqrlxtgo-Drais syndrome) Home Medications ?Medication ?Instructions ?Recorded ?Last Taken ?Type metoprolol succinate 25 mg 25 mg PO PRN 04/13/25 Unkno wn History tablet,extended release 24 hr albuterol sulfate 90 mcg/actuation 2 puff inhalation Q 4H PRN PRN 04/19/25 Unknown History aerosol inhaler wheezing norethindrone (contraceptive) 0.35 0.35 mg PO DAILY Unknown History mg tablet inhalational spacing device (Space #1 ea 04/22/25 Unkn own Rx Chamber) Allergy/AdvReac Type Severity Reaction Status Date / Time Penicillins Allergy Severe Hives Verified 04/22/25 13:50 Surgical History Hx of heart surgery Social History Smoking Status: Current every day smoker tobacco type: cigarettes ROS ROS ED Constitutional Constitutional ED: Denies chills, fever(s) or sweats Eyes Eyes: Denies blurry vision, change in vision or diplopia ENT ENT ED: Reports rhinorrhea, sore throat and other Details: Patient states she has a sore throat because of coughing. ; Denies ear pain Cardiovascular Cardiovascular: Reports chest pain; Denies orthopnea, palpitations, paroxysmal nocturnal dyspnea or racing heartbeat Respiratory/Chest Respiratory/Chest: Reports cough, dyspnea, sputum and other Details: Sputum is clear. ; Denies dyspnea on exertion, orthopnea or paroxysmal nocturnal dyspnea Gastrointestinal Gastrointestinal: Denies abdominal pain, constipation, diarrhea, melena or vomiting Genitourinary Genitourinary ED: Denies dysuria, hematuria or urinary frequency Musculoskeletal Musculoskeletal: Denies arthralgias or myalgias Integumentary Denies rash Neurologic Neurologic: Denies paresthesias or weakness Endocrine Endocrinology: Denies cold intolerance or heat intolerance Hematologic/Lymphatic Hematologic/Lymphatic: Denies easy bleeding or easy bruising EXAM Physical Exam Const Vital Signs: 04/22/25 13:51 04/22/25 13:55 04/22/25 14:54 Temperature 98.8 F 98.8 F Temperature Source Oral Oral Pulse Rate 78 78 Respiratory Rate 18 18 Respiratory Effort Non-Labored Short of Breath Respiratory Depth Normal Respiratory Pattern Normal Blood Pressure 139/92 H 139/92 H Blood Pressure Mean 107 107 Pulse Ox 97 97 Oxygen Delivery Method Room Air Room Air Room Air 04/22/25 15:27 04/22/25 15:40 04/22/25 15:50 Temperature Temperature Source Pulse Rate 100 110 H Respiratory Rate 16 17 Respiratory Effort Respiratory Depth Respiratory Pattern Blood Pressure 146/75 H Blood Pressure Mean 98 Pulse Ox 100 Oxygen Delivery Method Room Air Room Air Positive well nourished and well developed Constitutional Narrative: Patient's blood pressure slightly elevated 139/92. General Appearance ED: well developed and NAD; Negative for pallor HEENT Reports moist mucous membranes atraumatic Eyes PERRL and EOMs intact bilaterally General Eye ED: Negative for pale conjunctiva or scleral icterus Neck no lymphadenopathy, supple, no meningeal signs and no JVD Resp normal respiratory effort and No clear to auscultation bilaterally Auscultation: wheezes expiratory wheezes, scattered wheezes and throughout Cardio regular rate, regular rhythm, S1 normal heart sound, S2 normal heart sound and no murmurs GI non-tender, non-distended and no masses Palpation: soft Extremity Extremity Narrative: There is no asymmetry, swelling, discoloration, leg vein distention, palpable cords or tenderness along the distribution of the deep venous system. Neuro oriented x3, CN's II-XII intact bilaterally and no sensory deficits noted Sensorium / Orientation: alert Psych mental status grossly normal Skin no wounds and skin turgor normal General Skin Exam: Negative for jaundice or pallor MDM MDM MDM Narrative Medical decision making narrative: In my opinion patient is not being treated appropriately. She is not using her inhaler liver properly. She just started the Dosepak. She is on metoprolol which may prolong her symptoms. She is on metoprolol because of history of WPW. My plan was to treat her with DuoNeb and albuterol. Since she had a recent x-ray that was interpreted by the radiologist and the ER physician is negative this was not repeated. EKG Initial EKG: Attestation: I personally reviewed and interpreted this EKG as follows: Interpretation: Sinus Rhythm (Rate is 82. Patient has delta waves consistent with WPW. HI [place] 26 ms. QS duration 98 ms. QT duration 390 ms. [place] is normal. Other than the delta waves for WPW there is no ischemic changes or any significant abnormalities.) Differential Diagnosis Chest pain/SOB: pulmonary embolism Reason(s) PE less likely: Positive for Well's<3, not tachycardic and not hypoxic, ACS ACS: Positive for no evidence of ACS based on cardiac biomarkers (Cardiac marker was obtained on the ), EKG without ischemia and history not suggestive of ischemia pain, pneumothorax Reason(s) pneumothorax less likely: Positive for bilateral breath sounds and Other (Patient had a chest x-ray recently that was negative.), pneumonia Reason(s) pneumonia less likely: Positive for no infiltrate on CXR and no noted fever and aortic dissection Reason(s) Aortic dissection less likely:: Positive for normal vascular exam, no history of HTN, normal neurological exam, no significant risk factors for dissection, no widened mediastinum on CXR (Based onrecent x-ray.), pain not sudden onset, no ripping/tearing pain, no pain to back and blood pressure appropriate in ED Treatment and Re-Evaluation :: Patient was reassessed at 1744. Patient states she feels much better. Patient clear to auscultation. She is having some chest discomfort. Will recommend NSAIDs and she has no contraindication. Will have her instruct on use of a spacer. Comments:: The respiratory therapist informing that the patient's mother is requesting a CAT scan of her chest. I went back to speak to the patient to ask why her mother wanted a CAT scan since she is not present. She stated that her mother thought she should have a CAT scan. She was asked what her mother does and her response was diagnostics . I informed her that with a well score lessthan 3 I am not concerned about a pulmonary embolus. Since she is already had achest x-rays and her symptoms started 3 weeks ago and has been worse over the past week there is no indication for repeat chest x-ray and what 1 would be looking on the chest x-ray would be pneumonia, pneumothorax. She was told I am not concerned about a TAD and explained why. I also informed her this would expose her to radiation and concerned with her elevated 25 vomiting doses of radiation may receive over her lifetime and the expense. Patient was accepting of this and I felt satisfied that she understood why I did not order a CAT scan. Discharge Plan Triage Chief Complaint: Shortness of Breath ED Provider: Tera Justice Dx/Rx/DC Orders Clinical Impression: Upper respiratory infection with cough and congestion, Acute bronchospasm, Sinus tachycardia seen on monitor and storage bin tender, Anterior chest wall pain Instructions: ED URI, Viral W/ Wheezing (Adult) Prescriptions: New (DME) Space Chamber Spacer See Rx Instructions .Route Qty: 1 0RF Rx Instructions: As directed No Action metoprolol succinate 25 mg tablet extended release 24 hr 25 mg PO PRN albuterol sulfate 90 mcg/actuation HFA aerosol inhaler 2 puff inhalation Q4H PRN PRN (Reason: wheezing) norethindrone (contraceptive) 0.35 mg tablet 0.35 mg PO DAILY Primary Care Provider: Yaneth Camarena NP Referrals: Yaneth Camarena APARTMENT MAINTENANCE SUPERVISOR, APARTMENT MAINTENANCE SUPERVISOR-C [Primary Care Provider, Family Practice] - 3-5 Days if not improving Activity Restrictions/Additional Instructions: 1. Use the spacer with your inhaler. The spacer has a whistle on it. If you hear a whistling sound that means you are inhaling too quickly and need to slow down. 2. You may do 2 puffs every 2-4 hours for the next 48 to 72 hours. If your breathing gets worse you can do 4-6 polyps and repeat in 15 minutes. If you arestill having difficulty recommend returning to the ER Print Language: Maldivian Disposition Disposition: Home, Self Care What to do if you have Problems For any increased pain, shortness of breath, bleeding, nausea or vomiting, chestpain, or any unexpected problems, contact your Primary Care Provider. Call [facility] ([phone]) or report to the closest Emergency Room. Call 911 if necessary. 04/22/25 174 <Electronically signed by Tera Justice MD> Cosigner Signature (if applicable): CC: APARTMENT MAINTENANCE SUPERVISORYogi Camarena ~ Signed [facility] Work Phone: 1(220) 554-140009-30-2025 NoteHNO ID: [id number] Author: LO ROMERO LPN Service: ? Author Type: Licensed Nurse Type: Progress Notes Filed: 04/22/2025 13:17 Note Text: ED Follow-Up Note Provider Action / FYI: Pt states that she has cough, chest pain, shoulder pain. Pt states that she is going to go to [facility] for evaluation. Pt seen Cardiology today 04/22/2025. Lo Romero LPN Call completed by: KUNAL Patient seen in ED: Out of Network ED Contact made with Patient: Yes The patient was identified by Name and Date of . Discussed Care with: patient Patient was seen in the Emergency Department (ED) Location: [facility] Date: 04/19/2025 Reason for ED Visit: Rapid palpitations, Frequent PVC's ED Intervention: EKG Labs New Medications: None Medication Changes: None Does patient understand medication changes: N/A Can patient afford medication changes: N/A Patient educated on worsening symptoms and when and where to seek additional care: No Patient Education Provided including treatment plan and new orders. Patient provided with appropriate counseling: [facility]09-30-2025 NoteHNO ID: [id number] Author: GUDELIA LAWRENCE MD Service: ? Author Type: Physician Type: Progress Notes Filed: 04/22/2025 12:11 Note Text: PRIMARY CARE PHYSICIAN: Yaneth Camarena [address] [place] [address] REFERRING PHYSICIAN: Yarelis Posadas [address] [facility] [address] CHIEF COMPLAINT: Palpitations HISTORY OF PRESENT ILLNESS: Ms. 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 Patient reports that she underwent ablation with her WPW back in January 2020. Since then, she has done well without any episodes of SVT until this past Monday. She reports she did have 8 beers throughout the day and around midnight when she was trying to go to bed, she felt sudden onset of tachycardia with heart rates in the 200s. She did have associated palpitations, chest tightness and shortness of breath. She did take her as needed metoprolol but her episode resolved on its own within approximately a minute. She did end up going to a local ER at that time and was released with unremarkable workup as per her report. Patient reports this was her first episode of SVT since her ablation procedure. As a result, she requested a referral to see cardiology such that she could then get a referral to electrophysiology. Patient does report that since her WPW, she has had intermittent palpitations which she describes as skipped heartbeats followed by a stronger heartbeat. These have overall increased in frequency. She did wear a monitor approximately a year ago for further evaluation which did reveal PVCs with overall low burden of less than 1%. Patient otherwise reports that she has had pleuritic chest pain for the last 2 weeks in her bilateral shoulders radiating into her neck. She was given steroids by her PCP with improvement in her symptoms. In addition, she does report symptoms of shortness of breath over the last 3 days such that she feels short of breath even while sitting. She does have associated cough, wheezing and chills but denies any fevers. She has had multiple recent chest x-rays performed which were unremarkable as per her report. She otherwise denies any complaints of exertional chest pain, orthopnea, paroxysmal nocturnal dyspnea, lower extremity edema or syncope. She does have a longstanding history of smoking half pack a day for approximately 9 years. She has previously tried nicotine gum and 2 things to try to help her quit. She is not interested in trying Chantix. She was previously drinking a beer a day but more recently has been drinking 4-6 beers on both Monday and Monday. PAST MEDICAL HISTORY Diagnosis Date Palpitations Tachycardia Yonil-Hlhdvydyo-Uamgy (WPW) pattern PAST SURGICAL HISTORY Procedure Laterality Date HEART SURGERY 2019 INSERTION OF IUD 02/2020 kyleena MEDICATIONS: benzonatate (TESSALON PERLE) 100 mg capsule Take 1 capsule by mouth three times a day as needed. ondansetron (ZOFRAN) 4 mg tablet Take 1 tablet by mouth every 8 hours as needed. methylPREDNISolone (MEDROL, RHONA,) 4 mg Dose-Pack As Instructed per package Norethindrone, Contraceptive, 0.35 mg tablet Take 1 tablet by mouth once daily. albuterol HFA (PROVENTIL HFA, VENTOLIN HFA) 90 mcg/actuation inhaler Inhale 2 puffs as instructed every 4 hours as needed for wheezing/shortness of breath. metoprolol tartrate, short acting, (LOPRESSOR) 25 mg tablet Take 1 tablet by mouth two times a day as needed. ALLERGIES Allergen Reactions Penicillins Intolerance SOCIAL HISTORY: SOCIAL HISTORY[1] FAMILY HISTORY Problem Relation Age of Onset other (HTN) Mother other (HTN) Father Heart Father x2 ablations Breast Cancer Maternal Grandmother Lymphoma Maternal Grandfather Lymphoma Paternal Grandmother REVIEW OF SYSTEMS: GENERAL: Negative for: Weight loss or gain, Fever, Chills, or Night sweats RESPIRATORY: Negative for: Cough, Blood in Sputum, Shortness of breath, Wheezing CARDIAC: Positive for palpitations; Negative history of chest pain on exertion, dyspnea on exertion, orthopnea, paroxysmal nocturnal dyspnea, lower extremity edema, presyncope, syncope PHYSICAL EXAMINATION: BP 128/86 Pulse 88 Resp 16 Ht 5' 3.5 (1.61m) Wt 184 lb (83.5kg) SpO2 94% LMP 07/03/2022 BMI 32.08 kg/(m2). GENERAL: Anxious appearing, in no acute distress. LUNGS: Intermittent wheezing noted HEART: Regular rate and rhythm; normal S1/S2; no murmurs, gallops, or rubs EXTREMETIES: No peripheral edema. NEURO: Grossly nonfocal CARDIAC TESTING: EKG: EKG, 04/22/2025: Normal sinus rhythm. Zdfjd-Sptjschgf-Kjnau (delta waves noted in lateral leads) Event monitor, 01/08-01/16/2024: Sinus rhythm with heart rates ranging from 47 to 159 bpm w (more content not included)...[facility]09-30-2025 NotePatient Outreach (AGFAMPLE) SONYA ROSAS ([id number]) 1 F Date Time Provider Department 04/22/25 YANETH CAMARENA During your visit today, we recorded the following information about you: Lo Romero LPN 04/22/2025 1:17 PM Signed ED Follow-Up Note Provider Action / FYI: Pt states that she has cough, chest pain, shoulder pain. Pt states that she is going to go to [facility] for evaluation. Pt seen Cardiology today 04/22/2025. Lo Romero LPN Call completed by: KUNAL Patient seen in ED: Out of Network ED Contact made with Patient: Yes The patient was identified by Name and Date of . Discussed Care with: patient Patient was seen in the Emergency Department (ED) Location: [facility] Date: 04/19/2025 Reason for ED Visit: Rapid palpitations, Frequent PVC's ED Intervention: EKG Labs New Medications: None Medication Changes: None Does patient understand medication changes: N/A Can patient afford medication changes: N/A Patient educated on worsening symptoms and when and where to seek additional care: No Patient Education Provided including treatment plan and new orders. Patient provided with appropriate counseling: Yes Allergies As of Date: 04/22/2025 Noted Allergy Reaction PENICILLINS 07/15/2022 5 - Intolerance Date Reviewed: 04/22/2025 Reviewed by: Gaby Russell MA - Fully Assessed Reason for Visit: ED Follow-up [821] Cmt: [facility] 04/19/2025 Prescriptions as of 04/22/2025 - benzonatate (TESSALON PERLE) 100 mg capsule Take 1 capsule by mouth three times a day as needed. - ondansetron (ZOFRAN) 4 mg tablet Take [...] as needed. Problem List As Of Date 04/22/2025 Noted Resolved Palpitations [R00.2] 01/09/2024 Obesity, Class I, BMI 30-34.9 [E66.811] 11/13/2024 Tachycardia [R00.0] Upliu-Lmijmsepi-Vneyc (WPW) pattern [I45.6] Pre-syncope [R55] 04/17/2025 Abnormal vaginal bleeding [N93.9] 04/17/2025 Encounter Status:Closed by LO ROMERO on 04/22/25[facility] 04-21-2025 NoteHNO ID: [id number] Author: CASSIA MASSEY PA Service: ? Author Type: Physician Skinner Pelts Type: Progress Notes Filed: 04/21/2025 12:47 Note Text: URGENT CARE DEISY Agustin Rosas is a 25 year old female. Patient presents with: Cough: Sob, chest congestion, chest/shoulder pain x 2 days HPI The patient is a 25-year-old female presenting with acute dyspnea, right-sided chest pain, and cough. Dyspnea and Right-Sided Chest Pain: - Onset of dyspnea and right-sided chest pain a few weeks ago. This AM breathing worse and sounds hoarse. - Took inhaler with no relief. - Describes chest pain as feeling full of ice on the right side. - Similar symptoms of right shoulder and chest pain x2-3 weeks. Saw PCP. Had CXR 4 days ago, normal. - Rxed medrol dose pack, didn't take it. - Seen in ER 2 days ago for this pain, had work up for PE - negative per patient, also had repeat CXR- negative . - Denies history of blood clots. - Currently on oral contraceptive pills. Cough: - Persistent cough x2-3 weeks. - Recent ER visit for chest pain; no blood clots found on imaging or blood tests per patient. Review of Systems Constitutional: (-) fever Cardiovascular: (+) right-sided chest pain Respiratory: (+) shortness of breath, (+) cough Musculoskeletal: (+) right shoulder pain Objective BP 122/80 Pulse 80 Temp 36.7 ?C (98.1 ?F) Resp 18 Wt 85.5 kg (188 lb 7.9 oz) LMP 07/03/2022 (Within Days) SpO2 97% BMI 32.87 kg/m? Physical Exam General: Not in acute distress, normal appearance, well-developed, not toxic-appearing HEENT - Eyes: Conjunctivae normal - Ears: Right ear: Tympanic membrane normal, ear canal normal; Left ear: Tympanic membrane normal, ear canal normal - Nose/Sinuses: Nose normal - Oropharynx: Mucous membranes moist, oropharynx clear, uvula midline Cardiovascular - Rate/Rhythm: Normal rate and regular rhythm - Heart Sounds: Normal heart sounds Pulmonary - Lung Sounds: Clear to auscultation bilaterally, no wheezing, no rales - Respiratory Effort: Pulmonary effort normal Neurologic - Mental Status: Alert Skin: Skin warm and dry Lymphatic - Cervical: No cervical adenopathy { 1. Acute cough (R05.1) - Persistent cough, right-sided chest pain, and dyspnea for 2-3 weeks; prior normal chest X-rayx 2 - last one 2 days ago in ER per patient normal. and negative workup for pulmonary embolism in the ED two days ago. - Lungs clear to auscultation, no wheezing or crackles; oxygen saturation within normal limits. - Start Medrol Dosepak as previously prescribed by primary care provider to address suspected inflammation - Prescribe cough suppressant. - Advised to return to ED if chest pain or dyspnea worsens, or if fever develops. - Follow-up with primary care provider for ER follow-up and further evaluation Recording using Sportistic software for draft documentation of the visit was discussed with the patient/authorized physician representative; all questions welcomed and answered. Patient/authorized physician representative agreed to proceed History and Record Review External record(s) reviewed: prior outpatient record and prior labs/imaging. Findings from review of outpatient records: Seen 4 days ago by PCP had chest x-ray that was negative. Prescribed Medrol Dosepak which she has not take Differential Diagnoses - Acute cough-suspect bronchitis/possible pleurisy with right-sided chest pain is more likely for the following reason(s): suggested by HANDP - ACS is less likely for the following reason(s): Symptoms x 2 weeks, right-sided chest pain, nonexertional, worsened with coughing wheezing, HANDP not suggestive - PE is less likely for the following reason(s): Had negative workup in the ER 2 days ago - Pneumonia is less likely for the following reason(s): Had negative chest x-ray x 2, no evidence on imaging Disposition The patient was discharged. Transfer to ED was considered. Reason for not transferring: Patient reports being in the ER 2 days ago with negative workup for PE. Symptoms unchanged. Vitals normal today. The following prescription medication(s) were considered but ultimately not given after discussion with patient/family: antibiotic Reasons for not prescribing include the following: HANDP/workup not suggestive of bacterial process. [facility] Diagnostic study note [facility] Imaging Services [address] [place] [address] Chest 1 View (Portable) MR#: [id number] Acct: [id number] Name: SONYA ROSAS Rep #: [id number] : 2000 F 24 From: Charlie Mcknight MD PCP: MARLEE Morrell Status: DEP E R Study:Chest 1 View (Portable) Date of Exam: 04/19/25 Exam# [id number] Ordering Dr: Stiven Finch MD PROCEDURE: CHEST 1 VIEW (PORTABLE) 2025 REASON FOR EXAM: CHEST PAIN TECHNIQUE: Frontal view of the chest. COMPARISON: 12/05/2023. FINDINGS: The lungs are expanded. There is no demonstrated parenchymal abnormality. There is no demonstrated pleural abnormality. Normal heart and pericardium. Normal mediastinum and isidra. Normal visualized pulmonary arteries. Normal visualized aortic arch and descending thoracic aorta. Normal visualized thoracic spine. Normal visualized ribs, clavicles, and shoulders. There is no demonstrated abnormality of the visualized soft tissue structures ofthe upper abdomen. RAD/Chest 1 View (Portable) IMPRESSION: No evidence for acute abnormality. Reading Location: [place] [address] CC: APARTMENT MAINTENANCE SUPERVISORYogi Camarena; Dr. Burke Finch MD ~ Boat Hoist Operator: Signed [facility]09-28-2025 Discharge summary [facility] Medical Records Department [address] [place] [id number] Emergency Department Summary 04/19/25 MR#: [id number] Acct: [id number] Name: SONYA ROSAS Rep #:[id number] : 2000 24 From: Burke Finch MD PCP: MARLEE Morrell Status:REG E R Location: ED HPI History of Present Illness Chief Complaint: Chest Pain Informant: patient and spouse/S.O. 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 - Reports onset of symptoms tonight, including palpitations with HR >200 bpm, similar to pre-ablation SVT episodes. - Underwent ablation for WPW 4-5 years ago; has experienced similar episodes since. - Associated symptoms include left-sided neck pain and dyspnea. - Took metoprolol, which reduced HR but did not alleviate the sensation of skipping and holdingbeats. - Has had previous episodes of pain with SVT, but tonight was concerned about persistence of the pressure, albeit much improved, after resolution of the palpitations/tachycardia. - Consumed alcohol prior to symptom onset; attributes this as a potential trigger. - Reports left calf pain described as cramping, rated 4/10, for approximately 3 wks; denies swelling. - No known history of blood clots. Takes no anticoagulants. - Currently taking metoprolol tartrate, an inhaler, and progesterone-only control. - Smokes daily for about 10 years. - Follow-up with bicycle messenger scheduled for Monday at [facility] Medical History Alcohol abuse Cigarette smoker Marijuana smoker WPW (Atrmw-Sjhwwsdns-Rppqp syndrome) Home Medications ?Medication ?Instructions ?Recorded ?Last Taken ?Type metoprolol succinate 25 mg 25 mg PO PRN 04/13/25 Unkno wn History tablet,extended release 24 hr albuterol sulfate 90 mcg/actuation 2 puff inhalation Q 4H PRN PRN 04/19/25 Unknown History aerosol inhaler wheezing norethindrone (contraceptive) 0.35 0.35 mg PO DAILY Unknown History mg tablet Allergy/AdvReac Type Severity Reaction Status Date / Time Penicillins Allergy Severe Hives Verified 04/13/25 00:04 Surgical History Hx of heart surgery Social History Smoking Status: Current every day smoker tobacco type: cigarettes ROS ROS ED Constitutional Constitutional ED: Denies chills or fever(s) Eyes Eyes: Denies change in vision or diplopia ENT ENT ED: Denies rhinorrhea or sore throat Cardiovascular Cardiovascular: Reports as per HPI, chest pain, palpitations and racing heartbeat Respiratory/Chest Respiratory/Chest: Reports dyspnea; Denies cough Gastrointestinal Gastrointestinal: Denies abdominal pain, diarrhea, nausea or vomiting Genitourinary Genitourinary ED: Denies dysuria or hematuria Musculoskeletal Musculoskeletal: Reports other Details: (+) left calf pain/cramping x 3 wks, no swelling ; Denies back pain or neck pain Integumentary Denies abscess or rash Neurologic Neurologic: Denies headache(s), paresthesias or weakness Psychiatric Psychiatric: Denies suicidal thoughts EXAM Physical Exam Const Vital Signs: 04/19/25 23:32 04/19/25 23:34 04/19/25 23:47 Temperature 98.3 F Temperature Source Oral Pulse Rate 113 H Respiratory Rate 18 Respiratory Effort Normal Non-Labored Blood Pressure 133/74 H Blood Pressure Mean 93 Pulse Ox 99 98 Oxygen Delivery Method Room Air Room Air 04/20/25 00:31 04/20/25 01:00 Temperature Temperature Source Pulse Rate 86 85 Respiratory Rate 21 H 14 Respiratory Effort Blood Pressure 113/81 H Blood Pressure Mean 91 Pulse Ox 93 97 Oxygen Delivery Method Room Air Room Air Positive well nourished and well developed General Appearance ED: well developed and NAD HEENT Reports moist mucous membranes normocephalic and atraumatic Eyes PERRL and EOMs intact bilaterally Neck full ROM and supple Resp normal respiratory effort and clear to auscultation bilaterally Cardio regular rate, regular rhythm and no murmurs Rate: other Other Details: occ irregularity, coinciding with PVCs on monitor GI non-tender and non-distended Auscultation: normoactive bowel sounds Palpation: soft Back/Spine no CVA tenderness General Back: other FROM Extremity normal to inspection General Extremety ED: Negative for edema, pulses abnormal or tenderness General Extremity: Negative for edema or pulses abnormal Neuro oriented x3, CN's II-XII intact bilaterally and no sensory deficits noted Sensorium / Orientation: awake and alert Motor Exam: strength 5/5 throughout Psych Psych Narrative: Pleasantly intoxicated, cooperative Skin no rashes or lesions noted and no wounds Heart Score History: Slightly/Non-Suspicious ECG: Nonspecific Repolarization Age: Risk Factors: 1 or 2 Risk Factors Score: 2 MDM MDM MDM Narrative Medical decision making narrative: Patient placed on the monitor and obtain EKG, she does not appear to be in a dysrhythmia right now,she is in sinus rhythm with frequent PVCs, she is not feeling those right now but probably was earlier. My suspicion is that her discomfort will resolve with time/observation and is more likely due to the dysrhythmia, rather than a vascular etiology that is causing the dysrhythmia. Also given her left leg cramping in the calf and presence of smoking and oral contraceptive pill, and unilateral aspect of the discomfort in her chest which is nonpleuritic and less likely to be PE, obtain a D-dimer to evaluate for that possibility as well. That came back negative ruling out PE as well as left calfD VT. Also her troponin is less than 6, she has had symptoms for several hours, I do not think that needs to be repeated as with observation her chest discomfort completely resolved and the rest of herlabs are normal, 1 view chestx-ray my interpretation is normal as well. Vital signs are normal withno further dysrhythmias on telemetry and her ectopy resolved. I agree with the patient that this was probably related to the alcohol tonight. At this time uncomfortable letting her go home she has anappointment with cardiology scheduled to follow-up with and she is comfortable with that plan. Lab Data Attestation: I reviewed the patient's lab results. Labs: Laboratory Results - last 24 hr 04/19/25 Unknown WBC 9.6 RBC 4.83 Hgb 14.8 Hct 42.0 MCV 87.0 MCH 30.6 MCHC 35.2 RDW Std Deviation 37.9 RDW Coeff of Yudy 11.9 Plt Count 282 MPV 9.4 Immature Gran % (Auto) 1.300 H Neut % (Auto) 55.7 Lymph % (Auto) 28.9 Wythe % (Auto) 9.7 Eos % (Auto) 3.7 Baso % (Auto) 0.7 Absolute Neuts (auto) 5.3 Absolute Lymphs (auto) 2.76 Nucleated RBC % 0 D-Dimer Quant (PE/DVT) 0.27 Sodium 136 Potassium 3.7 Chloride 100 Carbon Dioxide 19.3 L Anion Gap 17 H BUN 5 Creatinine 0.82 Estim Creat Clear Calc 109.60 Est GFR (MDRD) Non-Af 101 BUN/Creatinine Ratio 5.6 L Glucose 89 Calcium 9.2 Troponin T High Sens < 6 Rhythm Strip Rhythm Strip: Sinus Tach Rate: 109 Ectopy: PVC(s) EKG Initial EKG: Attestation: I personally reviewed and interpreted this EKG as follows: Interpretation: No Acute Injury Pattern and Sinus Tachycardia Comments: Frequent PVCs. Nonspecific T wave flattening lateral precordialleads Prior EKG tracings: available for review Prior: Changed Discharge Plan Triage Chief Complaint: Chest Pain ED Provider: Burke Finch Dx/Rx/DC Orders Clinical Impression: Rapid palpitations, Frequent PVCs, History of Jqtwr-Hzpmhhvar-Pxwrq syndrome, Alcohol intoxication,Chest pain, unspecified, Pain of left calf Instructions: ED Heart Palpitations Prescriptions: No Action metoprolol succinate 25 mg tablet extended release 24 hr 25 mg PO PRN albuterol sulfate 90 mcg/actuation HFA aerosol inhaler 2 puff inhalation Q4H PRN PRN (Reason: wheezing) norethindrone (contraceptive) 0.35 mg tablet 0.35 mg PO DAILY Primary Care Provider: Yaneth Camarena NP Referrals: bicycle messenger [Other] - Keep Basia appointment Yaneth Camarena APARTMENT MAINTENANCE SUPERVISOR, APARTMENT MAINTENANCE SUPERVISOR-C [Primary Care Provider, Family Practice] Activity Restrictions/Additional Instructions: Avoid alcohol until you see cardiology. Print Language: Maldivian Disposition Disposition: Home, Self Care What to do if you have Problems For any increased pain, shortness of breath, bleeding, nausea or vomiting, chestpain, or any unexpected problems, contact your Primary Care Provider. Call [facility] ([phone]) or report tothe closest Emergency Room. Call 911 if necessary. 04/20/25 0149 Cosigner Signature (if applicable): CC: APARTMENT MAINTENANCE SUPERVISOR-C Yaneth Camarena ~ Signed [facility]09-27-2025 Discharge summary Author Burke Finch [facility] Note Date/Time 2025 1:49am [facility] Medical Records Department [address] [place] [address] Emergency Department Summary 04/19/25 MR#: [id number] Acct: [id number] Name: SONYA ROSAS Rep #:[id number] : 2000 24 From: Burke Finch MD PCP: MARLEE Morrell Status:REG E R Location: ED HPI History of Present Illness Chief Complaint: Chest Pain Informant: patient and spouse/S.O. 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 - Reports onset of symptoms tonight, including palpitations with HR >200 bpm, similar to pre-ablation SVT episodes. - Underwent ablation for WPW 4-5 years ago; has experienced similar episodes since. - Associated symptoms include left-sided neck pain and dyspnea. - Took metoprolol, which reduced HR but did not alleviate the sensation of skipping and holding beats. - Has had previous episodes of pain with SVT, but tonight was concerned about persistence of the pressure, albeit much improved, after resolution of the palpitations/tachycardia. - Consumed alcohol prior to symptom onset; attributes this as a potential trigger. - Reports left calf pain described as cramping, rated 4/10, for approximately 3 wks; denies swelling. - No known history of blood clots. Takes no anticoagulants. - Currently taking metoprolol tartrate, an inhaler, and progesterone-only control. - Smokes daily for about 10 years. - Follow-up with bicycle messenger scheduled for Monday at [facility] Medical History Alcohol abuse Cigarette smoker Marijuana smoker WPW (Vocvt-Cxqodjzjz-Pcwwe syndrome) Home Medications ?Medication ?Instructions ?Recorded ?Last Taken ?Type metoprolol succinate 25 mg 25 mg PO PRN 04/13/25 Unkno wn History tablet,extended release 24 hr albuterol sulfate 90 mcg/actuation 2 puff inhalation Q 4H PRN PRN 04/19/25 Unknown History aerosol inhaler wheezing norethindrone (contraceptive) 0.35 0.35 mg PO DAILY Unknown History mg tablet Allergy/AdvReac Type Severity Reaction Status Date / Time Penicillins Allergy Severe Hives Verified 04/13/25 00:04 Surgical History Hx of heart surgery Social History Smoking Status: Current every day smoker tobacco type: cigarettes ROS ROS ED Constitutional Constitutional ED: Denies chills or fever(s) Eyes Eyes: Denies change in vision or diplopia ENT ENT ED: Denies rhinorrhea or sore throat Cardiovascular Cardiovascular: Reports as per HPI, chest pain, palpitations and racing heartbeat Respiratory/Chest Respiratory/Chest: Reports dyspnea; Denies cough Gastrointestinal Gastrointestinal: Denies abdominal pain, diarrhea, nausea or vomiting Genitourinary Genitourinary ED: Denies dysuria or hematuria Musculoskeletal Musculoskeletal: Reports other Details: (+) left calf pain/cramping x 3 wks, no swelling ; Denies back pain or neck pain Integumentary Denies abscess or rash Neurologic Neurologic: Denies headache(s), paresthesias or weakness Psychiatric Psychiatric: Denies suicidal thoughts EXAM Physical Exam Const Vital Signs: 04/19/25 23:32 04/19/25 23:34 04/19/25 23:47 Temperature 98.3 F Temperature Source Oral Pulse Rate 113 H Respiratory Rate 18 Respiratory Effort Normal Non-Labored Blood Pressure 133/74 H Blood Pressure Mean 93 Pulse Ox 99 98 Oxygen Delivery Method Room Air Room Air 04/20/25 00:31 04/20/25 01:00 Temperature Temperature Source Pulse Rate 86 85 Respiratory Rate 21 H 14 Respiratory Effort Blood Pressure 113/81 H Blood Pressure Mean 91 Pulse Ox 93 97 Oxygen Delivery Method Room Air Room Air Positive well nourished and well developed General Appearance ED: well developed and NAD HEENT Reports moist mucous membranes normocephalic and atraumatic Eyes PERRL and EOMs intact bilaterally Neck full ROM and supple Resp normal respiratory effort and clear to auscultation bilaterally Cardio regular rate, regular rhythm and no murmurs Rate: other Other Details: occ irregularity, coinciding with PVCs on monitor GI non-tender and non-distended Auscultation: normoactive bowel sounds Palpation: soft Back/Spine no CVA tenderness General Back: other FROM Extremity normal to inspection General Extremety ED: Negative for edema, pulses abnormal or tenderness General Extremity: Negative for edema or pulses abnormal Neuro oriented x3, CN's II-XII intact bilaterally and no sensory deficits noted Sensorium / Orientation: awake and alert Motor Exam: strength 5/5 throughout Psych Psych Narrative: Pleasantly intoxicated, cooperative Skin no rashes or lesions noted and no wounds Heart Score History: Slightly/Non-Suspicious ECG: Nonspecific Repolarization Age: </= 45 years Risk Factors: 1 or 2 Risk Factors Score: 2 MDM MDM MDM Narrative Medical decision making narrative: Patient placed on the monitor and obtain EKG, she does not appear to be in a dysrhythmia right now, she is in sinus rhythm with frequent PVCs, she is not feeling those right now but probably was earlier. My suspicion is that her discomfort will resolve with time/observation and is more likely due to the dysrhythmia, rather than a vascular etiology that is causing the dysrhythmia. Also given her left leg cramping in the calf and presence of smoking and oral contraceptive pill, and unilateral aspect of the discomfort in her chest which is nonpleuritic and less likely to be PE, obtain a D-dimer to evaluate for that possibility as well. That came back negative ruling out PE as well as left calfDVT. Also her troponin is less than 6, she has had symptoms for several hours, I do not think that needs to be repeated as with observation her chest discomfort completely resolved and the rest of her labs are normal, 1 view chestx-ray my interpretation is normal as well. Vital signs are normal with no further dysrhythmias on telemetry and her ectopy resolved. I agree with the patient that this was probably related to the alcohol tonight. At this time uncomfortable letting her go home she has an appointment with cardiology scheduled to follow-up with and she is comfortable with that plan. Lab Data Attestation: I reviewed the patient's lab results. Labs: Laboratory Results - last 24 hr 04/19/25 Unknown WBC 9.6 RBC 4.83 Hgb 14.8 Hct 42.0 MCV 87.0 MCH 30.6 MCHC 35.2 RDW Std Deviation 37.9 RDW Coeff of Yudy 11.9 Plt Count 282 MPV 9.4 Immature Gran % (Auto) 1.300 H Neut % (Auto) 55.7 Lymph % (Auto) 28.9 Wythe % (Auto) 9.7 Eos % (Auto) 3.7 Baso % (Auto) 0.7 Absolute Neuts (auto) 5.3 Absolute Lymphs (auto) 2.76 Nucleated RBC % 0 D-Dimer Quant (PE/DVT) 0.27 Sodium 136 Potassium 3.7 Chloride 100 Carbon Dioxide 19.3 L Anion Gap 17 H BUN 5 Creatinine 0.82 Estim Creat Clear Calc 109.60 Est GFR (MDRD) Non-Af 101 BUN/Creatinine Ratio 5.6 L Glucose 89 Calcium 9.2 Troponin T High Sens < 6 Rhythm Strip Rhythm Strip: Sinus Tach Rate: 109 Ectopy: PVC(s) EKG Initial EKG: Attestation: I personally reviewed and interpreted this EKG as follows: Interpretation: No Acute Injury Pattern and Sinus Tachycardia Comments: Frequent PVCs. Nonspecific T wave flattening lateral precordialleads Prior EKG tracings: available for review Prior: Changed Discharge Plan Triage Chief Complaint: Chest Pain ED Provider: Burke Finch Dx/Rx/DC Orders Clinical Impression: Rapid palpitations, Frequent PVCs, History of Lraft-Oeiksieig-Emxsi syndrome, Alcohol intoxication, Chest pain, unspecified, Pain of left calf Instructions: ED Heart Palpitations Prescriptions: No Action metoprolol succinate 25 mg tablet extended release 24 hr 25 mg PO PRN albuterol sulfate 90 mcg/actuation HFA aerosol inhaler 2 puff inhalation Q4H PRN PRN (Reason: wheezing) norethindrone (contraceptive) 0.35 mg tablet 0.35 mg PO DAILY Primary Care Provider: Yaneth Camarena NP Referrals: bicycle messenger [Other] - Keep Basia appointment Yaneth Camarena APARTMENT MAINTENANCE SUPERVISOR, APARTMENT MAINTENANCE SUPERVISOR-C [Primary Care Provider, Family Practice] Activity Restrictions/Additional Instructions: Avoid alcohol until you see cardiology. Print Language: Maldivian Disposition Disposition: Home, Self Care What to do if you have Problems For any increased pain, shortness of breath, bleeding, nausea or vomiting, chestpain, or any unexpected problems, contact your Primary Care Provider. Call [facility] ([phone]) or report to the closest Emergency Room. Call 911 if necessary. 04/20/25 0149 <Electronically signed by Burke Finch MD> Cosigner Signature (if applicable): CC: APARTMENT MAINTENANCE SUPERVISOR-C Yaneth Camarena ~ Signed [facility] Work Phone: 1(756) 604-379409-25-2025 NoteHNO ID: [id number] Author: JOSE PANDYA CT Service: ? Author Type: Technologist Type: Progress Notes Filed: 04/17/2025 10:18 Note Text: Radiology Service Progress Note PATIENT NAME: Sonya Rosas DATE OF SERVICE: April 17, 2025 [...] PATIENT PRESENTS WITH AN IMPLANTABLE OR ATTACHED PETS SALESPERSON: No RADIOLOGY DEPARTMENT: General X-ray: Exam(s) Completed: Chest X-Ray PERIPHERAL IV DATA: Not applicable SIGNED BY: CHIARA Nobles April 17, 2025 10:17 [facility]09-25-2025 NoteHNO ID: [id number] Author: YANETH CAMARENA APRN.[employer] SALES ASSOCIATE Service: ? Author Type: Nurse Practitioner Type: Progress Notes Filed: 04/18/2025 13:04 Note Text: CHIEF COMPLAINT: The patient is a 24-year-old female presenting for evaluation of right shoulder pain worsened by deep inspiration, associated with nausea and fatigue. I reviewed past medical, surgical, social, and family histories today and updated chart. Allergies, chronic medications, and supplements were also reviewed. Recording using Sportistic software for draft documentation of the visit was discussed with the patient/authorized physician representative; all questions welcomed and answered. Patient/authorized physician representative agreed to proceed. Right Shoulder Pain: - Sonya Rosas reports pain localized to the right shoulder joint, radiating to the neck. - Aggravated by deep inspiration and diaphragmatic expansion. - Sonya denies pain with normal movement of the shoulder joint. Nausea: - Persistent nausea. - Sonya denies emesis. Fatigue: - Sonya reports extreme lethargy impacting daily activities and lifestyle. - Sonya denies recent alcohol consumption during the week; previously a daily drinker. - Sonya's sleep schedule involves going to bed at 02:00-03:00 and waking up at 11:00. Weight Gain: - Significant weight gain over a short period. - Recent switch to a progesterone-only oral contraceptive after IUD removal. - Dietary changes include reduced carbohydrate intake and increased protein and dark green vegetable consumption. - Sonya denies cravings for sweets over the past two years. - Sonya engages in regular physical activity but reports difficulty losing weight. Family History: - Positive family history of diabetes and lupus. - Sonya's mother suggested checking cortisol levels for weight gain concerns. Additional Concerns: - Sonya reports shiny toenails with a red line. - Sonya denies joint pain in hands and feet but reports hip pain, possibly related to a limb length discrepancy. - Coughing, with worsening symptoms; history of smoking and marijuana use. - Sonya denies fever. PAST MEDICAL HISTORY Diagnosis Date Palpitations Tachycardia Rxlhc-Dxsfnskez-Perhm (WPW) pattern PAST SURGICAL HISTORY Procedure Laterality Date HEART SURGERY 2019 INSERTION OF IUD 02/2020 [facility] SOCIAL HISTORY[1] ALLERGIES Allergen Reactions Penicillins Intolerance [...] wheezing. - Use inhaler as needed. - (more content not included)...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 She denies any history of bleeding disorder or blood thinner use. She states that earlier today she felt like there was something stuck in her right eye. She states that she attempted to get the foreign body sensation out and felt that she was successful. She states she went about the rest of her day and this evening was drinking alcohol. She then began to feel pain in her right eye and reports that the vision was blurry. She states that this concerned her because of her history of WPW and was concerned she may be having a stroke and secondary to this presents to theER for evaluation. [facility] Medical History Alcohol abuse Cigarette smoker Marijuana smoker WPW (Mstfh-Qtupssdij-Runnk syndrome) Home Medications ?Medication ?Instructions ?Recorded ?Last Taken ?Type metoprolol succinate 25 mg 25 mg PO PRN 04/13/25 Unkno wn History tablet,extended release 24 hr progesterone micronized .ROUTE 04/13/25 Unknown Hist ory Allergy/AdvReac Type Severity Reaction Status Date / Time Penicillins Allergy Severe Hives Verified 04/13/25 00:04 Surgical History Hx of heart surgery Social History Smoking Status: Current every day smoker tobacco type: cigarettes ROS ROS ED Constitutional Constitutional ED: Denies chills or fever(s) Eyes Eyes: Reports blurry vision right ENT ENT ED: Denies sore throat Cardiovascular Cardiovascular: Denies chest pain or palpitations Respiratory/Chest Respiratory/Chest: Denies cough or dyspnea Gastrointestinal Gastrointestinal: Denies abdominal pain, diarrhea, nausea or vomiting Musculoskeletal Musculoskeletal: Denies myalgias Integumentary Denies rash Neurologic Neurologic: Denies headache(s) or weakness Hematologic/Lymphatic Hematologic/Lymphatic: Denies easy bleeding or easy bruising EXAM Physical Exam Const Vital Signs: 04/13/25 00:06 04/13/25 00:16 Temperature 98.1 F Temperature Source Oral Pulse Rate 101 H Respiratory Rate 20 H Respiratory Pattern Tachypnea Blood Pressure 149/94 H Blood Pressure Mean 112 Pulse Ox 98 Oxygen Delivery Method Room Air Positive well nourished and well developed General Appearance ED: well developed HEENT HEENT Narrative: Normocephalic atraumatic Eyes PERRL and EOMs intact bilaterally Eyes Narrative: Pupils are slightly dilated and mildly sluggish to respond to light consistent with alcohol use. Extraocular motions are intact bilaterally. There is bilateral scleral injection which can be related to alcohol use as well as the fact patient has been crying. No purulent discharge noted Funduscopic exam reveals normal macula and optic disc. No pallor noted. No blood and thunder appearance. No obvious retained foreign body No hyphema noted. No obvious corneal ulcer present. Neck supple Resp normal respiratory effort and clear to auscultation bilaterally Cardio regular rate and regular rhythm Extremity normal to inspection Neuro oriented x3, CN's II-XII intact bilaterally and moves all extremities Neuro Narrative: GCS of 15 Cranial nerves II through XII are grossly intact without focal neurologic deficit No pronator drift no dysmetria no truncal ataxia No hemianopsia/vision loss noted NIH stroke scale score of 0 Sensorium / Orientation: alert Motor Exam: strength 5/5 throughout Psych Mood & Affect: anxious and tearful Skin no rashes or lesions noted and no wounds Lesions: no lesions Rashes: no rashes MDM MDM MDM Narrative Medical decision making narrative: Patient arrived to the ER hypertensive but is extremely anxious and tearful. She reported right eyepain with blurry vision out of the right eye. She is adamant that the vision is simply blurry andthat there is not loss of vision. She states that there are no scintillations/flashing light sensation. No blackness or vision change such as a shade being pulled down. She also reportedthat earlier in the day she thought there was something in her right eye which could correlate with a corneal abrasion. I discussed with the patient that concern for retinal artery or vein occlusion is extremely low as there is no pale macular optic disc or blood and thunder appearance. Also as she does not describe scintillations or a shade being pulled down causing vision loss I have low concern for retinal detachment. Also as the vision is blurry but not lost concern for a acute CVA is low. I discussed with the patient we can perform a more detailed exam with fluorescein staining and a slit-lamp to lookfor cornealabrasion and/or retained foreign body. We also can perform a CTA of the head toassess for potential acute stroke symptoms. The patient states that as I have low concern that her vision changes are due to an acute stroke or retinal issue that she does not want to undergo any type of testing in the ER such as CTA or even a simple fluorescein stain. Therefore at this time as the patient do es notwant further testing or workup regarding her blurry vision and her history and exam would indicate that this is most likely changes to the cornea/corneal abrasion as she reported a foreign bodysensation earlier in the day I will allow her to be discharged as requested and she can follow-up with ophthalmologyfor more detailed eye examination if symptoms persist History & Record Review Discussion w/independent historian: Patient and Family Discharge Plan Triage Chief Complaint: Eye Problem ED Provider: Checo Dwyer Dx/Rx/DC Orders Clinical Impression: Blurred vision, right eye, Alcohol intoxication, History of Hwyty-Pimwyvfgj-Pgosk syndrome Instructions: ED Blurred Vision, ED Corneal Abrasion Prescriptions: No Action metoprolol succinate 25 mg tablet extended release 24 hr 25 mg PO PRN progesterone micronized .ROUTE Primary Care Provider: Yaneth Camarena NP Referrals: Nimisha Laguerre MD [Med Staff - Active Staff, Opthamology] Yaneth Camarena APARTMENT MAINTENANCE SUPERVISOR, APARTMENT MAINTENANCE SUPERVISOR-C [Primary Care Provider, Family Practice] Activity Restrictions/Additional Instructions: Your history and exam would indicate that the vision blurriness is most likely from a corneal abrasion. This should heal over the next few days. If you have complete loss of vision or develop blackness or see the scintillation/flashing lights or have any further concerns please return to the ER forrepeat evaluation. Otherwise recommend following up with ophthalmology for more detailedeye exam Print Language: Maldivian Disposition Disposition: Home, Self Care Discharge Date/Time: 04/13/25 00:52 What to do if you have Problems For any increased pain, shortness of breath, bleeding, nausea or vomiting, chestpain, or any unexpected problems, contact your Primary Care Provider. Call [facility] ([phone]) or report tothe closest Emergency Room. Call 911 if necessary. 04/13/25 0210 Cosigner Signature (if applicable): CC: APARTMENT MAINTENANCE SUPERVISOR-C Yaneth Camarena ~ Signed [facility]09-09-2025 NoteHNO ID: [id number] Author: ERIN SANCHEZ MD Service: ? Author Type: Physician Type: Progress Notes Filed: 04/01/2025 10:16 Note Text: Retail Marketing Specialist offered: Patient declines. Sonya presents for removal of IUD due to [...] well. Contraception plans: oral contraceptives Erin Sanchez [facility]09-09-2025 History of Present illness Narrative* Erin Sanchez MD - 04/01/2025 9:55 AM EDT Retail Marketing Specialist offered: Patient declines. Sonya presents for removal of IUD due to [...] procedure match the source document(s) (e.g. consent, H&P, associated studies [imaging, pathology]) match the intended [...] Contraception plans: oral contraceptives Erin Sanchez MD documented in this encounterUniversity Hospitals Health System04-22-2025 NoteHNO ID: [id number] Author: YANETH CAMARENA APRN.[facility] Service: ? Author Type: Nurse Practitioner Type: Progress Notes Filed: 11/13/2024 18:59 Note Text: [place] [address] Visit Date: 11/12/2024 Patient Name: Sonya Roass Date of : 2000 Chief Complaint: ER Follow Up Sonya is a 24-year-old female with a history of Crcny-Qprkjfmqy-Lgttu syndrome, presenting for follow-up after a recent ED visit for palpitations. Emergency Room Location: [facility] ED Visits AND Hospitalizations - Last 180 days None HPI: Ihlzr-Jkjzficxm-Weuur Syndrome: - Recent ED visit in September for palpitations. - History of ablation performed by an seed collector in [place]. - Last cardiology visit was in December of the previous year, during which a Holter monitor was used. - Holter monitor results showed normal sinus rhythm with occasional episodes of tachycardia, including a 3-beat run at midnight with a heart rate of 46 bpm. - No evidence of AFib, AFlutter, or Hzwce-Bvbytfnzh-Vyodk syndrome on the Holter monitor. - Experiences [...] manage nausea associated with anxiety. Previous OV Sonya Rosas is a 23 year old female [...] recently laid off from her job Completed cardiac monitor technician patch on 01/22/24- awaiting results Echo completed and was normal She is feeling better but still fatigued Has Kyleena IUD, placed in 2019 Hasn't made appointment with RESEARCH AND DEVELOPMENT TESTER yet Hasn't had a Pap and has been having bleeding after intercourse She would like to see a crop quantitative geneticist for some skin spots that she wants checked out OV 12/26/23: All grandparents and dad have HTN Was seen in urgent care Fatigued Fainted the morning of the 12/05/23- BP 163/115 Went to [facility] on 12/05/23 Didn't give her any medication in the ER Had a EKG and CXR Labs were normal Home BP- 140/90 Sometimes higher and sometimes lower Uses a wrist cuff Smokes 7 cigarettes a day now Alcohol 1-2 drinks daily 1 cup of coffee once a week Works at a [employer] Drinks a lot of water No recent [...] kg/(m2). PAST MEDICAL HISTORY Diagnosis Date Tachycardia Gkved-Wqqruvyvy-Ieiqo (WPW) pattern PAST SURGICAL HISTORY Procedure Laterality Date HEART SURGERY HX 2019 INSERTION OF IUD 02/2020 chrissie FAMILY HISTORY Problem Relation Age of Onset [...] complaint, medications, past medical, family and social his (more content not included)...[facility]04-07-2025 Telephone encounter Note* Telephone Encounter - Ayana French MA - 10/28/2024 4:09 PM EDT Patient requesting refills as follows: Last Office Visit 01/26/24 11/12/24. Last Refill 02/05/24. Requested Prescriptions Pending Prescriptions Disp Refills metoprolol tartrate, short acting, (LOPRESSOR) 25 mg tablet 60 tablet 0 Sig: Take 1 tablet by mouth two times a day as needed. Please review and advise. Ayana French MA [facility]04-07-2025 Miscellaneous Notes* Telephone Encounter - Ayana French MA - 10/28/2024 4:09 PM EDT Patient requesting refills as follows: Last Office Visit 01/26/24 11/12/24. Last Refill 02/05/24. Requested Prescriptions Pending Prescriptions Disp Refills metoprolol tartrate, short acting, (LOPRESSOR) 25 mg tablet 60 tablet 0 Sig: Take 1 tablet by mouth two times a day as needed. Please review and advise. Ayana French MA documented in this encounterUniversity Hospitals Health System04-03-2025 Telephone encounter Note * Telephone Encounter - Erwin Newman - 10/24/2024 3:50 PM EDT No Show Documentation Sonya Rosas no showed for an appointment on 10-24-24 with Yaneth Camarena APRN.TEAM SPORTS SALES ASSOCIATE at 3:20 PM. She was scheduled for an ER follow up. I called and was unable to reach anyone left a voicemail to call and reschedule. Resources discussed/offered to patient: na No show determined to be fault of patient: Yes This is the patients first no show in the last 12 months. Patient was rescheduled for na. Letter sent through Myze: Yes Is this the Third or Fourth No Show? No Erwin Newman October 24, 2024 3:51 PM [facility]04-03-2025 Miscellaneous Notes* Telephone Encounter - Erwin Newman - 10/24/2024 3:50 PM EDT No Show Documentation Sonya Rosas no showed for an appointment on 10-24-24 with Yaneth Camarena APRN.CNP at 3:20 PM. She was scheduled for an ER follow up. I called and was unable to reach anyone left a voicemail to call and reschedule. Resources discussed/offered to patient: na No show determined to be fault of patient: Yes This is the patients first no show in the last 12 months. Patient was rescheduled for na. Letter sent through Myze: Yes Is this the Third or Fourth No Show? No Erwin Newman October 24, 2024 3:51 PM documented in this encounterUniversity Hospitals Health System03-31-2025 NoteHNO ID: [id number] Author: SARA WATTS MA Service: ? Author Type: Physician Type: Progress Notes Filed: 10/21/2024 10:16 Note Text: Retail Marketing Specialist offered: Patient accepts, visit chaperoned by Sara Watts MA. Sonya is a 24 year old who presents for an annual gynecologic exam without complaints. Has had Kyleena placed when she was 20. Hasn't had a visit w/ automobile bumper straightener since. Little spotting after intercourse. Age at [...] discussed with the Patient or Patient's Authorized Hospital Coder. As applicable, any other physician, advance practice provider, medical student, or other health professional student that will be observing or involved in the sensitive examination for educational or training purposes was discussed with the Patient or Authorized Hospital Coder. The Patient or Authorized Hospital Coder has agreed to proceed with the sensitive [...] external genitalia normal, normal Bartholin's glands, urethra, Aberdeen's glands, no vulvar lesions, no cervical lesions, [...] year or sooner as needed Lynette Salgado [facility]03-31-2025 History of Present illness Narrative* Lynette Salgado MD - 10/21/2024 9:46 AM EDT Retail Marketing Specialist offered: Patient accepts, visit chaperoned by Sara Watts MA. Sonya is a 24 year old who presents for an annual gynecologic exam without complaints. Has had Kyleena placed when she was 20. Hasn't had a visit w/ automobile bumper straightener since. Little spotting after intercourse. Age at [...] discussed with the Patient or Patient's Authorized Hospital Coder. As applicable, any other physician, advance practice provider, medical student, or other health professional student that will be observing or involved in the sensitive examination for educational or training purposes was discussed with the Patient or Authorized Hospital Coder. The Patient or Authorized Hospital Coder has agreed to proceed with the sensitive examination. (Sensitive examination includes inspection and/or palpation of the breasts, pelvis, prostate and anorectal regions). EXAM: BP 124/86 Ht 5' 3.5 (1.61m) Wt 177 lb (80.3kg) LMP 07/03/2022 BMI 30.86 kg/(m^2). GENERAL: pleasant, female in no apparent distress [...] external genitalia normal, normal Bartholin's glands, urethra, Aberdeen's glands, no vulvar lesions, no cervical lesions, [...] or sooner as needed Lynette Salgado MD documented in this encounterUniversity Hospitals Health System03-14-2025 NoteHNO ID: [id number] Author: WENDIE PARDO MA Service: ? Author Type: Machine Filler Type: Progress Notes Filed: 10/04/2024 13:34 Note Text: Patient notified. Wendie Pardo MA ][facility]03-14-2025 NoteHNO ID: [id number] Author: YARELIS POSADAS APRN.[facility] Service: ? Author Type: Nurse Practitioner Type: Progress Notes Filed: 10/04/2024 12:49 Note Text: She will need to see a bicycle messenger first - see referral Yarelis oPsadas APRN.[facility]03-13-2025 NoteHNO ID: [id number] Author: LO ROMERO LPN Service: ? Author Type: LICENSED NURSE Type: Progress Notes Filed: 10/03/2024 14:47 Note Text: ED Follow-Up Note Provider Action / FYI: Pt asking for referral to Electrophysiology for her palpitations and tachycardia. Pt is scheduled for ER follow up on 10/24/2024 with Yaenth Camarena. Lo Romero LPN Call completed by: KUNAL Patient seen in ED: In Network ED Contact made with Patient: Yes The patient was identified by Name and Date of . Discussed Care with: patient Patient was seen in the Emergency Department (ED) Location: [facility] Date: 10/02/2024 Reason for ED Visit: Sinus Tachycardia, anxiety reaction ED Intervention: Labs, EKG New Medications: None Medication Changes: None Does patient understand medication changes: N/A Can patient afford medication changes: N/A Patient educated on worsening symptoms and when and where to seek additional care: No Patient Education Provided including treatment plan and new orders. Patient provided with appropriate counseling: [facility]03-13-2025 History of Present illness Narrative* Lo Romero LPN - 10/03/2024 2:38 PM EDT ED Follow-Up Note Provider Action / FYI: Pt asking for referral to Electrophysiology for her palpitations and tachycardia. Pt is scheduled for ER follow up on 10/24/2024 with Yaneth Camarena. Lo Romero LPN Call completed by: KUNAL Patient seen in ED: In Network ED Contact made with Patient: Yes The patient was identified by Name and Date of . Discussed Care with: patient Patient was seen in the Emergency Department (ED) Location: [facility] Date: 10/02/2024 Reason for ED Visit: Sinus Tachycardia, anxiety reaction ED Intervention: Labs, EKG New Medications: None Medication Changes: None Does patient understand medication changes: N/A Can patient afford medication changes: N/A Patient educated on worsening symptoms and when and where to seek additional care: No Patient Education Provided including treatment plan and new orders. Patient provided with appropriate counseling: Yes * Lo Romero LPN - 10/03/2024 11:01 AM EDT ED Follow-Up Note Provider Action / FYI: Call completed by: KUNAL Patient seen in ED: Out of Network ED Contact made with Patient: No, left message. Lo Romero LPN October 03, 2024 11:03 AM documented in this encounterUniversity Hospitals Health System03-13-2025 NoteHNO ID: [id number] Author: LO ROMERO LPN Service: ? Author Type: LICENSED NURSE Type: Progress Notes Filed: 10/03/2024 11:03 Note Text: ED Follow-Up Note Provider Action / FYI: Call completed by: KUNAL Patient seen in ED: Out of Network ED Contact made with Patient: No, left message. Lo Romero LPN October 03, 2024 11:03 [facility]03-13-2025 NotePatient Outreach (AGFAMPLE) SONYA ROSAS ([id number]) 1 F Date Time Provider Department 10/03/24 YANETH CAMARENA During your visit today, we recorded the [...] ER follow up on 10/24/2024 with Yaneth Camarena. Lo Romero LPN Call completed by: KUNAL Patient seen in ED: In Network ED Contact made with Patient: Yes The patient was identified by Name and Date of . Discussed Care with: patient Patient was seen in the Emergency Department (ED) Location: [facility] Date: 10/02/2024 Reason for ED Visit: Sinus [...] Signed She will need to see a bicycle messenger first - see referral Yarelis Posadas APRN.Yarelis Bradley APRN.CNP 10/04/2024 12:50 PM Signed Addended by: YARELIS POSADAS on: 10/04/2024 12:50 PM Modules accepted: Wendie Cruz MA 10/04/2024 1:34 PM Signed Patient notified. Wendie Pardo MA ] Allergies As of Date: 10/03/2024 Noted Allergy Reaction PENICILLINS 07/15/2022 5 - Intolerance Date Reviewed: 01/26/2024 Reviewed by: Yaneth Camarena APRN.CNP - Fully Assessed Primary Visit Diagnosis:Palpitations [R00.2] Other Visit Diagnosis:Tachycardia [R00.0] Order(s):CONSULT TO CARDIOLOGY [9004] Order #: [id number]: 1 FUTURE Prescriptions as of 10/04/2024 - metoprolol tartrate, short acting, (LOPRESSOR) 25 mg tablet Take 1 tablet by mouth two times a day as needed. - levonorgestrel (KYLEENA) 17.5 mcg/24 hrs (5 yrs) 19.5 mg IUD 1 Each by INTRAUTERINE route one time only. Problem List As Of Date 10/03/2024 Noted Resolved Palpitation [R00.2] 01/09/2024 Encounter Status:Closed by LO ROMERO on 10/03/24[facility] 04-12-2024 History of Present illness Narrative* Lo Romero LPN - 04/12/2024 10:52 AM EDT ED Follow Up: Patient discharged from [facility] ED on 04/08/2024. 1. How are you feeling since your ED visit? Left message for pt to call office. Have your symptoms improved or resolved? Left message for pt to call office. 2. Were you prescribed any medications while in the ED or advised to stop any medication? Left message for pt to call office. - If yes, were you able to fill your prescriptions? Left message for pt to call office. -if stopped medication, what was the medication? Left message for pt to call office. 3. Were you advised to schedule a follow up appointment with your provider? Left message for pt to call office. - If no, Do you feel like you need an appointment scheduled? Left message for pt to call office. - If yes, Do you need this scheduled now or has this already been scheduled? Left message for pt tocall office. 4. Were you able to contact the office or asset protection manager provider prior to your ED visit? Left message forpt to call office. 5. Is there anything else I can do for you today? Left message for pt to call office. documented in this encounterUniversity Hospitals Health System07-15-2024 Telephone encounter Note * Telephone Encounter - Wendie Pardo MA - 02/05/2024 1:11 PM EDT Patient notified and would like medication sent to drug [facility] in [place]. Wendie Pardo MA [facility]07-15-2024 Miscellaneous Notes* Telephone Encounter - Wendie Pardo MA - 02/05/2024 1:11 PM EDT Patient notified and [facility] [place] Wendie Pardo MA * Telephone Encounter - Ayana French MA - 02/01/2024 11:11 AM EDT Left a message for patient to call back Ayana French MA * Telephone Encounter - Wendie Pardo MA - 01/31/2024 1:35 PM EDT Left a message for patient to call back * Telephone Encounter - Ayana French MA - 01/30/2024 5:00 PM EDT Left a message for patient to call back Ayana French MA * Telephone Encounter - Yaneth Camarena APRN.CNP - 01/30/2024 2:44 PM EDT Please let the patient know that her Holter Report showed her primary rhythm was sinus rhythm but she did have some tachycardia episodes. If she is still feeling frequent palpitations we could do an as needed medication that she could take when she is symptomatic. documented in this encounterUniversity Hospitals Health System07-11-2024 Telephone encounter Note * Telephone Encounter - Ayana French MA - 02/01/2024 11:11 AM EDT Left a message for patient to call back Ayana French MA [facility]07-10-2024 Telephone encounter Note* Telephone Encounter - Wendie Pardo MA - 01/31/2024 1:35 PM EDT Left a message for patient to call back [facility]07-09-2024 Telephone encounter Note* Telephone Encounter - Ayana French MA - 01/30/2024 5:00 PM EDT Left a message for patient to call back Ayana French MA [facility]07-09-2024 Telephone encounter Note* Telephone Encounter - Yaneth Camarena APRN.CNP - 01/30/2024 2:44 PM EDT Please let the patient know that her Holter Report showed her primary rhythm was sinus rhythm but she did have some tachycardia episodes. If she is still feeling frequent palpitations we could do an as needed medication that she could take when she is symptomatic. [facility]07-05-2024 Instructions* Patient Instructions* Yaneth Camarena APRN.CNP - 01/26/2024 9:50 AM EDT [facility] ([facility]) [address] [place] [address] Appointment:[phone] [address] Appointment:[phone] documented in this encounterUniversity Hospitals Health System07-05-2024 History of Present illness Narrative* Yaneth Camarena APRN.TEAM SPORTS SALES ASSOCIATE - 01/26/2024 9:44 AM EDT CHIEF COMPLAINT: Sonya Rosas is a 23 year old female [...] recently laid off from her job Completed cardiac monitor technician patch on 01/22/24- awaiting results Echo completed and was normal She is feeling better but still fatigued Has Kyleena IUD, placed in 2019 Hasn't made appointment with RESEARCH AND DEVELOPMENT TESTER yet Hasn't had a Pap and has been having bleeding after intercourse She would like to see a crop quantitative geneticist for some skin spots that she wants checked out OV 12/26/23: All grandparents and dad have HTN Was seen in urgent care Fatigued Fainted the morning of the 12/05/23- BP 163/115 Went to [facility] on 12/05/23 Didn't give her any [...] seeing cardiology an year and a half The history is provided by the patient. PAST MEDICAL HISTORY Diagnosis Date Fbgyh-Kplyvurmk-Horac (WPW) pattern PAST SURGICAL HISTORY Procedure Laterality Date HEART SURGERY 2019 Social History Tobacco Use Smoking status: Every Day Types: Cigarettes Smokeless tobacco: Never Substance Use Topics Alcohol use: Yes Drug use: Yes Types: Marijuana ALLERGIES Allergen Reactions Penicillins Intolerance Family History Problem Relation Age of Onset other (HTN) Mother other (HTN) Father Breast Cancer Maternal Grandmother Lymphoma Maternal Grandfather Lymphoma Paternal Grandmother Current Outpatient Medications Medication Sig Dispense Refill levonorgestrel (KYLEENA) 17.5 mcg/24 hrs (5 yrs) 19.5 mg IUD 1 Each by INTRAUTERINE route one time only. No current facility-administered medications for this visit. Review of Systems Constitutional: Positive for fatigue. Negative for appetite change, chills, diaphoresis and fever. Respiratory: Negative for cough, chest tightness, shortness of breath and wheezing. Cardiovascular: Positive for palpitations (on occasion but did have two short episodes). Negative for chest pain and leg swelling. Gastrointestinal: Negative for abdominal pain, constipation, diarrhea, nausea and vomiting. Genitourinary: Negative. Musculoskeletal: Negative. Neurological: Negative for dizziness, syncope, light-headedness and headaches. BP 122/86 Pulse 82 Temp 98.2 Ht 5' 3 (1.60m) Wt 169 lb (76.7kg) SpO2 97% LMP 07/03/2022 BMI 29.94 kg/(m^2). Physical Exam Vitals and nursing note reviewed. Constitutional: Appearance: Normal appearance. She is not ill-appearing. HENT: Mouth/Throat: Mouth: Mucous membranes are moist. Pharynx: Oropharynx is clear. Eyes: General: Vision grossly intact. Pupils: Pupils are equal, round, and reactive to light. Neck: Thyroid: No thyromegaly. Cardiovascular: Rate and Rhythm: Normal rate and regular rhythm. Pulses: Normal pulses. Heart sounds: Normal heart sounds, S1 normal and S2 normal. No murmur heard. Pulmonary: Effort: Pulmonary effort is normal. Breath sounds: Normal breath sounds. Musculoskeletal: Cervical back: Neck supple. Right lower leg: No edema. Left lower leg: No edema. Skin: General: Skin is warm and dry. Neurological: Mental Status: She is alert and oriented to person, place, and time. Cranial Nerves: Cranial nerves 2-12 are intact. Psychiatric: Mood and Affect: Mood normal. Behavior: Behavior normal. Cognition and Memory: Cognition normal. No visits with results within 1 Day(s) from this visit. Latest known visit with results is: Results Only on 01/09/2024 Component Date Value Ref Range Status LV Ejection Fraction 01/09/2024 62 % Final Comment: (2D biplane) EF > 54 An LV Ejection Fraction of > 50% is normal ASSESSMENT/PLAN: 1. Elevated blood pressure reading without diagnosis of hypertension - ICD9: 796.2, ICD10: R03.0 (primary diagnosis) - Encouraged dietary sodium restriction/DASH diet - Recommended regular aerobic exercise. - Recommend home blood pressure monitoring, to bring results in on next visit - Recheck in 3 months, sooner if needed. - Goal of BP <130/80 - Patient counseled on smoking cessation. 2. Palpitations - ICD9: 785.1, ICD10: R00.2 - Improving, awaiting results of EKG patch 3. History of Gszde-Wwmmtfwcx-Cwlet (WPW) syndrome - ICD9: V12.59, ICD10: Z86.79 4. Tobacco use - ICD9: 305.1, ICD10: Z72.0 - Cessation encouraged. - Physiologic and physical aspects of tobacco addiction as well as strategies for quitting were discussed. - Counseling was given focusing on the harmful effects of this addiction especially given the patient's medical condition(s) which will be worsened because of the chemicals in tobacco. 5. Skin condition screening - ICD9: V82.0, ICD10: Z13.89 - CONSULT TO DERMATOLOGY New medication(s) prescribed today: None. Counseling completed in adopting health behaviors such as avoiding excessive alcohol use, avoid tobacco use, improve nutrition, and engage in physical activities. Copy of written care plan, clinical summary, treatment plan, new medications, goals, and self management requirements were given to patient. Yaneth Camarena APRN.CNP documented in this encounterUniversity Hospitals Health System06-20-2024 Telephone encounter Note * Telephone Encounter - Ayana French MA - 01/11/2024 1:27 PM EDT Left message informing patient, phone number to reach the office was left for any questions or concerns. Ayana French MA [facility]06-20-2024 Miscellaneous Notes* Telephone Encounter - Ayana French MA - 01/11/2024 1:27 PM EDT Left message informing patient, phone number to reach the office was left for any questions or concerns. Ayana French MA * Telephone Encounter - Ayana French MA - 01/11/2024 1:22 PM EDT ----- Message from Yaneth Camarena APRN.CNP sent at 01/11/2024 9:20 AM EDT ----- Please let patient know their Echo was normal. Thank you. documented in this encounterUniversity Hospitals Health System06-20-2024 Telephone encounter Note * Telephone Encounter - Ayana French MA - 01/11/2024 1:22 PM EDT ----- Message from Yaneth Camarena APRN.CNP sent at 01/11/2024 9:20 AM EDT ----- Please let patient know their Echo was normal. Thank you. [facility]06-04-2024 Instructions* Patient Instructions* Yaneth Camarena APRN.CNP - 12/26/2023 10:15 AM EDT [facility] ([facility]) Mail Code [id number] [address] [id number] Appointment:[phone] documented in this encounterUniversity Hospitals Health System06-04-2024 History of Present illness Narrative* Yaneth Camarena APRN.CNP - 12/26/2023 9:53 AM EDT Images from the original note were not included. [facility] Yaneth Camarena APRN-TEAM SPORTS SALES ASSOCIATE [address] [place] [address] Dept Dept. Visit Date: December 26, 2023 Ms.Erin Himanshu Rosas Date of : 2000 MRN/E #: [id number] Chief Complaint: Patient presents with: Hypertension: She monitors at home it been running about 140/90. She has been having fatigue, she did pass out her bp was in the 160s, she gets dizzy, and she has had chest pains Establish Care History of Present Illness Sonya Rosas is a 23 year old female presents today as a new patient to establish care and discussrecent elevated BP readings. All grandparents and dad have HTN Was seen in urgent care Fatigued Fainted the morning of the 12/05/23- BP 163/115 Went to [place] [facility] on 12/05/23 Didn't give her any [...] seeing cardiology an year and a half HPI PAST MEDICAL HISTORY Diagnosis Date Evuzk-Lzlpybviw-Nixyb (WPW) pattern PAST SURGICAL HISTORY Procedure Laterality Date HEART SURGERY 2019 Social History Tobacco Use Smoking status: Every Day Types: Cigarettes Smokeless tobacco: Never Substance Use Topics Alcohol use: Yes Drug use: Yes Types: Marijuana Social History Social History Narrative Not on file Family History Reviewed Including Cardiac Diseases, Psychiatric Diseases, & Substance Abuse Problem: other (HTN) Relation: Mother Age of Onset: (Not Specified) Problem: other (HTN) Relation: Father Age of Onset: (Not Specified) Problem: Breast Cancer Relation: Maternal Grandmother Age of Onset: (Not Specified) Problem: Lymphoma Relation: Maternal Grandfather Age of Onset: (Not Specified) Problem: Lymphoma Relation: Paternal Grandmother Age of Onset: (Not Specified) ALLERGIES Allergen Reactions Penicillins Intolerance Current Outpatient Medications Medication Sig levonorgestrel (KYLEENA) 17.5 mcg/24 hrs (5 yrs) 19.5 mg IUD 1 Each by INTRAUTERINE route one time only. No current facility-administered medications for this visit. Review of Systems Review of Systems Constitutional: Positive for fatigue. Negative for appetite change, chills, diaphoresis and fever. Eyes: Positive for visual disturbance (blurry with dizziness). Respiratory: Negative for cough, chest tightness, shortness of breath and wheezing. Cardiovascular: Positive for chest pain (primarily at night) and palpitations. Negative for leg swelling. Gastrointestinal: Positive for abdominal pain (on occasion, lower abdomen), constipation and nausea. Negative for blood in stool, diarrhea and vomiting. Genitourinary: Positive for dyspareunia and vaginal bleeding (after intercourse). Negative for decreased urine volume, dysuria, frequency and menstrual problem. Musculoskeletal: Negative. Neurological: Positive for dizziness, syncope (episode on 12/05/23) and light- headedness. Negative for headaches. Vital Signs BP 132/80 Pulse 82 Temp 98.4 Resp 16 Ht 5' 3 (1.60m) Wt 163 lb (73.9kg) SpO2 100% LMP 07/03/2022 BMI 28.88 kg/(m^2). Physical Exam Vitals and nursing note reviewed. Constitutional: Appearance: Normal appearance. She is not ill-appearing. HENT: Head: Normocephalic. Mouth/Throat: Mouth: Mucous membranes are moist. Pharynx: Oropharynx is clear. Eyes: General: Vision grossly intact. Pupils: Pupils are equal, round, and reactive to light. Neck: Thyroid: No thyromegaly. Vascular: No carotid bruit. Cardiovascular: Rate and Rhythm: Normal rate and regular rhythm. Pulses: Normal pulses. Heart sounds: Normal heart sounds, S1 normal and S2 normal. No murmur heard. Pulmonary: Effort: Pulmonary effort is normal. Breath sounds: Normal breath sounds. Abdominal: General: Bowel sounds are normal. There is no distension. Palpations: Abdomen is soft. Tenderness: There is no abdominal tenderness. Musculoskeletal: Cervical back: Neck supple. Right lower leg: No edema. Left lower leg: No edema. Skin: General: Skin is warm and dry. Neurological: Mental Status: She is alert and oriented to person, place, and time. Cranial Nerves: Cranial nerves 2-12 are intact. Psychiatric: Mood and Affect: Mood normal. Behavior: Behavior normal. Cognition and Memory: Cognition normal. Visit Diagnoses (R03.0) Elevated blood pressure reading without diagnosis of hypertension (primary encounter diagnosis) (R07.9) Chest pain, unspecified type (R00.2) Palpitations (Z86.79) History of Essdn-Lvoyarwch-Mqjnz (WPW) syndrome (N93.0) Bleeding after intercourse Assessment and Plan ASSESSMENT/PLAN: 1. Elevated blood pressure reading without diagnosis of hypertension - ICD9: 796.2, ICD10: R03.0 (primary diagnosis) - Encouraged dietary sodium restriction/DASH diet - Recommended regular aerobic exercise. - BP in office today slightly elevated at 132/80 - Recommend home blood pressure monitoring, to bring results in on next visit - Recheck in 4 weeks, sooner if needed. - Goal of BP <130/80 - Patient counseled on smoking cessation. - COMPREHENSIVE METABOLIC PANEL - MAGNESIUM - THYROID STIMULATING HORMONE - EXTENDED WEAR PRICING LEAD PATCH - ECHO 2. Chest pain, unspecified type - ICD9: 786.50, ICD10: R07.9 Chest pain of unclear etiology, patient with significant risk factor(s) of Hypertension and smoking - Lab evaluation CMP, CBC, and TSH - COMPREHENSIVE METABOLIC PANEL - MAGNESIUM - THYROID STIMULATING HORMONE - COMPLETE BLOOD COUNT AND DIFFERENTIAL - EXTENDED WEAR PRICING LEAD PATCH - ECHO 3. Palpitations - ICD9: 785.1, ICD10: R00.2 - COMPREHENSIVE METABOLIC PANEL - MAGNESIUM - THYROID STIMULATING HORMONE - EXTENDED WEAR PRICING LEAD PATCH - ECHO 4. History of Joyhw-Rpwdtabef-Bisbm (WPW) syndrome - ICD9: V12.59, ICD10: Z86.79 - COMPREHENSIVE METABOLIC PANEL - MAGNESIUM - EXTENDED WEAR PRICING LEAD PATCH - ECHO 5. Bleeding after intercourse - ICD9: 626.7, ICD10: N93.0 - CONSULT TO GYNECOLOGY Discussed above plan with patient and/or caregiver. Patient and/or caregiver agreeable with above plan. Follow up visit Return in about 4 weeks (around 01/23/2024) for HTN follow-up. Yaneth Camarena APRN.CNP, signed on December 26, 2023 9:54 AM documented in this encounterUniversity Hospitals Health System05-13-2024 History of Present illness Narrative* Enoc Gillespie APRN.CNP - 12/04/2023 5:49 PM EDT Nontoxic-appearing female presents urgent care chief complaint high BP. Patient states felt like her BP has been running high for the past couple months. May has been little more fatigued than normal. Presents today requesting referral to PCP. I discussed with patient that if she is having symptomsconcerning for elevated BP she needs to be seen in the ED. If not she can become established with PCP PCP. Patient verbalized understand agrees with plan of care. Enoc Gillespie APRN.IVAN documented in this encounterUniversity Hospitals Health System05-10-2024 History of Present illness Narrative* Naila Krueger RT(R) - 12/01/2023 2:30 PM EDT Radiology Service Progress Note PATIENT NAME: Sonya Rosas DATE OF SERVICE: December 01, 2023 TIME: 2:34 PM PATIENT IDENTITY VERIFICATION COMPLETED USING TWO (2) IDENTIFIERS: Name and Date of confirmedby patient verbally. FALL SCREENING: Has the patient had 2 falls in the last year or 1 fall with injury or currently using an Ambulatory Assistive Device (Walker, Cane, Wheelchair, Crutches, etc.)? No PATIENT GENDER DATA: Female. status: : No status: NO. PATIENT RELEVANT IMPLANT DATA REVIEWED: Yes PATIENT PRESENTS WITH AN IMPLANTABLE OR ATTACHED PETS SALESPERSON: No RADIOLOGY DEPARTMENT: General X-ray: Exam(s) Completed: Lower Extremity X- Ray(s): Foot, Left and Wt. Bearing PERIPHERAL IV DATA: Not applicable SIGNED BY: RT Vashti(Jordan) December 01, 2023 2:34 PM documented in this encounterUniversity Hospitals Health System05-10-2024 History of Present illness Narrative* Deann Goldstein APRN.CNP - 12/01/2023 2:12 PM EDT Images from the original note were not included. Subjective Patient came in with complaints of left foot pain. Patient says has been going on a few days. Patient says its on and off. Patient says it wraps around the top of her foot on the bottom of her arch. Denies any numbness tingling or loss of feeling. Denies any injuries. The history is provided by the patient. No skidder was used. Review of Systems Constitutional: Negative. Skin: Negative. Objective Physical Exam Constitutional: Appearance: Normal appearance. Pulmonary: Effort: Pulmonary effort is normal. Musculoskeletal: Feet: Feet: Right foot: Skin integrity: Right foot ulcer: prednisone. Comments: Patient has pain in the area marked above not reproducible. No past medical history on file. No past surgical history on file. ALLERGIES Penicillins MEDICATIONS levonorgestrel (KYLEENA) 17.5 mcg/24 hrs (5 yrs) 19.5 mg IUD 1 Each by INTRAUTERINE route one time only. No family history on file. Social History Tobacco Use Smoking status: Every Day Types: Cigarettes Smokeless tobacco: Never ASSESSMENT/PLAN: 1. Pain - ICD9: 780.96, ICD10: R52 - XR FOOT GENERAL 3V AP/LAT/OBL LEFT * * * * Physician Interpretation * * * * EXAMINATION: XR FOOT 3V AP/LAT/OBL LT CLINICAL HISTORY: Left foot pain Technique: XR FOOT 3V AP/LAT/OBL LT -- LEFT with 3 views on 3 images Comparison: None RESULT: No acute fracture or dislocation. Joint spaces are maintained. IMPRESSION IMPRESSION: No acute osseous abnormality Boat Hoist Operator: CALE Transcribe Date/Time: Dec 01 2023 3:07P Dictated by : JM RODRIGUEZ MD - CONSULT TO PODIATRY - PREDNISONE 10 MG TABLET Continued about proper use of medication and supportive therapies. Educated to follow-up with podiatry if signs and symptoms do not seem to be better after resting icing elevating and taking steroids. Patient was okay with this care plan. Deann Goldstein APRN.CNP documented in this encounterUniversity Hospitals Health System12-24-2022 Miscellaneous Notes* Telephone Encounter - Tanya Adan MA - 07/16/2022 3:15 PM EST Results also viewed via [employer]. Tanya Adan MA * Telephone Encounter - Alma Fontaine APRN.CNP - 07/16/2022 1:35 PM EST Left message on secured [employer] - + yeast - take diflucan as sent to [facility] [place]. Alma Fontaine APRN.IVAN * Telephone Encounter - Karina Ravi LPN - 07/16/2022 12:51 PM EST Phone call placed, number listed on the chart is no longer in service. No other contact numbers are listed on chart. Karina Ravi LPN * Telephone Encounter - Golden Centeno MD - 07/16/2022 8:27 AM EST Vaginal test showed yeast. Rx for antifungal pill sent to the pharmacy. Herpes test is still pending at this time. documented in this encounterUniversity Hospitals Health System12-23-2022 History of Present illness Narrative* Jennifer Pinto PA-C - 07/15/2022 2:49 PM EST This note was created using [employer] Boatworks[employer]. Subjective Sonya Rosas is a 22 year old female. HPI Presents with vaginal irritation and pain over the past day. She did have a new sexual partner 3 days ago. She thought maybe she had had irritation from friction but did notice she had a little bit of tissue sloughing off so she was concerned and came in. She has some swelling to the vulva as well.She denies any recent antibiotics. No dysuria or frequency. She has an IUD. Did not use a condom. Last menstrual cycle was last week. She denies vaginal discharge. Review of Systems Constitutional: Negative. HENT: Negative. Respiratory: Negative. Cardiovascular: Negative. Gastrointestinal: Negative. Genitourinary: Positive for genital sores and vaginal pain. Negative for vaginal bleeding and vaginal discharge. Musculoskeletal: Negative. Skin: Negative. All other systems reviewed and are negative. No past medical history on file. Current Outpatient Medications Medication Sig Dispense Refill levonorgestrel (KYLEENA) 17.5 mcg/24 hrs (5 yrs) 19.5 mg IUD 1 Each by INTRAUTERINE route one time only. nystatin-triamcinolone (MYCOLOG) ointment Apply sparingly to perineum twice daily for irritation/infection. 30 g 0 No current facility-administered medications for this visit. No past surgical history on file. No family history on file. Social History Tobacco Use Smoking status: Every Day Types: Cigarettes Smokeless tobacco: Never Objective BP 140/88 Pulse 88 Temp 36.6 C (97.9 F) Resp 20 Wt 61.2 kg (135 lb) LMP 07/03/2022 (Within Days) SpO2 99% Physical Exam Vitals reviewed. Constitutional: Appearance: Normal appearance. HENT: Head: Normocephalic and atraumatic. Genitourinary: Comments: Patient has irritation with erythema and swelling to the vulva and labia. Some tissue sloughing. Internal exam by speculum deferred by patient due to pain. Skin: General: Skin is warm and dry. Neurological: Mental Status: She is alert. Assessment and Plan ASSESSMENT/PLAN: 1. Vaginal pain - ICD9: 625.9, ICD10: R10.2 -Swabs are pending including HSV. I did give her Mycolog in the meantime for the irritation and pain. If positive for herpes she would be in the window for Valtrex. Otherwise treat accordingly as well. Follow-up with women's health. Patient agreeable. - GC/CHLAMYDIA DNA DET - HSV 1,2/VZV AMP MOLECULAR DETECT - BACTERIAL VAGINOSIS AMPLIFICATION - JAELYN / TRICHOMONAS AMPLIFICATION Jennifer Pinto PA-C documented in this encounterBlue Mounds ClinicDischarge summary Author Checo Dwyer [facility] Note Date/Time April 13, 2025 12:52am [facility] Medical Records Department [address] [place] [address] Emergency Department Summary 04/13/25 MR#: [id number] Acct: [id number] Name: SONYA ROSAS Rep #:[id number] : 2000 24 From: Checo Dwyer DO PCP: NINO MorrellC Status:DEP E R Location: ED HPI History of Present Illness Chief Complaint: Eye Problem Informant: patient and parent Narrative Narrative: Patient is a 24-year-old female with 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 She denies any history of bleeding disorder or blood thinner use. She states that earlier today she felt like there was something stuck in her right eye. She states that she attempted to get the foreign body sensation out and felt that she was successful. She states she went about the rest of her day and this evening was drinking alcohol. She then began to feel pain in her right eye and reports that the vision was blurry. She states that this concerned her because of her history of WPW and was concerned she may be having a stroke and secondary to this presents to theER for evaluation. [facility] Medical History Alcohol abuse Cigarette smoker Marijuana smoker WPW (Xtvun-Gbglndjlj-Kzyxp syndrome) Home Medications ?Medication ?Instructions ?Recorded ?Last Taken ?Type metoprolol succinate 25 mg 25 mg PO PRN 04/13/25 Unkno wn History tablet,extended release 24 hr progesterone micronized .ROUTE 04/13/25 Unknown Hist ory Allergy/AdvReac Type Severity Reaction Status Date / Time Penicillins Allergy Severe Hives Verified 04/13/25 00:04 Surgical History Hx of heart surgery Social History Smoking Status: Current every day smoker tobacco type: cigarettes ROS ROS ED Constitutional Constitutional ED: Denies chills or fever(s) Eyes Eyes: Reports blurry vision right ENT ENT ED: Denies sore throat Cardiovascular Cardiovascular: Denies chest pain or palpitations Respiratory/Chest Respiratory/Chest: Denies cough or dyspnea Gastrointestinal Gastrointestinal: Denies abdominal pain, diarrhea, nausea or vomiting Musculoskeletal Musculoskeletal: Denies myalgias Integumentary Denies rash Neurologic Neurologic: Denies headache(s) or weakness Hematologic/Lymphatic Hematologic/Lymphatic: Denies easy bleeding or easy bruising EXAM Physical Exam Const Vital Signs: 04/13/25 00:06 04/13/25 00:16 Temperature 98.1 F Temperature Source Oral Pulse Rate 101 H Respiratory Rate 20 H Respiratory Pattern Tachypnea Blood Pressure 149/94 H Blood Pressure Mean 112 Pulse Ox 98 Oxygen Delivery Method Room Air Positive well nourished and well developed General Appearance ED: well developed HEENT HEENT Narrative: Normocephalic atraumatic Eyes PERRL and EOMs intact bilaterally Eyes Narrative: Pupils are slightly dilated and mildly sluggish to respond to light consistent with alcohol use. Extraocular motions are intact bilaterally. There is bilateral scleral injection which can be related to alcohol use as well as the fact patient has been crying. No purulent discharge noted Funduscopic exam reveals normal macula and optic disc. No pallor noted. No blood and thunder appearance. No obvious retained foreign body No hyphema noted. No obvious corneal ulcer present. Neck supple Resp normal respiratory effort and clear to auscultation bilaterally Cardio regular rate and regular rhythm Extremity normal to inspection Neuro oriented x3, CN's II-XII intact bilaterally and moves all extremities Neuro Narrative: GCS of 15 Cranial nerves II through XII are grossly intact without focal neurologic deficit No pronator drift no dysmetria no truncal ataxia No hemianopsia/vision loss noted NIH stroke scale score of 0 Sensorium / Orientation: alert Motor Exam: strength 5/5 throughout Psych Mood & Affect: anxious and tearful Skin no rashes or lesions noted and no wounds Lesions: no lesions Rashes: no rashes MDM MDM MDM Narrative Medical decision making narrative: Patient arrived to the ER hypertensive but is extremely anxious and tearful. She reported right eye pain with blurry vision out of the right eye. She is adamant that the vision is simply blurry and that there is not loss of vision. She states that there are no scintillations/flashing light sensation. No blackness or vision change such as a shade being pulled down. She also reportedthat earlier in the day she thought there was something in her right eye which could correlate with a corneal abrasion. I discussed with the patient that concern for retinal artery or vein occlusion is extremely low as there is no pale macular optic disc or blood and thunder appearance. Also as she does not describe scintillations or a shade being pulled down causing vision loss I have low concern for retinal detachment. Also as the vision is blurry but not lost concern for a acute CVA is low. I discussed with the patient we can perform a more detailed exam with fluorescein staining and a slit-lamp to look for cornealabrasion and/or retained foreign body. We also can perform a CTA of the head toassess for potential acute stroke symptoms. The patient states that as I have low concern that her vision changes are due to an acute stroke or retinal issue that she does not want to undergo any type of testing in the ER such as CTA or even a simple fluorescein stain. Therefore at this time as the patient does notwant further testing or workup regarding her blurry vision and her history and exam would indicate that this is most likely changes to the cornea/corneal abrasion as she reported a foreign body sensation earlier in the day I will allow her to be discharged as requested and she can follow-up with ophthalmologyfor more detailed eye examination if symptoms persist History & Record Review Discussion w/independent historian: Patient and Family Discharge Plan Triage Chief Complaint: Eye Problem ED Provider: Checo Dwyer Dx/Rx/DC Orders Clinical Impression: Blurred vision, right eye, Alcohol intoxication, History of Ckrkq-Bpugltdbx-Fcdod syndrome Instructions: ED Blurred Vision, ED Corneal Abrasion Prescriptions: No Action metoprolol succinate 25 mg tablet extended release 24 hr 25 mg PO PRN progesterone micronized .ROUTE Primary Care Provider: Yaneth Camarena NP Referrals: Nimisha Laguerre MD [Med Staff - Active Staff, Opthamology] Yaneth Camarena NP, APARTMENT MAINTENANCE SUPERVISOR-C [Primary Care Provider, Family Practice] Activity Restrictions/Additional Instructions: Your history and exam would indicate that the vision blurriness is most likely from a corneal abrasion. This should heal over the next few days. If you have complete loss of vision or develop blackness or see the scintillation/flashing lights or have any further concerns please return to the ER for repeat evaluation. Otherwise recommend following up with ophthalmology for more detailedeye exam Print Language: Maldivian Disposition Disposition: Home, Self Care Discharge Date/Time: 04/13/25 00:52 What to do if you have Problems For any increased pain, shortness of breath, bleeding, nausea or vomiting, chestpain, or any unexpected problems, contact your Primary Care Provider. Call [facility] ([phone]) or report to the closest Emergency Room. Call 911 if necessary. 04/13/25 0210 <Electronically signed by Checo Dwyer DO> Cosigner Signature (if applicable): CC: MARLEE Camarena ~ Signed [facility] Work Phone: evaluation note* Diagnosis Vaginal pain- Primary Unspecified symptom associated with female genital organs documented in this encounter [facility] note* Diagnosis PVC (premature ventricular contraction)- Primary Other premature beats documented in this encounter [facility] noteNo assessment information availableWPremier Health [facility] Work Phone: evaluation note* Diagnosis Pain- Primary Generalized pain Pain Generalized pain documented in this encounter [facility] note* Diagnosis Procedure not carried out- Primary Procedure not carried out for other reasons documented in this encounter [facility] note* Diagnosis Leukocytosis, unspecified type- Primary documented in this encounter [facility] note* Diagnosis Elevated blood pressure reading without diagnosis of hypertension- Primary Chest pain, unspecified type Palpitations History of Uoftq-Ezrxjcyvu-Xlblf (WPW) syndrome Bleeding after intercourse Postcoital bleeding Tobacco use Tobacco use disorder documented in this encounter [facility] note* Diagnosis Chest pain, unspecified type Palpitations History of Owvpz-Fpmentzlv-Tiiup (WPW) syndrome Elevated blood pressure reading without diagnosis of hypertension documented in this encounter [facility] note* Diagnosis Elevated blood pressure reading without diagnosis of hypertension- Primary Palpitations History of Rqvhu-Nsfblxlit-Auitc (WPW) syndrome Tobacco use Tobacco use disorder Skin condition screening Screening for skin condition documented in this encounter [facility] note* Diagnosis Palpitations- Primary documented in this encounter [facility] note* Diagnosis Pain Generalized pain documented in this encounter [facility] note* Diagnosis Encounter for gynecological examination (general) (routine) without abnormal findings- Primary Screening for cervical cancer Screening for malignant neoplasm of the cervix Encounter for IUD removal Encounter for removal of intrauterine contraceptive device documented in this encounter [facility] note* Diagnosis Palpitations documented in this encounter [facility] note* Diagnosis Encounter for IUD removal- Primary Encounter for removal of intrauterine contraceptive device Encounter for initial prescription of contraceptive pills General counseling for prescription of oral contraceptives [facility] Additional Instructions Follow-up with DIESEL MAINTENANCE TECHNICIAN, return for any worsening of your symptoms.[facility] Work Phone: Hospital Discharge instructions Additional Instructions Your workup today revealed no clinically significant lab abnormalities and after treatment your blood pressure and heart rate improved. Moreover your EKG and cardiac monitoring never displayed an abnormal rhythm such as A-fib A-flutter or WPW. Follow-up with your family doctor for repeat evaluation and return to the ER should you have any further concernsWPremier [facility] Work Phone: Hospital Discharge instructionsAdditional Instructions Your history and exam would indicate that the vision blurriness is most likely from a corneal abrasion. This should heal over the next few days. If you have complete loss of vision or develop blackness or see the scintillation/flashing lights or have any further concerns please return to the ER for repeat evaluation. Otherwise recommend following up with ophthalmology for more detailed eye examWPremier [facility] Work Phone: Hospital Discharge instructionsAdditional Instructions Avoid alcohol until you see cardiology.[facility] Work Phone: Hospital Discharge instructionsAdditional Instructions 1. Use the spacer with your inhaler. The spacer has a whistle on it. If you hear a whistling sound that means you are inhaling too quickly and need to slow down. 2. You may do 2 puffs every 2-4 hours for the next 48 to 72 hours. If your breathing gets worse you can do 4-6 polyps and repeat in 15 minutes. If you are still having difficulty recommend returning to the [facility] Work Phone: Reason for referral (narrative)* Outpatient Procedure (Routine) - Pending Review Specialty Diagnoses / Procedures Referred By Chadwick t Referred To Contact [facility] Diagnoses Chest pain, unspecified type Palpitations History of Oyftp-Znbqcsyfi-Rrsfb (WPW) syndrome Elevated blood pressure reading without diagnosis of hypertension Procedures ECHO ECHO TTHRC R-T 2D W/WOM-MODE COMPL SPEC&COLR D Yaneth Camarena APRN.TEAM SPORTS SALES ASSOCIATE [address] [place] [address] [facility] [address] [place] [id number] Referral ID Status Reason Start Date Expiration Date Visits Requested Visits Authorized [id number] Pending Review Auto-Generat ed Referral 12/26/2023 12/25/2024 1 1 * Consult, Test, Treat (Routine) - Authorized Specialty Diagnoses / Procedures Referred By Contac t Referred To Contact Diagnoses Bleeding after intercourse Procedures CONSULT TO GYNECOLOGY OFFICE/OUTPATIENT [facility] 60 MINUTES Yaneth Camarena APRN.TEAM SPORTS SALES ASSOCIATE [address] [place] [address] [address] [place] [address] Referral ID Status Reason Start Date Expiration Date Visits Requested Visits Authorized [id number] Authorized PCP Requested Referral Auto-Generate d Referral 12/26/2023 03/25/2024 1 1 [facility] for referral (narrative)* Diagnostic Procedure Only (Urgent) - Pending Review Specialty Diagnoses / Procedures Referred By Contac t Referred To Contact XR IMAGING Diagnoses Pain Procedures XR FOOT GENERAL 3V AP/LAT/OBL LEFT RADEX FOOT COMPLETE MINIMUM 3 VIEWS Deann Goldstein APRN.TE[employer] SPORTS SALES ASSOCIATE [address] [place] [address] [place] [address] Referral ID Status Reason Start Date Expiration Date Visits Requested Visits Authorized [id number] Pending Review Auto-Generat ed Referral 12/01/2023 12/30/2024 1 1 [facility] for referral (narrative)No reason for referral information availableWPremier Health [facility] Work Phone: Reason for visit Narrative* Diagnostic Procedure Only (Urgent) - Pending Review Specialty Diagnoses / Procedures Referred By Contac t Referred To Contact XR IMAGING Diagnoses Pain Procedures XR FOOT GENERAL 3V AP/LAT/OBL LEFT RADEX FOOT COMPLETE MINIMUM 3 VIEWS Deann Goldstein APRN.TE[employer] SPORTS SALES ASSOCIATE [address] [place] [address] [place] [address] Referral ID Status Reason Start Date Expiration Date Visits Requested Visits Authorized [id number] Pending Review Auto-Generat ed Referral 12/01/2023 12/30/2024 1 1 [facility] Reason for Referral Specialty Diagnoses / Procedures Referred By Contac t Referred To Contact Cardiology Diagnoses PVC (premature ventricular contraction) Guillermo Coffey MD [address] [place] [address] [facility] [address] [place] [address] Referral ID Status Reason Start Date Expiration Date V isits Requested Visits Authorized [id number] Authorized 09/12/2022 09/12/2023 1 1 Specialty Diagnoses / Procedures Referred By Contac t Referred To Contact Podiatry Diagnoses Pain Procedures CONSULT TO PODIATRY OFFICE/OUTPATIENT [facility] 60 MINUTES Deann Goldstein APRN.TE[employer]OR[employer] SALES ASSOCIATE [address] [place] [address] Referral ID Status Reason Start Date Expiration Date Visits Requested Visits Authorized [id number] Authorized PCP Requested Referral 12/01/2023 11/30/2024 1 1 Specialty Diagnoses / Procedures Referred By Contac t Referred To Contact XR IMAGING Diagnoses Pain Procedures XR FOOT GENERAL 3V AP/LAT/OBL LEFT RADEX FOOT COMPLETE MINIMUM 3 VIEWS Deann Goldstein APRN.TE[employer]OR[employer] SALES ASSOCIATE [address] [place] [address] [place] [address] Referral ID Status Reason Start Date Expiration Date Visits Requested Visits Authorized [id number] Pending Review Auto-Generat ed Referral 12/01/2023 12/30/2024 1 1 Specialty Diagnoses / Procedures Referred By Contac t Referred To Contact [facility] Diagnoses Chest pain, unspecified type Palpitations History of Fkqvp-Ttstighdz-Whmcg (WPW) syndrome Elevated blood pressure reading without diagnosis of hypertension Procedures ECHO ECHO TTHRC R-T 2D W/WOM-MODE COMPL SPEC&COLR D Yaneth Camarena APRN.TE[employer] SPORTS SALES ASSOCIATE [address] [place] [address] [facility] [address] [address] Referral ID Status Reason Start Date Expiration Date Visits Requested Visits Authorized [id number] Authorized Auto-Generate d Referral Patient Cleared - Qualified 100% FAS 12/26/2023 12/25/2024 99 99 Specialty Diagnoses / Procedures Referred By Contac t Referred To Contact Dermatology / DERMATOLOGY Diagnoses Skin condition screening Procedures CONSULT TO DERMATOLOGY OFFICE/OUTPATIENT [facility] 60 MINUTES Yaneth Camarena APRN.TEAM SPORTS SALES ASSOCIATE [address] [place] [address] Derm [facility] [address] [place] [address] Referral ID Status Reason Start Date Expiration Date Visits Requested Visits Authorized [id number] Authorized PCP Requested Referral 01/26/2024 01/25/2025 1 1 Summary Purpose Family History No Family History Records FoundNo Family History Records FoundNo Family History Records FoundNo Family History Records FoundNo Family History Records FoundNo Family History Records Found Advance Directives No Advanced Directives Records Found Advance Directive Response Recorded Date/ Time Living Will No December 23, 2022 1 :59pm Power of Remotely Operated Vehicle No December 23, 2022 1:59pm Advance Directive Response Recorded Date/ Time Living Will No October 02, 2024 3:26am Power of Remotely Operated Vehicle No October 02 3:26am Advance Directive Response Recorded Date/ Time Do you have a Healthcare Power of Remotely Operated Vehicle? No April 13, 2025 12:06am Do you have a Healthcare Power of Remotely Operated Vehicle? No April 19, 2025 11:34pm Do you have a Healthcare Power of Remotely Operated Vehicle? No April 22, 2025 2:51pm Chief Complaint and Reason for Visit Chief Complaint PELVIC PAIN Chief Complaint Admit Date hypertension October 02, 2024 3:1 8am Chief Complaint Admit Date eye problem April 13, 2025 12:02am chest pain, palpitations April 19, 2025 11:29pm sob April 22, 2025 1:48pm Additional Source Comments Source Comments (unrecognize d section and content) In the event this informatio n is protected by the Federal Confidentiality of Alcohol and Drug Abuse Patient Records regulations: The Federal rules restrict any use of the information to criminally investigate or prosecute any alcohol or drug abuse patient.[facility] the event this information is protected by the Federal Confidentiality of Alcohol and Drug Abuse Patient Records regulations: The Federal rules restrict any use of the information to criminally investigate or prosecute any alcohol or drug abuse patient.[facility] SystemIn the event this information is protected by the Federal Confidentiality of Alcohol and Drug Abuse Patient Records regulations: The Federal rules restrict any use of the information to criminally investigate or prosecute any alcohol or drug abuse patient.[facility] SystemIn the event this information is protected by the Federal Confidentiality of Alcohol and Drug Abuse Patient Records regulations: The Federal rules restrict any use of the information to criminally investigate or prosecute any alcohol or drug abuse patient.[facility] SystemIn the event this information is protected by the Federal Confidentiality of Alcohol and Drug Abuse Patient Records regulations: The Federal rules restrict any use of the information to criminally investigate or prosecute any alcohol or drug abuse patient.[facility] SystemIn the event this information is protected by the Federal Confidentiality of Alcohol and Drug Abuse Patient Records regulations: The Federal rules restrict any use of the information to criminally investigate or prosecute any alcohol or drug abuse patient.[facility] SystemIn the event this information is protected by the Federal Confidentiality of Alcohol and Drug Abuse Patient Records regulations: The Federal rules restrict any use of the information to criminally investigate or prosecute any alcohol or drug abuse patient.[facility] SystemIn the event this information is protected by the Federal Confidentiality of Alcohol and Drug Abuse Patient Records regulations: The Federal rules restrict any use of the information to criminally investigate or prosecute any alcohol or drug abuse patient.[facility] SystemIn the event this information is protected by the Federal Confidentiality of Alcohol and Drug Abuse Patient Records regulations: The Federal rules restrict any use of the information to criminally investigate or prosecute any alcohol or drug abuse patient.[facility] SystemIn the event this information is protected by the Federal Confidentiality of Alcohol and Drug Abuse Patient Records regulations: The Federal rules restrict any use of the information to criminally investigate or prosecute any alcohol or drug abuse patient.[facility] SystemIn the event this information is protected by the Federal Confidentiality of Alcohol and Drug Abuse Patient Records regulations: The Federal rules restrict any use of the information to criminally investigate or prosecute any alcohol or drug abuse patient.[facility] SystemIn the event this information is protected by the Federal Confidentiality of Alcohol and Drug Abuse Patient Records regulations: The Federal rules restrict any use of the information to criminally investigate or prosecute any alcohol or drug abuse patient.[facility] SystemIn the event this information is protected by the Federal Confidentiality of Alcohol and Drug Abuse Patient Records regulations: The Federal rules restrict any use of the information to criminally investigate or prosecute any alcohol or drug abuse patient.[facility] SystemIn the event this information is protected by the Federal Confidentiality of Alcohol and Drug Abuse Patient Records regulations: The Federal rules restrict any use of the information to criminally investigate or prosecute any alcohol or drug abuse patient.[facility] SystemIn the event this information is protected by the Federal Confidentiality of Alcohol and Drug Abuse Patient Records regulations: The Federal rules restrict any use of the information to criminally investigate or prosecute any alcohol or drug abuse patient.[facility] SystemIn the event this information is protected by the Federal Confidentiality of Alcohol and Drug Abuse Patient Records regulations: The Federal rules restrict any use of the information to criminally investigate or prosecute any alcohol or drug abuse patient.[facility] SystemIn the event this information is protected by the Federal Confidentiality of Alcohol and Drug Abuse Patient Records regulations: The Federal rules restrict any use of the information to criminally investigate or prosecute any alcohol or drug abuse patient.[facility] SystemIn the event this information is protected by the Federal Confidentiality of Alcohol and Drug Abuse Patient Records regulations: The Federal rules restrict any use of the information to criminally investigate or prosecute any alcohol or drug abuse patient.[facility] SystemIn the event this information is protected by the Federal Confidentiality of Alcohol and Drug Abuse Patient Records regulations: The Federal rules restrict any use of the information to criminally investigate or prosecute any alcohol or drug abuse patient.[facility] Reason for Visit (unrecogniz ed section and content) Reason Comments Hypertension Specialty Diagnoses / Procedures Referred By Contac t Referred To Contact Family Medicine / FAMILY MEDICINE Diagnoses new pt - high bp: consistently high, fatigued x 3 days Procedures 4C NEW Self Yaneth Camarena, MICKIE.TE[employer] SPORTS SALES ASSOCIATE [address] [place] [address] Referral ID Status Reason Start Date Expiration Date Visits Requested Visits Authorized [id number] Authorized Financial Clearance Required - Self Pay Patient Cleared - Qualified 100% FAS 12/11/2023 03/10/2024 99 99 Reason Comments Vaginal Problem X1 day Specialty Diagnoses / Procedures Referred By Contac t Referred To Contact [facility] Diagnoses Possible yeast infection Procedures NEW SAME DAY Self Jennifer Pinto PA-C [address] [place] [address] Referral ID Status Reason Start Date Expiration Date V isits Requested Visits Authorized [id number] Outside PCP 07/15/2022 10/13/2022 1 1 Reason Comments Results Jaelyn Reason Comments Foot Pain (Midfoot) Left foot pain acros s top and back of foot heel and into leg, bruising and swelling, no injury, pain from pressure and possibly boots x 2 days Specialty Diagnoses / Procedures [facility] Diagnoses LEFT FOOT PAIN Procedures EST SAME DAY Self [facility] [address] [place] [address] Referral ID Status Reason Start Date Expiration Date Visits Requested Visits Authorized [id number] Pending Review Financial Clearance Required - Self Pay 12/01/2023 02/29/2024 1 1 Specialty Diagnoses / Procedures [facility] Diagnoses high bp: consistently high, fatigued x 3 days Procedures EST SAME DAY Self [facility] [address] [place] [address] Referral ID Status Reason Start Date Expiration Date Visits Requested Visits Authorized [id number] Pending Review Financial Clearance Required - Self Pay 12/04/2023 03/03/2024 1 1 Reason Comments Results Reason Comments Hypertension She monitors at home it been running about 140/90. She has been having fatigue, she did pass out her bp was in the 160s, she gets dizzy, and she has had chest pains Establish Care Reason Comments Yearly Exam Reason Comments Missed Appointment First missed appoint ment first letter Reason Onset Date Comments Refill Request 10/28/2024 Reason Onset Date Comments IUD Removal 04/01/2025 Specialty Diagnoses / Procedures Referred By Chadwick guzman Referred To Contact [facility] Diagnoses Encounter for IUD removal Procedures REMOVE INTRAUTERINE DEVICE REMOVE INTRAUTERINE DEVICE Lynette Salgado MD [address] [place] [address] Phone: tel: fax: [facility] [address] [place] [address] Referral ID Status Reason Start Date Expiration Date V isits Requested Visits Authorized [id number] Closed Auto-Generate d Referral 10/21/2024 10/21/2025 1 1 Care Teams (unrecognized sec tion and content) Sales Vendor Relationship Specialty Start Date End Date No, Physician [facility] PCP - General 09/11/22 Team Status: Active Member Role Status Dates No Primary Care Physician Primary Care Provider Active Team Status: Inactive Member Role Status Dates Dr. Paul Davila , DO Emergency Provider Active No Primary Care Physician Primary Care Provider Active Sales Vendor Relationship Specialty Start Date End Date Yaneth Camarena, PROPERTY ADMINISTRATOR.TE[employer] SPORTS SALES ASSOCIATE [address] [place] [address] PCP - General Family Medicine 12/26/23 Sales Vendor Relationship Specialty Start Date End Date Yaneth Camarena, PROPERTY ADMINISTRATOR.TE[employer] SPORTS SALES ASSOCIATE [address] [place] [address] PCP - General Family Medicine 12/26/23 Sales Vendor Relationship Specialty Start Date End Date Yaneth Camarena PROPERTY ADMINISTRATOR.TEAM SPORTS SALES ASSOCIATE [address] [place] [address] PCP - General Family Medicine 12/26/23 Sales Vendor Relationship Specialty Start Date End Date Yaneth Camarena PROPERTY ADMINISTRATOR.TEAM SPORTS SALES ASSOCIATE [address] [place] [address] PCP - General Family Medicine 12/26/23 Sales Vendor Relationship Specialty Start Date End Date Yaneth Camarena, PROPERTY ADMINISTRATOR.TEAM SPORTS SALES ASSOCIATE [address] [place] [address] PCP - General Family Medicine 12/26/23 Sales Vendor Relationship Specialty Start Date End Date Yaneth Camarena, PROPERTY ADMINISTRATOR.TEAM SPORTS SALES ASSOCIATE [address] [place] [address] PCP - General Family Medicine 12/26/23 Sales Vendor Relationship Specialty Start Date End Date Yaneth Camarena, PROPERTY ADMINISTRATOR.TEAM SPORTS SALES ASSOCIATE [address] [place] [address] PCP - General Family Medicine 12/26/23 Sales Vendor Relationship Specialty Start Date End Date Yaneth Camarena, PROPERTY ADMINISTRATOR.TEAM SPORTS SALES ASSOCIATE [address] [place], [place] [id number] PCP - General Family Medicine 12/26/23 Team Status: Inactive Member Role Status Dates No Primary Care Physician Primary Care Provider Active Start: October 02, 2024 End: October 02, 2024 Dr. Checo Dwyer , DO Emergency Provider Active Start: October 02, 2024 End: October 02, 2024 Sales Vendor Relationship Specialty Start Date End Date Yaneth Camarena, PROPERTY ADMINISTRATOR.TEAM SPORTS SALES ASSOCIATE [address] [place], [place] [id number] PCP - General Family Medicine 12/26/23 Sales Vendor Relationship Specialty Start Date End Date Yaneth Camarena, PROPERTY ADMINISTRATOR.TEAM SPORTS SALES ASSOCIATE [address] [place], [place] [id number] PCP - General Family Medicine 12/26/23 Sales Vendor Relationship Specialty Start Date End Date Yaneth CamarenaMICKIE.TEAM SPORTS SALES ASSOCIATE [address] [facility] [place] [address] PCP - General Family Medicine 12/26/23 Team Status: Active Member Role/Relationship Status Dates Yaneth Camarena APARTMENT MAINTENANCE SUPERVISOR, APARTMENT MAINTENANCE SUPERVISOR-C Primary care physician Active Team Status: Inactive Member Role/Relationship Status Dates Yaneth Camarena APARTMENT MAINTENANCE SUPERVISOR, APARTMENT MAINTENANCE SUPERVISOR-C Primary care physician Active Start: April 13, 2025 End: April 13, 2025 Dr. Checo Dwyer DO Attending physician Active Start: April 13, 2025 End: April 13, 2025 Dr. Checo Dwyer DO Emergency Departdc nt Physician Active Start: April 13, 2025 End: April 13, 2025 Team Status: Inactive Member Role/Relationship Status Dates Yaneth Camarena APARTMENT MAINTENANCE SUPERVISOR, APARTMENT MAINTENANCE SUPERVISOR-C Primary care physician Active Start: April 19, 2025 End: 2025 Dr. Burke Finch MD Emergency Depart ment Physician Active Start: April 19, 2025 End: 2025 Team Status: Inactive Member Role/Relationship Status Dates Yaneth Camarena APARTMENT MAINTENANCE SUPERVISOR, APARTMENT MAINTENANCE SUPERVISOR-C Primary care physician Active Start: April 22, 2025 End: April 22, 2025 Dr. Tera Justice MD Emergency Department Physician Active Start: April 22, 2025 End: April 22, 2025 Team Status: Inactive Member Role/Relationship Status Dates Yaneth Camarena APARTMENT MAINTENANCE SUPERVISOR, APARTMENT MAINTENANCE SUPERVISOR-C Primary care physician Active Start: April 19, 2025 End: 2025 Dr. Burke Finch MD Attending physician Active Start: April 19, 2025 End: 2025 Dr. Burke Finch MD Emergency Depart ment Physician Active Start: April 19, 2025 End: 2025 INFORMATION SOURCE (unrecogn ized section and content) DATE CREATED AUTHOR 10/08/[address] [facility] DATE CREATED AUTHOR AUTHOR'S ORGANIZ ATION [facility]/01[facility] [facility] DATE CREATED AUTHOR AUTHOR'S ORGANIZ ATION 04/02/2023 [facility] DATE CREATED AUTHOR AUTHOR'S ORGANIZ ATION 04/27/2025 [facility] DATE CREATED AUTHOR AUTHOR'S ORGANIZ ATION 05/02/2025 [facility] DATE CREATED AUTHOR AUTHOR'S ORGANIZ ATION 05/04/2025 [facility] Goals (unrecognized section and content) Goals may be documented in a n alternate sectionGoals may be documented in an alternate sectionGoals may be documented in an alternate sectionGoals may be documented in an alternate sectionGoals may be documented in an alternate section FOR RECORDS PERTAINING TO PATIENTS WHO ARE OR HAVE BEEN ENROLLED IN A CHEMICAL DEPENDENCY/SUBSTANCEABUSE PROGRAM, SOME INFORMATION MAY BE OMITTED. This clinical summary was aggregated from multiple sources. Caution should be exercised in using it in the provision of clinical care. This summary normalizes information from multiple sources, and as a consequence, information in this document may materially change the coding, format and clinical context of patient data. In addition, data may be omitted in some cases. CLINICAL DECISIONS SHOULD BE BASED ON THE PRIMARY CLINICAL RECORDS. [employer] provides no warranty or guarantee of the accuracy or completeness of information in this document.
--- NOTE | 2025-05-21 01:57 | EDS_ITS ---
HPI History of Present Illness Chief Complaint: Chest Other Informant: patient Narrative Narrative: Patient is a 25-year-old female who states she was drinking alcohol this evening and after becoming intoxicated lost her balance as she was stepping backwards and fell striking her right ribs on a table. She states that following this she had increased pain which caused her to have an episode of passing out where she then struck the back of her head. She states she is concerned she could have broken ribs based on the trauma and as she had a syncopal event striking her head she was concerned about potential internal bleeding and with this presents to the hospital for evaluation [facility] Medical History Alcohol abuse Cigarette smoker Marijuana smoker WPW (Krfbb-Zcqsyrzmy-Ujfgm syndrome) Home Medications ?Medication ?Instructions ?Recorded ?Last Taken ?Type metoprolol succinate 25 mg 25 mg PO PRN 04/13/25 Unkno wn History tablet,extended release 24 hr albuterol sulfate 90 mcg/actuation 2 puff inhalation Q 4H PRN PRN 04/19/25 Unknown History aerosol inhaler wheezing norethindrone (contraceptive) 0.35 0.35 mg PO DAILY Unknown History mg tablet inhalational spacing device (Space #1 ea 04/22/25 Unkn own Rx Chamber) Allergy/AdvReac Type Severity Reaction Status Date / Time Penicillins Allergy Severe Hives Verified 04/22/25 13:50 Surgical History Hx of heart surgery Social History Smoking Status: Current every day smoker tobacco type: cigarettes ROS ROS ED Constitutional Constitutional ED: Denies chills or fever(s) Eyes Eyes: Denies blurry vision or change in vision ENT ENT ED: Denies sore throat Cardiovascular Cardiovascular: Reports other Details: Positive syncope Respiratory/Chest Respiratory/Chest: Denies cough or dyspnea Gastrointestinal Gastrointestinal: Reports nausea and vomiting; Denies abdominal pain or diarrhea Musculoskeletal Musculoskeletal: Reports other Details: Positive right rib/chest wall pain Integumentary Denies Abrasions Neurologic Neurologic: Reports headache(s) Hematologic/Lymphatic Hematologic/Lymphatic: Denies easy bleeding or easy bruising EXAM Physical Exam Const Vital Signs: 05/21/25 00:21 05/21/25 02:06 Temperature 98.4 F 98.4 F Temperature Source Oral Pulse Rate 106 H 89 Respiratory Rate 14 16 Blood Pressure 133/90 H 117/67 Blood Pressure Mean 104 83 Pulse Ox 100 99 Oxygen Delivery Method Room Air Positive well nourished and well developed General Appearance ED: well developed HEENT HEENT Narrative: Patient has a 1 x 1 cm to the occipital portion of the scalp consistent with head injury. However no signs of depressed or basilar skull fracture Eyes EOMs intact bilaterally Eyes Narrative: Pupils are dilated and sluggish to respond to light consistent with history of alcohol use There is mild scleral injection bilaterally consistent with alcohol use as well Neck supple Neck Narrative: No bony deformity or step-off of the cervical spine no midline tenderness to palpation Chest Wall Chest Narrative: There is right anterior lateral chest wall pain along rib regions 8-10 without bony deformity or crepitance consistent with report of chest wall injury No overlying abrasions or ecchymosis Resp normal respiratory effort and clear to auscultation bilaterally Cardio regular rate and regular rhythm Rate: other Other Details: Heart is regular rate and rhythm Radial and carotid pulses are equal and symmetric GI normal to inspection, nondistended, normoactive bowel sounds, non-tender, non- distended and no masses GI Narrative: No overlying abrasions or ecchymosis to the abdominal wall No voluntary guarding or rigidity Auscultation: normoactive bowel sounds Palpation: soft Extremity normal to inspection Extremity Narrative: No signs of long bone injury such as bony deformity or joint effusion Neuro oriented x3 and CN's II-XII intact bilaterally Neuro Narrative: Patient is intoxicated but has a GCS of 15 Cranial nerves II through XII are grossly intact without focal neurologic deficit Sensorium / Orientation: alert Psych mental status grossly normal Skin Skin Narrative: Small hematoma to the occipital portion of the scalp consistent with history of head trauma Otherwise no overlying abrasions or ecchymosis MDM MDM MDM Narrative Medical decision making narrative: Patient reported drinking this evening and then having a mechanical fall which led to a right rib injury. In order to assess for rib fracture versus rib contusion versus pneumothorax or pulmonary contusion I did elect to perform a noncontrast CT of the chest. As patient also states she had a bout of syncope following trauma where she also struck her head there is concern for traumatic skull fracture versus traumatic subarachnoid or subdural hemorrhage so CT of the brain was obtained. Imaging studies revealed no acute finding. On reevaluation she is resting comfortably and vitals are stable. Therefore as we have a reason for the fall and the fact she was intoxicated and lost her balance and have ruled out underlying trauma I do not feel there is need for further intervention or workup and she is otherwise safe for discharge. History & Record Review Discussion w/independent historian: Patient Radiography Diagnostic Testing: Clinical Impression(s) from Imaging Studies Brain CT 05/21/25 00:37 IMPRESSION: No acute intracranial process. Reading Location: [facility] Chest CT 05/21/25 00:37 IMPRESSION: Coronary artery calcification (CAC) is absent No CT evidence of an acute abnormality. No rib fracture is identified. Reading Location: [place] [address] Discharge Plan Triage Chief Complaint: Chest Other ED Provider: Checo Dwyer Dx/Rx/DC Orders Clinical Impression: Closed head injury, Contusion of rib on right side, Alcohol intoxication Instructions: ED Alcohol Intoxication, ED Head Injury (Adult), ED Bruise, Rib Prescriptions: No Action metoprolol succinate 25 mg tablet extended release 24 hr 25 mg PO PRN albuterol sulfate 90 mcg/actuation HFA aerosol inhaler 2 puff inhalation Q4H PRN PRN (Reason: wheezing) norethindrone (contraceptive) 0.35 mg tablet 0.35 mg PO DAILY (DME) Space Chamber Spacer See Rx Instructions .Route Qty: 1 0RF Rx Instructions: As directed Primary Care Provider: Yaneth Camarena NP Referrals: Yaneth Camarena SKIN FITTER, SKIN FITTER-C [Primary Care Provider, Family Practice] Activity Restrictions/Additional Instructions: The CT scan revealed no sign of skull fracture or brain bleed. The CT scan of your chest also showed no sign of rib fracture or hole in your lung or bleeding. This indicates that you have a contusion to your ribs which will typically take roughly 2 to 3 weeks to heal. Continue [id number] medication as well as topical treatments such as lidocaine or IcyHot. Return to the ER should you have any further concerns Print Language: Divehi Disposition Disposition: Home, Self Care Discharge Date/Time: 05/21/25 03:01
[2025-05-21 02:06] VITALS: BP 117/67; PULSE 89; RESP 16; TEMP 36.9; O2SAT 99
== END 2025-05-21 03:01 | disposition home or self-care (01) ==
PROVIDERS: Emergency Provider Emergency Medicine; PCP Nurse Practitioner Family; Visit Provider Emergency Medicine
DX: S09.90XA Unspecified injury of head, initial encounter (principal); F10.129 Alcohol abuse with intoxication, unspecified; S20.211A Contusion of right front wall of thorax, initial encounter; R55 Syncope and collapse; F17.210 Nicotine dependence, cigarettes, uncomplicated; W01.190A Fall on same level from slipping, tripping and stumbling with subsequent striking against furniture, initial encounter
CPT/HCPCS: 70450; 71250; 99284